=== PATIENT | male | born 1970 | race African-American/Black ===

== ENCOUNTER 2020-08-07 23:53 | Emergency (ER) | payer MEDICAID, SELFPAY ==
[2020-08-08 00:03] VITALS: PULSE 74; RESP 16; TEMP 36.1; O2SAT 98; BMI 20.1
--- NOTE | 2020-08-08 00:05 | ED.LOWEXIN ---
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 apparently fell earlier today complaining of pain in the stump able to wear the prosthesis and ambulatory without significant distress no other injuries patient is homeless asking for the food on arrival Related Data Allergies Allergy/AdvReac Type Severity Reaction Status Date / Time No Known Allergies Allergy Unverified 06/07/20 15:14 [No Known Allergies*] Review of Systems Review of Systems: Yes all other systems are reviewed and are negative [facility] Social History Social History Advance Directives: No Advance Directives Information Provided: No Physical Exam Vital Signs: Vital Signs: Last Vital Signs Temp 97 F 08/08/20 00:03 Pulse 74 08/08/20 00:03 Resp 16 08/08/20 00:03 Pulse Ox 98 08/08/20 00:03 Body Mass Index 20.1 Const: General: cooperative, healthy appearing, comfortable and no acute distress Orientation/consciousness: oriented to person and oriented to place Resp: Effort & Inspection: normal respiratory effort Auscultation: clear to auscultation bilaterally Cardio: Rate: regular rate Rhythm: regular rhythm Heart sounds: S1 normal heart sound present and S2 normal heart sound present GI: Inspection: Yes normal to inspection Palpation (GI): Soft to palpation and nontender Neuro: General: oriented to person and oriented to place Extrem: General: Yes normal to inspection Upper/lower leg/hip images: 1. Mild muscular tenderness no swelling no bony tenderness patient able to move his stump normally Course Course Course Narrative: Patient clinically does not seems to have any significant injury patient asking for food on arrival examination revealed slight muscular tenderness in the right stump patient ambulate in the ER with prosthesis will discharge him Discharge Plan Discharge Clinical Impression: Strain of flexor muscle of right hip Qualifiers: Encounter type: initial encounter Qualified Code(s): S76.011A - Strain of muscle, fascia and tendon of right hip, initial encounter Patient Disposition: Home, Self-Care Instructions: Musculoskeletal Pain (ED) Additional Instructions: Care as advised take Tylenol for pain if needed
--- NOTE | 2020-08-08 00:07 | PC.NURSE ---
MD AT BEDSIDE. PT GIVEN SANDWICH AND DRINK. PT UP AND AMBULATES W/O DIFFICULTY,
== END 2020-08-08 00:29 | disposition home or self-care (01) ==
PROVIDERS: Emergency Provider Internal Medicine
DX: S76.011A Strain of muscle, fascia and tendon of right hip, initial encounter (principal); M25.551 Pain in right hip; X58.XXXA Exposure to other specified factors, initial encounter; Y93.9 Activity, unspecified; Y92.9 Unspecified place or not applicable; Y99.9 Unspecified external cause status
CPT/HCPCS: 99283

== ENCOUNTER 2020-11-19 03:45 | Emergency (ER) | payer MEDICAID, SELFPAY ==
[2020-11-19 03:50] VITALS: BP 132/84; PULSE 83; RESP 16; TEMP 36.8; O2SAT 95; BMI 18.2
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
[2020-11-19] MEDS: Acetaminophen 325 MG TABLET 975 MG PO (05:39)
[2020-11-19] MEDS: Ibuprofen 400 MG TABLET PO (05:40)
[2020-11-19 06:00] VITALS: RESP 16
== END 2020-11-19 07:13 | disposition home or self-care (01) ==
PROVIDERS: Emergency Provider Student in an Organized Health Care Education/Training Program
DX: M79.605 Pain in left leg (principal); M79.604 Pain in right leg; B35.1 Tinea unguium; Z89.511 Acquired absence of right leg below knee
CPT/HCPCS: 99283; 99284

== ENCOUNTER 2020-11-26 00:11 | Emergency (ER) | payer MEDICAID, SELFPAY ==
[2020-11-26 00:16] VITALS: BP 146/72; BP 164/98; PULSE 80; PULSE 89; RESP 16; TEMP 36.6; O2SAT 98; BMI 18.2
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
--- NOTE | 2020-11-26 00:29 | PC.NURSE ---
at bedside for primary eval. Pt extremely unkempt, smelling foul, agreeable to a shower, provided with clean clothes. Pt requesting food/drink, provided with a sandwich/gingerale upon return from shower. Pt to pod in wheelchair to shower.
[2020-11-26] MEDS: Acetaminophen 325 MG TABLET 650 MG PO (00:49)
--- NOTE | 2020-11-26 00:53 | PC.NURSE ---
Pt returns from the shower, medicated per MAR, provided with food/drink. Call alvarez within reach, continue to monitor.
--- NOTE | 2020-11-26 01:00 | PC.NURSE ---
This pct showered pt in the pod , pts clothes are being washed. pt got new clothes and is eating and resting comfortable in room 11. rn aware
[2020-11-26 02:39] VITALS: RESP 16
[2020-11-26 05:03] VITALS: RESP 16
--- NOTE | 2020-11-26 06:01 | PC.NURSE ---
Plan to DC home via hospital van @ 0700.
[2020-11-26 06:02] VITALS: BP 134/72; PULSE 86; RESP 16
--- NOTE | 2020-11-26 06:23 | PC.NURSE ---
This RN calling [facility]. Per Stacie, no independent driver available until 0800. Breakfast ordered for pt, pt aware of plan for discharge @ 0800. Pt resting in bed in NAD at this time.
== END 2020-11-26 07:52 | disposition home or self-care (01) ==
PROVIDERS: Emergency Provider Emergency Medicine
DX: B35.1 Tinea unguium (principal); M79.604 Pain in right leg; Z59.0 Homelessness; F19.10 Other psychoactive substance abuse, uncomplicated; Z89.611 Acquired absence of right leg above knee; F17.200 Nicotine dependence, unspecified, uncomplicated
CPT/HCPCS: 99283; 99284

== ENCOUNTER 2020-12-02 22:38 | Emergency (ER) | payer MEDICAID, SELFPAY ==
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
[2020-12-02 23:21] VITALS: BP 126/72; PULSE 84; RESP 16; TEMP 36.5; O2SAT 97; BMI 22.8
== END 2020-12-03 01:30 | disposition home or self-care (01) ==
PROVIDERS: Emergency Provider Internal Medicine
DX: L84 Corns and callosities (principal); M79.672 Pain in left foot; F14.90 Cocaine use, unspecified, uncomplicated; F17.200 Nicotine dependence, unspecified, uncomplicated; Z71.6 Tobacco abuse counseling
CPT/HCPCS: 99283

== ENCOUNTER 2020-12-03 04:47 | Emergency (ER) | payer MEDICAID, SELFPAY ==
[2020-12-03] VITALS (8 sets, daily range): BP systolic 113–126; BP diastolic 60–72; PULSE 65–91; RESP 16–18; TEMP 36.3–37.1; O2SAT 96–99; BMI 21.2
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
[2020-12-03 05:45] LABS: Basophils Percent Auto 0.4 % (0-2); Eosinophils Percent Auto 0.6 % (0-4); Hematocrit 41.7 % (42-52); Hemoglobin 13.5 g/dl (14.0-18.0); Imm Gran Abs Auto 0.01 X10*3/uL (0.00-0.03); Imm Gran Pct Auto 0.2 % (0.0-0.4); Lymphocytes Absolute Auto 1.6 X10*3/uL (1.2-4.9); Lymphocytes Percent Auto 33.8 % (20-40); Mean Corpuscular HGB Conc 32.4 g/dl (31.0-36.0); Mean Corpuscular Hemoglobin 28.7 pg (27.0-33.0); Mean Corpuscular Volume 88.5 fL (80-98); Mean Platelet Volume 9.9 fL (9.4-12.4); Monocytes Absolute Auto 0.7 X10*3/uL (0.1-1.2); Monocytes Percent Auto 13.4 % (2-11); Neutrophils Absolute Auto 2.5 X10*3/uL (2.0-8.3); Neutrophils Percent Auto 51.6 % (45-73); Platelet Count 217 X10*3/uL (160-400); Red Blood Count 4.71 X10*6/uL (4.60-5.80); Red Cell Distribution Width 14.6 % (11.0-16.0); White Blood Count 4.9 X10*3/uL (4.8-10.8)
[2020-12-03 05:46] LABS: MANUAL DIFF FLAG NO
[2020-12-03 06:23] LABS: Ethanol < 10 mg/dL
[2020-12-03 06:29] LABS: Alanine Aminotransferase 31 U/L (0-40); Albumin Level 3.5 g/dL (3.5-5.0); Alkaline Phosphatase 78 U/L (39-117); Anion Gap 11 (12-20); Aspartate Amino Transferase 32 U/L (5-37); Bilirubin Total 0.6 mg/dL (0.0-1.0); Blood Urea Nitrogen 15 mg/dL (9-16); Calcium 7.9 mg/dL (8.4-10.2); Carbon Dioxide 27 mmol/L (22-29); Chloride 104 mmol/L (96-108); Creatinine Clr Calc Pharmacy 101.4; Estimated Glomerular Filt Rate > 60; Glucose Random 99 mg/dL (60-115); Potassium 3.5 mmol/L (3.3-5.1); Sodium 138 mmol/L (135-145); Total Protein 6.2 g/dL (6.5-8.0)
[2020-12-03 07:34] LABS: Appearance Urine CLEAR; Color Urine YELLOW; Glucose Urine UA NEG (NEG); Leukocyte Esterase Urine NEG (NEG); Nitrite Urine NEG (NEG); Specific Gravity - Urine 1.015 (1.005-1.025); Urine Blood NEG (NEG); Urine Ketones NEG (NEG); Urine Protein NEG (NEG-TRACE)
[2020-12-03 08:01] LABS: Amphetamine Screen Urine Not Detected (Not Detect); Barbiturates, Urine Not Detected (Not Detect); Benzodiazepines Screen Urine Not Detected (Not Detect); Cannabinoid Screen Urine POSITIVE (Not Detect); Cocaine Screen Urine POSITIVE (Not Detect); Opiate Screen Urine Not Detected (Not Detect); Phencyclidine Screen Urine Not Detected (Not Detect)
--- NOTE | 2020-12-03 10:15 | PC.NURSE ---
pt a/o x 3 no sob/lara noted skin pink warm dry speaks in full sentences. protsthetic leg above r knee. denies any pain/disc. pt requested/given saltines and oj earlier. pt ate 100% for breakfast.
[2020-12-03 10:20] LABS: COVID-19 Test Positive (Negative); IDNOW Serial# 9DD0AD1C
--- NOTE | 2020-12-03 10:48 | PC.NURSE ---
pt moved into room 3 d/t positive covid swab
--- NOTE | 2020-12-03 16:19 | PC.NURSE ---
call placed to care team to see if they can see pt. will contact us back.
--- NOTE | 2020-12-03 18:31 | PC.NURSE ---
[facility] here to evandre pt
[2020-12-03] MEDS: Albuterol Sulfate 90 MCG 8 GM INHALER 2 PUFF INHALE (19:50)
--- NOTE | 2020-12-03 19:52 | PC.NURSE ---
PT ATE FULL DINNER, AWAKE AND ALERT. PT IN NO DISTRESS. PLAN IS TO SEND PATIENT BACK TO CARE HOME LOCATED AT [facility] BY CHAIR VAN. PT IS COVID POSITIVE AND CAN'T GO BY CAB. PT HAS RIGHT AKA.
== END 2020-12-03 20:50 | disposition home or self-care (01) ==
PROVIDERS: Physician Assistant; Emergency Provider Student in an Organized Health Care Education/Training Program
DX: F32.9 Major depressive disorder, single episode, unspecified (principal); U07.1 COVID-19; R45.851 Suicidal ideations; F14.20 Cocaine dependence, uncomplicated; Z89.611 Acquired absence of right leg above knee; F17.200 Nicotine dependence, unspecified, uncomplicated
CPT/HCPCS: 36415; 80053; 80307; 80320; 81003; 85025; 87635; 99285

== ENCOUNTER 2020-12-17 04:34 | Emergency (ER) | payer MEDICAID, SELFPAY ==
[2020-12-17 04:42] VITALS: BP 137/80; BP 138/80; PULSE 70; PULSE 72; RESP 16; TEMP 36.8; O2SAT 96; O2SAT 98; BMI 18.2
--- NOTE | 2020-12-17 04:56 | PC.NURSE ---
PT REPORTS THAT HE LIVES AT THE [facility] IN [place]. PT IMMEDIATELY ASKED FOR SOMETHING TO EAT AND DRINK. PT REMOVED PROSTHETIC LEG, STUMP LOOKS WET. PT'S LEFT FOOT WET WITH FLAKING SKIN WHEN WET SOCK REMOVED. PT GIVEN CLEANSING WIPES TO CLEAN HIMSELF UP. PT ALSO GIVEN CLEAN SOCKS, UNDERWEAR AND SWEATPANTS.
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
[2020-12-17 06:12] LABS: Basophils Percent Auto 0.4 % (0-2); Eosinophils Absolute Auto 0.1 X10*3/uL (0.0-0.4); Eosinophils Percent Auto 1.1 % (0-4); Hematocrit 46.4 % (42-52); Hemoglobin 14.6 g/dl (14.0-18.0); Imm Gran Abs Auto 0.02 X10*3/uL (0.00-0.03); Imm Gran Pct Auto 0.3 % (0.0-0.4); Lymphocytes Absolute Auto 1.6 X10*3/uL (1.2-4.9); Lymphocytes Percent Auto 21.1 % (20-40); MANUAL DIFF FLAG NO; Mean Corpuscular HGB Conc 31.5 g/dl (31.0-36.0); Mean Corpuscular Hemoglobin 27.9 pg (27.0-33.0); Mean Corpuscular Volume 88.5 fL (80-98); Mean Platelet Volume 10.2 fL (9.4-12.4); Monocytes Absolute Auto 0.6 X10*3/uL (0.1-1.2); Monocytes Percent Auto 8.3 % (2-11); Neutrophils Absolute Auto 5.1 X10*3/uL (2.0-8.3); Neutrophils Percent Auto 68.8 % (45-73); Platelet Count 300 X10*3/uL (160-400); Red Blood Count 5.24 X10*6/uL (4.60-5.80); Red Cell Distribution Width 14.4 % (11.0-16.0); White Blood Count 7.4 X10*3/uL (4.8-10.8)
[2020-12-17 06:34] LABS: Alanine Aminotransferase 34 U/L (0-40); Albumin Level 3.9 g/dL (3.5-5.0); Alkaline Phosphatase 86 U/L (39-117); Anion Gap 13 (12-20); Aspartate Amino Transferase 32 U/L (5-37); Bilirubin Total 0.3 mg/dL (0.0-1.0); Blood Urea Nitrogen 16 mg/dL (9-16); Calcium 8.8 mg/dL (8.4-10.2); Carbon Dioxide 29 mmol/L (22-29); Chloride 107 mmol/L (96-108); Creatinine Clr Calc Pharmacy 91.5; Estimated Glomerular Filt Rate > 60; Glucose Random 100 mg/dL (60-115); Potassium 3.4 mmol/L (3.3-5.1); Sodium 146 mmol/L (135-145)
--- NOTE | 2020-12-17 06:51 | PC.NURSE ---
PT GIVEN SANDWICHES AND A FEW SODA'S.
[2020-12-17 07:32] VITALS: BP 114/67; PULSE 97; RESP 16; O2SAT 99
== END 2020-12-17 08:04 | disposition home or self-care (01) ==
PROVIDERS: Emergency Provider Student in an Organized Health Care Education/Training Program
DX: T84.84XA Pain due to internal orthopedic prosthetic devices, implants and grafts, initial encounter (principal); L89.899 Pressure ulcer of other site, unspecified stage; Z89.611 Acquired absence of right leg above knee; B35.1 Tinea unguium; F14.90 Cocaine use, unspecified, uncomplicated
CPT/HCPCS: 36415; 80053; 85025; 99284

== ENCOUNTER 2021-12-20 17:44 | Emergency (ER) | payer MEDICAID, SELFPAY ==
[2021-12-20 18:47] VITALS: BP 143/92; PULSE 81; RESP 18; TEMP 36.6; O2SAT 143; BMI 22.5
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
== END 2021-12-20 19:32 | disposition home or self-care (01) ==
PROVIDERS: Emergency Provider Emergency Medicine Emergency Medical Services
DX: H10.9 Unspecified conjunctivitis (principal); H02.843 Edema of right eye, unspecified eyelid
CPT/HCPCS: 99283

== ENCOUNTER 2023-05-07 10:56 | Outpatient (REF) | payer MEDICAID, SELFPAY ==
[2023-05-07 15:02] LABS: Alanine Aminotransferase 130 U/L (0-40); Albumin Level 3.6 g/dL (3.5-5.0); Alkaline Phosphatase 75 U/L (39-117); Aspartate Amino Transferase 89 U/L (5-37); Bilirubin Direct 0.5 mg/dL (0.0-0.5); Bilirubin Total 0.8 mg/dL (0.0-1.0); Total Protein 7.9 g/dL (6.5-8.0)
[2023-05-08 04:38] LABS: HBS Num1 > 1000.00 mIU/mL (0-7.99); HBc Num1 0.14 S/CO (0.00-0.79); HBsAGNum1 0.41 S/CO (0.00-0.99); Hepatitis A Antibody IgM 0.18 Index (0-0.79); Hepatitis B Core Antibody Nonreactive (Nonreactive); Hepatitis B Surface Antigen Negative (Negative); ~HepC Num1 15.08 S/CO (0.00-0.79); ~Hepatitis A Antibody IgM Nonreactive (Nonreactive); ~Hepatitis B Surface Antibody REACTIVE (Nonreactive); ~Hepatitis C Antibody Reactive (Nonreactive)
[2023-05-13 16:48] LABS: HIV RNA PCR Qn Copies Not Detected Copies/mL; HIV RNA PCR Qn Log Copies Not Detected Log cps/mL
== END 2023-05-07 10:57 | disposition home or self-care (01) ==
LOC: HO.CHCLDS 10:56
PROVIDERS: Visit Provider Internal Medicine
DX: Z11.4 Encounter for screening for human immunodeficiency virus [HIV] (principal); R79.89 Other specified abnormal findings of blood chemistry
CPT/HCPCS: 36415; 80076; 86704; 86706; 86709; 86803; 87340; 87536; 87900

== ENCOUNTER 2023-06-23 22:27 | Emergency (ER) | payer MEDICAID, SELFPAY ==
[2023-06-23 22:45] VITALS: BP 141/72; PULSE 90; RESP 20; TEMP 36.1; O2SAT 100; BMI 25.8
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
[2023-06-24 01:50] VITALS: BP 159/87; PULSE 100; RESP 16; O2SAT 94
== END 2023-06-24 02:22 | disposition home or self-care (01) ==
PROVIDERS: Emergency Provider Emergency Medicine
DX: F11.10 Opioid abuse, uncomplicated (principal); Z59.00 Homelessness unspecified; Z71.51 Drug abuse counseling and surveillance of drug abuser
CPT/HCPCS: 99282; 99284

== ENCOUNTER 2023-06-27 10:10 | Inpatient (IN) | payer MEDICAID, SELFPAY ==
[2023-06-27 10:25] VITALS: BP 110/78; BP 138/78; PULSE 102; PULSE 98; RESP 18; TEMP 36.8; O2SAT 96; O2SAT 99; BMI 18.1
[2023-06-27 10:57] VITALS: PULSE 98
--- NOTE | 2023-06-27 10:59 | PC.NURSE ---
Addendum entered by Justina Duran RN 06/27/23 11:12: Security changed over patient and brought belongings to [facility] Original Note: Pt is A/Ox4, reporting a fall this morning, abrasion noted on nasal bridge bleeding controlled. Pt has a BKA on the right side. Right elbow noted to be swollen, red, warm to touch. Pt desires detox from Crack/ Reporting he is a daily crack cocaine uses pt reporting he used heroin last night at 3am. Denies ETOH use since using crack. He is currently homeless/ couch surfing.
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
[2023-06-27 15:28] VITALS: BP 126/81; PULSE 97; RESP 15; TEMP 38.2; O2SAT 100
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
--- NOTE | 2023-06-27 17:22 | PHA.MEDREC ---
Addendum entered by David Tan 06/28/23 09:19: Called again today in regards to [facility] ([phone]), however the medication team for [facility] and [facility] program are not in the office during the weekend. Will have to follow up on Thursday if patient is still here. Original Note: Pharmacy Consult ? Medication Reconciliation Pharmacy has completed the medication reconciliation. Patient mentioned that he takes 3 psych medications and gets them filled at [facility] in [facility] in [place]. However, the patient does not know what exactly they take and only remembers that they take Abilify (unknown dose). I called them and left a message, but they are not in the office for the rest of day. Will follow up tomorrow AM.
[2023-06-27 18:44] VITALS: TEMP 37.4
--- NOTE | 2023-06-27 18:46 | PC.NURSE ---
Attempted to give nursing report to admitting floor, was told night nurse was not currently on the floor to take report, and to call back in 10 minutes
[2023-06-27 19:40] VITALS: BMI 18.0
[2023-06-27 19:47] VITALS: BP 121/62; PULSE 89; RESP 18; TEMP 37.4; O2SAT 98
[2023-06-28 04:00] VITALS: BP 116/57; PULSE 102; RESP 20; TEMP 36.8; O2SAT 95
--- NOTE | 2023-06-28 05:19 | PC.NURSE ---
Pt admitted to the tele unit at the start of the shift. C/o 6/10 right elbow pain. given PRN oxycodone with moderate effect. pt has scored 0-1 in CIWA. slept most of the night. bed alarm activated for safety.
[2023-06-28 07:22] LABS: Hematocrit 39.3 % (42.0-52.0); Mean Corpuscular HGB Conc 33.1 g/dl (31.0-36.0); Mean Corpuscular Hemoglobin 28.8 pg (27.0-33.0); Mean Corpuscular Volume 86.9 fL (80.0-98.0); PLT CLUMP 1; Red Blood Count 4.52 X10*6/uL (4.60-5.80); Red Cell Distribution Width 15.5 % (11.0-16.0)
[2023-06-28 07:23] LABS: White Blood Count 8.7 X10*3/uL (4.8-10.8)
[2023-06-28 07:49] VITALS: BP 131/76; PULSE 109; RESP 20; TEMP 37; O2SAT 92
[2023-06-28 08:00] VITALS: PULSE 92
[2023-06-28 08:07] LABS: Mean Platelet Volume 12.3 fL (9.4-12.4); Platelet Count 160 X10*3/uL (160-400)
--- NOTE | 2023-06-28 10:58 | MHC.CM.PN ---
Interview conducted w/Pt at bedside. Pt lives in [facility]: [address] in [place], located on [address] This arrangement is a weekly payment conducted by [facility] through [facility] per Pt. He has his primary care needs met through [facility], but does not remember the name of the physician. Transportation needs are met through [facility] via [facility]. Pt's only previously owned equipment is a lower extremity prosthesis (prosthesis is here at [facility] [place] him[place] Pt will require transport to be set up for him by [facility] at time of D/C. Pt states he absolutely must be present at [place] [employer] no later than 07/02/23 to register in person, as required by him every 30 days, so as to avoid returning to assisted. Pt indicates hospitalization is not considered a viable reason not to appear (when CM inquired RE this discussion/topic). CM report to MD. WILL to follow.
--- NOTE | 2023-06-28 11:35 | HO.PM.IMPN ---
Subjective Subjective Date of Service: 06/28/23 Interval History: seen and examined this morning had episode of vomiting this morning denies abdominal pain no fever or chills still with painful right elbow Review of Systems Review of Systems: Yes all other systems are reviewed and are negative Constitutional Constitutional: Denies chills and Denies fever(s) Cardiovascular Cardiovascular: Denies chest pain, Denies palpitations and Denies dyspnea Respiratory Respiratory: Denies cough and Denies dyspnea Gastrointestinal Gastrointestinal: Denies abdominal pain, Denies diarrhea, Denies nausea and Reports vomiting Endocrine Endocrine: Denies palpitations Physical Exam Vital Signs: Vital Signs: Last Vital Signs Temp 98.6 F 06/28/23 07:49 Pulse 109 H 06/28/23 07:49 Resp 20 06/28/23 07:49 BP 131/76 06/28/23 07:49 Pulse Ox 92 06/28/23 07:49 O2 Del Method Room Air 06/28/23 07:49 BMI result Body Mass Index 18.0 Const: General: cooperative, comfortable, alert and awake Nutritional Appearance: thin Orientation/consciousness: patient oriented x3 HEENT: Other: abrasion forehead and bridge of nose Resp: Effort & Inspection: normal respiratory effort, able to speak in complete sentences, no respiratory distress and no use of accessory muscles Cardio: Rate: regular rate GI: Inspection: No distended Palpation (GI): Soft to palpation and nontender Skin: Other: right elbow slight decrease is swelling, still with limited ROM at elbow joint. no open wounds or drainage Neuro: General: patient oriented x3 and CN's II-XI intact bilaterally Extrem: Other: s/p R AKA Objective Data Active Medications Docusate Sodium (Docusate Sodium 100 Mg Capsule) 100 mg PO DAILY PRN PRN Reason: Constipation Enoxaparin Sodium (Enoxaparin Sodium 40 Mg/0.4 Ml Syringe) 40 mg SUBCUT Q24H [facility] Last Admin: 06/27/23 19:13 Dose: Not Given Documented By: JULIO C Non-Admin Reason: Patient Refused Piperacillin Sod/Tazobactam (Sod 3.375 gm/ Sodium Chloride) 50 mls @ 100 mls/hr IV Q6H [facility] Last Infusion: 06/28/23 10:30 Dose: Infused Documented By: JUNIOR Vancomycin HCl 750 mg/ Sodium (Chloride) 265 mls @ 265 mls/hr IV Q12H [facility] Last Infusion: 06/28/23 06:49 Dose: Infused Documented By: NIK Ondansetron HCl (Ondansetron Hcl 4 Mg/2 Ml Vial) 4 mg IVPUSH Q8H PRN PRN Reason: Nausea and Vomiting Last Admin: 06/28/23 06:49 Dose: 4 mg Documented By: NIK Oxycodone HCl (Oxycodone Hcl Immed Release 5 Mg Tablet) 5 mg PO Q6H PRN PRN Reason: Pain, Moderate(Pain Scale 4-6) Last Admin: 06/28/23 10:00 Dose: 5 mg Documented By: JUNIOR Pharmacy Consult (Consult Rx Vancomycin Dosing) 1 each MISCELLANE DAILY PRN PRN Reason: Consult order Sodium Chloride (0.9 % Sodium Chloride Flush 3 Ml Syringe) 3 ml IVFLUSH QSHIFT [facility] Last Admin: 06/28/23 10:01 Dose: 3 ml Documented By: JUNIOR Labs 06/28/23 06:06 06/28/23 06:06 Labs: Laboratory Results - last 24 hr 06/27/23 06/27/23 06/28/23 13:30 16:05 06:06 MCV 85.9 86.9 MCH 29.1 28.8 MCHC 33.9 33.1 RDW 15.7 15.5 Plt Count 224 160 D MPV 10.1 12.3 Immature Gran % (Auto) 0.1 Neut % (Auto) 71.4 Lymph % (Auto) 17.6 L [place] % (Auto) 10.8 Eos % (Auto) 0.0 Baso % (Auto) 0.1 Lymph # (Auto) 1.8 [place] # (Auto) 1.1 Eos # (Auto) 0.0 Baso # (Auto) 0.0 Abs Immat Gran (auto) 0.01 Absolute Neuts (auto) 7.4 Absolute Nucleated RBC 0.000 0.000 Nucleated RBC % (auto) 0.0 0.0 ESR 13 Estim Creat Clear Calc 92.3 Estimated GFR > 60 C-Reactive Protein 8.23 H Hold Green Top See Note Assessment and Plan (1) Cellulitis: Status: Acute Plan this is a 53 year old male with history of polysubstance use who was sent to the ED from the [facility] for evaluation of facial laceration after sustaining injury in accidental drug overdose found to have right elbow swelling/joint effusion Right elbow pain/joint effusion possibly due to trauma given possible avulsion fracure/triceps tendon tear on xray vs infectious process vs gout CT with no fracture or bony lesion, bursal prominence suggesting bursitis no white count, low grade fever, does not meet criteria for sepsis ortho consult pending will cover with broad spectrum abx for now given low grade fever, h/o drug use sling for comfort pain control follow blood culture results polysubstance use reports use of crack, heroin/fentanyl, marijuana; denies IV drug use addiction medicine consult pending bipolar disorder says he takes meds but med rec pending at this time - pharmacy has been unable to obtain list thus far, pt unsure medication names h/o HCV outpatient follow up dvt ppx - lovenox code status - full code attending - dr. santana Requires ongoing inpatient stay for management of right elbow joint effusion Time Spent With Patient Time: Total time managing care of this patient today ____ minutes. Quality Stroke Does the patient have a stroke diagnosis?: No VTE Prior VTE?: No VTE Risk Level:: Medical - moderate - high VTE Device Contraindication: N/A - Device Ordered VTE Drug Contraindication: N/A - Med Ordered
--- NOTE | 2023-06-28 14:42 | PM.PNORT ---
Subjective Subjective Date of Service: 06/28/23 Principal diagnosis: Right elbow cellulitis Physical Exam Vital Signs: Vital Signs: Last Vital Signs Temp 98.6 F 06/28/23 07:49 Pulse 109 H 06/28/23 07:49 Resp 20 06/28/23 07:49 BP 131/76 06/28/23 07:49 Pulse Ox 92 06/28/23 07:49 O2 Del Method Room Air 06/28/23 07:49 BMI result Body Mass Index 18.0 Extrem: Other: RIght elbow cellulitis wihtout abcess. No pain with passive motion elbow joint Procedures Date of Service Date of Service: 06/28/23 Progress Note: A&P Assessment and plan (1) Cellulitis: Status: Acute Assessment and Plan: No evidence of septic arthritis Cont abx and will continue to follow No surgical intervention warranted at this time Time Spent With Patient Time: Total time managing care of this patient today ____ minutes. Quality Stroke Does the patient have a stroke diagnosis?: No VTE Prior VTE?: No VTE Risk Level:: Medical - moderate - high VTE Device Contraindication: N/A - Device Ordered VTE Drug Contraindication: N/A - Med Ordered
[2023-06-28 15:38] VITALS: BP 113/61; PULSE 94; RESP 12; TEMP 37.8; O2SAT 95
[2023-06-28 16:00] VITALS: PULSE 80
[2023-06-28 16:06] LABS: Vancomycin Random 6.5 mcg/mL (15-20)
--- NOTE | 2023-06-28 17:34 | MHC.RECOVRN ---
This credit underwriter met with patient, patient admitted for septic joint. Pt reports no questions/concerns at this time related to Addiction/Recovery supports. Pt denies withdrawal. Pt reports substance of choice is crack, plans at d/c to follow up with recovery meetings. Pt states found NA meetings helpful in the past. Pt encouraged to call Addiction/Recovery team for questions/concerns. Pt encouraged to walk in to [facility] [address] Thursday-Thursday 8:30-4pm if interested in MAT. Pt verbalized understanding.
[2023-06-28 19:37] VITALS: BP 132/79; PULSE 79; RESP 16; TEMP 36.8; O2SAT 96
[2023-06-29] VITALS: PULSE 79
[2023-06-29 04:00] VITALS: BP 142/81; PULSE 86; RESP 18; TEMP 37.1; O2SAT 96
[2023-06-29 07:59] VITALS: BP 131/79; PULSE 83; RESP 20; TEMP 36.7; O2SAT 94
[2023-06-29 08:00] VITALS: PULSE 83
--- NOTE | 2023-06-29 09:21 | PM.PNORT ---
Subjective Subjective Date of Service: 06/29/23 Principal diagnosis: Right elbow cellulitis Interval history: Feels improved from prior Physical Exam Vital Signs: Vital Signs: Last Vital Signs Temp 98.1 F 06/29/23 07:59 Pulse 83 06/29/23 07:59 Resp 20 06/29/23 07:59 BP 131/79 06/29/23 07:59 Pulse Ox 94 06/29/23 07:59 O2 Del Method Room Air 06/29/23 07:59 BMI result Body Mass Index 18.0 Extrem: Other: 5-95 deg motion No pain with pro/sub mild ttp over lateral epicondyl/olecranon bursa no appreciable fluid/abcess improved from yesterday (less tender) Procedures Date of Service Date of Service: 06/29/23 Progress Note: A&P Assessment and plan (1) Cellulitis: Status: Acute Assessment and Plan: No orthopasedic intervention warranted Cont medical management Time Spent With Patient Time: Total time managing care of this patient today ____ minutes. Quality Stroke Does the patient have a stroke diagnosis?: No VTE Prior VTE?: No VTE Risk Level:: Medical - moderate - high VTE Device Contraindication: N/A - Device Ordered VTE Drug Contraindication: N/A - Med Ordered
--- NOTE | 2023-06-29 11:29 | HO.PM.IMPN ---
Subjective Subjective Date of Service: 06/29/23 Interval History: seen and examined this morning denies abdominal pain no fever or chills still with painful right elbow but better Review of Systems Review of Systems: Yes all other systems are reviewed and are negative Constitutional Constitutional: Denies chills and Denies fever(s) Cardiovascular Cardiovascular: Denies chest pain, Denies palpitations and Denies dyspnea Respiratory Respiratory: Denies cough and Denies dyspnea Gastrointestinal Gastrointestinal: Denies abdominal pain, Denies diarrhea, Denies nausea and Reports vomiting Endocrine Endocrine: Denies palpitations Physical Exam Vital Signs: Vital Signs: Last Vital Signs Temp 98.1 F 06/29/23 07:59 Pulse 83 06/29/23 07:59 Resp 20 06/29/23 07:59 BP 131/79 06/29/23 07:59 Pulse Ox 94 06/29/23 07:59 O2 Del Method Room Air 06/29/23 07:59 BMI result Body Mass Index 18.0 Appearing in no acute distress lung sounds are clear to auscultation heart regular rate rhythm, clear S1, S2 positive bowel sounds, abdomen is soft, nontender neuro patient is alert x3, no focal deficits erythema to right elbow Objective Data Active Medications Acetaminophen (Acetaminophen 325 Mg Tablet) 650 mg PO Q6H PRN PRN Reason: fever, mild pain Last Admin: 06/28/23 15:52 Dose: 650 mg Documented By: JUNIOR Docusate Sodium (Docusate Sodium 100 Mg Capsule) 100 mg PO DAILY PRN PRN Reason: Constipation Enoxaparin Sodium (Enoxaparin Sodium 40 Mg/0.4 Ml Syringe) 40 mg SUBCUT Q24H [facility] Last Admin: 06/28/23 17:32 Dose: 40 mg Documented By: JUNIOR Piperacillin Sod/Tazobactam (Sod 3.375 gm/ Sodium Chloride) 50 mls @ 100 mls/hr IV Q6H [facility] Last Infusion: 06/29/23 10:01 Dose: Infused Documented By: MARY Vancomycin HCl 1,250 mg/ (Sodium Chloride) 250 mls @ 166.667 mls/hr IV Q12H [facility] Last Infusion: 06/29/23 07:54 Dose: Infused Documented By: MARY Ondansetron HCl (Ondansetron Hcl 4 Mg/2 Ml Vial) 4 mg IVPUSH Q8H PRN PRN Reason: Nausea and Vomiting Last Admin: 06/28/23 06:49 Dose: 4 mg Documented By: NIK Oxycodone HCl (Oxycodone Hcl Immed Release 5 Mg Tablet) 5 mg PO Q6H PRN PRN Reason: Pain, Moderate(Pain Scale 4-6) Last Admin: 06/29/23 09:11 Dose: 5 mg Documented By: MARY Pharmacy Consult (Consult Rx Vancomycin Dosing) 1 each MISCELLANE DAILY PRN PRN Reason: Consult order Sodium Chloride (0.9 % Sodium Chloride Flush 3 Ml Syringe) 3 ml IVFLUSH QSHIFT [facility] Last Admin: 06/29/23 09:03 Dose: 3 ml Documented By: MARY Labs 06/28/23 06:06 06/29/23 07:53 Labs: Laboratory Results - last 24 hr 06/28/23 06/29/23 15:39 07:53 Hold Purple Top SEE NOTE Estim Creat Clear Calc 100.5 Estimated GFR > 60 Random Vancomycin 6.5 L Microbiology Microbiology Results: Microbiology 06/27/23 17:35 Blood Culture - Preliminary Blood - Venous No growth after 24 hours. 06/27/23 16:05 Blood Culture - Preliminary Blood - Venous No growth after 24 hours. Assessment and Plan (1) Cellulitis: Status: Acute Plan this is a 53 year old male with history of polysubstance use who was sent to the ED from the [facility] for evaluation of facial laceration after sustaining injury in accidental drug overdose found to have right elbow swelling/joint effusion Right elbow pain/joint effusion possibly due to trauma given possible avulsion fracture/triceps tendon tear on xray vs infectious process vs gout CT with no fracture or bony lesion, bursal prominence suggesting bursitis no white count, low grade fever, does not meet criteria for sepsis ortho consult>no evidence of septic arthritis, continue abx, no surgical intervention at this time continue abx sling for comfort pain control blood cx neg polysubstance use reports use of crack, heroin/fentanyl, marijuana; denies IV drug use addiction medicine consult pending bipolar disorder says he takes meds but med rec pending at this time - pharmacy has been unable to obtain list thus far, pt unsure medication names h/o HCV outpatient follow up dvt ppx - lovenox code status - full code attending - dr. Davies Requires ongoing inpatient stay for management of right elbow joint effusion Time Spent With Patient Time: Total time managing care of this patient today ____ minutes. Quality Stroke Does the patient have a stroke diagnosis?: No VTE Prior VTE?: No VTE Risk Level:: Medical - moderate - high VTE Device Contraindication: N/A - Device Ordered VTE Drug Contraindication: N/A - Med Ordered
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
--- NOTE | 2023-06-29 12:45 | MHC.CM.PN ---
Patient has been medically cleared for dc to home today, self care.
== END 2023-06-29 12:46 | disposition home or self-care (01) | DRG 383 ==
LOC: HO.ED 15:37 → HO.EDOVER 16:49 → HO.IMC 18:16
PROVIDERS: Admitting Provider Physician Assistant Medical; Emergency Provider Emergency Medicine Emergency Medical Services; Visit Provider Nurse Practitioner Acute Care
DX: L03.113 Cellulitis of right upper limb (principal); Z89.611 Acquired absence of right leg above knee; F17.210 Nicotine dependence, cigarettes, uncomplicated; M70.31 Other bursitis of elbow, right elbow; F19.90 Other psychoactive substance use, unspecified, uncomplicated; Z71.6 Tobacco abuse counseling; F31.9 Bipolar disorder, unspecified; Z86.19 Personal history of other infectious and parasitic diseases
CPT/HCPCS: 36415; 70450; 70486; 72125; 73080; 73200; 80048; 80202; 80307; 82565; 85025; 85027; 85652; 86140; 87040; 93005; 99222; 99285; J1650; J2405; J2543; J3370; J3371

== ENCOUNTER → 2023-06-27 16:31 | Outpatient (BNV) | payer MEDICAID, SELFPAY | PROVIDERS: Admitting Provider Physician Assistant Medical; Emergency Provider Emergency Medicine Emergency Medical Services; Visit Provider Physician Assistant Medical | DX: L03.113 Cellulitis of right upper limb (principal) | CPT/HCPCS: 99223; 99232; 99239 ==

== ENCOUNTER → 2023-06-27 16:31 | Outpatient (BNV) | payer MEDICAID, SELFPAY | PROVIDERS: Admitting Provider Physician Assistant Medical; Emergency Provider Emergency Medicine Emergency Medical Services; Visit Provider Orthopaedic Surgery | DX: L03.90 Cellulitis, unspecified (principal) | CPT/HCPCS: 99232 ==

== ENCOUNTER 2023-12-21 11:02 | Outpatient (REF) | payer MEDICAID, SELFPAY ==
[2023-12-21 14:58] LABS: Alanine Aminotransferase 124 U/L (0-40); Albumin Level 3.6 g/dL (3.5-5.0); Alkaline Phosphatase 88 U/L (39-117); Anion Gap 10 (12-20); Aspartate Amino Transferase 134 U/L (5-37); Bilirubin Total 0.8 mg/dL (0.0-1.0); Blood Urea Nitrogen 11 mg/dL (9-16); Calcium 8.8 mg/dL (8.4-10.2); Carbon Dioxide 25 mmol/L (22-29); Chloride 109 mmol/L (96-108); Estimated Glomerular Filt Rate > 60; Glucose Random 142 mg/dL (60-115); Potassium 3.9 mmol/L (3.3-5.1); Sodium 140 mmol/L (135-145); Total Protein 8.1 g/dL (6.5-8.0)
[2023-12-22 08:30] LABS: ~Hepatitis C Antibody Reactive (Nonreactive)
[2023-12-24 16:32] LABS: HCV Log PCR 6.58 Log IU/mL (NOT DETECTED)
== END 2023-12-21 11:03 | disposition home or self-care (01) ==
LOC: HO.CHCLDS 11:02
PROVIDERS: Visit Provider Internal Medicine
DX: R79.89 Other specified abnormal findings of blood chemistry (principal)
CPT/HCPCS: 36415; 80053; 86803; 87522

== ENCOUNTER 2024-01-15 03:29 | Emergency (ER) | payer MEDICAID, SELFPAY ==
[2024-01-15 04:11] VITALS: BP 146/79; PULSE 92; RESP 17; TEMP 36.7; O2SAT 97; BMI 19.8
[2024-01-15 06:19] VITALS: BP 138/67; PULSE 88; RESP 16; TEMP 36.9; O2SAT 96
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
[2024-01-15 07:36] VITALS: BP 138/67; PULSE 88; RESP 16; TEMP 36.9; O2SAT 96
== END 2024-01-15 07:10 | disposition home or self-care (01) ==
PROVIDERS: Emergency Provider Student in an Organized Health Care Education/Training Program
DX: S46.812A Strain of other muscles, fascia and tendons at shoulder and upper arm level, left arm, initial encounter (principal); S46.811A Strain of other muscles, fascia and tendons at shoulder and upper arm level, right arm, initial encounter; X50.1XXA Overexertion from prolonged static or awkward postures, initial encounter; Y93.89 Activity, other specified; Y92.9 Unspecified place or not applicable; Y99.9 Unspecified external cause status
CPT/HCPCS: 99282; 99284

== ENCOUNTER 2024-01-16 06:07 | Emergency (ER) | payer OTHER, SELFPAY ==
[2024-01-16 06:19] VITALS: BP 133/79; PULSE 73; RESP 16; TEMP 36.9; O2SAT 99; BMI 18.2
[2024-01-16 06:52] LABS: Appearance Urine Clear; Color Urine Yellow; Glucose Urine UA Negative (Negative); Leukocyte Esterase Urine Negative (Negative); Nitrite Urine Negative (Negative); PH 7.5 (5.0-9.0); Specific Gravity - Urine 1.015 (1.005-1.025); Urine Blood Negative (Negative); Urine Ketones Negative (Negative); Urine Protein Negative (Neg-Trace)
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
[2024-01-16 07:01] LABS: Amphetamine Screen Urine Not Detected (Not Detect); Barbiturates, Urine Not Detected (Not Detect); Benzodiazepines Screen Urine Not Detected (Not Detect); Buprenorphine Scr Not Detected (Not Detect); Cannabinoid Screen Urine POSITIVE (Not Detect); Cocaine Screen Urine POSITIVE (Not Detect); Fentanyl, urine Not Detected (Not Detect); Methadone Screen, Urine Not Detected (Not Detect); Opiate Screen Urine Not Detected (Not Detect); Oxycodone Screen Urine Not Detected (Not Detect); Phencyclidine Screen Urine Not Detected (Not Detect)
[2024-01-16 08:02] LABS: MANUAL DIFF FLAG NO
[2024-01-16 08:03] LABS: Basophils Percent Auto 0.4 % (0-2); Eosinophils Percent Auto 0.6 % (0-4); Hematocrit 45.4 % (42.0-52.0); Hemoglobin 15.5 g/dl (14.0-18.0); Imm Gran Abs Auto 0.01 X10*3/uL (0.00-0.03); Imm Gran Pct Auto 0.2 % (0.0-0.4); Lymphocytes Absolute Auto 1.6 X10*3/uL (1.2-4.9); Lymphocytes Percent Auto 32.9 % (20-40); Mean Corpuscular HGB Conc 34.1 g/dl (31.0-36.0); Mean Corpuscular Hemoglobin 30.3 pg (27.0-33.0); Mean Corpuscular Volume 88.7 fL (80.0-98.0); Mean Platelet Volume 11.1 fL (9.4-12.4); Monocytes Absolute Auto 0.7 X10*3/uL (0.1-1.2); Monocytes Percent Auto 13.5 % (2-11); Neutrophils Absolute Auto 2.6 x10*3/uL (2.0-8.3); Neutrophils Percent Auto 52.4 % (45-73); Platelet Count 213 X10*3/uL (160-400); Red Blood Count 5.12 X10*6/uL (4.60-5.80); Red Cell Distribution Width 14.5 % (11.0-16.0)
[2024-01-16 08:10] VITALS: BP 149/90; PULSE 86; RESP 16; TEMP 37.2; O2SAT 99
[2024-01-16 08:16] LABS: Ethanol < 10 mg/dL
[2024-01-16 08:18] LABS: Alanine Aminotransferase 156 U/L (0-40); Albumin Level 3.8 g/dL (3.5-5.0); Alkaline Phosphatase 87 U/L (39-117); Anion Gap 12 (12-20); Aspartate Amino Transferase 145 U/L (5-37); Bilirubin Total 0.8 mg/dL (0.0-1.0); Blood Urea Nitrogen 16 mg/dL (9-16); Calcium 8.8 mg/dL (8.4-10.2); Carbon Dioxide 30 mmol/L (22-29); Chloride 104 mmol/L (96-108); Creatinine Clr Calc Pharmacy 78.2; Estimated Glomerular Filt Rate > 60; Glucose Random 75 mg/dL (60-115); Potassium 4.1 mmol/L (3.3-5.1); Sodium 142 mmol/L (135-145); Total Protein 8.1 g/dL (6.5-8.0)
--- NOTE | 2024-01-16 11:29 | MHC.CARE ---
RAD Team conducted [place] bed search. [facility] accepted and offered a bed for Thursday01/18/24
[2024-01-16 15:36] VITALS: BP 133/91; PULSE 94; RESP 18; TEMP 37.1; O2SAT 100
--- NOTE | 2024-01-16 18:03 | PC.NURSE ---
ASSUMED CARE OF PT AT 1500H, PT HAS BEEN IN NAD, CONVERSATIONAL, MAKING GOOD EYE CONTACT. AMBULATING WITH WALKER WITH NO ISSUE. DENIES SI, NO THOUGHTS OF SELF HARM. HE IS AWARE THAT HE IS HERE ON A VOLUNTARY DUAL DX BED SEARCH & MAY BE RE EVALUATED BY CARE TEAM IN THE AM SHOULD THERE BE NO ACCEPTING FACILITY TODAY.
[2024-01-17 04:00] VITALS: BP 138/82; PULSE 76; RESP 16; TEMP 37.1; O2SAT 100
--- NOTE | 2024-01-17 06:16 | PC.NURSE ---
Patient slept intermittently, no distress observed/reported, VSS, med rec completed/currently not on any home medication, disposition per care team is voluntary dual diagnosis bed search, patient is accepted to [facility] on Thursday01/18/24, patient DION ambulates with walker, no behavior issues, behavior non concerning, expresses needs well, will continue to monitor.
--- NOTE | 2024-01-17 07:00 | PC.NURSE ---
Assumed care of patient at 0645. Patient is observed resting quietly in there room. Not in distress at this time. No behavioral issues to report at this time. Will continue plan of care.
[2024-01-17 12:27] VITALS: BP 138/82; PULSE 76; RESP 16; TEMP 37.1; O2SAT 100
== END 2024-01-17 12:39 | disposition home or self-care (01) ==
PROVIDERS: Emergency Medicine; Emergency Provider Student in an Organized Health Care Education/Training Program
DX: F31.9 Bipolar disorder, unspecified (principal); R45.851 Suicidal ideations; F19.10 Other psychoactive substance abuse, uncomplicated; Z79.899 Other long term (current) drug therapy; Z59.02 Unsheltered homelessness; Z89.611 Acquired absence of right leg above knee
CPT/HCPCS: 36415; 80053; 80307; 81003; 85025; 99285; S9485

== ENCOUNTER 2024-01-19 01:50 | Emergency (ER) | payer MEDICAID, SELFPAY ==
[2024-01-19 02:07] VITALS: BP 129/80; BP 142/88; PULSE 89; PULSE 96; RESP 16; TEMP 36.8; O2SAT 95; O2SAT 96; BMI 18.2
--- OUTSIDE RECORDS SUMMARY | 2024-01-19 02:27 | XMS_ITS | Continuity of Care Document ---
Author Organization [facility] ter Address [address] [place] [address]- Care Team Providers Care Tray Line Worker Name Role Phone Not on Staff, PCP Primary Care Physician Unavail able [place] [facility] [place] 07/26/23 - 07/26/[address] [address]- Encounter Diagnosis Elbow pain, right(Final) - 07/26/23 Discharge Disposition: A-D/C Home Attending Physician: Oscar Farris MD Admitting Physician: Oscar Farris MD Referring Physician: Not on Staff, Referring MD Allergies, Adverse Reactions, Alerts No Known Allergies Immunizations Given and Recorded Vaccine Date Status Refusal Reason tetanus/diphtheria/pertussis, acel(Tdap) 03/29/10 Given tetanus/diphtheria/pertussis, acel(Tdap) 01/19/08 Given Medications acetaminophen 325 mg oral capsule 2 capsule = 650 mg, By Mouth, Every 4 hours, PRN as needed for pain, # 90 capsule, 4 Refills, Maintenance, 07/04/22 17:16:00 EDT, Capsule, [id number], Partial fill upon patient request if theprescription is for a schedule II opioid drug., 173... Start Date: 07/04/22 Status: Ordered ARIPiprazole 10 mg oral tablet 10 mg, 1, tablet, By Mouth, Daily, # 90 tablet, Refills 0, Tot. Refills 0, Maintenance, 04/22/19 11:40:03 EDT, Print Requisition Start Date: 04/22/19 Status: Ordered FLUoxetine 10 mg oral capsule 10 mg, 1, capsule, By Mouth, Daily, # 60 capsule, Refills 0, Tot. Refills 0, Maintenance, 04/22/19 11:40:12 EDT, Print Requisition Start Date: 04/22/19 Status: Ordered ibuprofen 400 mg oral tablet 400 mg, 1, tablet, By Mouth, Every 4 hours, PRN, # 60 tablet, Refills 4, Tot. Refills 4, Maintenance, for pain, 07/04/22 17:16:00 EDT, Route to Pharmacy Electronically, [facility] #[id number], Partial fill upon patient request if the prescription is for a... Start Date: 07/04/22 Status: Ordered ibuprofen 600 mg oral tablet 600 mg, 1, tablet, By Mouth, Every 6 to 8 hours, with food or milk, # 24 tablet, Refills 0, Tot. Refills 0, Maintenance, 08/22/18 8:43:18 EST, Print Requisition Start Date: 08/22/18 Status: Ordered Orthotics See Instructions, # 1 kit, Maintenance, gel locking liner, 10/09/20 12:31:00 EST, Supply Start Date: 10/09/20 Status: Ordered traZODone 150 mg oral tablet 1 tablet = 150 mg, By Mouth, Daily at bedtime, # 60 tablet, 0 Refills, Maintenance, 04/22/19 11:40:26 EDT, Tablet Start Date: 04/22/19 Status: Ordered Problem List Condition Confirmation Course Effective Dates Status Health St atus Informant Mental status alteration Confirmed Active Results Radiology Reports * Exam Date Time Procedure Performing Provider Status 07/26/23 1:55 AM Elbow Min 3 Views Right Nancy Og ; Dev (Verified) Notes: (Elbow Min 3 Views Right) Reason For Exam: Trauma RESULT: Elbow Min 3 Views Right Elbow Min 3 Views Right, 3 views Hx of Present Illness: left elbow swelling pain; Reason: Trauma; Clinical Question(s): Fracture COMPARISON: None. FINDINGS: No definite fracture or dislocation. Obliquity mildly limits assessment, however there is no definite joint effusion. Diffuse soft tissue swelling posterior to the proximal ulna with dystrophic calcifications in the swollen soft tissues and enthesopathic changes at the triceps insertion. IMPRESSION: Soft tissue swelling and dystrophic calcification at the posterior elbow, with differential including gout, acute on chronic soft tissue contusion, or less likely a small avulsion type fracture at the triceps insertion. Correlation with symptoms and physical examination is recommended. WSN: [id number] Ordering Physician: Cam Reagan Dictated By: Lakhwinder Gallo MD Dictated Date/Time: 07/26/23 7:06 am Reviewed By: Lakhwinder Gallo MD Signed By: Lakhwinder Gallo MD Signed Date/Time: 07/26/23 7:06 am Transcribed By: CSSilvia Transcribed Date/Time: 07/26/23 7:02 am Vital Signs Most recent to oldest [Reference Range]: 1 2 3 Oxygen Saturation [94-100 %] 97 % (07/26/23 2:08 PM) 98 % (07/26/23 7:49 AM) 95 % (07/26/23 6:33 AM) Pulse Rate [55-90 bpm] 99 bpm *H* (07/26/23 2:08 PM) 94 bpm *H* (07/26/23 7:49 AM) 111 bpm *H* (07/26/23 6:33 AM) Blood Pressure [90-138/55-84 mm Hg] 125/71mm Hg (07/26/23 2:08 PM) 138/76mm Hg (07/26/23 7:49 AM) 137/65mm Hg (07/26/23 6:33 AM) Respiratory Rate [16-30 br/min] 18 br/min (07/26/23 2:08 PM) 16 br/min (07/26/23 7:49 AM) 18 br/min (07/26/23 6:33 AM) Temperature [96.8-100.4 DegF] 99.7 DegF (07/26/23 2:08 PM) 98.4 DegF (07/26/23 7:49 AM) 98.4 DegF (07/26/23 6:33 AM) Mode of Delivery (Oxygen) Room air (07/26/23 2:08 PM) Room air (07/26/23 7:49 AM) Room air (07/26/23 6:33 AM) Blood pressure sites Arm, left (07/26/23 2:08 PM) Arm, left (07/26/23 7:49 AM) Arm, left (07/26/23 6:33 AM) Temperature Route Oral (07/26/23 2:08 PM) Oral (07/26/23 7:49 AM) Oral (07/26/23 6:33 AM) Social History Social History Type Response Smoking Status 10 or more cigarette s (1/2 pack or more)/day in last 30 days entered on: 08/22/18 Sex Note * Oscar Farris MD: PERFORM Event Display: Patient Education Leaflets Authored Date: [id number] Depression ?? [id number] Depression Depression is a very common mental health problem. It's not just a state of being unhappy or sad. It's a true disease. The cause seems to be linked to a change in chemicals that send signals in the brain. These things increase a person???s risk of depression: ??? A family history of depression, alcoholism, or suicide ??? Chronic illness ??? Chronic pain ???Migraine headaches ??? High emotional stress Depression may be easier to see in others. You may have a hard time seeing it in yourself. It can show in many physical and emotional ways. These include: ??? Loss of appetite ??? Overeating ??? Not being able to sleep ??? Sleeping too much ??? A lot of tiredness not linked to physical activity ??? Restlessness or irritability ??? Slowness of movement or speech ??? Feeling sad or withdrawn ??? Loss of interest in things you once enjoyed ??? Trouble??concentrating, remembering,??or making decisions ??? Thoughts of harming or killing yourself, or thoughts that life is not worth living ??? Low self-esteem The treatment for depression may include both medicine and psychotherapy. Antidepressants can ease symptoms. They can also make it easier for you to do daily tasks. Therapy can offer emotional support. It can also help you understand things that may be causing the depression. Home care ??? Ongoing care and support help people manage this disease. Find a healthcare provider and therapist who meet your needs. Get help when you feel like you may be getting ill. ??? Be kind to yourself. Make it a point to do things that you enjoy. This may be gardening, walking in nature, or going to a movie. Reward yourself for small successes. ??? Take care of your body. Eat a balanced diet. Eat foods low in saturated fat. Eat a lot of fruits and vegetables. Exercise at least 3 times a week for 30 minutes. Even mild to moderate exercise like brisk walking can make you feel better. ??? Take medicine as prescribed. Don't stop your medicine or change the dose unless you talk with your healthcare provider. ??? Once you start medicine, expect your symptoms to get better slowly. Depression will lift over time. It doesn't get better right away. Ask your healthcare provider how long it will take for a medicine to start working. ??? Don't share your medicine. Don???t use someone else's medicine. ??? Tell your healthcare providers all the medicines you take. This includes prescription and dktk-jtl-vdltavy medicines. It includes vitamins and herbal supplements. Some supplements caninteract with medicines. They can cause dangerous side effects. Ask your pharmacist about medicine interactions when you have questions. ??? Don't make major decisions until you feel better. This incl udes things such as a job change, a divorce, or a marriage. ??? Don't drink alcohol. It can make depression worse. ??? Talk with your family and??trusted friends??about your feelings and thoughts.??Ask them to help you notice behavior changes early. You can then get help and, if needed, your medicine can be changed. ??? Talk with your healthcare provider if you are not getting better. They may change your medicine or have you try another treatment. ?? Follow-up care Follow up with your healthcare provider as advised. ?? Crisis care Call 988 if you have thoughts of harming yourself or others. When you call or text [phone], you will beconnected to trained crisis counselors. An online chat option is also available. [email or web address] is free and available 13/04. 988 counselors will work with 91 to help you get the care you need. Call 911 if you: ??? Have trouble breathing ??? Are??very confused ??? Feel very drowsy or have??trouble awakening ??? Faint ??? Have new chest pain that becomes more severe, lasts longer, or spreadsinto your shoulder, arm, neck, jaw, or back ?? When to get medical care Call your healthcare provider right away if any of these happen: ??? Your symptoms get worse ??? You have extreme depression, fear, anxiety, or anger toward yourself or others ??? You feel out of control ??? You feel that you may try to harm yourself or another ??? You hear voices other people don't hear ??? You see things other people don't see ??? You don't sleep or eat for 3 days in a row ??? Friends or family express concern over your behavior and ask you to get help ?? Last Reviewed Date: 2021 ?? [id number] [employer]. All rights reserved. This information is not intended as a substitute for professional medical care. Always follow your healthcare professional's instructions. ?? Patient Care team information Care Team Personnel Name: Not on Staff, PCP Position: [facility] Physician (General Medicine) Member Role: PCP Name: Cam Reeves Position: [facility] Associate Professional Member Role: ED Physician Finished Goods Stock Clerk Address: Address: [address] [place] [address]- Name: Oscar Farris MD Position: [facility] ED Medicine MD Member Role: Admitting Physician Address: Address: [address] [place] [address] Name: Alissa Nix Position: [facility] ED TA [facility] Member Role: Saw Boss Name: Joe Tan RN Position: [facility] ED RN W/OE and Tasks Member Role: Patient Care Provider
--- OUTSIDE RECORDS SUMMARY | 2024-01-19 02:27 | XMS_ITS | Continuity of Care Document ---
Author Organization [facility] ter Address [address] [place] [id number]- Care Team Providers Care Bedspring Assembler Name Role Phone Not on Staff, PCP Primary Care Physician Unavail able [place] [facility] [place] 07/04/22 - 07/04/[address] [address]- Encounter Diagnosis Right above-knee amputee(Final) - 07/04/22 Stump pain(Final) - 07/04/22 Discharge Disposition: A-D/C Home Attending Physician: Angella Yin MD Admitting Physician: Angella Yin MD Referring Physician: Not on Staff, Referring [...] Refills, Maintenance, 07/04/22 17:16:00 EDT, [facility], [id number], Partial fill upon patient request if theprescription is for a schedule II opioid drug., 173... Start Date: 07/04/22 Status: Ordered ARIPiprazole 10 mg oral tablet 10 mg, 1, tablet, By Mouth, Daily, # 90 tablet, Refills 0, Tot. Refills 0, Maintenance, 04/22/19 11:40:03 EDT, Print Requisition Start Date: 04/22/19 Status: Ordered Augmentin 875 mg-125 mg oral tablet 1 tablet, By Mouth, 2 times a day, for 5 days, # 10 tablet, 0 Refills, Acute 07/06/22 8:43:00 EDT, 07/01/22 8:43:00 EDT, Tablet, [facility]/pharmacy #[id number], Partial fill upon patient request if the prescription is for a schedule II opioid drug., 173, cm, 10/22... Start Date: 07/01/22 Stop Date: 07/06/22 Status: Ordered FLUoxetine 10 mg oral capsule [...] 07/04/22 17:16:00 EDT, Route to Pharmacy Electronically, [facility]/pharmacy #[id number], Partial fill upon patient request if the [...] atus Informant Mental status alteration Confirmed Active Vital Signs Most recent to oldest [Reference Range]: 1 2 Oxygen Saturation [94-100 %] 98 % (07/04/22 5:10 PM) 97 % (07/04/22 3:10 PM) Pulse Rate [55-90 bpm] 93 bpm *H* (07/04/22 5:10 PM) 100 bpm *H* (07/04/22 3:10 PM) Blood Pressure [90-138/55-84 mm Hg] 131/ 66mm Hg (07/04/22 5:10 PM) 138/69mm Hg (07/04/22 3:10 PM) Respiratory Rate [16-30 br/min] 18 br/mi n (07/04/22 5:10 PM) 18 br/min (07/04/22 3:10 PM) Temperature [96.8-100.4 DegF] 98.4 DegF (07/04/22 3:10 PM) Mode of Delivery (Oxygen) Room air (07/04/22 5:10 PM) r (07/04/22 3:10 PM) Temperature Route Tympanic (07/04/22 3:10 PM) Social History Social History Type Response Smoking Status 10 or more cigarette s (1/2 pack or more)/day in last 30 days entered on: 08/22/18 Sex Patient Care team information Personnel Name: Not on Staff, PCP
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
--- OUTSIDE RECORDS SUMMARY | 2024-01-19 02:27 | XMS_ITS | Continuity of Care Document ---
Author Organization [facility] ter Address [address] [place] [address]- Care Team Providers Care [place] Attorney Name Role Phone Not on Staff, PCP Primary Care Physician Unavail able Encounter [facility] Date(s): 08/02/23 - 08/02/[address] [address]- Encounter Diagnosis Right elbow pain(Final) - 08/02/23 Discharge Disposition: A-D/C Home Attending Physician: Esau ATKINSON, Agnes Hollingsworth Admitting Physician: Agnes Cifuentes MD Referring Physician: Not on Staff, Referring MD Allergies, Adverse Reactions, Alerts No Known Allergies Immunizations Given and Recorded Vaccine Date Status Refusal Reason influenza virus vaccine, inactivated 07/08/22 Connor rded influenza virus vaccine, inactivated 07/04/21 Connor rded influenza virus vaccine, inactivated 07/19/15 Connor rded SARS-CoV-2 (COVID-19) mRNA-1273 vaccine 07/24/21 R ecorded SARS-CoV-2 (COVID-19) mRNA-1273 vaccine 02/07/21 R ecorded SARS-CoV-2 (COVID-19) mRNA-1273 vaccine 01/10/21 R ecorded tetanus-diphtheria toxoids (Td) 02/12/19 Recorded tetanus-diphtheria toxoids (Td) 01/21/15 Recorded tetanus/diphtheria/pertussis, acel(Tdap) 07/19/15 Recorded tetanus/diphtheria/pertussis, acel(Tdap) 03/29/10 Given tetanus/diphtheria/pertussis, acel(Tdap) 01/19/08 Given Medications Augmentin 875 mg-125 mg oral tablet 1 tablet, By Mouth, Every 12 hours, for 14 days, # 28 tablet, 0 Refills, Acute 08/16/23 5:58:00 EST, 08/02/23 5:58:00 EST, Tablet, [facility] #[id number], Partial fill upon patient request if the prescription is for a schedule II opioid drug., 17... Start Date: 08/02/23 Stop Date: 08/16/23 Status: Ordered Augmentin 875 mg-125 mg oral tablet 1 tablet, By Mouth, Every 12 hours, for 14 days, # 28 tablet, 0 Refills, Acute 08/14/23 14:15:00 EST, 07/31/23 14:15:00 EST, Tablet, [facility], Partial fill upon patient request if theprescription is for a schedule II opioid drug., 173... Start Date: 07/31/23 Stop Date: 08/14/23 Status: Ordered doxycycline hyclate 100 mg oral capsule 1 capsule = 100 mg, By Mouth, Every 12 hours, for 10 days, # 20 capsule, 0 Refills, Acute 08/12/23 5:58:00 EST, 08/02/23 5:58:00 EST, Capsule, [facility] #[id number], Partial fill upon patient request if the prescription is for a schedule II opio... Start Date: 08/02/23 Stop Date: 08/12/23 Status: Ordered doxycycline hyclate 100 mg oral capsule 1 capsule = 100 mg, By Mouth, 2 times a day, for 14 days, # 28 capsule, 0 Refills, Acute 08/14/23 14:15:00 EST, 07/31/23 14:15:00 EST, Capsule, [facility], Partial fill upon patient request if the prescription is for a schedule II opioid... Start Date: 07/31/23 Stop Date: 08/14/23 Status: Ordered ibuprofen 200 mg oral tablet 400 mg, 2, tablet, By Mouth, 4 times a day, PRN, for 7 days, # 28 tablet, Refills 0, Tot. Refills 0, Acute 08/07/23 14:20:00 EST, for pain, 07/31/23 14:20:00 EST, Route to Pharmacy Electronically, [facility], Partial fill upon patient re... Start Date: 07/31/23 Stop Date: 08/07/23 Status: Ordered Problem List Condition Confirmation Course Effective Dates Status Health St atus Informant Mental status alteration Confirmed Active Substance abuse Confirmed Active Underweight Confirmed Active Vital Signs Most recent to oldest [Reference Range]: 1 2 Height 172 cm (08/02/23 2:59 AM) Weight 54.5 kg (08/02/23 2:59 AM) Oxygen Saturation [94-100 %] 100 % (08/02/23 5:33 AM) 100 % (08/02/23 2:59 AM) Pulse Rate [55-90 bpm] 96 bpm *H* (08/02/23 5:33 AM) 85 bpm (08/02/23 2:59 AM) Body Mass Index [18.5-24.99 kg/m2] 18.42 kg/m2 *L* (08/02/23 2:59 AM) Blood Pressure [90-138/55-84 mm Hg] 123/ 80mm Hg (08/02/23 5:33 AM) 132/73mm Hg (08/02/23 2:59 AM) Respiratory Rate [16-30 br/min] 18 br/mi n (08/02/23 5:33 AM) 16 br/min (08/02/23 2:59 AM) Temperature [96.8-100.4 DegF] 97.5 DegF (08/02/23 5:33 AM) 97.8 DegF (08/02/23 2:59 AM) Mode of Delivery (Oxygen) Room air (08/02/23 5:33 AM) Room air (08/02/23 2:59 AM) Blood pressure sites Arm, left (08/02/23 5:33 AM) Arm, left (08/02/23 2:59 AM) Temperature Route Oral (08/02/23 5:33 AM) Oral (08/02/23 2:59 AM) Dry Weight 54.5 kg (08/02/23 2:59 AM) Weight Obtained Via Standing scale (08/02/23 2:59 AM) Dry Weight Obtained Via Standing scale (08/02/23 2:59 AM) Social History Social History Type Response Smoking Status 10 or more cigarette s (1/2 pack or more)/day in last 30 days entered on: 08/22/18 Sex Note * Esau ATKINSON, Agnes Hollingsworth: PERFORM Event Display: Patient Education Leaflets Authored Date: [id number] [facility] - If You Need A Dentist ?? 33 If You Need a Dentist ?? For additional clinics and resources, see:? https://freeclinicdirectory.org ?? Additional information:? [facility]-Dentistry for ALL ?Mon-Fri 9:00-5:00? ext [phone] ? [address] Catrachito Grey, [place]? [address], [place]? [phone] [facility]? [address], [place]? [phone] [facility]? [address] [place]? [phone] [facility]? [address], [place]? [phone] [facility]? [address] [place]? [phone] [facility]? [address], [place]? [phone] [facility]? [address] [facility]? [phone] [facility]? [address], [place]? [phone] [facility]? [address], [place]? [phone] ? [address]? [facility]? [address], [place]?[phone] [facility]? [address] [place], [place]?[phone] ? Patient Care team information Care Team Personnel Name: Not on Staff, PCP Position: [facility] Physician (General Medicine) Member Role: PCP Name: Fish ABREU, Claribel Emanuel Position: [facility] ED RN W/OE and Tasks Member Role: Primary Care Nurse Name: *[facility], ED Attending Position: [facility] ED Attendings Patient Name: Esau ATKINSON, Agnes Hollingsworth Position: [facility] Resident Member Role: Admitting Physician Address: Address: [address] [place] [address]- Name: Talib Hall RN Position: [facility] ED RN W/OE and Tasks Member Role: Patient Care Provider Name: Fabiana Colon Position: [facility] ED TA [facility]
--- OUTSIDE RECORDS SUMMARY | 2024-01-19 02:27 | XMS_ITS | Continuity of Care Document ---
Author Organization [facility] ter Address [address] [place] [address]- Care Team Providers Care Bet Taker Name Role Phone Not on Staff, PCP Primary Care Physician Unavail able Encounter [facility] Date(s): 09/24/20 - 09/24/[address] [address]- Encounter Diagnosis Frostbite of foot(Final) - 09/24/20 Homeless(Final) - 09/24/20 Polysubstance abuse(Final) - 09/24/20 Discharge Disposition: A-D/C Home Attending Physician: Oscar [...] 08/22/18 8:43:18 EST, Print Requisition Start Date: 12/2/18 Status: Ordered Keflex monohydrate 250 mg oral capsule 1 capsule = 250 mg, By Mouth, 4 times a day, # 20 capsule, 0 Refills, Maintenance Start Date: 03/29/10 Stop Date: 04/03/10 Status: Ordered traZODone 150 mg oral tablet 1 tablet = 150 mg, By Mouth, Daily at bedtime, # 60 tablet, 0 Refills, Maintenance, 04/22/19 11:40:26 EDT, Tablet Start Date: 04/22/19 Status: Ordered Problem List Condition Effective Dates Status Health Status Inform ant Mental status alteration(Confirmed) Active Results Radiology Reports * Exam Date Time Procedure Performing Provider Status 09/24/20 9:10 AM Foot Min 3 Views Left Leti Weller; Auth (Verified) Notes: (Foot Min 3 Views Left) Reason For Exam: Pain RESULT: Foot Min 3 Views Left Foot Min 3 Views Left, 3 views Reason: Pain; Clinical Question(s): Fracture COMPARISON: None. FINDINGS: No fractures or suspicious bone lesions. Focal defect in the distal medial aspect of the right proximal phalanx, with well-corticated margins and surrounding sclerosis suggesting chronic sequelae of prior injury or erosion. Mild arthritic changes of the proximal interphalangeal joints. Normal soft tissues. IMPRESSION: No evidence of fracture or dislocation. I have personally reviewed the images and I agree with this report. WSN: [id number] Ordering Physician: Brandi Boone Dictated By: Chandu Camacho DO Dictated Date/Time: 09/24/20 9:29 am Reviewed By: Olivia Willoughby MD Signed By: Olivia Willoughby MD Signed Date/Time: 09/24/20 9:34 am Transcribed By: SLIM Transcribed Date/Time: 09/24/20 9:16 am Vital Signs Most recent to oldest [Reference Range]: 1 2 3 Oxygen Saturation [94-100 %] 100 % (09/24/20 1:17 PM) 100 % (09/24/20 11:29 AM) 97 % (09/24/20 6:40 AM) Pulse Rate [55-90 bpm] 75 bpm (09/24/20 1:17 PM) 80 bpm (09/24/20 11:29 AM) 84 bpm (09/24/20 6:40 AM) Blood Pressure [90-138/55-84 mm Hg] 110/56mm Hg (09/24/20 1:17 PM) 106/54mm Hg (09/24/20 11:29 AM) 96/48mm Hg (09/24/20 6:40 AM) Respiratory Rate [16-30 br/min] 16 br/min (09/24/20 1:17 PM) 20 br/min (09/24/20 11:29 AM) 20 br/min (09/24/20 6:40 AM) Temperature [96.8-100.4 DegF] 98.1 DegF (09/24/20 6:40 AM) 98 DegF (09/24/20 4:48 AM) 98.1 DegF (09/24/20 2:23 AM) Mode of Delivery (Oxygen) Room air (09/24/20 6:40 AM) Room air (09/24/20 4:48 AM) Room air (09/24/20 2:23 AM) Blood pressure sites Arm, right (09/24/20 6:40 AM) Arm, right (09/24/20 4:48 AM) Temperature Route Oral (09/24/20 6:40 AM) Oral (09/24/20 4:48 AM) Oral (09/24/20 2:23 AM) Social History Social History Type Response Smoking Status 10 or more cigarette s (1/2 pack or more)/day in last 30 days entered on: 08/22/18 Sex
--- OUTSIDE RECORDS SUMMARY | 2024-01-19 02:27 | XMS_ITS | Patient Health Record ---
Author Organization [facility] Address [address], [place] [id number] Care Team Providers Care Senior Infrastructure Architect Name Role Phone [facility] Primary Care Provider Un available Maria Luisa Gerber Unavailable [phone] REASON FOR REFERRAL No Information MEDICATIONS Medication SIG (Take, Route, Frequency, Duration) Notes Start Date End Date Status nicotine 2 mg 2 GUM chewed every 2 hours prn craving - fruit flavor for 14 days 09/11/2020 Active Morganza ER 600 mg 1 cap(s) orally 3 ti mes a day for 30 day(s) Active PROzac 20 mg 1 cap(s) orally once a day for 30 day(s) Active Glycerin Suppositories Maximum Strength maximum strength 1 SUPP(s) rectally 1X for 1 dose(s) Active famotidine 20 mg 1 tab(s) orally BID for 30 day(s) 03/21/2009 Active docusate sodium 50 mg 1 cap(s) orally BI D for 30 day(s) 07/25/2008 Active IMMUNIZATIONS Vaccine Route Administration Date Status Comme nts Influenza IM Intramuscular 06/28/2008 Administered Hepatitis A Unknown 09/21/2007 Administered completed s eries Hepatitis B (20 or more) Unknown 09/21/2007 Administered PPD negative Unknown 01/19/2009 Administered Influenza: Declined Unknown 08/29/2009 Administered Tdap IM Intramuscular 08/29/2009 Administered SOCIAL HISTORY Sex Assigned At : Social History Observation Description Sex Assigned At Unknown PROBLEMS Problem Type ICD Code Onset Dates Problem Status W/U Status Risk SNOMED Code Notes Problem Exposure to excessive natural cold, initial encounter (X31.XXXA) Active confirmed Problem Homelessness (Z59.0) Active confirmed Homelessness (56839214) PLAN OF TREATMENT Pending Test Test Name Order Date Hepatitis Panel 04/06/2009 HIV 04/06/2009 Comprehensive Metabolic Panel - [facility] 04/06/2009 CBC with Diff - [facility] 04/06/2009 Insurance Providers Payer Name Payer Address Payer Phone Subscriber Number Group Number Insured Name Patient Relationship to Insured Coverage Start Date Coverage End Date [place] Medicaid Standard [address] [place] [address] [id number] Norman Mohan Self - patient is the insured 0 MEDICAL (GENERAL) HISTORY Medical History History ICD Code Negative for HIV and Hepatitis. Last seymour laurie 2005 New prosthesis while n prison. Tobacco use disorder 305.1 Cocaine abuse, unspecified 305.60 Episodic drinking to excess 305.02 Bipolar disorder NOS 296.7 Surgical History Surgery Date(Month/Year) Amputation R leg age 20 Hospitalization History Reason Date(Month/Year) Amputation R leg age 20 suicidal thoughts 2002
--- OUTSIDE RECORDS SUMMARY | 2024-01-19 02:27 | XMS_ITS | Continuity of Care Document ---
Author Organization [facility] Address [address] [place] [address]- Care Team Providers Care Wet Process Miller Head Assistant Name Role Phone Not on Staff, PCP Primary Care Physician Unavail able Encounter [facility] [place] Date(s): 06/30/22 - 07/01/[address] [address]- Discharge Disposition: A-D/C AMA Attending Physician: Ajay ATKINSON, Lakhwnider Murphy Admitting Physician: Bryant Trimble MD Referring Physician: Not on Staff, Referring [...] 07/06/22 8:43:00 EDT, 07/01/22 8:43:00 EDT, Tablet, [id number], Partial fill upon patient request if the [...] Informant Mental status alteration Confirmed Active Results Orders for Microbiology Reports Name Date Urine Culture (URINE CULTURE) 06/30/22 Blood Culture 06/30/22 Blood Culture #2 06/30/22 Microbiology Reports TEST:Urine Culture STATUS:Auth (Verified) BODY SITE: SOURCE:URINE COLLECTED DATE/TIME:06/30/22 9:55 AM Urine Culture SPECIMEN DESCRIPTION : URINE SPECIAL REQUESTS : NONE CULTURE : NO GROWTH REPORT STATUS : FINAL 07/01/2022 TEST:Blood Culture STATUS:Unauthenticated BODY SITE: SOURCE:Blood COLLECTED DATE/TIME:06/30/22 8:54 AM Blood Culture SPECIMEN DESCRIPTION : BLOOD RARM SPECIAL REQUESTS : NONE CULTURE : NO GROWTH AFTER 24 HOURS REPORT STATUS : PRELIMINARY REPORT TEST:Blood Culture, Second Order STATUS:Unauthenticated BODY SITE: SOURCE:Blood COLLECTED DATE/TIME:06/30/22 8:54 AM Blood Culture, Second Order SPECIMEN DESCRIPTION : BLOOD RARM SPECIAL REQUESTS : NONE CULTURE : NO GROWTH AFTER 24 HOURS REPORT STATUS : PRELIMINARY REPORT Radiology Reports * Exam Date Time Procedure Performing Provider Status 06/30/22 8:17 PM Chest Portable Anna Mccarthy; Aut h (Verified) Notes: (Chest Portable) Reason For Exam: Shortness of Breath RESULT: Chest Portable Chest Portable Reason: Shortness of Breath; Clinical Question(s): CHF COMPARISON: Earlier the same day. FINDINGS: LINES AND TUBES: None. LUNGS AND PLEURA: Hazy opacities in the right midlung zone above the fissure as well in the right lung base. Left lung is grossly clear. No pleural effusion. HEART, MEDIASTINUM AND CARRIE: Heart is normal in size. Normal mediastinal and hilar contour. BONES AND SOFT TISSUES: No acute abnormality. IMPRESSION: Interval development of hazy opacities in the right mid and lower lung zones which could be relatedto asymmetric edema, aspiration pneumonitis or other airspace disease. A critical result message ([place]) has been communicated via the [employer] system on 06/30/2022 8:36 PM, Message ID [id number]. WSN: [id number] Ordering Physician: Teresa Muñiz Dictated By: Jogre Nuno MD Dictated Date/Time: 06/30/22 8:36 pm Reviewed By: Jorge Nuno MD Signed By: Jorge Nuno MD Signed Date/Time: 06/30/22 8:36 pm Transcribed By: SLIM Transcribed Date/Time: 06/30/22 8:33 pm * Exam Date Time Procedure Performing Provider Status 06/30/22 9:04 AM Chest Portable Miguelina Tirado; Auth (Verified) Notes: (Chest Portable) Reason For Exam: Shortness of Breath RESULT: Chest Portable Chest Portable Reason: Shortness of Breath; Clinical Question(s): CHF COMPARISON: None. FINDINGS: LINES AND TUBES: None. LUNGS AND PLEURA: Clear lungs. Normal pulmonary vascularity. No pleural effusion. No pneumothorax. HEART, MEDIASTINUM AND CARRIE: Heart is normal in size. Normal mediastinal and hilar contour. BONES AND SOFT TISSUES: No acute abnormality. IMPRESSION: No acute abnormality. WSN: [id number] Ordering Physician: Brandi Boone Dictated By: Vicki Heard MD Dictated Date/Time: 06/30/22 9:06 am Reviewed By: Vicki Heard MD Signed By: Vicki Heard MD Signed Date/Time: 06/30/22 9:06 am Transcribed By: SLIM Transcribed Date/Time: 06/30/22 9:05 am Vital Signs Most recent to oldest [Reference Range]: 1 2 3 Oxygen Saturation [94-100 %] 100 % (07/01/22 5:49 AM) 100 % (07/01/22 3:58 AM) 96 % (07/01/22 2:05 AM) Pulse Rate [55-90 bpm] 85 bpm (07/01/22 5:49 AM) 89 bpm (07/01/22 3:58 AM) 84 bpm (07/01/22 2:05 AM) Blood Pressure [90-138/55-84 mm Hg] 100/85mm Hg (07/01/22 5:49 AM) 107/68mm Hg (07/01/22 3:58 AM) 100/68mm Hg (07/01/22 2:05 AM) Respiratory Rate [16-30 br/min] 16 br/min (07/01/22 5:49 AM) 25 br/min (07/01/22 3:58 AM) 17 br/min (07/01/22 2:05 AM) Temperature [96.8-100.4 DegF] 98.2 DegF (06/30/22 6:48 PM) 97.3 DegF (06/30/22 11:06 AM) Liters per Minute 3 L/min (07/01/22 5:49 AM) 3 L/min (07/01/22 3:58 AM) 4 L/min (07/01/22 2:05 AM) Mode of Delivery (Oxygen) Nasal cannula (07/01/22 5:49 AM) Nasal cannula (07/01/22 3:58 AM) Nasal cannula (07/01/22 2:05 AM) Blood pressure sites Arm, left (06/30/22 7:31 PM) Temperature Route Oral (06/30/22 6:48 PM) Axillary (06/30/22 11:06 AM) Social History Social History Type Response Smoking Status 10 or more cigarette s (1/2 pack or more)/day in last 30 days entered on: 08/22/18 Sex Portable XR Chest Views * [facility] , CIS S: TRANSCRIBE Orquidea ATKINSON, Vicki N: VERIFY Event Display: Result: Authored Date: [id number] Chest Portable Reason: Shortness of Breath; Clinical Question(s): CHF COMPARISON: None. FINDINGS: LINES AND TUBES: None. LUNGS AND PLEURA: Clear lungs. Normal pulmonary vascularity. No pleural effusion. No pneumothorax. HEART, MEDIASTINUM AND CARRIE: Heart is normal in size. Normal mediastinal and hilar contour. BONES AND SOFT TISSUES: No acute abnormality. IMPRESSION: No acute abnormality. WSN: [id number] Ordering Physician: Brandi Boone Dictated By: Vicki Heard MD Dictated Date/Time: 06/30/22 9:06 am Reviewed By: Vicki Heard MD Signed By: Vicki Heard MD Signed Date/Time: 06/30/22 9:06 am Transcribed By: SLIM Transcribed Date/Time: 06/30/22 9:05 am * [facility] , CIS S: TRANSCRIBE Jorge Nuno MD: VERIFY Event Display: Result: Authored Date: [id number] Chest Portable Reason: Shortness of Breath; Clinical Question(s): CHF COMPARISON: Earlier the same day. FINDINGS: LINES AND TUBES: None. LUNGS AND PLEURA: Hazy opacities in the right midlung zone above the fissure as well in the right lung base. Left lung is grossly clear. No pleural effusion. HEART, MEDIASTINUM AND CARRIE: Heart is normal in size. Normal mediastinal and hilar contour. BONES AND SOFT TISSUES: No acute abnormality. IMPRESSION: Interval development of hazy opacities in the right mid and lower lung zones which could be relatedto asymmetric edema, aspiration pneumonitis or other airspace disease. A critical result message ([place]) has been communicated via the [employer] system on 06/30/2022 8:36 PM, Message ID [id number]. WSN: [id number] Ordering Physician: Teresa Muñiz Dictated By: Jorge Nuno MD Dictated Date/Time: 06/30/22 8:36 pm Reviewed By: Jorge Nuno MD Signed By: Jorge Nuno MD Signed Date/Time: 06/30/22 8:36 pm Transcribed By: SLIM Transcribed Date/Time: 06/30/22 8:33 pm Patient Care team information Personnel Name: Not on Staff, PCP
--- OUTSIDE RECORDS SUMMARY | 2024-01-19 02:27 | XMS_ITS | Continuity of Care Document ---
Author Organization [facility] ter Address [address] [place] [address]- Care Team Providers Care Project Coordinator Name Role Phone Not on Staff, PCP Primary Care Physician Unavail able Encounter [facility] Date(s): 07/22/23 - 07/23/[address] [address]- Encounter Diagnosis Contusion of left ear(Final) - 07/23/23 Nausea(Final) - 07/23/23 Discharge Disposition: A-D/C Home Attending Physician: Chet Barber MD Admitting Physician: Chet Barber MD Referring Physician: Not on Staff, Referring [...] Refills, Maintenance, 07/04/22 17:16:00 EDT, Capsule, [id number], [facility] fill upon patient request if theprescription [...] 07/04/22 17:16:00 EDT, Route to Pharmacy Electronically, [id number], Partial fill upon patient request if the [...] Exam Date Time Procedure Performing Provider Status 07/22/23 5:[address] Head/Brain W/O Contrast Khoi Irwin (Verified) Notes: (CT Head/Brain W/O Contrast) Reason For Exam: NV s/p head bleed;Trauma RESULT: CT Head/Brain W/O Contrast CT Head/Brain W/O Contrast Hx of Present Illness: multiple complaints; Reason: Trauma;. Prior examination 7 hours previously same day at raised the possibility of a small intraparenchymal hemorrhage. . TECHNIQUE: Noncontrast head CT using axial technique and reconstructed in axial and coronal planes.Weight-based protocol using automatic tube modulation was used to optimize exposure parameters. CTDIvol Head: 45.90 mGy, DLP Head: 772 mGy*cm. COMPARISON: 07/21/2023, 06/30/2022. FINDINGS: BRAIN and EXTRA-AXIAL SPACES: Previously identified hyperdense focus in the left basal ganglia is no longer identifiable. There is no new focus of intraparenchymal blood. There is no mass. Small old lacunar infarcts noted with no acute infarct. Ventricles, sulci and basilar cisterns are normal. Mild low-density white matter changes. No subarachnoid hemorrhage, subdural or epidural collections. CALVARIUM, SKULL BASE AND SOFT TISSUES: No fractures or suspicious bony lesions. The paranasal sinuses and mastoid air cells are clear. Visualized orbits and globes are intact. The extracranial soft tissues are unremarkable. IMPRESSION: 1. The small high density focus on the prior examination concerning for intraparenchymal blood is no longer present. 2. There is no acute intraparenchymal abnormality seen. 3. No skull fracture. Results were relayed by Not iT by Dr. Bear to Brandie Kauffman DO on 07/22/2023 5:49 AM. I have personally reviewed the images and I agree with this report. WSN: [id number] Ordering Physician: Brandie Kauffman Dictated By: Miguel Bear MD Dictated Date/Time: 07/22/23 7:19 am Reviewed By: Oliver Trent MD Signed By: Oliver Trent MD Signed Date/Time: 07/22/23 7:24 am Transcribed By: SLIM Transcribed Date/Time: 07/22/23 5:49 am Vital Signs Most recent to oldest [Reference Range]: 1 2 3 Oxygen Saturation [94-100 %] 100 % (07/23/23 5:41 AM) 95 % (07/22/23 2:59 PM) 100 % (07/22/23 11:07 AM) Pulse Rate [55-90 bpm] 91 bpm *H* (07/23/23 5:41 AM) 109 bpm *H* (07/22/23 2:59 PM) 96 bpm *H* (07/22/23 11:07 AM) Blood Pressure [90-138/55-84 mm Hg] 138/80mm Hg (07/23/23 5:41 AM) 111/69mm Hg (07/22/23 2:59 PM) 139/80mm Hg *H* (07/22/23 11:07 AM) Respiratory Rate [16-30 br/min] 18 br/min (07/23/23 5:41 AM) 18 br/min (07/22/23 2:59 PM) 16 br/min (07/22/23 8:00 AM) Temperature [96.8-100.4 DegF] 98.1 DegF (07/23/23 5:41 AM) 99.3 DegF (07/22/23 2:59 PM) 99.0 DegF (07/22/23 11:07 AM) Mode of Delivery (Oxygen) Room air (07/23/23 5:41 AM) Room air (07/22/23 2:59 PM) Room air (07/22/23 11:07 AM) Blood pressure sites Arm, left (07/23/23 5:41 AM) Arm, left (07/22/23 2:59 PM) Arm, left (07/22/23 11:07 AM) Temperature Route Oral (07/23/23 5:41 AM) Oral (07/22/23 2:59 PM) Oral (07/22/23 11:07 AM) Social History Social History Type Response Smoking Status 10 or more cigarette s (1/2 pack or more)/day in last 30 days entered on: 08/22/18 Sex Note * Chet Barber MD: PERFORM Event Display: Patient Education Leaflets Authored Date: [id number] Soft Tissue Bruise (Contusion) ?? [id number] Soft Tissue Bruise (Contusion) You have a bruise (contusion). There is swelling and some bleeding under the skin. This injury??generally??takes a few days to a few weeks to heal. During that time, the bruise will typically change in color from??reddish, to purplish- blue, to greenish-yellow, then to yellowish-brown. Home care ??? Elevate the injured area to reduce pain and swelling.??As much as possible, sit or lie down with the injured area raised about the level of your heart.??This is especially important during the first 48 hours. ??? Ice the injured area to help reduce pain and swelling.??Wrap an ice packin a thin towel. Apply to the bruised area for 20 minutes every 1 to 2 hours the first day. Continue this 3 to 4 times a day until the pain and swelling goes away. You can make an ice pack by placingice cubes in a plastic bag, or by using a frozen bag of vegetables. ??? Unless another medicine wasprescribed, you can take acetaminophen, ibuprofen, or naproxen??to control pain. Talk with your [facility] provider before using these medicines if you have chronic liver or kidney disease or ever had a stomach ulcer or digestive bleeding. ?? Follow-up care Follow up with your healthcare provider, or as advised. Call if you are not better in 1 to 2 weeks. ?? When to seek medical advice?? Call your healthcare provider right away if any of the following occur: ??? Increased pain or swelling ??? Bruise is on an arm or leg, and arm or leg becomes cold, blue, numb, or tingly ??? Signs of infection:??Warmth, drainage, or increased redness or pain around the contusion ??? Inability to move the injured area or body part? Bruise is near your eye, and you have problems with your eyesight or eye? Frequent bruising for unknown reasons ?? Last Reviewed Date: 2022 ?? 4530-5443 [employer]. All rights reserved. This information is not intended as a substitute for professional medical care. Always follow your healthcare professional's instructions. ?? Patient Care team information Care Team Personnel Name: Not on Staff, PCP Position: [facility] Physician (General Medicine) Member Role: PCP Name: *[facility], ED Attending Position: [facility] ED Attendings Patient Name: Shaye Chung RN Position: [facility] ED RN W/OE and Tasks Member Role: Patient Care Provider Name: Chet Barber MD Position: [facility] ED Medicine MD Member Role: Admitting Physician Address: Address: [address] [place] [address] Department of Emergency Medicine [place], [place] [address] Name: Olivia Saucedo Position: [facility] ED TA [facility]
--- OUTSIDE RECORDS SUMMARY | 2024-01-19 02:27 | XMS_ITS | Continuity of Care Document ---
Author Organization [facility] ter Address [address] [place] [address]- Care Team Providers Care Precision Thread Grinder Operator Name Role Phone Not on Staff, PCP Primary Care Physician Unavail able Encounter [facility] Date(s): 12/29/23 - 12/29/[address] [address]- Encounter Diagnosis Chest pain(Final) - 12/29/23 Discharge Disposition: A-D/C AMA Attending Physician: Alo Alcaraz MD Admitting Physician: Alo Alcaraz MD Referring Physician: Not on Staff, Referring [...] acel(Tdap) 03/29/10 Given tetanus/diphtheria/pertussis, acel(Tdap) 01/19/08 Given Problem List Condition Confirmation Course Effective Dates Status Health St atus Informant Mental status alteration Confirmed Active Substance abuse Confirmed Active Underweight Confirmed Active Vital Signs Most recent to oldest [Reference Range]: 1 Oxygen Saturation [94-100 %] 98 % (4/9/24 12:45 AM) Pulse Rate [55-90 bpm] 109 bpm *H* (12/29/23 12:45 AM) Blood Pressure [90-138/55-84 mm Hg] 157/ 100mm Hg *H* (12/29/23 12:45 AM) Respiratory Rate [16-30 br/min] 20 br/mi n (12/29/23 12:45 AM) Temperature [96.8-100.4 DegF] 97.9 DegF (12/29/23 12:45 AM) Mode of Delivery (Oxygen) Room air (12/29/23 12:45 AM) Blood pressure sites Arm, right (12/29/23 12:45 AM) Temperature Route Oral (12/29/23 12:45 AM) Social History Social History Type Response Smoking Status 10 or more cigarette s (1/2 pack or more)/day in last 30 days entered on: 08/22/18 Sex Patient Care team information Care Team Personnel Name: Not on Staff, PCP Position: [facility] Physician (General Medicine) Member Role: PCP Name: Rosio Whitten RN, Claribel Emanuel Position: [facility] ED RN W/OE and Tasks Member Role: Primary Care Nurse
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
--- OUTSIDE RECORDS SUMMARY | 2024-01-19 02:27 | XMS_ITS | Continuity of Care Document ---
Author Organization [facility] ter Address [address] [place] [address]- Care Team Providers Care Behavioral Health Tech Name Role Phone Not on Staff, PCP Primary Care Physician Unavail able [place] [facility] [place] 07/18/22 - 07/18/[address] [address]- Encounter Diagnosis Heat rash(Final) - 07/18/22 Discharge Disposition: A-D/C Home Attending Physician: Lois Parikh DO Admitting Physician: Lois Parikh DO Referring Physician: Not on Staff, Referring MD Allergies, Adverse Reactions, Alerts No Known Allergies Immunizations Given and Recorded Vaccine Date Status Refusal Reason tetanus/diphtheria/pertussis, acel(Tdap) 03/29/10 Given tetanus/diphtheria/pertussis, acel(Tdap) 01/19/08 Given Medications acetaminophen 325 mg oral capsule 2 capsule = 650 mg, By Mouth, Every 4 hours, PRN as needed for pain, # 90 capsule, 4 Refills, Maintenance, 07/04/22 17:16:00 EDT, [facility], [id number], Partial fill upon patient request if theprescription is for a schedule II opioid drug., 173... Start Date: 07/04/22 Status: Ordered ARIPiprazole 10 mg oral tablet 10 mg, 1, tablet, By Mouth, Daily, # 90 tablet, Refills 0, Tot. Refills 0, Maintenance, 04/22/19 11:40:03 EDT, Print Requisition Start Date: 04/22/19 Status: Ordered Bactrim DS 800 mg-160 mg oral tablet 1 tablet, By Mouth, 2 times a day, for 7 days, # 14 tablet, 0 Refills, Acute 07/25/22 13:25:00 EDT,07/18/22 13:25:00 EDT, Tablet, [id number], Partial fill upon patient request if the prescription is for a schedule II opioid drug., 1 tablet By... Start Date: 07/18/22 Stop Date: 07/25/22 Status: Ordered cephalexin monohydrate 500 mg oral tablet 1 tablet = 500 mg, By Mouth, 4 times a day, for 7 days, # 28 tablet, 0 Refills, Acute 07/25/22 13:25:00 EDT, 07/18/22 13:25:00 EDT, Tablet, [facility]/pharmacy #[id number], Partial fill upon patient request if the prescription is for a schedule II opioid drug., 17... Start Date: 07/18/22 Stop Date: 07/25/22 Status: Ordered FLUoxetine 10 mg oral capsule [...] 07/04/22 17:16:00 EDT, Route to Pharmacy Electronically, [facility]/pharmacy #[id number], Partial fill upon patient request [...] to oldest [Reference Range]: 1 2 3 Height 173 cm (07/18/22 5:51 AM) Weight 63.5 kg (07/18/22 5:51 AM) 63.5 kg (07/18/22:22 AM) Oxygen Saturation [94-100 %] 100 % (07/18/22 12:04 PM) 100 % (07/18/22 9:05 AM) 100 % (07/18/22 6:07 AM) Pulse Rate [55-90 bpm] 86 bpm (07/18/22 12:04 PM) 72 bpm (07/18/22 9:05 AM) 76 bpm (07/18/22 6:07 AM) Blood Pressure [90-138/55-84 mm Hg] 129/76mm Hg (07/18/22 12:04 PM) 115/70mm Hg (07/18/22 9:05 AM) 118/72mm Hg (07/18/22 6:07 AM) Respiratory Rate [16-30 br/min] 16 br/min (07/18/22:22 AM) Temperature [96.8-100.4 DegF] 98.0 DegF (07/18/22 12:04 PM) 97.5 DegF (07/18/22 9:05 AM) 98 DegF (07/18/22 6:07 AM) Mode of Delivery (Oxygen) Room air (07/18/22 12:04 PM) Room air (07/18/22 9:05 AM) Room air (07/18/22 6:07 AM) Blood pressure sites Arm, left (07/18/22 12:04 PM) Arm, left (07/18/22 9:05 AM) Arm, left (07/18/22 6:07 AM) Temperature Route Oral (07/18/22 12:04 PM) Oral (07/18/22 9:05 AM) Oral (07/18/22 6:07 AM) Dry Weight 63.5 kg (07/18/22 5:51 AM) Weight Obtained Via Patient/family state d (07/18/22 2:22 AM) Social History Social History Type Response Smoking Status 10 or more cigarette s (1/2 pack or more)/day in last 30 days entered on: 08/22/18 Sex Patient Care team information Personnel Name: Not on Staff, PCP
--- OUTSIDE RECORDS SUMMARY | 2024-01-19 02:27 | XMS_ITS | Continuity of Care Document ---
Author Organization [facility] ter Address [address] [place] [address]- Care Team Providers Care Irrigator Overhead Name Role Phone Not on Staff, PCP Primary Care Physician Unavail able Encounter [facility] Date(s): 01/12/24 - 01/12/[address] [address]- Discharge Disposition: A-D/C Home Attending Physician: Alo Alcaraz MD Admitting Physician: [...] to oldest [Reference Range]: 1 2 Height 173 cm (01/12/24 1:57 AM) 173 cm (01/12/24 12:55 AM) Weight 54.5 kg (01/12/24 1:57 AM) 54.5 kg (01/12/24 12:55 AM) Oxygen Saturation [94-100 %] 98 % (01/12/24 6:00 AM) 100 % (01/12/24 12:55 AM) Pulse Rate [55-90 bpm] 82 bpm (01/12/24 6:00 AM) 81 bpm (01/12/24 12:55 AM) Body Mass Index [18.5-24.99 kg/m2] 18.21 kg/m2 *L* (01/12/24 12:55 AM) Blood Pressure [90-138/55-84 mm Hg] 111/ 71mm Hg (01/12/24 6:00 AM) 119/60mm Hg (01/12/24 12:55 AM) Respiratory Rate [16-30 br/min] 18 br/mi n (01/12/24 6:00 AM) 18 br/min (01/12/24 12:55 AM) Temperature [96.8-100.4 DegF] 97.8 DegF (01/12/24 12:55 AM) Mode of Delivery (Oxygen) Room air (01/12/24 6:00 AM) Room air (01/12/24 12:55 AM) Blood pressure sites Arm, left (01/12/24 6:00 AM) Arm, left (01/12/24 12:55 AM) Temperature Route Oral (01/12/24 12:55 AM) Dry Weight 54.5 kg (01/12/24 1:57 AM) 54.5 kg (01/12/24 12:55 AM) Weight Obtained Via Standing scale (01/12/24 12:55 AM) Dry Weight Obtained Via Standing scale (01/12/24 12:55 AM) Social History Social History Type Response Smoking Status 10 or more cigarette s (1/2 pack or more)/day in last 30 days entered on: 08/22/18 Sex Note * Justina Bermeo DO: PERFORM, SIGN, VERIFY Event Display: Patient Education Handout Authored Date: [id number] Patient Care team information Care Team Personnel Name: Not on Staff, PCP Position: S Physician (General Medicine) Member Role: PCP Name: Rosio Whitten RN, Claribel Emanuel Position: S ED RN W/OE and Tasks Member Role: Primary Care Nurse
--- OUTSIDE RECORDS SUMMARY | 2024-01-19 02:27 | XMS_ITS | Continuity of Care Document ---
Author Organization [facility] ter Address [address] [place] [address]- Care Team Providers Care Canning Machine Operator Name Role Phone Not on Staff, PCP Primary Care Physician Unavail able Encounter [facility] [place] Date(s): 08/13/22 - 08/13/[address] [address]- Encounter Diagnosis Recreational drug use(Final) - 08/13/22 Heroin use(Final) - 08/13/22 Crack cocaine use(Final) - 08/13/22 Discharge Disposition: A-D/C Home Attending Physician: Lois [...] 4 Refills, Maintenance, 07/04/22 17:16:00 EDT, Capsule, [facility]/pharmacy #[id number], Partial fill upon patient request if theprescription [...] 07/04/22 17:16:00 EDT, Route to Pharmacy Electronically, [facility]/pharmacy #[id number], Partial fill upon patient request if the [...] to oldest [Reference Range]: 1 2 3 4 Oxygen Saturation [94-100 %] 98 % (08/13/22 8:04 PM) 99 % (08/13/22 6:53 PM) 99 % (08/13/22 3:11 PM) 97 % (08/13/22 3:11 PM) Pulse Rate [55-90 bpm] 100 bpm *H* (08/13/22 8:04 PM) 92 bpm *H* (08/13/22 6:53 PM) 95 bpm *H* (08/13/22 3:11 PM) Blood Pressure [90-138/55-84 mm Hg] 138/75mm Hg (08/13/22 8:04 PM) 140/90mm Hg *H* (08/13/22 6:53 PM) 134/90mm Hg (08/13/22 3:11 PM) Respiratory Rate [16-30 br/min] 16 br/min (08/13/22 8:04 PM) 18 br/min (08/13/22 6:53 PM) 14 br/min *L* (08/13/22 3:11 PM) 15 br/min *L* (08/13/22 3:11 PM) Temperature [96.8-100.4 DegF] 98.1 DegF (08/13/22 3:11 PM) Mode of Delivery (Oxygen) Room air (08/13/22 8:04 PM) Room air (08/13/22 6:53 PM) Room air (08/13/22 3:11 PM) Room air (08/13/22 3:11 PM) Blood pressure sites Arm, left (08/13/22 8:04 PM) Arm, left (08/13/22 6:53 PM) Arm, left (08/13/22 3:11 PM) Temperature Route Oral (08/13/22 3:11 PM) Social History Social History Type Response Smoking Status 10 or more cigarette s (1/2 pack or more)/day in last 30 days entered on: 08/22/18 Sex Patient Care team information Care Team Personnel Name: Not on Staff, PCP Position: [facility] Physician (General Medicine) Member Role: PCP Name: Melany Skelton RN Position: [facility] ED RN W/OE and Tasks Member Role: Patient Care Provider Name: Vishnu Droman Position: [facility] ED TA [facility] Name: Maura Foley MD Position: [facility] Resident Member Role: ED Resident Address: Address: [address] [place] [address] Emergency Medicine [address] Name: Lois Parikh DO Position: [facility] ED Medicine MD Member Role: Admitting Physician Address: Address: [address] [place] [address]
--- OUTSIDE RECORDS SUMMARY | 2024-01-19 02:27 | XMS_ITS | Continuity of Care Document ---
Author Organization [facility] Address [address] [place] [address]- Care Team Providers Care Downstairs Maid Name Role Phone Not on Staff, PCP Primary Care Physician Unavail able [place] [facility] [place] 11/23/20 - 11/23/[address] [address]- Encounter Diagnosis Opiate dependence, continuous(Final) - 11/23/20 Lower extremity pain, right(Final) - 11/23/20 Discharge Disposition: A-D/C Home Attending Physician: Alo [...] Status Inform ant Mental status alteration(Confirmed) Active Vital Signs Most recent to oldest [Reference Range]: 1 2 Oxygen Saturation [94-100 %] 97 % (11/23/20 6:07 AM) 97 % (11/23/20 3:38 AM) Pulse Rate [55-90 bpm] 97 bpm *H* (11/23/20 6:07 AM) 92 bpm *H* (11/23/20 3:38 AM) Blood Pressure [90-138/55-84 mm Hg] 134/ 67mm Hg (11/23/20 6:07 AM) 125/74mm Hg (11/23/20 3:38 AM) Respiratory Rate [16-30 br/min] 18 br/mi n (11/23/20 6:07 AM) 16 br/min (11/23/20 3:38 AM) Temperature [96.8-100.4 DegF] 98.7 DegF (11/23/20 3:38 AM) Mode of Delivery (Oxygen) Room air (11/23/20 6:07 AM) Room air (11/23/20 3:38 AM) Temperature Route Oral (11/23/20 3:38 AM) Social History Social History Type Response Smoking Status 10 or more cigarette s (1/2 pack or more)/day in last 30 days entered on: 08/22/18 Sex
--- OUTSIDE RECORDS SUMMARY | 2024-01-19 02:27 | XMS_ITS | Continuity of Care Document ---
Author Organization [facility] Address [address] [place] [address]- Care Team Providers Care Bar Staff Name Role Phone Not on Staff, PCP Primary Care Physician Unavail able [place] [facility] [place] - 11/05/[address] [address]- Encounter Diagnosis Ankle sprain(Final) - 11/05/20 Discharge Disposition: A-D/C Home Attending Physician: Prince Gold DO Admitting Physician: Prince Gold DO Referring Physician: Not on Staff, Referring [...] Exam Date Time Procedure Performing Provider Status 11/05/20 11:16 AM Ankle Min 3 Views Left Lou Ba; Auth (Verified) Notes: (Ankle Min 3 Views Left) Reason For Exam: with Pain;Trauma RESULT: Ankle Min 3 Views Left Ankle Min 3 Views Left Hx of Present Illness: Rolling injury yesterday with current pain. COMPARISON: Left foot radiograph 09/24/2020. FINDINGS: No fracture or bone lesion. Intact ankle mortise and talar dome. No arthritic changes. Normal soft tissues. IMPRESSION: No bone or joint abnormality. I have personally reviewed the images and I agree with this report. WSN: [id number] Ordering Physician: Gary Akbar Dictated By: Heraclio Billings MD Dictated Date/Time: 11/05/20 11:26 a Reviewed By: Oliver Trent MD Signed By: Oliver Trent MD Signed Date/Time: 11/05/20 11:31 am Transcribed By: SLIM Transcribed Date/Time: 11/05/20 11:18 am Vital Signs Most recent to oldest [Reference Range]: 1 2 Height 173 cm (11/05/20 10:44 AM) 173 cm (11/05/20 10:00 AM) Weight 55 kg (11/05/20 10:44 AM) 55 kg (11/05/20 10:00 AM) Oxygen Saturation [94-100 %] 97 % (11/05/20 10:00 AM) Pulse Rate [55-90 bpm] 88 bpm (11/05/20 10:00 AM) Body Mass Index [18.5-24.99] 18.38 *L* (11/05/20 10:00 AM) Blood Pressure [90-138/55-84 mm Hg] 139/ 72mm Hg *H* (11/05/20 10:00 AM) Respiratory Rate [16-30 br/min] 16 br/mi n (11/05/20 10:00 AM) Temperature [96.8-100.4 DegF] 98.8 DegF (11/05/20 10:00 AM) Mode of Delivery (Oxygen) Room air (11/05/20 10:00 AM) Blood pressure sites Arm, right (11/05/20 10:00 AM) Temperature Route Oral (11/05/20 10:00 AM) Dry Weight 55 kg (11/05/20 10:44 AM) 55 kg (11/05/20 10:00 AM) Weight Obtained Via Patient/family state d (11/05/20 10:00 AM) Dry Weight Obtained Via Patient/family s tated (11/05/20 10:00 AM) Social History Social History Type Response Smoking Status 10 or more cigarette s (1/2 pack or more)/day in last 30 days entered on: 08/22/18 Sex
--- OUTSIDE RECORDS SUMMARY | 2024-01-19 02:27 | XMS_ITS | Continuity of Care Document ---
Author Organization [facility] ter Address [address] [place] [address]- Care Team Providers Care Enrober Name Role Phone Not on Staff, PCP Primary Care Physician Unavail able Encounter [facility] Date(s): 03/15/20 - 03/16/[address] [address]- [facility] Encounter Diagnosis Opiate overdose(Final) - 03/15/20 Discharge Disposition: A-D/C Home Attending Physician: Rick Juarez MD Admitting Physician: Rick Juarez MD Referring Physician: Not on Staff, Referring [...] 1 2 3 Oxygen Saturation [94-100 %] 99 % (03/16/20 11:09 AM) 97 % (03/16/20 5:08 AM) 95 % (03/16/20: AM) Pulse Rate [55-90 bpm] 78 bpm (03/16/20 11:09 AM) 66 bpm (03/16/20 5:08 AM) 84 bpm (03/16/20: AM) Blood Pressure [90-138/55-84 mm Hg] 117/44mm Hg (03/16/20 11:09 AM) 106/61mm Hg (03/16/20 5:08 AM) 107/63mm Hg (03/16/20:26 AM) Respiratory Rate [16-30 br/min] 16 br/min (03/16/20 11:09 AM) 18 br/min (03/16/20 5:08 AM) 16 br/min (03/16/20:26 AM) Temperature [96.8-100.4 DegF] 98.1 DegF (03/16/20 11:09 AM) 98.1 DegF (03/16/20 5:08 AM) 97.5 DegF (03/16/20: AM) Mode of Delivery (Oxygen) Room air (03/16/20 11:09 AM) Room air (03/16/20 5:08 AM) Room air (03/16/20:26 AM) Blood pressure sites Arm, left (03/16/20 5:08 AM) Arm, left (03/16/20 1:26 AM) Arm, right (03/15/20 10:04 PM) Temperature Route Oral (03/16/20 11:09 AM) Oral (03/16/20 5:08 AM) Oral (03/16/20 1:26 AM) Social History Social History Type Response Smoking Status 10 or more cigarette s (1/2 pack or more)/day in last 30 days entered on: 08/22/18 Sex
--- OUTSIDE RECORDS SUMMARY | 2024-01-19 02:27 | XMS_ITS | Continuity of Care Document ---
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 Start Date: 07/31/23 Stop Date: 08/14/23 Status: Ordered doxycycline hyclate 100 mg oral capsule 1 capsule = 100 mg, By Mouth, 2 times a day, for 14 days, # 28 capsule, 0 Refills, Acute 08/14/23 14:15:00 EST, 07/31/23 14:15:00 EST, Capsule, [facility], Partial fill upon patient [...] 07/31/23 14:20:00 EST, Route to Pharmacy Electronically, [facility], Partial fill upon patient re... Start Date: 07/31/23 Stop Date: 08/07/23 Status: Ordered Problem List Condition Confirmation Course Effective Dates Status Health [facility] Informant Mental status alteration Confirmed Active Substance abuse Confirmed Active Underweight Confirmed Active Results Radiology Reports * Exam Date Time Procedure Performing Provider Status 07/29/23 12:[address] Ext Upper W/ Contrast Right Shahida Burk; Auth (Verified) Notes: (CT Ext Upper W/ Contrast Right) Reason For Exam: Right elbow swelling;Infection RESULT: CT Ext Upper W/ Contrast Right CT Ext Upper W/ Contrast Right Hx of Present Illness: R elbow swelling x 2 wks; Reason: Infection; Right elbow swelling; Clinical Question(s): Elbow; Order Comment: TECHNIQUE: Helical CT of the right elbow with contrast formatted in 3 planes. 100 cc of Omnipaque 300 was administered intravenously. Weight-based protocol using automatic tube modulation was used tooptimize exposure parameters. CTDIvol Body: 26.20 mGy, DLP Body: 651 mGy*cm. COMPARISONS: Right elbow radiographs dated 07/29/2023 and 07/26/2023. FINDINGS: Bones and joints: No fracture or dislocation is present. Mild enthesopathy at the triceps attachment with no evidence of focal cortical destruction or periosteal reaction. Soft Tissues: There is an irregularly shaped region of hypodensity posterior to the olecranon and deep to several areas of mineralization, which approaches the inferior aspect of the olecranon. Additionally, there is a well-defined area of fluid density in the subcutaneous tissues posterior to the olecranon which measures 2.3 x 2.5 x 0.8 cm. There is been removal of enhancement surrounding this region. Confluent subcutaneous edema seen posteriorly in the elbow. No subcutaneous gas. Included musculature appears unremarkable for the CT technique. A bilobed hypodense cystic structure is seen in the subcapsular region of the liver measuring up to1.3 cm. There is also a 1.4 cm cystic structure centrally in the liver. A 0.5 cm hypodense lesion is also seen in the dome of the liver, which is too small to characterize though also likely reflectsa cyst. IMPRESSION: 1. No acute fracture or CT evidence of osteomyelitis. 2. Well-defined area of fluid density with thin peripheral enhancement in the soft tissues superficial to the olecranon, suggestive of olecranon bursitis. Additional calcifications posterior to the olecranon with an irregularly-shaped hypodensity adjacent to this region, which may reflect fluid deep to or within the triceps tendon. The sterility of the fluid cannot be determined by imaging. WSN: [id number] Ordering Physician: Lesley Gonzalez Dictated By: Monica Guthrie MD Dictated Date/Time: 07/29/23 1:19 pm Reviewed By: Monica Guthrie MD Signed By: Monica Guthrie MD Signed Date/Time: 07/29/23 1:19 pm Transcribed By: SLIM Transcribed Date/Time: 07/29/23 12:56 pm * Exam Date Time Procedure Performing Provider Status 07/29/23 3:55 AM Elbow Min 3 Views Right Steven Tony or; Auth (Verified) Notes: (Elbow Min 3 Views Right) Reason For Exam: with Pain;Trauma RESULT: Elbow Min 3 Views Right Elbow Min 3 Views Right, 4 views Hx of Present Illness: R elbow swelling x 2 wks; Reason: Trauma; with Pain; Clinical Question(s): Fracture; Special Instructions: This is a protocol film and radiologist should call any findings to the Charge Nurse COMPARISON: None. FINDINGS: No fracture or dislocation. There is soft tissue swelling over the olecranon process. No arthritic changes. There is calcification along the triceps tendon. No joint effusion. IMPRESSION: No fracture. Olecranon bursitis which may be due to trauma, inflammation, or infection. Likely calcific tendinitis of the triceps tendon. WSN: [id number] Ordering Physician: Liliana Araujo Dictated By: Sheree Early MD Dictated Date/Time: 07/29/23 7:57 am Reviewed By: Sheree Early MD Signed By: Sheree Early MD Signed Date/Time: 07/29/23 7:57 am Transcribed By: SLIM Transcribed Date/Time: 07/29/23 7:55 am Vital Signs Most recent to oldest [Reference Range]: 1 2 3 Height 173 cm (07/31/23 7:32 AM) 173 cm (07/30/23:35 PM) 173 cm (07/30/23: PM) Weight 53.6 kg (07/29/23: PM) 53.6 kg (07/29/23: PM) Oxygen Saturation [94-100 %] 98 % (07/31/23:32 AM) 97 % (07/30/23: PM) 100 % (07/30/23: PM) Pulse Rate [55-90 bpm] 89 bpm (07/31/23:32 AM) 85 bpm (07/30/23: PM) 94 bpm *H* (07/30/23 PM) Body Mass Index [18.5-24.99 kg/m2] 17.91 kg/m2 *L* (07/29/23 11:03 PM) 17.91 kg/m2 *L* (07/29/23: PM) Blood Pressure [90-138/55-84 mm Hg] 132/65mm Hg (07/31/23 7:32 AM) 109/62mm Hg (07/30/23 11:35 PM) 131/72mm Hg (07/30/23:20 PM) Respiratory Rate [16-30 br/min] 18 br/min (11/10/23 7:32 AM) 16 br/min (07/30/23 11:35 PM) 18 br/min (07/30/23 7:20 PM) Temperature [96.8-100.4 DegF] 98.0 DegF (07/31/23 7:32 AM) 98.1 DegF (07/30/23 11:35 PM) 98.7 DegF (07/30/23 7:20 PM) Mode of Delivery (Oxygen) Room air (07/31/23 7:32 AM) Room air (07/30/23 11:35 PM) Room air (07/30/23 7:20 PM) Blood pressure sites Arm, left (07/31/23 7:32 AM) Arm, left (07/30/23 11:35 PM) Arm, left (07/30/23 7:20 PM) Temperature Route Oral (07/31/23 7:32 AM) Oral (07/30/23 11:35 PM) Oral (07/30/23 7:20 PM) Dry Weight 53.6 kg (07/29/23 11:01 PM) 54.5 kg (07/29/23 3:03 AM) 54.5 kg (07/28/23 7:03 PM) Weight Obtained Via Bed scale (07/29/23 11:03 PM) Dry Weight Obtained Via Patient/family s tated (07/28/23 7:03 PM) Social History Social History Type Response Smoking Status 10 or more cigarette s (1/2 pack or more)/day in last 30 days entered on: 08/22/18 Sex Admission evaluation note * Mikel ATKINSON, Yassine: PERFORM Event Display: Admission Note Authored Date: [id number] Patient: ??ANIBAL MOHAN ? Age:??53 Years?Sex:??Male?:??1970?? Chief Complaint/Reason for Consultation Right elbow pain History of Present Illness The patient is a 53 years old male with past medical history of polysubstance abuse??presented to ER with a chief complaint of right elbow pain. ?? The patient reported that he was admitted at [facility] for right elbow infection about 1 month ago??but left AMA. ??Patient came to??[facility] ER??about 1 week ago with right elbow pain.?? Orthopedics attempted arthrocentesis but no fluid was drained and patient was discharged home. ??Patientwith that since he went home, he had been having worsening right elbow pain that he described as sudden onset, continuous, waxing and waning, 9 out of 10, sharp,??aggravated by movement, alleviated by staying still,??not associate with fever, chills, nausea, vomiting. ?? The patient reports that he smokes cocaine but denies any IV drug use. Review of Systems All pertinent negative and positives are noted in HPI. ??All other systems were reviewed and are negative Objective Measurements?? Height: 173 cm (07/29/23) Dry Weight: 54.5 kg (07/29/23) ? Vital Signs?? Temperature: 99.1 DegF (07/29/23 08:19:00) Temperature Route: Oral (07/29/23 08:19:00) Pulse Rate:??97 bpm??High (07/29/23 17:44:00) Respiratory Rate: 18 br/min (07/29/23 17:44:00) Systolic Blood Pressure: 132 mm Hg (07/29/23 17:44:00) Diastolic Blood Pressure: 78 mm Hg (07/29/23 17:44:00) Blood pressure sites: Arm, left (07/29/23 17:44:00) Mean Arterial Pressure: 87 mm Hg (07/29/23 08:19:00) Pulse Pressure: 54 mm Hg (07/29/23 17:44:00) Oxygen Saturation: 98 % (07/29/23 17:44:00) Mode of Delivery (Oxygen): Room air (07/29/23 17:44:00) Early Warning Score: 0 (07/29/23 17:45:10) ? Physical Exam Constitutional: Alert, in no acute distress. Head: Normocephalic. ?? Eyes: Pupils are equal, round and reactive to light. Extraocular muscles intact. No pallor or scleral icterus ?? Ear, Nose and Throat: mucous membranes moist. Ears and nose - no obvious deformities. Trachea midline. ?? Neck: Supple, Full range of motion.No JVD or bruits. Respiratory:??Clear to auscultation. No wheezing or rhonchi.??No use of accessory muscles. No tactile fremitus.?? Cardiovascular:??PMI not visible. S1 S2 regular. No murmurs, rubs or gallops. Gastrointestinal:??Abdomen soft, non-tender, non-distended. Normal bowel sounds. No pulsatile mass.No hepatosplenomegaly. Genitourinary:??No costovertebral angle tenderness. Extremities: No lower extremity pitting edema. No cyanosis or clubbing. Neurologic:??AAOx3, Cranial nerves II-XII grossly intact. Speech normal, no facial droop. No focal neurological deficits. Moves all extremities spontaneously. Sensation intact bilaterally.??Flexor plantar response Skin:??No rash.?? Musculoskeletal:??Right AKA Right elbow:??Mildly erythematous, tender and swollen Heme/Lymphatics:??Palpation of neck reveals no swelling or tenderness of neck nodes.?? Psychiatric: Normal mood and affect. Assessment/Plan Diagnoses 1. ??Sepsis ??(A41.9) 2. ??Cellulitis of right elbow ??(L03.113) 3. ??Olecranon bursitis, right elbow ??(M70.21) 4. ??Substance abuse ??(F19.10) ?? Assessment:??The patient is a 53 years old male who is admitted with sepsis due to right elbow cellulitis and??bursitis ?? Sepsis (A41.9):??Etiology: Likely right elbow cellulitis and bursitis Febrile, tachycardia upon admission Patient presented with right elbow pain In ER, patient was given IV vancomycin and Zosyn CT scan was done that showed??findings consistent with right olecranon bursitis Blood cultures pending Started patient IV vancomycin, IV cefepime, IV fluids Will monitor hemodynamic status ?? Cellulitis of right elbow (L03.113):??Patient presented with right elbow pain with??swelling On physical exam, right elbow swollen, erythematous, tender Started patient IV antibiotics We will monitor ?? Olecranon bursitis, right elbow (M70.21):??Patient presented with recurrent right elbow pain, patient was at [facility] last week, orthopedic attending bedside arthrocentesis but no fluid was drained and he was discharged home Labs: ESR 46, CRP 5.4 CT scan of the right upper extremity was done that showed findings consistent olecranon bursitis, also showed a fluid collection??within the triceps tendon Patient already started on IV vancomyci??IV cefepimen, Orthopedic surgery consulted,??no acute intervention but??possible plan for washout in the morning ? Substance abuse (F19.10):??Patient admits to smoking cocaine, last use was last night Order urine drug screen Will monitor for signs of withdrawal ?? VTE Prophylaxis:??Lovenox ?VTE Prophylaxis Assessment:??VTE Prophylaxis Ordered ?? Code Status:??Full code ?Order Code Status:??Code Status Ordered ?? Ongoing Medical Necessity:??Sepsis, right elbow cellulitis ?? Discharge Planning:??Pending clinical course ? Date of service: July 29, 2023 Histories Allergies Allergies ?(Active and Proposed Allergies Only) NKA? (Severity: Unknown severity, Onset: Unknown) No Known Medication Allergies? (Severity: Unknown severity, Onset: Unknown) ? Past Medical History/Problem List Active Problems??(2) Mental status alteration Substance abuse ? Past Surgical History Right AKA ? Social History Tobacco Details:??Use: 10 or more cigarettes (1/2 pack or more)/day in last 30 days. Does not drink alcohol, admits to using cocaine ?? Family History No family history??of premature CAD ? Medications Home Medications No medications documented.? Results Recent Labs BLOOD COUNT & DIFF WBC 5.2 k/mm3 ()?? 07/29/2023 04:14 RBC 4.30 m/mm3 (Low)?? 07/29/2023 04:14 Hgb 12.3 Gm/dL (Low)?? 07/29/2023 04:14 Hct 37.7 % (Low)?? 07/29/2023 04:14 MCV 87.7 femtoliters ()?? 07/29/2023 04:14 MCH 28.6 pg ()?? 07/29/2023 04:14 MCHC 32.6 g/dL (Low)?? 07/29/2023 04:14 Platelet Count 252 k/mm3 ()?? 07/29/2023 04:14 RDW-SD 46.5 femtoliters ()?? 07/29/2023 04:14 MPV 10.8 femtoliters ()?? 07/29/2023 04:14 Nucleated RBC (Automated) 0.0 #/100 WBC'S ()?? 07/29/2023 04:14 Abs. NRBC 0.0 k/mm3 ()?? 07/29/2023 04:14 Abs. Neut 2.8 k/mm3 ()?? 07/29/2023 04:14 Abs. Lymph 1.5 k/mm3 ()?? 07/29/2023 04:14 Abs. Willacy 0.8 k/mm3 ()?? 07/29/2023 04:14 Abs. Eo 0.1 k/mm3 ()?? 07/29/2023 04:14 Abs. Baso 0.0 k/mm3 ()?? 07/29/2023 04:14 Neut % 53.8 % ()?? 07/29/2023 04:14 Lymph % 28.0 % ()?? 07/29/2023 04:14 Willacy % 15.9 % (High)?? 07/29/2023 04:14 Eos % 1.5 % ()?? 07/29/2023 04:14 Baso % 0.6 % ()?? 07/29/2023 04:14 Imm Gran 0.2 % ()?? 07/29/2023 04:14 Abs. Imm Gran 0.0 k/mm3 ()?? 07/29/2023 04:14 ?? CHEM GENERAL Sodium 137 mmol/L ()?? 07/29/2023 04:14 Potassium 3.8 mmol/L ()?? 07/29/2023 04:14 Chloride 102 mmol/L ()?? 07/29/2023 04:14 Bicarbonate Level 27 mmol/L ()?? 07/29/2023 04:14 Anion Gap 8 ()?? 07/29/2023 04:14 Glucose Level 109 mg/dL (High)?? 07/29/2023 04:14 BUN 9 mg/dL ()?? 07/29/2023 04:14 Creatinine-Blood 0.8 mg/dL ()?? 07/29/2023 04:14 Estimated GFR Creatinine 109 ML/MIN/1.73 M2 ()?? 07/29/2023 04:14 Calcium 8.3 mg/dL (Low)?? 07/29/2023 04:14 C-Reactive Protein 5.4 mg/dL (High)?? 07/29/2023 04:14 ?? HEME OTHER Sed Rate 46 mm/hr (High)?? 07/29/2023 04:14 ?? URINE OTHER Est Creatinine Clearance 84.21 mL/min ()?? 07/29/2023 05:14 ? Coagulation Profile?? No qualifying data available. ?? Hospital Progress note * Sonia Tejada RN: PERFORM, SIGN, VERIFY Event Display: Progress Note Hospital Authored Date: Patient: ANIBAL MOHAN Age: 53 years Sex: Male : 1970 Associated Diagnoses: None Author: Sonia Tejada RN Findings Problem Related to Alteration in Musculoskeletal : Alteration in Musculoskeletal Func/new 07/31/2023 14:00 EST Alteration in Musculoskeletal Related to Other: Bursitis Goals & Outcomes, Musculoskeletal Affected extremity will maintain color/motion/sensation, Pt able to perform ADL's to best of ability, Pt will ambulate safely with assistive device, Pt will demonstrate ability to participate in ADL's, Pt will report acceptable level of comfort/pain relief Interventions, Musculoskeletal Obtain assistive devices as needed, Teach & Encourage use of Incentive spirometer, Teach pt/caregiver on use of pain scale, Teach Pt/caregiver complications of immobility, Teach Pt/caregiver techniques to increase mobility BH Goals/Interventions, Musculoskeletal Yes Musculoskeletal, Problem Start 07/30/2023 18:49 Reviewed Plan with, Musculoskeletal Patient Patient Progression, Musculoskeletal Pt progressing according to plan . Nursing Data Vital Signs : VITAL SIGNS SECTION 07/31/2023 7:32 EST Temperature 98.0 DegF Temperature Route Oral Pulse Rate 89 bpm Respiratory Rate 18 br/min Systolic Blood Pressure 132 mm Hg Diastolic Blood Pressure 65 mm Hg Blood pressure sites Arm, left Mean Arterial Pressure 87 mm Hg Pulse Pressure 67 mm Hg Oxygen Saturation 98 % Mode of Delivery (Oxygen) Room air . Narrative/Incidental Patient is alert and orientedx3. Being treated for infected R elbow/bursitis No s/s of respiratory distress, breathing freely on room air. No c/o pain. IV ABX administered as ordered. Able to make need known. Call alvarez within reach at all times. Pt offers no concerns, complaints, or questions at this time. Pt discharged at 1440 to [facility] [facility] [place] . Discharge Information Case Management Discharge Plan : Case Management Discharge Plan Data 07/31/2023 14:49 EST Discharge Level of Care at Discharge Home/Assisted/Foster Care 07/26/2023 15:00 EST Discharge Level of Care at Discharge Home/Assisted/Foster Care * Uriel ATKINSON, Jey: PERFORM Event Display: Progress Note Hospital Authored Date: Patient: ??ANIBAL MOHAN ? Age:??53 Years?Sex:??Male?:??1970?? Subjective patient seen and the bedside patient with right elbow pain , still?? have considerable amount of pain ortho?? signed off recommend conservative management ID consulted Review of Systems A full review of systems was completed and is otherwise negative except as mentioned in history of present illness. Objective Vital Signs?? Temperature: 98 DegF (07/31/23 07:32:00) Temperature Route: Oral (07/31/23 07:32:00) Pulse Rate: 89 bpm (07/31/23 07:32:00) Respiratory Rate: 18 br/min (07/31/23 07:32:00) Systolic Blood Pressure: 132 mm Hg (07/31/23 07:32:00) Diastolic Blood Pressure: 65 mm Hg (07/31/23 07:32:00) Blood pressure sites: Arm, left (07/31/23 07:32:00) Mean Arterial Pressure: 87 mm Hg (07/31/23 07:32:00) Pulse Pressure: 67 mm Hg (07/31/23 07:32:00) Oxygen Saturation: 98 % (07/31/23 07:32:00) Mode of Delivery (Oxygen): Room air (07/31/23 07:32:00) Early Warning Score: 0 (07/31/23 07:33:07) ? Intake/Output? 07/29 15:11 07/31 07:00 07/30 07:00 07/29 07:00 07/28 07:00 ?? 07/31 13:00 07/31 13:00 07/31 06:59 07/30 06:59 07/29 06:59 Intake ? 1040 ?227.5 ?605 ?207.5 ?0 Output ? 3300 ? 1000 ?900 ? 1400 ?0 Net Total ?-2260 ? -772.5 ? -295 ?-1192.5 ?0 ? Physical Exam Constitutional: Alert, in no acute distress. Respiratory:??Clear to auscultation. No wheezing or rhonchi.?? Cardiovascular:??S1 S2 regular. No murmurs, rubs or gallops. Gastrointestinal:??Abdomen soft, non-tender, non-distended. Normal bowel sounds. Genitourinary:??No costovertebral angle tenderness. Extremities: No lower extremity pitting edema. Neurologic:??AAOx3, . No focal neurological deficits. Moves all extremities spontaneously. 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 _ Home Medications No medications documented.? Inpatient Medications Medications (14) Active SCHEDULED: (5) Cefepime 2 Gm Inj (Maxipime Inj) ??2,000 mg, IVPB, Every 12 hours Enoxaparin 40 mg Inj (Enoxaparin Inj) ??40 mg 0.4 mL, Subcutaneous Injection, Daily NaCl 0.9% Flush 3ml (NaCL 0.9% Flush) ??3 mL, IV Push, Every 8 hours Phos-NaK Oral Powder (Potassium/Sodium Phosphates Oral Powder) ??1 pack/packet, By Mouth, 2 times aday Vancomycin 750 mg/D5W 150 mL (Vancomycin IVPB) ??750 mg 150 mL, IVPB, Every 24 hours CONTINUOUS: (0) PRN: (9) Acetaminophen 325 mg Tablet (Acetaminophen Tablet) ??650 mg, By Mouth, Every 4 hours Dextromethorphan-Guaifenesin 20 mg-200 mg/10 mL Liqu UD (Robitussin DM Liquid) ??10 mL, By Mouth, Every 4 hours Docusate Sodium 100 mg Capsule (Docusate Sodium Capsule) ??100 mg 1 capsule, By Mouth, 2 times a day Ketorolac 30 mg/mL Inj (Toradol Inj) ??15 mg 0.5 mL, IV Push Slowly, Every 6 hours Melatonin 3 mg Tablet (Melatonin Tablet) ??3 mg, By Mouth, Daily at bedtime NaCl 0.9% Flush 3ml (NaCL 0.9% Flush) ??3 mL, IV Push, Every 8 hours Polyethylene Glycol 17 Gm Powder (MiraLax Powder) ??17 Gm 1 pack/packet, By Mouth, Daily Senna Tablet ??8.6 mg 1 tablet, By Mouth, 2 times a day Simethicone 80 mg Chewable Tablet (Simethicone Tablet) ??80 mg, Chew, 3 times a day ? 72 Hour Antibiotic History Active Antibiotics Calendar Day Last Administered First Administered Cefepime??2,000 mg, 33.33 mL/hr, IVPB, Every 12 hours ?2 07/31/2023 10:07 07/30/2023 10:36 Vancomycin??750 mg, 150 mL, 150 mL/hr, IVPB, Every 24 hours ?2 07/31/2023 06:43 07/30/2023 06:57 ? Stopped Antibiotics Stop Date/Time Last Administered First Administered Vancomycin??1 Gm, 200 mL, 200 mL/hr, IVPB, Once 07/29/2023 18:15 07/29/2023 18:14 07/29/2023 18:14 Piperacillin-Tazobactam??3.375 Gm, 25 mL/hr, IVPB, Once 07/29/2023 17:44 07/29/2023 17:44 07/29/2023 17:44 ? Results Recent Labs BLOOD COUNT & DIFF WBC 5.1 k/mm3 ()?? 07/31/2023 04:33 RBC 4.51 m/mm3 (Low)?? 07/31/2023 04:33 Hgb 12.8 Gm/dL (Low)?? 07/31/2023 04:33 Hct 39.5 % (Low)?? 07/31/2023 04:33 MCV 87.6 femtoliters ()?? 07/31/2023 04:33 MCH 28.4 pg ()?? 07/31/2023 04:33 MCHC 32.4 g/dL (Low)?? 07/31/2023 04:33 Platelet Count 297 k/mm3 ()?? 07/31/2023 04:33 RDW-SD 47.8 femtoliters (High)?? 07/31/2023 04:33 MPV 10.3 femtoliters ()?? 07/31/2023 04:33 Nucleated RBC (Automated) 0.0 #/100 WBC'S ()?? 07/31/2023 04:33 Abs. NRBC 0.0 k/mm3 ()?? 07/31/2023 04:33 ?? CHEM GENERAL Sodium 137 mmol/L ()?? 07/31/2023 04:33 Potassium 4.2 mmol/L ()?? 07/31/2023 04:33 Chloride 105 mmol/L ()?? 07/31/2023 04:33 Bicarbonate Level 23 mmol/L ()?? 07/31/2023 04:33 Anion Gap 9 ()?? 07/31/2023 04:33 Glucose Level 113 mg/dL (High)?? 07/31/2023 04:33 BUN 11 mg/dL ()?? 07/31/2023 04:33 Creatinine-Blood 0.6 mg/dL (Low)?? 07/31/2023 04:33 Estimated GFR Creatinine 117 ML/MIN/1.73 M2 ()?? 07/31/2023 04:33 Calcium 8.0 mg/dL (Low)?? 07/31/2023 04:33 Phosphorus 1.9 mg/dL (Low)?? 07/30/2023 00:16 Magnesium 1.9 mg/dL ()?? 07/30/2023 00:16 Protein, Total 6.4 Gm/dL ()?? 07/30/2023 00:16 Albumin 2.9 Gm/dL (Low)?? 07/30/2023 00:16 AG Ratio 0.8 ()?? 07/30/2023 00:16 Alkaline Phosphatase 67 units/L ()?? 07/30/2023 00:16 AST (SGOT) 86 units/L (High)?? 07/30/2023 00:16 ALT (SGPT) 96 units/L (High)?? 07/30/2023 00:16 Bilirubin, Total 0.4 mg/dL ()?? 07/30/2023 00:16 ?? COAG INR 1.0 ()?? 07/30/2023 00:15 Protime (PT) 10.4 seconds ()?? 07/30/2023 00:15 ?? URINE OTHER Est Creatinine Clearance 110.43 mL/min ()?? 07/31/2023 06:03 ? Assessment/Plan Diagnoses Cocaine use disorder ??(F14.10)) ??Cellulitis of right elbow ??(L03.113) ??Olecranon bursitis, right elbow ??(M70.21) ?Substance abuse ??(F19.10) ?? 53 years old male who is admitted with sepsis due to right elbow cellulitis and??bursitis to rule??out septic arthritis ?? Olecranon bursitis, right elbow (M70.21): Cellulitis of right elbow (L03.113): {improving } Patient presented with right elbow pain Started on IV vancomycin and Zosyn CT scan was done that showed??findings consistent with right olecranon bursitis Continue ??IV vancomycin, IV cefepime ORTHO?? consulted recs as follows 07/26/2023 presentation with right shoulder with extension to elbow pain after fall from standing, examination findings septic bursitis versus bursitis, dry tap of olecranon bursa ??CT RUE with contrast 06/28/2023 shows fluid density with peripheral enhancement superficial to olecarnon, calcifications in the area, and a hypodensity that may reflect fluid deep to or within thetriceps tendon ortho?? signed off no acute intervention recommended iv antibiotics , id CONSULTED blood CULTURES not sent on admission , so?? ordered today?? given h/o?? drug use but less likely kaykay positive no clinical signs??and also received antibiotics? Patient presented with recurrent right elbow pain, patient was at [facility] last week, orthopedic attending bedside arthrocentesis but no fluid was drained and he was discharged home Labs: ESR 46, CRP 5.4 ?Substance abuse (F19.10):??Patient admits to smoking cocaine, addiction consulted , appreciate recs ? VTE Prophylaxis:??Lovenox ?VTE Prophylaxis Assessment:??VTE Prophylaxis Ordered ?? Code Status:??Full code ?Order Code Status:??Code Status Ordered ? omn :?? await final ID recs * Sonia Tejada RN: PERFORM, SIGN, VERIFY Event Display: Progress Note Hospital Authored Date: Patient: ANIBAL MOHAN Age: 53 years Sex: Male : 1970 Associated Diagnoses: None Author: Sonia Tejada RN Findings Problem Related to Alteration in Comfort : Alteration in Comfort/new 07/30/2023 18:49 EST Alteration in Comfort Related to Disease process, Other: right elbow pain Goals & Outcomes: Comfort Pt will report acceptable level of comfort & pain control, Pt will state importance of adhering to pain strategy regime, Pt will demonstrate necessary skills to manage pain, Non-verbal indicators will indicate comfort/pain control Interventions Implemented: Comfort Assess pain using appropriate pain scale/tools, Assess aggravating factors & prevent them accordingly, Assess alleviating factors & promote them accordingly Goals/Interventions, Comfort Yes Comfort, Problem Start 07/29/2023 23:00 Reviewed plan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 Discharge Disposition: Home: No Services Discharge Diagnosis ?? Cellulitis of right elbow (L03.113) Olecranon bursitis, right elbow (M70.21) Substance abuse (F19.10) Cocaine use disorder (F14.10) ?? _ Discharge Medications Amoxicillin-Clavulanate (Augmentin 875 mg-125 mg oral tablet)?1?tab(s)?By Mouth?Every 12 hours?for 14?Days Doxycycline (doxycycline hyclate 100 mg oral capsule)?1?capsule?100?Milligram?By Mouth?2 times a day?for 14?Days ? Medications Started as above Medications Discontinued none Doses Changed none Hospital Course /Plan Patient is a 53-year-old male with a history of polysubstance use who presents to the emergency room with right elbow pain. He originally presented with his symptoms at [facility] about a month ago??and was dischargedwith antibiotics that he did not slat pickler to take.?? He represented to the emergency room about a week ago and??orthopedics attempted to tap on the right??elbow??that was unsuccessful.?? He returns again this week with worsening pain??and there was concern for??a septic bursitis.?? He has been afebrile, no leukocytosis, no other signs of infection other than??elevated ESR and CRP Blood cultures from 06/30 and 07/18 with no growth to date. He has been evaluated orthopedic surgery who declined??further??arthrocentesis and washout and recommend IV antibiotics Objective ?Olecranon bursitis, right elbow (M70.21): Cellulitis of right elbow (L03.113): {improving } Patient presented with right elbow pain Started on IV vancomycin and Zosyn CT scan was done that showed??findings consistent with right olecranon bursitis Continue ??IV vancomycin, IV cefepime ORTHO?? consulted recs as follows 07/26/2023 presentation with right shoulder with extension to elbow pain after fall from standing, examination findings septic bursitis versus bursitis, dry tap of olecranon bursa ??CT RUE with contrast 06/28/2023 shows fluid density with peripheral enhancement superficial to olecarnon, calcifications in the area, and a hypodensity that may reflect fluid deep to or within thetriceps tendon ortho?? signed off no acute intervention recommended iv antibiotics , id CONSULTED recommended oral?? antibiotics ?? Patient presented with recurrent right elbow pain, patient was at [facility] last week, orthopedic attending bedside arthrocentesis but no fluid was drained and he was discharged home Labs: ESR 46, CRP 5.4 ?Substance abuse (F19.10):??Patient admits to smoking cocaine, addiction consulted , appreciate recs ?patient stable for discharge Vital Signs?? Temperature: 98 DegF (07/31/23 07:32:00) Temperature Route: Oral (07/31/23 07:32:00) Pulse Rate: 89 bpm (07/31/23 07:32:00) Respiratory Rate: 18 br/min (07/31/23 07:32:00) Systolic Blood Pressure: 132 mm Hg (07/31/23 07:32:00) Diastolic Blood Pressure: 65 mm Hg (07/31/23 07:32:00) Blood pressure sites: Arm, left (07/31/23 07:32:00) Mean Arterial Pressure: 87 mm Hg (07/31/23 07:32:00) Pulse Pressure: 67 mm Hg (07/31/23 07:32:00) Oxygen Saturation: 98 % (07/31/23 07:32:00) Mode of Delivery (Oxygen): Room air (07/31/23 07:32:00) Early Warning Score: 0 (07/31/23 07:33:07) ? . Physical Exam Constitutional: Alert, in no acute distress. Respiratory:??Clear to auscultation. No wheezing or rhonchi.?? Cardiovascular:??S1 S2 regular. No murmurs, rubs or gallops. Gastrointestinal:??Abdomen soft, non-tender, non-distended. Normal bowel sounds. Genitourinary:??No costovertebral angle tenderness. Extremities: No lower extremity pitting edema. Neurologic:??AAOx3, . No focal neurological deficits. Moves all extremities spontaneously. 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 Consultants ortho?? ID Patient Instructions PLEASE take antibiotics as prescribed please refrain from the use of substances Post Discharge Care Discharge ?Today, 07/31/23 14:08:00 EST Home Health Face to Face ^HomeHealthFTF Results Discharge Labs BLOOD COUNT & DIFF WBC 5.1 k/mm3 ()?? 07/31/2023 04:33 RBC 4.51 m/mm3 (Low)?? 07/31/2023 04:33 Hgb 12.8 Gm/dL (Low)?? 07/31/2023 04:33 Hct 39.5 % (Low)?? 07/31/2023 04:33 MCV 87.6 femtoliters ()?? 07/31/2023 04:33 MCH 28.4 pg ()?? 07/31/2023 04:33 MCHC 32.4 g/dL (Low)?? 07/31/2023 04:33 Platelet Count 297 k/mm3 ()?? 07/31/2023 04:33 RDW-SD 47.8 femtoliters (High)?? 07/31/2023 04:33 MPV 10.3 femtoliters ()?? 07/31/2023 04:33 Nucleated RBC (Automated) 0.0 #/100 WBC'S ()?? 07/31/2023 04:33 Abs. NRBC 0.0 k/mm3 ()?? 07/31/2023 04:33 Abs. Neut 2.8 k/mm3 ()?? 07/29/2023 04:14 Abs. Lymph 1.5 k/mm3 ()?? 07/29/2023 04:14 Abs. Willacy 0.8 k/mm3 ()?? 07/29/2023 04:14 Abs. Eo 0.1 k/mm3 ()?? 07/29/2023 04:14 Abs. Baso 0.0 k/mm3 ()?? 07/29/2023 04:14 Neut % 53.8 % ()?? 07/29/2023 04:14 Lymph % 28.0 % ()?? 07/29/2023 04:14 Willacy % 15.9 % (High)?? 07/29/2023 04:14 Eos % 1.5 % ()?? 07/29/2023 04:14 Baso % 0.6 % ()?? 07/29/2023 04:14 Imm Gran 0.2 % ()?? 07/29/2023 04:14 Abs. Imm Gran 0.0 k/mm3 ()?? 07/29/2023 04:14 ?? CHEM GENERAL Sodium 137 mmol/L ()?? 07/31/2023 04:33 Potassium 4.2 mmol/L ()?? 07/31/2023 04:33 Chloride 105 mmol/L ()?? 07/31/2023 04:33 Bicarbonate Level 23 mmol/L ()?? 07/31/2023 04:33 Anion Gap 9 ()?? 07/31/2023 04:33 Glucose Level 113 mg/dL (High)?? 07/31/2023 04:33 BUN 11 mg/dL ()?? 07/31/2023 04:33 Creatinine-Blood 0.6 mg/dL (Low)?? 07/31/2023 04:33 Estimated GFR Creatinine 117 ML/MIN/1.73 M2 ()?? 07/31/2023 04:33 Calcium 8.0 mg/dL (Low)?? 07/31/2023 04:33 Phosphorus 1.9 mg/dL (Low)?? 07/30/2023 00:16 Magnesium 1.9 mg/dL ()?? 07/30/2023 00:16 Protein, Total 6.4 Gm/dL ()?? 07/30/2023 00:16 Albumin 2.9 Gm/dL (Low)?? 07/30/2023 00:16 AG Ratio 0.8 ()?? 07/30/2023 00:16 Alkaline Phosphatase 67 units/L ()?? 07/30/2023 00:16 AST (SGOT) 86 units/L (High)?? 07/30/2023 00:16 ALT (SGPT) 96 units/L (High)?? 07/30/2023 00:16 Bilirubin, Total 0.4 mg/dL ()?? 07/30/2023 00:16 C-Reactive Protein 5.4 mg/dL (High)?? 07/29/2023 04:14 ?? COAG INR 1.0 ()?? 07/30/2023 00:15 Protime (PT) 10.4 seconds ()?? 07/30/2023 00:15 ?? HEME OTHER Sed Rate 46 mm/hr (High)?? 07/29/2023 04:14 ? TOXICOLOGY/TDM Cannabinoid Screen, Urine POSITIVE (Abnormal)?? 07/29/2023 23:00 Cocaine Metabolite Screen, Urine POSITIVE (Abnormal)?? 07/29/2023 23:00 Opiate Screen, Urine NONE DETECTED ()?? 07/29/2023 23:00 ? URINE OTHER Est Creatinine Clearance 110.43 mL/min ()?? 07/31/2023 06:03 ? 35_ minutes spent on discharge * Sonia Tejada RN: PERFORM Event Display: Patient Education/Instruction Authored Date: [id number] Inpatient Adult Discharge Instructions [address] [address] Name: ANIBAL MOHAN : 1970 Visit: 07/29/2023 15:11:00 Current Date: 07/31/2023 14:23 Account: [id number] Inpatient Adult Discharge Instructions We would like to thank you for allowing us to assist you with your healthcare needs. The following includes patient education materials and information regarding your injury/illness. Our entire staffstrives to provide an excellent experience for our patients and their families. PLEASE ENSURE YOU FOLLOW-UP PER THE INSTRUCTIONS BELOW! ?? YOUR OPINION IS IMPORTANT TO US! Please complete the survey you may receive by mail or email. Your feedback will be used to make improvements to the healthcare experiences of our patients and their families. Surveys are administered by [employer] ?? If further treatment with your primary care physician or another doctor is recommended, it is important for you to keep the appointment. Call your primary care physician or return to the Emergency Department immediately if your condition worsens, fails to improve, or new symptoms develop. If you need to find a doctor, you can call [facility] for a referral at [phone] or toll free at [phone] or log in to [email or web address].. ?? [facility], in keeping with [facility] guidance, no longer requires face masks for staff, patientsor visitors in most situations. Similiar to time spent indoors at other locations, there is the chance that you were exposed to repiratory viruses during your time with us (such as flu or COVID-19). If you develop symptoms concerning for a viral respiratory infection, please seek testing (and treatment if indicated) from your medical provider or home test kit. ?? You can view and manage your care through the patient portal or by using a health care rajesh of your choosing. [facility] is a website that allows you to securely view your medical information including your hospital discharge summary, office visit summaries, medications and follow-up visits. You can also request appointments, renew medications, and request access to your medical information using a health care rajesh of your choosing, or just ask a question. You can enroll at [email or web address] or register during your next office visit. You have been discharged from [facility], Patient Care Unit: W3. If you have any questions regarding these instructions after you leave, please call us and we will be happy to assist you. [facility] Your Care Team Attending Physician Uriel ATKINSON, Jey Consulting Providers Chinmay ATKINSON, Flaco Conn MD, Sruthi Hope Discharging Providers Uriel ATKINSON, Jey Reason for Admission Right elbow pain. Had fluid drained last Thursday but still having pain. Your Diagnosis Sepsis Cellulitis of right elbow Olecranon bursitis, right elbow Substance abuse Cocaine use disorder Tests Performed Below is a partial list of the tests performed during your hospitalization. You may have had other tests and procedures not included in this list. Please discuss all test results with your provider. Basic Metabolic Panel C-REACTIVE PROTEIN Cannabinoid Urine Screen CBC Cocaine Urine Screen Comprehensive Metabolic Panel INR Magnesium Level Opiate Screen Urine Phosphorus Level SEDIMENTATION RATE,AUTOMATED CT Ext Upper W/ IV Contrast Right XR Elbow Min 3 Views Right Primary Care Provider Not on Staff, PCP Advance Directive Health Care Proxy on File No Patient refuses to discuss Discharge Vitals Temperature: 98 DegF Height: 173 cm Pulse Rate: 89 bpm Weight: 53.6 kg Respiratory Rate: 18 br/min Body Mass Index:??17.91 kg/m2??Low Systolic Blood Pressure: 132 mm Hg Body surface area: 1.6 Diastolic Blood Pressure: 65 mm Hg ?? Oxygen Saturation: 98 % ?? Studies Pending All tests and labs ordered during this hospital stay have been completed unless listed below. Please discuss all pending results with your provider listed above in these instructions. ?? Add On Lab Order BUN Blood Culture Blood Culture #2 CBC w/ Differential Calcium Level Creatinine Electrolytes Glucose Level What to do next Instructions From Your Doctor Discharge Orders Discharge Medications ANIBAL MOHAN :1970 Visit Date:07/29/2023 Medications: Please continue your medications until treatment is completed or stopped by your provider. Medications not listed below should be discontinued. Discuss any questions related to medications with your provider. What How Much When Instructions Next Dose New Amoxicillin-Clavulanate (Augmentin 875 mg-125 mg oraltablet) 1 tab(s) Oral Every 12 hours Duration: 14 Days Pickup at [place] [address] 07/31 9 PM New Doxycycline (doxycycline hyclate 100 mg oral capsule) 1 capsule Oral Twice a day Duration: 14 Days Pickup at [place] [address] 07/31 9PM Changed Ibuprofen (ibuprofen 200 mg oral tablet) 2 tab(s) Oral 4 times a day as needed for for pain Duration: 7 Days Pickup at [place] [address] Anytime Pharmacy Information [facility]: [address] [place] [place], [place] [id number] [phone] ?? What How Much When Comments Stop Taking Acetaminophen (acetaminophen 325 mg oral capsule) 2 capsule Oral Every 4 hours as needed for as needed for pain Stop Taking Aripiprazole (ARIPiprazole 10 mg oral tablet) 1 tab(s) Oral Daily Stop Taking Durable Medical Equipment (Orthotics) See instructions gel locking liner ?? Stop Taking Fluoxetine (FLUoxetine 10 mg oral capsule) 1 capsule Oral Daily Stop Taking Trazodone (traZODone 150 mg oral tablet) 1 tab(s) Oral Daily at Bedtime Test Results Below is a partial list of the most recent Laboratory test results done prior to this discharge. You may have had other tests and procedures not included in this list. Please discuss all test resultswith your provider. Est Creatinine Clearance - 110.43 mL/min (07/31/2023) Basic Metabolic Panel (07/31/2023) ???Sodium - 137 mmol/L???Potassium - 4.2 mmol/L???Chloride - 105 mmol/L???Bicarbonate Level - 23 mmol/L???Anion Gap - 9???Glucose Level - 113 mg/dL???BUN - 11 mg/dL???Creatinine-Blood - 0.6 mg/dL???Estimated GFR Creatinine - 117 ML/MIN/1.73 M2???Calcium - 8.0 mg/dL C-REACTIVE PROTEIN (07/29/2023) ???C-Reactive Protein - 5.4 mg/dL Cannabinoid Urine Screen (07/29/2023) ???Cannabinoid Screen, Urine - POSITIVE CBC (07/31/2023) ???WBC - 5.1 k/mm3???RBC - 4.51 m/mm3???Hgb - 12.8 Gm/dL???Hct - 39.5 %???MCV - 87.6 femtoliters???MCH - 28.4 pg???MCHC - 32.4 g/dL???Platelet Count - 297 k/mm3???RDW-SD - 47.8 femtoliters???MPV - 10.3 femtoliters???Nucleated RBC (Automated) - 0.0 #/100 WBC'S???Abs. NRBC - 0.0 k/mm3 Cocaine Urine Screen (07/29/2023) ???Cocaine Metabolite Screen, Urine - POSITIVE Comprehensive Metabolic Panel (07/30/2023) ???Sodium - 138 mmol/L???Potassium - 4.4 mmol/L???Chloride - 106 mmol/L???Bicarbonate Level - 24 mmol/L???Anion Gap - 8???Glucose Level - 109 mg/dL???BUN - 8 mg/dL???Creatinine-Blood - 0.9 mg/dL???Estimated GFR Creatinine - 105 ML/MIN/1.73 M2???Calcium - 8.0 mg/dL???Protein, Total - 6.4 Gm/dL???Albu min - 2.9 Gm/dL???AG Ratio - 0.8???Alkaline Phosphatase - 67 units/L???AST (SGOT) - 86 units/L???ALT (SGPT) - 96 units/L???Bilirubin, Total - 0.4 mg/dL INR (07/30/2023) ???INR - 1.0???Protime (PT) - 10.4 seconds Magnesium Level (07/30/2023) ???Magnesium - 1.9 mg/dL Opiate Screen Urine (07/29/2023) ???Opiate Screen, Urine - NONE DETECTED Phosphorus Level (07/30/2023) ???Phosphorus - 1.9 mg/dL SEDIMENTATION RATE,AUTOMATED (07/29/2023) ???Sed Rate - 46 mm/hr Allergies (NKA means No Known Allergies) NKA No Known Medication Allergies Problems Active Problems??(3) Mental status alteration?? Substance abuse?? Underweight?? Education Materials Below is the list of Educational Leaflet Providered with your Discharge Instructions. Valuables and Belongings I fully understand and agree that [facility] accepts no responsibility for all my personal property including clothing, toilet articles, radios, jewelry, dentures, hearing aids, rings, money, or any other property that is in my possession or is brought to me after admission. I understand certain valuables may be placed in a hospital safe for a short period of time. I understand that the hospital is not liable for loss or damage due to accident, fire, or other natural occurrence while said property is in the safe. I accept full responsibility for any personal property that I keep with me, and will not hold the hospital responsible in case of loss or disappearance. I acknowledge that i have been encouraged to send valuables and belongings home. ?? Review of Valuable and Belonging List: With patient Date for Pt to Sign Valuables/Belongings: 07/29/23 23:04:00 ?? Other Discharge Information ? Pulmonary Rehab Status?? Pulmonary Rehab Discharge Status?? Respiratory Rate: 18 br/min ? Common Emergency Awareness Tips IS IT A STROKE? Act FAST and Check for these signs: FACE Does the face look uneven? ARM Does one arm drift down? SPEECH Does their speech sound strange? TIME Call at any sign of stroke ?? Heart Attack Signs Chest discomfort: Most heart attacks involve discomfort in the center of the chest and lasts more than a few minutes, or goes away and comes back. It can feel like uncomfortable pressure, squeezing, fullness or pain. Discomfort in upper body: Symptoms can include pain or discomfort in one or both arms, back, neck, jaw or stomach. Shortness of breath: With or without discomfort. Other signs: Breaking out in a cold sweat, nausea, or lightheaded. Remember, MINUTES DO MATTER. If you experience any of these heart attack warning signs, call to get immediate medical attention! ?? Smoking can increase your chances of developing chronic health problems and can cause harmful effects to other family members in your house. If you smoke, you are strongly encouraged to quit. Please call [facility] at [phone] or [phone] or log in to [email or web address] for referrals to smoking cessation programs. ?? 333 Suicide & Crisis Lifeline is available 13/04 if you or someone you know needs to find a reason to keep living. By calling 428 you'll be connected to a skilled, trained counselor at a crisis center in your area. INPATIENT DISCHARGE INSTRUCTIONS SIGNATURE PAGE ANIBAL MOHAN Location:[facility] Registration Date and Time:07/29/2023 15:11 EST Primary Care Physician: Not on Staff, PCP Attending Physician: Uriel ATKINSON, [facility], I FÁTIMA ANIBAL, have received the above patient education materials/instructions and have verbalized understanding. If ambulance or transport services are being used I further acknowledge being given a choice of service. ?? If you need to contact me, please call me at this number: . Patient/Black Puller Name: Patient/Black Puller Signature: Relationship to Patient: Witness Name/Signature: Date: Patient Care team information Care Team Personnel Name: Not on Staff, PCP Position: [facility] Physician (General Medicine) Member Role: PCP Name: Claribel Whitten RN Position: [facility] RN Member Role: Primary Care Nurse Name: Sid MELENDEZ Attending Position: [facility] ED Medicine Name: Omar De Dios RN Position: [facility] ED RN W/OE and Tasks Member Role: Patient Care Provider Name: Jessica Lauren Position: [facility] ED TA [facility] Member Role: Patient Care Provider Name: Liliana Mittal LPN Position: [facility] ED RN W/OE and Tasks Member Role: Patient Care Provider
--- OUTSIDE RECORDS SUMMARY | 2024-01-19 02:28 | XMS_ITS | Continuity of Care Document ---
Author Organization [facility] ter Address [address] [place] [address]- Care Team Providers Care Paint Spray Tender Name Role Phone Not on Staff, PCP Primary Care Physician Unavail able [facility] Date(s): 08/04/23 - 08/04/[address] [address]- Encounter Diagnosis Homeless(Final) - 08/04/23 Discharge Disposition: A-D/C Home Attending Physician: Celia Canales MD Admitting Physician: Celia Canales MD Referring Physician: Not on Staff, Referring [...] tablet, By Mouth, Every 12 hours, for 7 days, # 14 tablet, 0 Refills, Acute 08/11/23 3:00:00 EST,08/04/23 3:00:00 EST, Tablet, Partial fill upon patient request if the prescription is for a schedule II opioid drug. Start Date: 08/04/23 Stop Date: 08/11/23 Status: Ordered Augmentin 875 mg-125 mg oral tablet 1 tablet, By Mouth, Every 12 hours, for 7 days, # 14 tablet, 0 Refills, Acute 08/11/23 3:01:00 EST,08/04/23 3:01:00 EST, Tablet, Partial fill upon patient request if the prescription is for a schedule II opioid drug. Start Date: 08/04/23 Stop Date: 08/11/23 Status: Ordered Augmentin 875 mg-125 mg oral tablet 1 tablet, By Mouth, Every 12 hours, for 7 days, # 14 tablet, 0 Refills, Acute 08/11/23 3:04:00 EST,08/04/23 3:04:00 EST, Tablet, Partial fill upon patient request if the prescription is for a schedule II opioid drug. Start Date: 08/04/23 Stop Date: 08/11/23 Status: Ordered Augmentin 875 mg-125 mg oral tablet 1 tablet, By Mouth, Every 12 hours, for 14 days, # 28 tablet, 0 Refills, Acute 08/16/23 5:58:00 EST, 08/02/23 5:58:00 EST, Tablet, [id number], Partial fill upon patient request if the prescription is for a schedule II opioid drug., 17... Start Date: 08/02/23 Stop Date: 08/16/23 Status: Ordered Augmentin 875 mg-125 mg oral tablet 1 tablet, By Mouth, Every 12 hours, for 14 days, # 28 tablet, 0 Refills, Acute 08/14/23 14:15:00 EST, 07/31/23 14:15:00 EST, Tablet, [facility] 3, Partial fill upon patient request if theprescription is for a schedule II opioid drug., 173... Start Date: 07/31/23 Stop Date: 08/14/23 Status: Ordered doxycycline hyclate 100 mg oral capsule 1 capsule = 100 mg, By Mouth, Every 12 hours, for 10 days, # 20 capsule, 0 Refills, Acute 08/12/23 5:58:00 EST, 08/02/23 5:58:00 EST, Capsule, Partial fill upon patient request if the prescription isfor a schedule II opioid drug., 172, cm, 08/02/23 2... Start Date: 08/02/23 Stop Date: 08/12/23 Status: Ordered doxycycline hyclate 100 mg oral capsule 1 capsule = 100 mg, By Mouth, 2 times a day, for 14 days, # 28 capsule, 0 Refills, Acute 08/14/23 14:15:00 EST, 07/31/23 14:15:00 EST, Capsule, [facility] 3, Partial fill upon patient request if the prescription is for a schedule II opioid... Start Date: 07/31/23 Stop Date: 08/14/23 Status: Ordered doxycycline hyclate 100 mg oral tablet 1 tablet = 100 mg, By Mouth, 2 times a day, for 10 days, # 20 tablet, 0 Refills, Acute 08/14/23 3:00:00 EST, 08/04/23 3:00:00 EST, Tablet, Partial fill upon patient request if the prescription is fora schedule II opioid drug. Start Date: 08/04/23 Stop Date: 08/14/23 Status: Ordered doxycycline hyclate 100 mg oral tablet 1 tablet = 100 mg, By Mouth, 2 times a day, for 10 days, # 20 tablet, 0 Refills, Acute 08/14/23 3:01:00 EST, 08/04/23 3:01:00 EST, Tablet, Partial fill upon patient request if the prescription is fora schedule II opioid drug. Start Date: 08/04/23 Stop Date: 08/14/23 Status: Ordered doxycycline hyclate 100 mg oral tablet 1 tablet = 100 mg, By Mouth, 2 times a day, for 10 days, # 20 tablet, 0 Refills, Acute 08/14/23 3:04:00 EST, 08/04/23 3:04:00 EST, Tablet, Partial fill upon patient request if the prescription is fora schedule II opioid drug. Start Date: 08/04/23 Stop Date: 08/14/23 Status: Ordered ibuprofen 200 mg oral tablet 400 mg, 2, tablet, By Mouth, 4 times a day, PRN, for 7 days, # 28 tablet, Refills 0, Tot. Refills 0, Acute 08/07/23 14:20:00 EST, for pain, 07/31/23 14:20:00 EST, Route to Pharmacy Electronically, [facility], Partial fill upon patient re... Start Date: 07/31/23 Stop Date: 08/07/23 Status: Ordered Problem List Condition Confirmation Course Effective Dates Status Health St atus Informant Mental status alteration Confirmed Active Substance abuse Confirmed Active Underweight Confirmed Active Vital Signs Most recent to oldest [Reference Range]: 1 2 Height 173 cm (08/04/23 3:11 AM) 173 cm (08/04/23 12:59 AM) Weight 54.5 kg (08/04/23 3:11 AM) 54.5 kg (08/04/23 12:59 AM) Oxygen Saturation [94-100 %] 94 % (08/04/23 12:59 AM) Pulse Rate [55-90 bpm] 84 bpm (08/04/23 12:59 AM) Body Mass Index [18.5-24.99 kg/m2] 18.21 kg/m2 *L* (08/04/23 12:59 AM) Blood Pressure [90-138/55-84 mm Hg] 141/ 85mm Hg *H* (08/04/23 12:59 AM) Respiratory Rate [16-30 br/min] 18 br/mi n (08/04/23 12:59 AM) Temperature [96.8-100.4 DegF] 98.2 DegF (08/04/23 12:59 AM) Mode of Delivery (Oxygen) Room air (08/04/23 12:59 AM) Blood pressure sites Arm, left (08/04/23 12:59 AM) Temperature Route Oral (08/04/23 12:59 AM) Dry Weight 54.5 kg (08/04/23 3:11 AM) 54.5 kg (08/04/23 12:59 AM) Weight Obtained Via Standing scale (08/04/23 12:59 AM) Dry Weight Obtained Via Standing scale (08/04/23 12:59 AM) Social History Social History Type Response Smoking Status 10 or more cigarette s (1/2 pack or more)/day in last 30 days entered on: 08/22/18 Sex Note * Mira Purcell: PERFORM Event Display: Patient Education Leaflets Authored Date: [id number] [facility] [place] Substance Abuse Resources ?? 151 If you need Substance Abuse Resources: ?? Raffaele Leroy Todd [phone] ?? [facility] [phone] ?? [facility] [phone] ?? [facility] [phone] ?? [facility] [place] [phone] ?? [facility] DETOX [place] [phone] ?? [facility] [place] [phone] ?? [facility] [phone] ?? [facility] [place] [phone] ?? [facility] [phone] ?? [facility] [phone] ?? [facility] [phone] ?? [facility] [phone] ?? [facility] [phone] ?? [facility] [phone] ?? [facility] (13-17 yo) [place] [phone] ?? [facility] (Adolescent) [place] [phone] ? Partial Hospitalization ??? Outpatient therapy for adults and families with substance abuse problems [address] [place] [address] ? Support Services ? [facility] Outreach - Outpatient therapy /support for recovery / transitional housing & shelters? 239 [facility] [phone] ? [facility] Action - women's AA group/street outreach program/health access assistance? [address] [place] [address] ? Alcoholic Anonymous - AA program to maintain sobriety/ Alanon-support for families of alcoholics/Alateen-support for children of same [phone] ? The Recovery Project - recovery support services/sober social Opportunities [address] [place] [address] ? * Mira Purcell: PERFORM Event Display: Patient Education Leaflets Authored Date: [id number] [facility] - Shelters ?? 35 [facility] Emergency Department Community Intermediate Directory ?? EMERGENCY Shelters Important: Alcohol and drugs are absolutely forbidden in all shelters. ?? [facility] Intermediate ([facility]) [address] [place] [address] Adult men and women only- no children 3 meals day served-health care and dental clinic Referral: Walk-ins are accepted/ phone calls are preferred ?? [facility] Emergency Intermediate [address] [place], [place] [phone] Men only- [facility] based emergency longterm- reopening 11/2012 Referrals: Must line up by 3pm. manager applied for intake. ?? [facility] [address] [place] [address] Adult men and women 2 meals per day/health care nurse Referral: Must contact intake by phone before coming ?? [facility] Intermediate [address] [place] [address] Adult men and women open Jul 22-January 19 3 meals day-must leave longterm by 7am Referral: First come, first serve line up begins at 5:30pm ?? [facility] Emergency Intermediate [address] [place], [place] [phone] Adult men and women (one room for families with children) Referral: First come, first serve lineup begins at 3:30pm ?? [facility] [address] [place], [place]?? [address] Men only Referral:?? $300.00/month fee (1st??month katie period available) ?? [facility] [address] [place], [place]?? [address] Men only ?? Bhavani [place], [place] 120 [facility] ?? [place] [address] Women and children ?? DOMESTIC VIOLENCE SHELTERS Women???s Intermediate Companeras [address] [place] [address]?? Women and children ?? PSYCHIATRIC (relocation and support) [place], [place] (Hotline) Emergency Abuse and Rape crises support, longterm ?? [facility] Rape/Domestic Violence Hotline Intermediate referral ? FOOD PANTRY Loaves and Fishes (Love [facility]) [address] [place], [place]?? [address] Lunch and Dinner provided (Mon ???Sat: Noon and 5pm; Sun: 1 and 5pm) ?? Additional Intermediate Options ?? [facility] Emergency Intermediate 15 [facility] [phone] Male + [place] [address] ? [facility] [address] [phone] Male + Female Beds [facility] [address] [address] [phone] ?? [facility] [address] ? [facility] Intermediate 60 [facility] [phone] ?? [facility] [address] ?[place] [facility] Intermediate 17 [facility] [phone] ?? [facility] [address] ? [facility] 305 [facility] [phone] By Application Only/Must Call Fadi DUFF [address] ? [facility] 143?? [facility] [phone] ? [facility] [address] [address] Inn 91 [facility] [phone] ?? [facility] [address] ? [facility] 43 [facility] [phone] ?? [facility] [address] ?[facility] ?? [phone] ?Portal to [place]? [place], [place]?? [phone]? Emergency short stay, women, men, families ? [place], [place]?? [phone] Families, adults, men, LGBTQ ? [facility] Emergency Intermediate?[place]?[phone]?[facility] Intermediate ??[place] [address]?[phone]?[facility] [place], [place] [phone] ?[facility] [place] ??[phone] ? [address] Intermediate [place] [phone] ? [facility] [place] [phone] ? [address] Intermediate [place] [phone] ? Family Place Intermediate [place] [phone] ?[place] [facility] ??[place] ??[phone] ? * Mira Purcell: PERFORM Event Display: Patient Education Leaflets Authored Date: [id number] [facility] - If you need a Doctor or Clinic ?? 34 If You Need a Doctor or Clinic ?? Call [facility] PCP Assignment Line to help you find a doctor:?? [phone] ?? Clinics in [place], [place] For a full list of clinics:? [email or web address] ?? [facility]? [address] [phone] [facility]?[address]?[phone] [facility]?[address][phone] [facility]?[address][phone] [facility]?[address] [phone] [facility]?[address][phone] [facility]?[address][phone] [facility]?[address] [phone] [facility]? [address][phone] Open Door medical social worker?[address][phone] [facility]?[address][phone] [facility]?[address][phone] [facility]?[address][phone] [facility]? [address][phone] [facility]?[address][phone] ? Patient Care team information Care Team Personnel Name: Not on Staff, PCP Position: [facility] Physician (General Medicine) Member Role: PCP Name: Claribel Whitten RN Position: [facility] ED RN W/OE and Tasks Member Role: Primary Care Nurse Name: Celia Canales MD Position: [facility] ED Medicine MD Member Role: Admitting Physician Address: Address: [address] [place] [address] Emergency Medicine [place], [place] [address] Name: Carol Chatterjee RN Position: [facility] ED RN W/OE and Tasks Member Role: Patient Care Provider Name: Carlos Enrique Reed Position: [facility] ED TA [facility] Name: Mira Purcell Position: [facility] Associate Professional Member Role: ED Physician Freight Brakeman Address: Address: [address] [place] [address]
--- OUTSIDE RECORDS SUMMARY | 2024-01-19 02:28 | XMS_ITS | Continuity of Care Document ---
Author Organization [facility] ter Address [address] [place] [address]- Care Team Providers Care Research Instrumentation Technician Name Role Phone Not on Staff, PCP Primary Care Physician Unavail able [facility]counter [facility] Date(s): 07/14/23 - 07/14/[address] [address]- Discharge Disposition: A-D/C Walkout Attending Physician: Not on Staff, Attending MD Admitting Physician: Not on Staff, Admitting MD Referring Physician: Not on Staff, Referring [...] Refills, Maintenance, 07/04/22 17:16:00 EDT, Capsule, [id number], Partial fill upon patient request if theprescription [...] 07/04/22 17:16:00 EDT, Route to Pharmacy Electronically, [facility][id number], Partial fill upon patient request if the [...] oldest [Reference Range]: 1 2 3 Height 174 cm (07/14/23 9:09 AM) 174 cm (07/14/23 9:03 AM) Weight 64 kg (07/14/23 9:09 AM) 64 kg (07/14/23 9:03 AM) Oxygen Saturation [94-100 %] 100 % (07/14/23 5:37 PM) 100 % (07/14/23 3:08 PM) 100 % (07/14/23 1:13 PM) Pulse Rate [55-90 bpm] 90 bpm (07/14/23 5:37 PM) 94 bpm *H* (07/14/23 3:08 PM) 87 bpm (07/14/23 1:13 PM) Body Mass Index [18.5-24.99 kg/m2] 21.14 kg/m2 (07/14/23 9:03 AM) Blood Pressure [90-138/55-84 mm Hg] 122/86mm Hg (07/14/23 5:37 PM) 134/83mm Hg (07/14/23 3:08 PM) 126/83mm Hg (07/14/23 1:13 PM) Respiratory Rate [16-30 br/min] 18 br/min (07/14/23 5:37 PM) 18 br/min (07/14/23 3:08 PM) 18 br/min (07/14/23 1:13 PM) Temperature [96.8-100.4 DegF] 98.7 DegF (07/14/23 5:37 PM) 98.9 DegF (07/14/23 3:08 PM) 98.8 DegF (07/14/23 1:13 PM) Mode of Delivery (Oxygen) Room air (07/14/23 5:37 PM) Room air (07/14/23 3:08 PM) Room air (07/14/23 1:13 PM) Blood pressure sites Arm, right (07/14/23 5:37 PM) Arm, right (07/14/23 3:08 PM) Arm, right (07/14/23 1:13 PM) Temperature Route Oral (07/14/23 5:37 PM) Oral (07/14/23 3:08 PM) Oral (07/14/23 1:13 PM) Dry Weight 64 kg (07/14/23 9:09 AM) 64 kg (07/14/23 9:03 AM) Weight Obtained Via Patient/family state d (07/14/23 9:03 AM) Dry Weight Obtained Via Patient/family s tated (07/14/23 9:03 AM) Social History Social History Type Response Smoking Status 10 or more cigarette s (1/2 pack or more)/day in last 30 days entered on: 08/22/18 Sex Patient Care team information Care Team Personnel Name: Not on Staff, PCP Position: S Physician (General Medicine) Member Role: PCP
--- OUTSIDE RECORDS SUMMARY | 2024-01-19 02:28 | XMS_ITS | Continuity of Care Document ---
Author Organization [facility] ter Address [address] [place] [address]- Care Team Providers Care Still Operator Helper Name Role Phone Not on Staff, PCP Primary Care Physician Unavail able [facility]counter [facility] Date(s): 08/11/22 - 08/11/[address] [address]- Discharge Disposition: A-D/C Home Attending Physician: Cindy Dudley DO Admitting Physician: Cindy Dudlye DO Referring Physician: Not on Staff, Referring [...] 17:16:00 EDT, Route to Pharmacy Electronically, [id number], Partial fill upon patient request if the [...] 2 Oxygen Saturation [94-100 %] 98 % (08/11/22 7:12 AM) 98 % (08/11/22 2:00 AM) Blood Pressure [90-138/55-84 mm Hg] 125/ 76mm Hg (08/11/22 7:12 AM) 131/81mm Hg (08/11/22 2:00 AM) Respiratory Rate [16-30 br/min] 18 br/mi n (08/11/22 7:12 AM) 18 br/min (08/11/22 2:00 AM) Temperature [96.8-100.4 DegF] 97.6 DegF (08/11/22 2:00 AM) Mode of Delivery (Oxygen) Room air (08/11/22 7:12 AM) Room air (08/11/22 2:00 AM) Temperature Route Oral (08/11/22 2:00 AM) Social History Social History Type Response Smoking Status 10 or more cigarette s (1/2 pack or more)/day in last 30 days entered on: 08/22/18 Sex Note * Leslie Cuba: PERFORM, SIGN, VERIFY Event Display: Patient Education Handout Authored Date: * Leslie Cuba: PERFORM Event Display: Patient Education Leaflets Authored Date: [facility] - Shelters ?? 35 [facility] Emergency Department Community Fpc Directory ?? EMERGENCY Shelters Important: Alcohol and drugs are absolutely forbidden in all shelters. ?? [facility] Fpc ([facility]) [address] [place] [address] Adult men and women only- no children 3 meals day served-health care and dental clinic Referral: Walk-ins are accepted/ phone calls are preferred ?? [facility] Emergency Fpc [address] [place], [place] [phone] Men only- [facility] based emergency custodial- reopening 11/2012 Referrals: Must line up by 3pm. analytical manager for intake. ?? [facility] [address] [place] [address] Adult men and women 2 meals per day/health care nurse Referral: Must contact intake by phone before coming ?? [facility] [address] [place] [address] Adult men and women open Jul 22-January 19 3 meals day-must leave custodial by 7am Referral: First come, first serve line up begins at 5:30pm ?? [facility] Emergency Fpc [address] [place] [address] Adult men and women (one room for families with children) Referral: First come, first serve lineup begins at 3:30pm ?? [facility] [address] [place]?? [address] Men only Referral:?? $300.00/month fee (1st??month katie period available) ?? [facility] [address] [place], [place]?? [address] Men only ?? Bhavani [place], [place] 120 [facility] ?? [place] [address] Women and children ?? DOMESTIC VIOLENCE SHELTERS Women???s Fpc Companeras [address] [place] [address]?? Women and children ?? [facility] (relocation and support) [place], [place] (Hotline) Emergency Abuse and Rape crises support, custodial ?? [facility] Rape/Domestic Violence Hotline Fpc referral ? FOOD PANTRY Loaves and Fishes ([facility]) [address] [place], [place]?? [address] Lunch and Dinner provided (Mon ???Sat: Noon and 5pm; Sun: 1 and 5pm) ?? Additional Fpc Options ?? [facility] Emergency Fpc 15 [facility] [phone] Male [place] [address] ? [facility] [address] [facility] [address] [phone] Male + Female Beds [facility] [address] [address] [facility] 219 [facility] [phone] ?? [facility] [address] ? [facility]pc 60 [facility] [phone] ?? [facility] [address] ?[place] [facility] 17 [facility] [phone] ?? [facility] [address] ? [facility] 305 [facility] [phone] By Application Only/Must Call [facility] [address] ? [facility] 143?? [facility] [phone] ? [facility] [address] [address] Inn 91 [facility] [phone] ?? [facility] [address] ? [facility] Fpc [address] [facility] [phone] ?? [place] [facility] [address] ?[facility] ?? [phone] ?[facility]? [place], [place]?? [phone]? Emergency short stay, women, men, families ? [place], [place]?? [phone] Families, adults, men, LGBTQ ? [facility] Emergency Fpc?[place]?[phone]?[facility] ??[place] [address]?[phone]?[facility] [place], [place] [phone] ?[place], [place] ??[phone] [address] Fpc [place] [phone] ? [facility] [place], [place] [phone] [address] Fpc [place] [phone] ? Family Place Fpc [place] [phone] ?[facility] [place] ??[place], [place] ??[phone] ? * Mateo YOO, Leslie: PERFORM Event Display: Patient Education Leaflets Authored Date: [facility] - Substance Abuse Resources ?? 151 If you need Substance Abuse Resources: ?? [facility] [phone] ?? [facility] [phone] ?? [facility] [phone] ?? [facility] [phone] ?? [facility] [facility] [phone] ?? [facility] DETOX [employer] [phone] ?? [facility] [place] [phone] ?? [facility] [phone] ?? [facility] [place] [phone] ?? [facility] [phone] ?? [facility] [phone] ?? [facility] [phone] ?? [facility] [phone] ?? [facility] [phone] ?? [place] [phone] ?? [facility] (13-17 yo) [place] [phone] ?? [place] [facility] (Adolescent) [employer] [phone] ? Partial Hospitalization ??? Outpatient therapy for adults and families with substance abuse problems [address] [place] [address] ? Support Services ? [facility] Outreach - Outpatient therapy /support for recovery / transitional housing &&shelters? 239 [facility] [phone] ? [facility] Action - women's AA group/street outreach program/health access assistance? 393 [facility] [phone] ? Alcoholic Anonymous - AA program to maintain sobriety/ Alanon-support for families of alcoholics/Alateen-support for children of same [phone] ? The Recovery Project - recovery support services/sober social Opportunities [address] [place] [address] ? Patient Care team information Care Team Personnel Name: Not on Staff, PCP Position: [facility] Physician (General Medicine) Member Role: PCP Name: Scot Rosenberg Position: [facility] ED TA [facility] Member Role: Personnel Records Clerk Name: Janneth White RN Position: [facility] ED RN W/OE and Tasks Member Role: Patient Care Provider Name: Leslie Cuba Position: [facility] Associate Professional Member Role: ED Physician Photographic Processor Address: Address: [address] [place] [address] Name: Cindy Dudley DO Position: [facility] ED Medicine MD Member Role: Admitting Physician Address: Address: [address] [place] [address]
--- OUTSIDE RECORDS SUMMARY | 2024-01-19 02:28 | XMS_ITS | Continuity of Care Document ---
Author Organization [facility] ter Address [address] [place] [address]- Care Team Providers Care Museum Exhibit Designer Name Role Phone Not on Staff, PCP Primary Care Physician Unavail able Encounter [facility] Date(s): 01/11/24 - 01/11/[address] [address]- Discharge Disposition: A-D/C Home Attending Physician: Claribel Buchanan MD Admitting Physician: Claribel Buchanan MD Referring Physician: Not on Staff, Referring [...] Most recent to oldest [Reference Range]: 1 Height 173 cm (01/11/24 4:53 AM) Weight 54.5 kg (01/11/24 4:53 AM) Oxygen Saturation [94-100 %] 98 % (01/11/24 4:53 AM) Pulse Rate [55-90 bpm] 87 bpm (01/11/24 4:53 AM) Body Mass Index [18.5-24.99 kg/m2] 18.21 kg/m2 *L* (01/11/24 4:53 AM) Blood Pressure [90-138/55-84 mm Hg] 134/ 68mm Hg (01/11/24 4:53 AM) Temperature [96.8-100.4 DegF] 97.7 DegF (01/11/24 4:53 AM) Mode of Delivery (Oxygen) Room air (01/11/24 4:53 AM) Blood pressure sites Arm, left (01/11/24 4:53 AM) Temperature Route Oral (01/11/24 4:53 AM) Dry Weight 54.5 kg (01/11/24 4:53 AM) Weight Obtained Via Standing scale (01/11/24 4:53 AM) Dry Weight Obtained Via Standing scale (01/11/24 4:53 AM) Social History Social History Type Response Smoking Status 10 or more cigarette s (1/2 pack or more)/day in last 30 days entered on: 08/22/18 Sex Note * Jessica Stapleton: PERFORM, SIGN, VERIFY Event Display: Patient Education Handout Authored Date: [id number] Patient Care team information Care Team Personnel Name: Not on Staff, PCP Position: [facility] Physician (General Medicine) Member Role: PCP Name: Rosio Whitten RN, Claribel Emanuel Position: [facility] ED RN W/OE and Tasks Member Role: Primary Care Nurse
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
[2024-01-19 03:52] VITALS: BP 120/62; PULSE 100; RESP 16; TEMP 36.3; O2SAT 100
== END 2024-01-19 03:53 | disposition home or self-care (01) ==
PROVIDERS: Emergency Provider Emergency Medicine
DX: M79.622 Pain in left upper arm (principal); M79.621 Pain in right upper arm; Z89.611 Acquired absence of right leg above knee
CPT/HCPCS: 99282; 99284

== ENCOUNTER 2024-01-20 05:20 | Emergency (ER) | payer MEDICAID, SELFPAY ==
--- NOTE | 2024-01-20 | ECG_ITS ---
Test Reason : CHEST PAIN Blood Pressure : / mmHG Vent. Rate : 077 BPM Atrial Rate : 077 BPM P-R Int : 168 ms QRS Dur : 070 ms QT Int : 396 ms P-R-T Axes : 071 039 064 degrees QTc Int : 448 ms Normal sinus rhythm Nonspecific ST and T wave abnormality Abnormal ECG When compared with ECG of 27-JUN-2023 10:26, Nonspecific T wave abnormality now evident in Lateral leads Referred By: Generic ED Physician Electronically Signed By:LINNEA PERALTA
[2024-01-20 05:42] VITALS: BP 124/70; BP 135/81; PULSE 78; PULSE 90; RESP 13; TEMP 36.6; O2SAT 97; O2SAT 99; BMI 22.3
[2024-01-20 05:47] LABS: Basophils Percent Auto 0.4 % (0-2); Eosinophils Absolute Auto 0.1 X10*3/uL (0.0-0.4); Hematocrit 39.7 % (42.0-52.0); Hemoglobin 13.6 g/dl (14.0-18.0); Imm Gran Abs Auto 0.01 X10*3/uL (0.00-0.03); Imm Gran Pct Auto 0.2 % (0.0-0.4); Lymphocytes Absolute Auto 2.3 X10*3/uL (1.2-4.9); Lymphocytes Percent Auto 44.2 % (20-40); MANUAL DIFF FLAG NO; Mean Corpuscular HGB Conc 34.3 g/dl (31.0-36.0); Mean Corpuscular Volume 90.4 fL (80.0-98.0); Mean Platelet Volume 11.4 fL (9.4-12.4); Monocytes Absolute Auto 0.6 X10*3/uL (0.1-1.2); Monocytes Percent Auto 11.6 % (2-11); Neutrophils Absolute Auto 2.2 x10*3/uL (2.0-8.3); Neutrophils Percent Auto 42.6 % (45-73); Platelet Count 188 X10*3/uL (160-400); Red Blood Count 4.39 X10*6/uL (4.60-5.80); Red Cell Distribution Width 14.5 % (11.0-16.0); White Blood Count 5.2 X10*3/uL (4.8-10.8)
--- NOTE | 2024-01-20 05:49 | PC.NURSE ---
Pt aox4 resting at the bedside. No apparent distress noted. VSS. Right leg amputee. Reports abd and chest pain, 04/30, that began around 12am after pt smoked crack/cocaine. Pt reports chest pain has now resolved. Pt changed over and belongings placed with security. Pt kept cell phone at the bedside. 20G V line placed on the L AC. Labs drawn and sent. Pt tolerated well. Pending physician eval. Monitoring is ongoing.
[2024-01-20 06:07] LABS: Troponin-I High Sensitivity 3.7 ng/L (<3.5-35.0)
[2024-01-20 06:29] LABS: Anion Gap 14 (12-20)
[2024-01-20 06:37] LABS: Alanine Aminotransferase 147 U/L (0-40); Albumin Level 3.2 g/dL (3.5-5.0); Alkaline Phosphatase 75 U/L (39-117); Aspartate Amino Transferase 145 U/L (5-37); Bilirubin Total 0.7 mg/dL (0.0-1.0); Blood Urea Nitrogen 14 mg/dL (9-16); Calcium 8.2 mg/dL (8.4-10.2); Carbon Dioxide 22 mmol/L (22-29); Chloride 109 mmol/L (96-108); Creatinine Clr Calc Pharmacy 99.8; Estimated Glomerular Filt Rate > 60; Glucose Fasting 91 mg/dL (60-99); Potassium 4.5 mmol/L (3.3-5.1); Sodium 140 mmol/L (135-145)
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
[2024-01-20 07:51] VITALS: BP 135/81; PULSE 78; RESP 13; TEMP 36.6; O2SAT 97
== END 2024-01-20 07:51 | disposition home or self-care (01) ==
PROVIDERS: Emergency Provider Emergency Medicine
DX: R07.9 Chest pain, unspecified (principal); F19.10 Other psychoactive substance abuse, uncomplicated; F17.210 Nicotine dependence, cigarettes, uncomplicated
CPT/HCPCS: 36415; 80053; 84484; 85025; 93005; 99283; 99285

== ENCOUNTER → 2024-01-20 05:25 | Outpatient (BNV) | payer MEDICAID, SELFPAY | PROVIDERS: Emergency Provider Emergency Medicine; Visit Provider Internal Medicine | DX: R94.31 Abnormal electrocardiogram [ECG] [EKG] (principal) | CPT/HCPCS: 93010 ==

== ENCOUNTER 2024-01-23 06:26 | Emergency (ER) | payer MEDICAID, SELFPAY ==
--- NOTE | ~2024-01-23 | XR_ITS ---
EXAMINATION: XR RIBS, RIGHT CLINICAL INFORMATION: Pain. Question injury. COMPARISON: Chest CT November 10, 2018 TECHNIQUE: 3 views of the right ribs were obtained. FINDINGS: Lungs are clear. No consolidation, pneumothorax, or pleural effusion. The cardiomediastinal silhouette and pulmonary vasculature are normal. Osseous structures are unremarkable. Ribs are intact. No fractures are identified. XR/XR ribs RT min 3V w CXR1V IMPRESSION: No right-sided rib fracture identified.
[2024-01-23 06:41] VITALS: BP 125/82; PULSE 78; RESP 16; TEMP 36.4; O2SAT 97; BMI 52.1
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
[2024-01-23] MEDS: Ibuprofen 600 MG TABLET PO (07:02)
[2024-01-23 07:24] VITALS: BP 114/71; PULSE 83; RESP 18; TEMP 36.7; O2SAT 97
[2024-01-23 08:59] VITALS: BP 130/75; PULSE 98; RESP 18; TEMP 36.7; O2SAT 96
[2024-01-23 09:01] VITALS: BP 130/75; PULSE 98; RESP 18; TEMP 36.6; O2SAT 96
== END 2024-01-23 09:12 | disposition home or self-care (01) ==
PROVIDERS: Emergency Provider Emergency Medicine
DX: S40.021A Contusion of right upper arm, initial encounter (principal); X58.XXXA Exposure to other specified factors, initial encounter; Z89.611 Acquired absence of right leg above knee; F17.210 Nicotine dependence, cigarettes, uncomplicated; Y93.89 Activity, other specified; Y92.9 Unspecified place or not applicable; Y99.9 Unspecified external cause status
CPT/HCPCS: 71101; 99283; 99284

== ENCOUNTER 2024-01-29 04:39 | Emergency (ER) | payer MEDICAID, SELFPAY ==
[2024-01-29 04:46] VITALS: BP 130/84; PULSE 84; O2SAT 97
[2024-01-29 04:53] VITALS: BP 133/86; PULSE 83; RESP 16; TEMP 36.6; O2SAT 98; BMI 18.2
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
[2024-01-29 07:58] VITALS: BP 125/77; PULSE 74; RESP 16; TEMP 36.8; O2SAT 96
== END 2024-01-29 08:08 | disposition home or self-care (01) ==
PROVIDERS: Emergency Provider Student in an Organized Health Care Education/Training Program
DX: M79.601 Pain in right arm (principal); M79.602 Pain in left arm; F17.210 Nicotine dependence, cigarettes, uncomplicated
CPT/HCPCS: 99282; 99284

== ENCOUNTER 2024-02-02 03:27 | Emergency (ER) | payer MEDICAID, SELFPAY ==
[2024-02-02 03:44] VITALS: BP 136/80; PULSE 94; RESP 18; TEMP 36.6; O2SAT 97; BMI 18.2
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
[2024-02-02 06:18] VITALS: BP 136/80; PULSE 94; RESP 18; TEMP 36.6; O2SAT 97
== END 2024-02-02 08:52 | disposition home or self-care (01) ==
PROVIDERS: Emergency Provider Emergency Medicine
DX: R52 Pain, unspecified (principal); Z89.511 Acquired absence of right leg below knee; Z59.10 Inadequate housing, unspecified; Z59.6 Low income
CPT/HCPCS: 99283; 99284

== ENCOUNTER 2024-02-10 03:30 | Emergency (ER) | payer MEDICAID, SELFPAY ==
[2024-02-10 03:33] VITALS: BP 132/79; PULSE 100; RESP 18; TEMP 36.1; O2SAT 97; BMI 21.3
== END 2024-02-10 08:39 | disposition left against medical advice (07) ==
PROVIDERS: Emergency Provider Emergency Medicine
DX: M79.603 Pain in arm, unspecified (principal); Z53.21 Procedure and treatment not carried out due to patient leaving prior to being seen by health care provider
CPT/HCPCS: 99281

== ENCOUNTER 2024-02-12 20:25 | Emergency (ER) | payer MEDICAID, SELFPAY ==
[2024-02-12 20:33] VITALS: BP 142/84; PULSE 114; O2SAT 96; BMI 18.2
--- NOTE | 2024-02-12 20:52 | MHC.EDTECH ---
belongings in Pod laundry closet.
[2024-02-12 21:06] VITALS: BP 145/81; PULSE 101; RESP 18; TEMP 36.7; O2SAT 94
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
[2024-02-12 22:05] VITALS: BP 145/81; PULSE 101; RESP 18; TEMP 36.7; O2SAT 94
== END 2024-02-12 22:05 | disposition home or self-care (01) ==
PROVIDERS: Emergency Provider Internal Medicine
DX: F14.10 Cocaine abuse, uncomplicated (principal)
CPT/HCPCS: 99282; 99283

== ENCOUNTER 2024-02-19 05:32 | Emergency (ER) | payer MEDICAID, SELFPAY ==
[2024-02-19 05:35] VITALS: BP 142/80; PULSE 78; O2SAT 98
[2024-02-19 05:40] VITALS: BP 140/87; PULSE 71; RESP 16; TEMP 36.9; O2SAT 100; BMI 18.2
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
[2024-02-19 09:25] VITALS: BP 118/71; PULSE 88; RESP 16; TEMP 36.6; O2SAT 96
--- NOTE | 2024-02-19 09:26 | PC.NURSE ---
Seen by provider, crutches provided and snack given. Pt to be discharged
== END 2024-02-19 09:34 | disposition home or self-care (01) ==
PROVIDERS: Emergency Provider Emergency Medicine
DX: M79.672 Pain in left foot (principal); Z89.611 Acquired absence of right leg above knee
CPT/HCPCS: 99282

== ENCOUNTER 2024-02-24 23:17 | Emergency (ER) | payer MEDICAID, SELFPAY ==
--- NOTE | 2024-02-24 | ECG_ITS ---
Test Reason : chest pain Blood Pressure : / mmHG Vent. Rate : 086 BPM Atrial Rate : 086 BPM P-R Int : 166 ms QRS Dur : 072 ms QT Int : 364 ms P-R-T Axes : 075 -04 069 degrees QTc Int : 435 ms Normal sinus rhythm Nonspecific T wave abnormality Abnormal ECG When compared with ECG of 20-JAN-2024 05:25, No significant change was found Referred By: Generic ED Physician Electronically Signed By:SANDRA HAINES MD
--- NOTE | ~2024-02-24 | XR_ITS ---
EXAMINATION: XR CHEST CLINICAL INFORMATION: Chest pain COMPARISON: Chest radiograph 01/23/2024 TECHNIQUE: Frontal view of the chest was obtained. FINDINGS: The heart and pulmonary vessels appear normal. There may be some subtle patchy density seen in the left mid lung as well as the right mid lung. No gross consolidations. No evidence of CHF or pleural effusions. No pneumothoraces. XR/XR chest 1V IMPRESSION: Question of subtle patchy densities in the mid lungs.
[2024-02-24 23:51] VITALS: BP 139/76; PULSE 95; RESP 18; TEMP 36.6; O2SAT 95; BMI 18.2
[2024-02-25 00:07] LABS: MANUAL DIFF FLAG NO
[2024-02-25 00:13] LABS: Basophils Percent Auto 0.3 % (0-2); Eosinophils Percent Auto 0.3 % (0-4); Hematocrit 41.2 % (42.0-52.0); Hemoglobin 14.3 g/dl (14.0-18.0); Imm Gran Abs Auto 0.01 X10*3/uL (0.00-0.03); Imm Gran Pct Auto 0.1 % (0.0-0.4); Lymphocytes Percent Auto 26.6 % (20-40); Mean Corpuscular HGB Conc 34.7 g/dl (31.0-36.0); Mean Corpuscular Hemoglobin 30.4 pg (27.0-33.0); Mean Corpuscular Volume 87.7 fL (80.0-98.0); Mean Platelet Volume 11.1 fL (9.4-12.4); Monocytes Absolute Auto 0.5 X10*3/uL (0.1-1.2); Monocytes Percent Auto 6.1 % (2-11); Neutrophils Absolute Auto 4.9 x10*3/uL (2.0-8.3); Neutrophils Percent Auto 66.6 % (45-73); Platelet Count 187 X10*3/uL (160-400); Red Cell Distribution Width 13.9 % (11.0-16.0); White Blood Count 7.3 X10*3/uL (4.8-10.8)
[2024-02-25 00:24] LABS: Alanine Aminotransferase 124 U/L (0-40); Albumin Level 3.6 g/dL (3.5-5.0); Alkaline Phosphatase 90 U/L (39-117); Anion Gap 14 (12-20); Aspartate Amino Transferase 113 U/L (5-37); Bilirubin Total 0.7 mg/dL (0.0-1.0); Blood Urea Nitrogen 12 mg/dL (9-16); Calcium 8.8 mg/dL (8.4-10.2); Carbon Dioxide 24 mmol/L (22-29); Chloride 108 mmol/L (96-108); Creatinine Clr Calc Pharmacy 85.1; Estimated Glomerular Filt Rate > 60; Glucose Random 135 mg/dL (60-115); Potassium 3.3 mmol/L (3.3-5.1); Sodium 143 mmol/L (135-145); Total Protein 7.5 g/dL (6.5-8.0)
[2024-02-25 00:30] LABS: Troponin-I High Sensitivity 3.7 ng/L (<3.5-35.0)
[2024-02-25 02:05] VITALS: RESP 16
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
[2024-02-25 06:06] VITALS: BP 122/83; PULSE 82; RESP 16; TEMP 36.7; O2SAT 97
[2024-02-25] MEDS: iohexoL 350 MG/ML 100 ML INFUS..BTL 85 ML IV (06:12)
[2024-02-25 06:41] LABS: Amphetamine Screen Urine Not Detected (Not Detect); Barbiturates, Urine Not Detected (Not Detect); Benzodiazepines Screen Urine Not Detected (Not Detect); Buprenorphine Scr Not Detected (Not Detect); Cannabinoid Screen Urine POSITIVE (Not Detect); Cocaine Screen Urine POSITIVE (Not Detect); Fentanyl, urine POSITIVE (Not Detect); Methadone Screen, Urine Not Detected (Not Detect); Opiate Screen Urine Not Detected (Not Detect); Oxycodone Screen Urine Not Detected (Not Detect); Phencyclidine Screen Urine Not Detected (Not Detect)
--- NOTE | 2024-02-25 08:16 | PC.NURSE ---
patient a&ox3, pt demanding and wanting food, pt up for discharge, security called, vss, will continue to monitor.
[2024-02-25 08:18] VITALS: BP 128/80; PULSE 88; RESP 16; TEMP 36.6; O2SAT 98
== END 2024-02-25 08:19 | disposition home or self-care (01) ==
PROVIDERS: Emergency Provider Emergency Medicine Emergency Medical Services
DX: R07.89 Other chest pain (principal); F14.10 Cocaine abuse, uncomplicated; Z79.899 Other long term (current) drug therapy; Z59.00 Homelessness unspecified
CPT/HCPCS: 36415; 71045; 80053; 80307; 84484; 85025; 93005; 99284; Q9967

== ENCOUNTER → 2024-02-24 | Outpatient (BNV) | payer MEDICAID, SELFPAY | PROVIDERS: Emergency Provider Emergency Medicine Emergency Medical Services; Visit Provider Internal Medicine Cardiovascular Disease | DX: R94.31 Abnormal electrocardiogram [ECG] [EKG] (principal) | CPT/HCPCS: 93010 ==

== ENCOUNTER 2024-02-26 23:11 | Emergency (ER) | payer MEDICAID, SELFPAY ==
[2024-02-26 23:19] VITALS: BP 145/95; BP 152/96; PULSE 77; PULSE 81; RESP 17; TEMP 36.7; O2SAT 97; BMI 18.2
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
[2024-02-27 00:01] VITALS: BP 167/98; PULSE 69; RESP 18; TEMP 36.8; O2SAT 97
== END 2024-02-27 00:07 | disposition home or self-care (01) ==
PROVIDERS: Emergency Provider Internal Medicine
DX: R11.2 Nausea with vomiting, unspecified (principal); F14.10 Cocaine abuse, uncomplicated; F17.210 Nicotine dependence, cigarettes, uncomplicated
CPT/HCPCS: 99282; 99284

== ENCOUNTER 2024-03-04 23:15 | Emergency (ER) | payer OTHER, SELFPAY ==
[2024-03-04 23:18] VITALS: BMI 18.3
[2024-03-04 23:23] VITALS: BP 156/78; PULSE 84; RESP 18; TEMP 36.7; O2SAT 99
[2024-03-04 23:24] VITALS: BP 156/97; PULSE 87; RESP 18; TEMP 36.7; O2SAT 98
--- NOTE | 2024-03-04 23:25 | MHC.EDTECH ---
Patient arrived via ambulance,changed into hospital attire, vitals taken,call alvarez in reach
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
[2024-03-05 00:20] LABS: MANUAL DIFF FLAG NO
[2024-03-05 00:24] LABS: Basophils Percent Auto 0.4 % (0-2); Eosinophils Percent Auto 0.6 % (0-4); Hemoglobin 13.6 g/dl (14.0-18.0); Imm Gran Abs Auto 0.01 X10*3/uL (0.00-0.03); Imm Gran Pct Auto 0.2 % (0.0-0.4); Lymphocytes Absolute Auto 1.5 X10*3/uL (1.2-4.9); Lymphocytes Percent Auto 30.8 % (20-40); Mean Corpuscular Hemoglobin 29.7 pg (27.0-33.0); Mean Corpuscular Volume 87.3 fL (80.0-98.0); Mean Platelet Volume 11.1 fL (9.4-12.4); Monocytes Absolute Auto 0.6 X10*3/uL (0.1-1.2); Monocytes Percent Auto 11.7 % (2-11); Neutrophils Absolute Auto 2.8 x10*3/uL (2.0-8.3); Neutrophils Percent Auto 56.3 % (45-73); Platelet Count 180 X10*3/uL (160-400); Red Blood Count 4.58 X10*6/uL (4.60-5.80); Red Cell Distribution Width 13.8 % (11.0-16.0)
[2024-03-05 00:35] LABS: Alanine Aminotransferase 157 U/L (0-40); Albumin Level 3.4 g/dL (3.5-5.0); Alkaline Phosphatase 94 U/L (39-117); Anion Gap 10 (12-20); Aspartate Amino Transferase 140 U/L (5-37); Bilirubin Direct 0.4 mg/dL (0.0-0.5); Bilirubin Total 0.8 mg/dL (0.0-1.0); Blood Urea Nitrogen 11 mg/dL (9-16); Calcium 8.9 mg/dL (8.4-10.2); Carbon Dioxide 28 mmol/L (22-29); Chloride 105 mmol/L (96-108); Creatinine Clr Calc Pharmacy 92.5; Estimated Glomerular Filt Rate > 60; Glucose Random 95 mg/dL (60-115); Potassium 3.2 mmol/L (3.3-5.1); Sodium 140 mmol/L (135-145); Total Protein 7.7 g/dL (6.5-8.0)
[2024-03-05] MEDS: Potassium Chloride Packet 20 MEQ PACKET 40 MEQ PO (01:27)
[2024-03-05 01:30] VITALS: BP 156/97; PULSE 87; RESP 18; TEMP 36.6; O2SAT 98
--- NOTE | 2024-03-05 02:13 | PC.NURSE ---
pt was being discharged and then started to throw food and become verbally aggressive. Security at bedside. Pt reporting new found SI , charge nurse aware and security to take belongings to POD, Pt changed over aplaced in amaya and sitter at bedside
--- NOTE | 2024-03-05 02:19 | MHC.EDTECH ---
Patient was changed into crisis attire,security called to assist all belongings locked in locker 11 in the POD,patient has a wheelchair,security placed under the MOB stairs.
[2024-03-05 02:34] LABS: Appearance Urine Cloudy; Color Urine Yellow; Glucose Urine UA Negative (Negative); Leukocyte Esterase Urine Negative (Negative); Nitrite Urine Negative (Negative); Urine Blood Negative (Negative); Urine Ketones Negative (Negative); Urine Protein Negative (Neg-Trace)
[2024-03-05 02:39] VITALS: BP 138/79; PULSE 76; RESP 16; TEMP 36.6; O2SAT 97
[2024-03-05 02:40] LABS: Ethanol < 10 mg/dL
[2024-03-05 02:40] LABS: Amphetamine Screen Urine Not Detected (Not Detect); Barbiturates, Urine Not Detected (Not Detect); Benzodiazepines Screen Urine Not Detected (Not Detect); Buprenorphine Scr Not Detected (Not Detect); Cannabinoid Screen Urine POSITIVE (Not Detect); Cocaine Screen Urine POSITIVE (Not Detect); Fentanyl, urine POSITIVE (Not Detect); Methadone Screen, Urine Not Detected (Not Detect); Opiate Screen Urine Not Detected (Not Detect); Oxycodone Screen Urine Not Detected (Not Detect); Phencyclidine Screen Urine Not Detected (Not Detect)
[2024-03-05 04:58] VITALS: BP 138/79; PULSE 76; RESP 16; TEMP 36.6; O2SAT 97
== END 2024-03-05 04:59 | disposition home or self-care (01) ==
PROVIDERS: Emergency Provider Emergency Medicine
DX: E87.6 Hypokalemia (principal); R11.2 Nausea with vomiting, unspecified; Z79.899 Other long term (current) drug therapy
CPT/HCPCS: 36415; 80048; 80076; 80307; 81003; 85025; 99284; 99285; S9485

== ENCOUNTER 2024-04-03 00:56 | Emergency (ER) | payer MEDICAID, SELFPAY ==
[2024-04-03 01:08] VITALS: BP 114/70; BP 119/52; PULSE 82; PULSE 83; RESP 18; TEMP 36.8; O2SAT 100; O2SAT 97; BMI 17.2
[2024-04-03 02:00] VITALS: BP 107/60; PULSE 75; RESP 16; TEMP 36.4; O2SAT 97
--- NOTE | 2024-04-03 02:15 | PC.NURSE ---
pt easily aroused, A&OX4, resp with ease, pt knows where he is and what happened, pt states, I OD
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
--- NOTE | 2024-04-03 03:09 | PC.NURSE ---
pt easily awaken, asked pt if he was ready to go home, pt states, he was hungry and requested OJ and Ice Cream. Pt was given the OJ and Ice Cream. Requested that pt, keep the pulse ox on his finger, and pt agreed
[2024-04-03 04:00] VITALS: BP 113/68; PULSE 79; RESP 14; TEMP 36.6; O2SAT 97
--- NOTE | 2024-04-03 06:01 | PC.NURSE ---
pt awake and alert, ready to go home, pt states, he needs some pants and a shirt. both given to pt. 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 Explained to pt, he didn't have any clothes on, when he arrived. So he did not have a clamp forklift operator
--- NOTE | 2024-04-03 06:10 | PC.NURSE ---
pt ready to leave, in his wc, and ready to go, did not want to wait for D/C instruction, informed Dr Smith. that pt was leaving. Pt left out the door, with his w/c
[2024-04-03 06:15] VITALS: BP 104/73; PULSE 78; RESP 16; TEMP 36.8; O2SAT 98
[2024-04-03 06:36] VITALS: BP 104/73; PULSE 78; RESP 16; TEMP 36.8; O2SAT 96
== END 2024-04-03 06:01 | disposition home or self-care (01) ==
PROVIDERS: Emergency Provider Emergency Medicine
DX: T50.901A Poisoning by unspecified drugs, medicaments and biological substances, accidental (unintentional), initial encounter (principal); F10.10 Alcohol abuse, uncomplicated; Y90.9 Presence of alcohol in blood, level not specified; F14.10 Cocaine abuse, uncomplicated; F12.10 Cannabis abuse, uncomplicated; F17.210 Nicotine dependence, cigarettes, uncomplicated
CPT/HCPCS: 99284

== ENCOUNTER 2024-04-13 01:35 | Emergency (ER) | payer MEDICAID, SELFPAY ==
[2024-04-13 01:41] VITALS: BP 132/90; PULSE 88; O2SAT 95
[2024-04-13 01:44] VITALS: BP 126/84; PULSE 81; RESP 16; TEMP 36.6; O2SAT 98; BMI 16.6
[2024-04-13 02:31] LABS: MANUAL DIFF FLAG NO
[2024-04-13 02:34] LABS: Basophils Percent Auto 0.4 % (0-2); Eosinophils Absolute Auto 0.1 X10*3/uL (0.0-0.4); Eosinophils Percent Auto 1.2 % (0-4); Hematocrit 42.3 % (42.0-52.0); Hemoglobin 14.1 g/dl (14.0-18.0); Imm Gran Abs Auto 0.01 X10*3/uL (0.00-0.03); Imm Gran Pct Auto 0.2 % (0.0-0.4); Lymphocytes Percent Auto 37.9 % (20-40); Mean Corpuscular HGB Conc 33.3 g/dl (31.0-36.0); Mean Corpuscular Hemoglobin 29.7 pg (27.0-33.0); Mean Corpuscular Volume 89.1 fL (80.0-98.0); Mean Platelet Volume 10.5 fL (9.4-12.4); Monocytes Absolute Auto 0.5 X10*3/uL (0.1-1.2); Monocytes Percent Auto 9.9 % (2-11); Neutrophils Absolute Auto 2.6 x10*3/uL (2.0-8.3); Neutrophils Percent Auto 50.4 % (45-73); Platelet Count 198 X10*3/uL (160-400); Red Blood Count 4.75 X10*6/uL (4.60-5.80); Red Cell Distribution Width 14.4 % (11.0-16.0); White Blood Count 5.1 X10*3/uL (4.8-10.8)
[2024-04-13 02:56] LABS: Alanine Aminotransferase 131 U/L (0-40); Albumin Level 3.5 g/dL (3.5-5.0); Alkaline Phosphatase 94 U/L (39-117); Anion Gap 14 (12-20); Aspartate Amino Transferase 120 U/L (5-37); Bilirubin Total 0.6 mg/dL (0.0-1.0); Blood Urea Nitrogen 13 mg/dL (9-16); Carbon Dioxide 25 mmol/L (22-29); Chloride 109 mmol/L (96-108); Creatinine Clr Calc Pharmacy 70.2; Estimated Glomerular Filt Rate > 60; Ethanol < 10 mg/dL; Glucose Random 77 mg/dL (60-115); Potassium 3.7 mmol/L (3.3-5.1); Sodium 144 mmol/L (135-145); Total Protein 7.9 g/dL (6.5-8.0)
[2024-04-13 04:05] VITALS: BP 122/76; PULSE 77; RESP 16; TEMP 36.6; O2SAT 99
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
[2024-04-13 06:26] VITALS: BP 134/79; PULSE 74; RESP 16; TEMP 36.7; O2SAT 99
[2024-04-13 08:04] LABS: Amphetamine Screen Urine Not Detected (Not Detect); Barbiturates, Urine Not Detected (Not Detect); Benzodiazepines Screen Urine Not Detected (Not Detect); Buprenorphine Scr Not Detected (Not Detect); Cannabinoid Screen Urine POSITIVE (Not Detect); Cocaine Screen Urine POSITIVE (Not Detect); Fentanyl, urine POSITIVE (Not Detect); Methadone Screen, Urine Not Detected (Not Detect); Opiate Screen Urine Not Detected (Not Detect); Oxycodone Screen Urine Not Detected (Not Detect); Phencyclidine Screen Urine Not Detected (Not Detect)
--- NOTE | 2024-04-13 09:46 | MHC.RECOVRN ---
Pts referral sent to [facility].
--- NOTE | 2024-04-13 11:42 | MHC.RECOVRN ---
Pt accepted to [facility] pending phone screen. Admission time will be 8PM. RN aware.
--- NOTE | 2024-04-13 11:48 | PC.NURSE ---
patient doing detox intake phone call
[2024-04-13 14:16] VITALS: BP 146/79; PULSE 76; RESP 16; TEMP 36.8; O2SAT 96
--- NOTE | 2024-04-13 15:45 | MHC.EDTECH ---
nurse and tech found belongings documented in the pod log to be in locker 12 in the pod.
[2024-04-13 17:02] VITALS: BP 110/65; PULSE 79; RESP 16; TEMP 36.4; O2SAT 100
--- NOTE | 2024-04-13 19:19 | MHC.RECOVSUP ---
Patient On his was to [facility] via [facility].
== END 2024-04-14 07:02 ==
PROVIDERS: Internal Medicine; Emergency Provider Emergency Medicine Emergency Medical Services
DX: F32.A Depression, unspecified (principal); R45.851 Suicidal ideations; F19.10 Other psychoactive substance abuse, uncomplicated; F14.10 Cocaine abuse, uncomplicated; F17.210 Nicotine dependence, cigarettes, uncomplicated; Z89.611 Acquired absence of right leg above knee
CPT/HCPCS: 36415; 80053; 80307; 85025; 99284; 99285; S9485

== ENCOUNTER 2024-05-01 00:35 | Emergency (ER) | payer MEDICAID, SELFPAY ==
[2024-05-01 00:37] VITALS: BP 147/83; PULSE 96; RESP 18; TEMP 36.8; O2SAT 100; BMI 15.9
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
[2024-05-01] MEDS: Ibuprofen 400 MG TABLET PO (01:40)
[2024-05-01] MEDS: Amoxicillin 500 MG CAPSULE PO (01:40)
--- NOTE | 2024-05-01 02:08 | PC.NURSE ---
Discharge instructions reviewed with pt. Pt declines to have vitals taken at time of discharge.
[2024-05-01 02:09] VITALS: BP 00/00; PULSE 0; RESP 0; TEMP -17.7; TEMP 0
== END 2024-05-01 02:10 | disposition home or self-care (01) ==
PROVIDERS: Emergency Provider Emergency Medicine Emergency Medical Services
DX: K04.7 Periapical abscess without sinus (principal); K05.10 Chronic gingivitis, plaque induced; F17.210 Nicotine dependence, cigarettes, uncomplicated; Z59.00 Homelessness unspecified
CPT/HCPCS: 99283; 99284

== ENCOUNTER 2024-05-08 18:21 | Emergency (ER) | payer MEDICAID, SELFPAY ==
[2024-05-08 18:36] VITALS: BP 140/78; PULSE 94; O2SAT 97
[2024-05-08 18:43] VITALS: BP 141/84; PULSE 87; RESP 12; TEMP 36.4; O2SAT 99; BMI 16.4
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
[2024-05-08 20:26] VITALS: BP 134/72; PULSE 82; RESP 17; TEMP 36.4; O2SAT 98
[2024-05-08 22:19] VITALS: BP 134/72; PULSE 82; RESP 17; TEMP 36.4; O2SAT 98
== END 2024-05-08 22:22 | disposition home or self-care (01) ==
PROVIDERS: Emergency Provider Emergency Medicine
DX: S39.92XA Unspecified injury of lower back, initial encounter (principal); W05.0XXA Fall from non-moving wheelchair, initial encounter; Y93.89 Activity, other specified; Y92.098 Other place in other non-institutional residence as the place of occurrence of the external cause; Y99.8 Other external cause status; Z99.3 Dependence on wheelchair; F17.210 Nicotine dependence, cigarettes, uncomplicated
CPT/HCPCS: 99284

== ENCOUNTER 2024-05-09 12:02 | Emergency (ER) | payer MEDICAID, SELFPAY ==
[2024-05-09 12:16] VITALS: BP 138/97; BP 152/92; PULSE 100; PULSE 110; RESP 16; TEMP 36.4; O2SAT 97; O2SAT 99; BMI 16.4
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
[2024-05-09 13:11] VITALS: BP 138/97; PULSE 100; RESP 16; TEMP 36.4; O2SAT 97
== END 2024-05-09 13:11 | disposition home or self-care (01) ==
PROVIDERS: Emergency Provider Emergency Medicine
DX: T40.1X1A Poisoning by heroin, accidental (unintentional), initial encounter (principal); R40.4 Transient alteration of awareness; Y92.9 Unspecified place or not applicable; F19.10 Other psychoactive substance abuse, uncomplicated; F17.210 Nicotine dependence, cigarettes, uncomplicated
CPT/HCPCS: 99282

== ENCOUNTER 2024-09-06 12:32 | Outpatient (REF) | payer MEDICAID, SELFPAY ==
[2024-09-06 12:48] LABS: MANUAL DIFF FLAG NO
[2024-09-06 13:45] LABS: Basophils Percent Auto 0.2 % (0-2); Eosinophils Percent Auto 0.5 % (0-4); Hematocrit 42.8 % (42.0-52.0); Hemoglobin 14.2 g/dl (14.0-18.0); Imm Gran Abs Auto 0.01 X10*3/uL (0.00-0.03); Imm Gran Pct Auto 0.2 % (0.0-0.4); Lymphocytes Percent Auto 24.1 % (20-40); Mean Corpuscular HGB Conc 33.2 g/dl (31.0-36.0); Mean Corpuscular Hemoglobin 29.2 pg (27.0-33.0); Mean Corpuscular Volume 88.1 fL (80.0-98.0); Mean Platelet Volume 11.4 fL (9.4-12.4); Monocytes Absolute Auto 0.7 X10*3/uL (0.1-1.2); Monocytes Percent Auto 15.7 % (2-11); Neutrophils Absolute Auto 2.6 x10*3/uL (2.0-8.3); Neutrophils Percent Auto 59.3 % (45-73); Platelet Count 177 X10*3/uL (160-400); Red Blood Count 4.86 X10*6/uL (4.60-5.80); Red Cell Distribution Width 14.2 % (11.0-16.0); White Blood Count 4.3 X10*3/uL (4.8-10.8)
[2024-09-06 13:51] LABS: Prothrombin Time 11.3 SEC (10.9-12.4)
[2024-09-06 14:17] LABS: Alanine Aminotransferase 86 U/L (0-40); Albumin Level 3.9 g/dL (3.5-5.0); Alkaline Phosphatase 85 U/L (39-117); Anion Gap 8 (12-20); Aspartate Amino Transferase 80 U/L (5-37); Bilirubin Total 0.3 mg/dL (0.0-1.0); Blood Urea Nitrogen 8 mg/dL (9-16); Calcium 8.8 mg/dL (8.4-10.2); Carbon Dioxide 26 mmol/L (22-29); Chloride 105 mmol/L (96-108); Estimated Glomerular Filt Rate > 60; Glucose Random 171 mg/dL (60-115); Potassium 4.4 mmol/L (3.3-5.1); Sodium 135 mmol/L (135-145); Total Protein 8.4 g/dL (6.5-8.0)
[2024-09-07 08:23] LABS: Hepatitis A Antibody IgG REACTIVE (Nonreactive); ~Hepatitis A Antibody IgG 9.84 S/CO (0.00-0.99)
[2024-09-07 08:29] LABS: HBS Num1 > 1000.00 mIU/mL (0-7.99); HBc Num1 0.13 S/CO (0.00-0.79); HIV AB/AG Nonreactive (Nonreactive); HIV Num 1 0.07 S/CO (0.00-0.99); Hepatitis B Core Antibody Nonreactive (Nonreactive); Hepatitis B Surface Antigen Negative (Negative); ~Hepatitis B Surface Antibody REACTIVE (Nonreactive)
[2024-09-08 18:59] LABS: HCV RNA PCR Qn 1780000 IU/mL (NOT DETECTED); HCV RNA PCR Qn 6.25 Log IU/mL (NOT DETECTED)
[2024-09-15 08:13] LABS: HCV Genotype LiPA 1a
[2024-09-15 17:33] LABS: FIB-ALT 63 U/L (9-46); FIB-Alpha-2-Macroglobulin 330 mg/dL (106-279); FIB-Apolipoprotein A1 139 mg/dL (94-176); FIB-GGT 90 U/L (3-95); FIB-Haptoglobin 28 mg/dL (43-212); FIB-Total Bilirubin 0.4 mg/dL (0.2-1.2); Liver Fibrosis Score 0.75; Liver Fibrosis Stage F4; Nec Inflam Act Grade A2; Nec Inflam Act Score 0.54; Reference ID 5264408
== END 2024-09-06 12:33 | disposition home or self-care (01) ==
LOC: HO.LAB 12:32
PROVIDERS: PCP Internal Medicine; Visit Provider Internal Medicine
DX: B18.2 Chronic viral hepatitis C (principal)
CPT/HCPCS: 36415; 80053; 81596; 85025; 85610; 86704; 86706; 86708; 87340; 87389; 87522; 87902

== ENCOUNTER 2024-09-10 02:41 | Emergency (ER) | payer MEDICAID, SELFPAY ==
[2024-09-10 02:45] VITALS: BP 124/76; PULSE 85; O2SAT 98
[2024-09-10 02:50] VITALS: BP 134/88; PULSE 95; RESP 16; TEMP 36.3; O2SAT 98; BMI 18.2
--- NOTE | 2024-09-10 05:00 | PC.NURSE ---
pt resting comfortably in bed with eyes closed, breathing even and unlabored. no apparent distress noted at this time, call alvarez w/in reach. no episodes of vomiting in ED
[2024-09-10 05:59] LABS: Basophils Percent Auto 0.2 % (0-2); Eosinophils Absolute Auto 0.1 X10*3/uL (0.0-0.4); Hematocrit 40.5 % (42.0-52.0); Hemoglobin 13.6 g/dl (14.0-18.0); Imm Gran Abs Auto 0.01 X10*3/uL (0.00-0.03); Imm Gran Pct Auto 0.2 % (0.0-0.4); Lymphocytes Absolute Auto 1.9 X10*3/uL (1.2-4.9); MANUAL DIFF FLAG NO; Mean Corpuscular HGB Conc 33.6 g/dl (31.0-36.0); Mean Corpuscular Hemoglobin 29.4 pg (27.0-33.0); Mean Corpuscular Volume 87.5 fL (80.0-98.0); Mean Platelet Volume 9.9 fL (9.4-12.4); Monocytes Absolute Auto 0.7 X10*3/uL (0.1-1.2); Monocytes Percent Auto 12.6 % (2-11); Neutrophils Absolute Auto 2.6 x10*3/uL (2.0-8.3); Platelet Count 164 X10*3/uL (160-400); Red Blood Count 4.63 X10*6/uL (4.60-5.80); Red Cell Distribution Width 14.3 % (11.0-16.0); White Blood Count 5.2 X10*3/uL (4.8-10.8)
[2024-09-10 06:00] LABS: Appearance Urine Cloudy; Color Urine Dark Yellow; Glucose Urine UA Negative (Negative); Leukocyte Esterase Urine Negative (Negative); Nitrite Urine Negative (Negative); PH 5.5 (5.0-9.0); Specific Gravity - Urine >= 1.030 (1.005-1.025); Urine Blood Negative (Negative); Urine Ketones Trace mg/dL (Negative); Urine Protein Negative (Neg-Trace)
[2024-09-10 06:08] LABS: Bacteria Urine None Seen (None Seen); Hyaline Casts Urine 0-2 /LPF (0-2); RBC Urine 0-2 /HPF (0-2); WBC Urine 0-5 /HPF (0-5)
[2024-09-10 06:12] LABS: Amphetamine Screen Urine Not Detected (Not Detect); Barbiturates, Urine Not Detected (Not Detect); Benzodiazepines Screen Urine Not Detected (Not Detect); Buprenorphine Scr Not Detected (Not Detect); Cannabinoid Screen Urine POSITIVE (Not Detect); Cocaine Screen Urine POSITIVE (Not Detect); Fentanyl, urine Not Detected (Not Detect); Methadone Screen, Urine Not Detected (Not Detect); Opiate Screen Urine Not Detected (Not Detect); Oxycodone Screen Urine Not Detected (Not Detect); Phencyclidine Screen Urine Not Detected (Not Detect)
[2024-09-10 06:14] LABS: Alanine Aminotransferase 88 U/L (0-40); Albumin Level 3.6 g/dL (3.5-5.0); Alkaline Phosphatase 82 U/L (39-117); Anion Gap 13 (12-20); Aspartate Amino Transferase 109 U/L (5-37); Bilirubin Total 0.5 mg/dL (0.0-1.0); Blood Urea Nitrogen 15 mg/dL (9-16); Calcium 8.2 mg/dL (8.4-10.2); Carbon Dioxide 23 mmol/L (22-29); Chloride 110 mmol/L (96-108); Creatinine Clr Calc Pharmacy 86.3; Estimated Glomerular Filt Rate > 60; Glucose Random 73 mg/dL (60-115); Lipase 47 U/L (8-78); Potassium 3.5 mmol/L (3.3-5.1); Sodium 142 mmol/L (135-145); Total Protein 7.7 g/dL (6.5-8.0)
[2024-09-10 06:22] VITALS: BP 117/67; PULSE 93; RESP 14; TEMP 36.8; O2SAT 97
--- NOTE | 2024-09-10 06:40 | PC.NURSE ---
pt provided with crackers and snacks per request. pt tolerated food well. denies pain or nausea at this time
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
[2024-09-10 10:28] VITALS: BP 117/67; PULSE 93; RESP 14; TEMP 36.8; O2SAT 97
== END 2024-09-10 10:30 | disposition home or self-care (01) ==
PROVIDERS: Emergency Provider Emergency Medicine Emergency Medical Services
DX: R10.9 Unspecified abdominal pain (principal); F11.90 Opioid use, unspecified, uncomplicated; F12.90 Cannabis use, unspecified, uncomplicated; F19.10 Other psychoactive substance abuse, uncomplicated; F17.210 Nicotine dependence, cigarettes, uncomplicated; Z59.01 Sheltered homelessness; Z89.511 Acquired absence of right leg below knee
CPT/HCPCS: 36415; 80053; 80307; 81001; 83690; 85025; 99283; 99284

== ENCOUNTER 2024-09-25 07:19 | Emergency (ER) | payer MEDICAID, SELFPAY ==
--- NOTE | ~2024-09-25 | XR_ITS ---
CLINICAL HISTORY: fall, elbow pain 3 view right elbow Comparison: 06/27/2023 12:55 PM EDT: CRSR: XR ELBOW RT MIN 3V (11:55 AM CDT) Findings: Bones intact. No dislocations. No significant arthritic change or erosions. No joint effusion. There is triceps ossification possibly from previous trauma. No radiopaque foreign body. IMPRESSION: 1. No acute findings This document has been electronically signed by: Earle Knight MD on 09/25/2024 11:26:55
[2024-09-25 07:26] VITALS: PULSE 80; O2SAT 95
[2024-09-25 07:33] VITALS: BP 118/66; PULSE 101; RESP 16; TEMP 36.7; O2SAT 98; BMI 18.2
--- NOTE | 2024-09-25 07:57 | PC.NURSE ---
upon arrival, patient requesting food and drink. states he is homeless and has not eaten in days. wheelchair bound d/t right leg above knee amputation
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
[2024-09-25 11:28] VITALS: BP 122/71; PULSE 75; RESP 16; TEMP 36.6; O2SAT 95
[2024-09-25 11:58] VITALS: BP 122/71; PULSE 75; RESP 16; TEMP 36.6; O2SAT 95
== END 2024-09-25 11:59 | disposition home or self-care (01) ==
PROVIDERS: Emergency Provider Emergency Medicine
DX: S50.01XA Contusion of right elbow, initial encounter (principal); M79.601 Pain in right arm; F17.210 Nicotine dependence, cigarettes, uncomplicated; W01.0XXA Fall on same level from slipping, tripping and stumbling without subsequent striking against object, initial encounter; Y93.89 Activity, other specified; Y92.89 Other specified places as the place of occurrence of the external cause; Y99.8 Other external cause status
CPT/HCPCS: 73080; 99284

== ENCOUNTER → 2024-09-25 07:55 | Outpatient (BNV) | payer MEDICAID, SELFPAY | PROVIDERS: Emergency Provider Emergency Medicine; Visit Provider Specialist | DX: M25.521 Pain in right elbow (principal) | CPT/HCPCS: 73080 ==

== ENCOUNTER 2024-09-26 04:52 | Emergency (ER) | payer MEDICAID, SELFPAY ==
[2024-09-26 05:00] VITALS: BP 166/110; PULSE 80; O2SAT 99
[2024-09-26 05:03] VITALS: BP 155/83; PULSE 84; RESP 18; TEMP 36.4; O2SAT 95; BMI 21.0
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
[2024-09-26] MEDS: Acetaminophen 325 MG TABLET 650 MG PO (06:29)
[2024-09-26] MEDS: Bacitracin Oint 0.9 GM PACKET 1 APPL TOPICAL (06:29)
[2024-09-26 06:37] VITALS: BP 147/71; PULSE 79; RESP 19; TEMP 36.8; O2SAT 95
[2024-09-26 06:38] VITALS: BP 147/71; PULSE 79; RESP 19; TEMP 36.8; O2SAT 95
== END 2024-09-26 06:38 | disposition home or self-care (01) ==
PROVIDERS: Emergency Provider Internal Medicine
DX: F19.10 Other psychoactive substance abuse, uncomplicated (principal); T23.012A Burn of unspecified degree of left thumb (nail), initial encounter; T23.011A Burn of unspecified degree of right thumb (nail), initial encounter; T31.0 Burns involving less than 10% of body surface; X19.XXXA Contact with other heat and hot substances, initial encounter; Y93.89 Activity, other specified; Y92.9 Unspecified place or not applicable; Y99.8 Other external cause status; F17.210 Nicotine dependence, cigarettes, uncomplicated
CPT/HCPCS: 99283; 99284

== ENCOUNTER 2024-10-14 01:14 | Emergency (ER) | payer MEDICAID, SELFPAY ==
[2024-10-14] VITALS (11 sets, daily range): BP systolic 108–155; BP diastolic 64–103; PULSE 78–99; RESP 16–18; TEMP 36.7–36.8; O2SAT 95–100; BMI 18.4
--- NOTE | 2024-10-14 | ECG_ITS ---
Test Reason : CHEST PAIN Blood Pressure : */* mmHG Vent. Rate : 88 BPM Atrial Rate : 88 BPM P-R Int : 172 ms QRS Dur : 80 ms QT Int : 348 ms P-R-T Axes : 76 44 83 degrees QTcB Int : 421 ms Normal sinus rhythm Minimal voltage criteria for LVH, may be normal variant ( Sokolow-Loomis ) Nonspecific T wave abnormality Abnormal ECG When compared with ECG of 25-Feb-2024 00:54, No significant change was found Referred By: Generic ED Physician Electronically Signed By: SANDRA HAINES MD
--- NOTE | ~2024-10-14 | XR_ITS ---
CLINICAL HISTORY: cp 1 view chest x-ray Comparison: Chest x-ray from 02/25/2024 Findings: Pulmonary opacities are nonspecific with a right basilar predominance. Differential considerations include pneumonitis and atelectasis. No pneumothorax or pleural effusion. Imaged mediastinum appears unchanged. Degenerative changes include the imaged shoulders. IMPRESSION: Pulmonary opacities including right lung base as can be seen with atelectasis and/or pneumonitis. This document has been electronically signed by: Manuel Monsalve MD on 10/14/2024 02:12:55
--- NOTE | 2024-10-14 01:31 | ECG_ITS ---
Test Reason : CHEST PAIN Blood Pressure : */* mmHG Vent. Rate : 72 BPM Atrial Rate : 72 BPM P-R Int : 172 ms QRS Dur : 74 ms QT Int : 368 ms P-R-T Axes : 74 60 91 degrees QTcB Int : 402 ms Normal sinus rhythm Minimal voltage criteria for LVH, may be normal variant ( Sokolow-Loomis ) T wave abnormality, consider anterolateral ischemia Abnormal ECG When compared with ECG of 14-Oct-2024 01:27, No significant change was found Referred By: Denise Orlando Electronically Signed By: SANDRA HIANES MD
--- NOTE | 2024-10-14 01:31 | ECG_ITS ---
Test Reason : CHEST PAIN Blood Pressure : */* mmHG Vent. Rate : 74 BPM Atrial Rate : 74 BPM P-R Int : 172 ms QRS Dur : 72 ms QT Int : 376 ms P-R-T Axes : 81 57 86 degrees QTcB Int : 417 ms Normal sinus rhythm with sinus arrhythmia Minimal voltage criteria for LVH, may be normal variant ( Sokolow-Loomis ) T wave abnormality, consider anterior ischemia Abnormal ECG When compared with ECG of 14-Oct-2024 01:40, No significant change was found Referred By: Denise Orlando Electronically Signed By: SANDRA HAINES MD
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
[2024-10-14 01:56] LABS: Basophils Percent Auto 0.4 % (0-2); Eosinophils Percent Auto 0.6 % (0-4); Hemoglobin 14.4 g/dl (14.0-18.0); Imm Gran Abs Auto 0.01 X10*3/uL (0.00-0.03); Imm Gran Pct Auto 0.2 % (0.0-0.4); Lymphocytes Absolute Auto 1.4 X10*3/uL (1.2-4.9); Lymphocytes Percent Auto 26.1 % (20-40); MANUAL DIFF FLAG NO; Mean Corpuscular HGB Conc 34.3 g/dl (31.0-36.0); Mean Corpuscular Hemoglobin 29.9 pg (27.0-33.0); Mean Corpuscular Volume 87.1 fL (80.0-98.0); Mean Platelet Volume 10.8 fL (9.4-12.4); Monocytes Absolute Auto 0.6 X10*3/uL (0.1-1.2); Monocytes Percent Auto 11.6 % (2-11); Neutrophils Absolute Auto 3.3 x10*3/uL (2.0-8.3); Neutrophils Percent Auto 61.1 % (45-73); Platelet Count 207 X10*3/uL (160-400); Red Blood Count 4.82 X10*6/uL (4.60-5.80); Red Cell Distribution Width 13.8 % (11.0-16.0); White Blood Count 5.5 X10*3/uL (4.8-10.8)
[2024-10-14] MEDS: Aspirin 81 MG TAB.CHEW 324 MG PO (02:04)
[2024-10-14] MEDS: Nitroglycerin 2 % Oint 1 GM Packet 0.5 INCH TRANSDERMA (02:04)
[2024-10-14] MEDS: LORazepam 2 MG/ML VIAL 1 MG IVPUSH (02:10)
--- OUTSIDE RECORDS SUMMARY | 2024-10-14 02:11 | XMS_ITS | Clinical Summary ---
Author Organization [employer] Address [address] [place] [address] [address] [place] [address] Care Team Providers Care Cook Helper Preserves Name Role Phone Curry Richard MD Primary Care Provider [phone] Allergies Active Allergy Reactions Criticality Noted Date Comments [place] 05/11/2012 Medications ARIPiprazole (Abilify) 5 MG tablet Take 1 tablet by mouth in the morning. Active naloxone (Narcan) 4 mg/0.1 mL nasal spray spray 0.1 milliliter by intranasal route in 1 nostril may repeat dose every 2-3 minutes as needed alternating nostrils with each dose Active hydrOXYzine HCl (Atarax) 25 MG tablet 2 tabs (50 mg) once daily prn anxiety and 1 tab (25 mg) at bedtime for sleep Active Banophen 50 MG capsule TAKE 2 CAPSULES BY MOUTH EVERY NIGHT 4 Active divalproex (Depakote) 250 MG EC tablet TAKE 3 TABLETS BY MOUTH AT BEDTIME 4 Active ibuprofen 600 MG tablet Take 1 tablet by mouth every 6 (six) hours if needed. 4 Active nicotine (Nicoderm, Step 1) 21 MG/24HR patch APPLY 1 PATCH TOPICALLY TO THE SKIN DAILY. DO NOT SMOKE WHILE USING PATCH 4 Active QUEtiapine (SEROquel) 50 MG tablet Take 50 mg by mouth at bedtime. 4 Active Active Problems Problem Noted Date Diagnosed Date Continuous chronic alcoholism 03/22/2012 Encounters Date Type Department Care Team Description 09/16/2024 Telephone [facility] [address] [place] [address] Avi Pace, BRADY Hepatitis C 09/06/2024 Orders Only [facility] [address] [place] [address] Curry Richard MD 08/10/2024 Patient Outreach [facility] [address] [place] [address] Curry Richard MD Pre-visit Planning ([facility] completed on 01/29/2024) 07/28/2024 Telephone [facility] [address] [place] [address] Avi Pace RN 07/20/2024 Orders Only [facility] [address] [place] [address] Avi Pace RN Chronic hepatitis C without hepatic coma (CMS/HCC) from Last 3 Months Immunizations Name Administration Dates Next Due Influenza injectable quadriv alent IIV4 with preservative 07/19/2015 Influenza injectable quadrivalent preservative f ree 07/08/2022 Moderna Covid-19 Vaccine 12+ 02/07/2021,01/11/20 21 Td (adult), 5 Lf tetanus tox oid, preservative free, adsorbed 01/21/2015 Tdap 07/19/2015 Social History Tobacco Use Types Packs/Day Years Used Date Smoking Tobacco: Every Day Cigarettes Smokeless Tobacco: Never Tobacco Cessation:Ready to Q uit: Not Asked; Counseling Given: Not Answered Alcohol Use Standard Drinks/Week Comments Never 0 (1 standard drink = 0.6 oz pur e alcohol) Housing Stability Answer Date Recorded What is your housing situation today? I have naomie alvarado 01/20/[address] you li ve. Do you have problems with any of the following? None of the above 01/20/2024 Food Insecurity Answer Date Recorded Within the past 12 months, y ou worried that your food would run out before you got money to buy more: Never True 01/20/2024 Within the past 12 months,th e food you bought just didn't last and you didn't have enough money to get more: Never True 09/2023 Transportation Answer Date Recorded In the past 12 months, has l ack of transportation kept you from medical appts, meetings, work or from getting things needed for daily living? No 01/20/2024 Utilities Answer Date Recorded In the past 12 months, has t he electric, gas, oil or water company threatened to shut off services in your home? No 01/20/2024 Sex and Gender Information Value Date Recorded Sex Assigned at Male 07/21/2022 10:21 AM EDT Legal Sex Male 10:21 AM EDT Gender Identity Male 07/21/2022 10:21 AM EDT Sexual Orientation Straight 07/21/2022 10 :21 AM EDT Last Filed Vital Signs Vital Sign Reading Time Taken Comments Blood Pressure 128/83 12/21/2023 10:11 AM EDT Pulse 107 12/21/2023 10:11 AM EDT Temperature 36.4 ??C (97.5 ??F) 12/21/2023 10:11 AM E DT Respiratory Rate 18 12/21/2023 10:11 AM EDT Oxygen Saturation 97% 12/21/2023 10:11 AM EDT Inhaled Oxygen Concentration - - Weight 62.6 kg (138 lb) 12/21/2023 10:11 AM EDT Height 174 cm (5' 8.5 ) 12/21/2023 10:11 AM EDT Body Mass Index 20.68 12/21/2023 10:11 AM EDT Plan of Treatment Health Maintenance Due Date Last Done Comments CT Colonography 1972 Colonoscopy 1972 Colorectal Cancer Screening 1972 Depression Screening 1972 FIT DNA/Cologuard 1972 FIT 1972 FOBT 1972 Lipid Panel 1972 Sigmoidoscopy 1972 Pneumococcal Vaccine: Pediatrics (0 to 5 Years) and At-Risk Patients (6 to 64 Years) (1 of 2 - PCV) 1978 Alcohol/Substance Use Screening 1984 Family Planning (PISQ) 1987 Hepatitis A Vaccines (1 of 2 - Risk 2-dose series) 1991 Hepatitis B Vaccines (1 of 3 - 19+ 3-dose series) 1991 Zoster Vaccines (1 of 2) 2022 COVID-19 Vaccine (2023-2 5 season) 2024 02/07/2021, 01/10/2021 Influenza Vaccine (#1) 2024 2, 07/19/2015 Tobacco Screening 12/20/2024 12/21/2023 SDOH Screening 01/19/2025 01/20/2024 DTaP/Tdap/Td Vaccines (2 - T d or Tdap) 07/19/2025 07/19/2015, 01/21/2015 RSV Patients and Patients Aged 60 years or older (1 - 1-dose 75+ series) 2047 HIV Screening Completed 09/06/2024 HIB Vaccines Aged Out No longer eligi ble based on patient's age to complete this topic HPV Vaccines Aged Out No longer eligi ble based on patient's age to complete this topic IPV Vaccines Aged Out No longer eligi ble based on patient's age to complete this topic Meningococcal Vaccine Aged Out No sabrina alycia eligible based on patient's age to complete this topic RSV under 20 months Aged Out No longe r eligible based on patient's age to complete this topic Rotavirus Vaccines Aged Out No longer eligible based on patient's age to complete this topic Procedures Procedure Name Priority Date/Time Associated Diagnosis Comments LIVER FIBROSIS, FIBROTEST ACTITEST PANEL Routine 09/06/2024 12:46 PM EST HCV RNA BY PCR, QN RFX MARIUSZ Routine 09/06/2024 12:46 PM EST HEPATITIS B SURFACE ANTIGEN, EIA Routine 09/06/2024 12:46 PM EST HIV 1/2 ANTIGEN/ANTIBODY, FOURTH GENERATION W/RFL Routine 09/06/2024 12:46 PM EST HEPATITIS B CORE AB TOTAL Routine 09/06/2024 12:46 PM EST HEPATITIS B SURFACE ANTIBODY, QUALITATIVE Routine 09/06/2024 12:46 PM EST HEPATITIS A ANTIBODY, TOTAL Routine 09/06/2024 12:46 PM EST PROTHROMBIN TIME-INR Routine 09/06/2024 12:46 PM EST CBC WITH AUTO DIFFERENTIAL Routine 09/06/2024 12:46 PM EST COMPREHENSIVE METABOLIC PANEL Routine 09/06/2024 12:46 PM EST Chronic hepatitis C without hepatic coma (CMS/HCC) from Last 3 Months Results * (ABNORMAL) HCV RNA BY PCR, QN RFX MARIUSZ (09/06/2024 12:46 PM EST) HCV RNA PCR QN [id number]( A) NOT DETECTED IU/mL [facility] HCV RNA PCR QN 6.25(A) NOT DETECTED Log IU/mL [facility] HCV RNA COMMENT SEE NOTE [facility] Comment:For additional infor mation, please refer tohttp://education.[employer]/faq/AXH15t3(This link is being provided for informational/Educational purposes only.)THIS TEST WAS PERFORMED AT:[employer] [place] [id number] GAMA MD HCV RNA GENOTYPE,LIPA 1a [facility] Comment:The method used in t his test is RT-PCR and reversehybridization (Line Probe) of the 5' UTR and coreregion of the HCV genome.The analytical performance characteristics of thisassay have been determined by [facility], [place], [place]. The modificationshave not been cleared or approved by the FDA. Thisassay has been validated pursuant to the CLIAregulations and is used for clinical purposes.For additional information, please refer tohttp://education.[employer]/faq/HCVGenotyping(This link is being provided for informational/educational purposes only.)THIS TEST WAS PERFORMED AT:[employer]/[facility] [place] [address]NLDLIENANALI FERNANDES MD,PHD 09/06/2024 12:4 6 PM EST 09/06/2024 12:46 PM EST us Curry Richard MD LAB BLOOD ORDERABLES Final Result [facility] [address] [place] [address] [phone] * (ABNORMAL) Liver Fibrosis (HCV), FibroTest-ActiTest Panel (09/06/2024 12:46 PM EST) Liver Fibrosis Score 0.75 [facility] Liver Fibrosis Stage F4 [facility] Liver Fibrosis Interpretation SEE NOTE [facility] Comment:severe fibrosisFibro Test Score (f) Metavir Score f>=0 and f<=0.21 : F0 (no fibrosis)f>0.21 and f<=0.27 : F0-F1 (no fibrosis)f>0.27 and f<=0.31 : F1 (minimal fibrosis)f>0.31 and f<=0.48 : F1-F2 (minimal fibrosis)f>0.48 and f<=0.58 : F2 (moderate fibrosis)f>0.58 and f<=0.72 : F3 (advanced fibrosis)f>0.72 and f<=0.74 : F3-F4 (advanced fibrosis)f>0.74 and f<=1.00 : F4 (severe fibrosis) Nec Inflam Act Score 0.54 [facility] Nec Inflam Act Grade A2 [facility] Nec Inflam Act Interpretation SEE NOTE [facility] Comment:significant activity ActiTest Score (a) Metavir Score a>=0 and a<=0.17 : A0 (no activity)a>0.17 and a<=0.29 : A0-A1 (no activity)a>0.29 and a<=0.36 : A1 (minimal activity)a>0.36 and a<=0.52 : A1-A2 (minimal activity)a>0.52 and a<=0.60 : A2 (significant activity)a>0.60 and a<=0.62 : A2-A3 (significant activity)a>0.62 and a<=1.00 : A3 (severe activity) QND-Yiolx-8-Macroglo bulin 330(A) 106 - 279 mg/dL [facility] FIB-Haptoglobin 28(A) 43 - 212 mg/dL [facility] FIB-Apolipoprotein A1 139 94 - 176 mg/dL [facility] FIB-Total Bilirubin 0.4 0.2 - 1.2 mg/dL [facility] FIB-GGT 90 3 - 95 U/L [facility] FIB-ALT 63(A) 9 - 46 U/L [facility] Reference ID [id number] [facility] Footnote SEE NOTE [facility] Comment: The reliability of results is dependent on compliance withthe preanalytical and analytical conditions recommended byBioPredictive. The tests have to be deferred for: acutehemolysis, acute hepatitis, acute inflammation, extrahepatic cholestasis. The advice of a specialist should besought for interpretation in chronic hemolysis and Gilbert'ssyndrome. The test interpretation is not validated in livertransplant patients. Isolated extreme values of one of thecomponents should lead to caution in interpreting theresults. In case of discordance between a biopsy result christian test, it is recommended to seek the advice of aspecialist. The causes of these discordances could be due toa flaw of the test or to a flaw in the biopsy: i.e. a liverbiopsy has a 33% variability rate for one fibrosis stage.FibroTest is interpretable for chronic hepatitis B and C,alcoholic and non alcoholic steatosis. ActiTest isinterpretable for chronic hepatitis B and C.The performance characteristics have been determined by[employer] [facility]. Ithas not been cleared or approved by the U.S. Food and DrugAdministration. Performance characteristics refer to theanalytical performance of the test.[employer], [employer], the associated logo, [employer] and all associated [employer] panda are theregistered trademarks of [employer]. All third partymarks - (R) and (TM) - are the property of their respectiveowners. (C) 1667-2044 [employer]. Allrights reserved.THIS TEST WAS PERFORMED AT:[employer] [id number] [facility] [place] ??[phone] GOODEN MD,PHD,[place] 09/06/2024 12:4 6 PM EST 09/06/2024 12:46 PM EST Curry Richard MD LAB BLOOD ORDERABLES Final Result [facility] [address] [place] [address] [phone] * (ABNORMAL) CBC auto differential (09/06/2024 12:46 PM EST) White Blood Count 4.3(L) 4.8 - 10.8 X10*3/uL [facility] Red Blood Count 4.86 4.60 - 5.80 X10*6/uL [facility] Hemoglobin 14.2 14.0 - 18.0 g/dl [facility] Hematocrit 42.8 42.0 - 52.0 % [facility] Mean Corpuscular Volume 88.1 80.0 - 98.0 fL [facility] Mean Corpuscular Hemoglobin 29.2 27.0 - 33.0 pg [facility] Mean Corpuscular HGB Conc 33.2 31.0 - 36.0 g/dl [facility] Red Cell Distribution Width 14.2 11.0 - 16.0 % [facility] Platelet Count 177 160 - 400 X10*3/uL [facility] Mean Platelet Volume 11.4 9.4 - 12.4 fL [facility] Neutrophils Percent Auto 59.3 45 - 73 % [facility] Imm Gran Pct Auto 0.2 0.0 - 0.4 % [facility] Lymphocytes Percent Auto 24.1 20 - 40 % [facility] Monocytes Percent Auto 15.7(H) 2 - 11 % [facility] Eosinophils Percent Auto 0.5 0 - 4 % [facility] Basophils Percent Auto 0.2 0 - 2 % [facility] NRBC Pct Auto 0.0 0.0 - 0.2 /100WBC [facility] Neutrophils Absolute Auto 2.6 2.0 - 8.3 x10*3/uL [facility] Imm Gran Abs Auto 0.01 0.00 - 0.03 X10*3/uL [facility] Lymphocytes Absolute Auto 1.0(L) 1.2 - 4.9 X10*3/uL [facility] Monocytes Absolute Auto 0.7 0.1 - 1.2 X10*3/uL [facility] Eosinophils Absolute Auto 0.0 0.0 - 0.4 X10*3/uL [facility] Basophils Absolute Auto 0.0 0.0 - 0.2 X10*3/uL [facility] NRBC Abs Auto 0.000 0.0 - 0.012 X10*3/uL [facility] 09/06/2024 12:4 6 PM EST 09/06/2024 12:46 PM EST us Curry Richard MD LAB BLOOD ORDERABLES Final Result Performing Organization Address [facility]/ZIP Co de Phone Number [facility] [address] [place] [phone] * Hepatitis A Antibody, Total (09/06/2024 12:46 PM EST) Hepatitis A Antibody IgG REACTIVE Nonreactive [facility] Comment:The presence of IgG anti-HAV implies past HAV infection(recent or distant) or vaccination against HAV. 09/06/2024 12:4 6 PM EST 09/06/2024 12:46 PM EST us Curry Richard MD LAB BLOOD ORDERABLES Final Result Performing Organization Address [facility] Co de Phone Number [facility] [address] [place] [phone] * Hepatitis B surface antigen, EIA (09/06/2024 12:46 PM EST) Hepatitis B Surface Ag Negative Negative [facility] 09/06/2024 12:4 6 PM EST 09/06/2024 12:46 PM EST us Curry Richard MD LAB BLOOD ORDERABLES Final Result Performing Organization Address City/[facility] Co de Phone Number [facility] [address] [place] [phone] * Hepatitis B Core Antibody, Total (09/06/2024 12:46 PM EST) Hepatitis B Core Antibody Nonreactive Nonreactive [facility] 09/06/2024 12:4 6 PM EST 09/06/2024 12:46 PM EST us Curry Richard MD LAB BLOOD ORDERABLES Final Result Performing Organization Address [facility] Number [facility] [address] [place] [phone] * HIV-1/2 Antigen and Antibodies, Fourth Generation, with Reflexes (09/06/2024 12:46 PM EST) HIV AB/AG Nonreactive Nonreactive [facility] Comment:HIV-1 p24 Ag and/or HIV-1/HIV-2 Ab not detected.A test result that is nonreactive does not exclude thepossibility of exposure to or infection with HIV-1 and/orHIV-2. Nonreactive results in this assay for individualswith prior exposure to HIV-1 and/or HIV-2 may be due toantigen and antibody levels that are below the limit ofdetection of this assay.The [employer] HIV Ag/Ab Combo assay result andsupplemental assay results should be interpreted inconjunction with the patient's clinical presentation,history and other laboratory results. If the results areinconsistent with clinical evidence, additional testing issuggested to confirm the result. 09/06/2024 12:4 6 PM EST 09/06/2024 12:46 PM EST us Curry Richard MD LAB BLOOD ORDERABLES Final Result Performing Organization Address [facility]/State/ZIP Co de Phone Number [facility] [address] [place] [address] [phone] * Hepatitis B Surface Antibody, Qualitative (09/06/2024 12:46 PM EST) ~Hepatitis B Surface Antibody REACTIVE Nonreactive [facility] Comment:REACTIVE: > 11.99 mI U/mL 09/06/2024 12:4 6 PM EST 09/06/2024 12:46 PM EST us Curry Richard MD LAB BLOOD ORDERABLES Final Result Performing Organization Address [facility] Co de Phone Number [facility] [address] [place] [address] [phone] * Prothrombin Time-INR (09/06/2024 12:46 PM EST) Pathologist [facility] Prothrombin Time 11.3 10.9 - 12.4 SEC [facility] INTERNATIONAL NORM RATIO 1.0 0.9 - 1.1 [facility] Comment:INTERNATIONAL NORMAL IZED RATIO (INR) REFERENCE RANGES Reference RangeFor patients not on anticoagulant therapy: 0.9 - 1.1INR ranges for oral anticoagulanttherapy:For prevention and treatment of venous thrombosis and pulmonary embolism: 2.0 - 3.0For acute myocardial infarction with aspirin therapy: 2.0 - 3.0For acute myocardial infarction without aspirin therapy: 3.0 - 4.0For patients with mechanical prosthetic heart valves: 2.5 - 3.5 09/06/2024 12:4 6 PM EST 09/06/2024 12:46 PM EST us Curry Richard MD LAB BLOOD ORDERABLES Final Result Performing Organization Address [facility] Co de Phone Number [facility] [address] [place] [phone] * (ABNORMAL) Comprehensive Metabolic Panel (09/06/2024 12:46 PM EST) Pathologist [facility] Sodium 135 135 - 145 mmol/L [facility] Potassium 4.4 3.3 - 5.1 mmol/L [facility] Chloride 105 96 - 108 mmol/L [facility] Carbon Dioxide 26 22 - 29 mmol/L [facility] Anion Gap 8(L) 12 - 20 [facility] Urea Nitrogen (BUN) 8(L) 9 - 16 mg/dL [facility] Creatinine, Serum 0.81 0.5 - 1.4 mg/dL [facility] Estimated Glomerular Filt Rate >60 [facility] Comment:Chronic Kidney Disea se: Estimated GFR < 60 mL/min/[id number] Kidney Disease: Estimated GFR < 15 mL/min/1.73m2 Glucose 171(H) 60 - 115 mg/dL [facility] Calcium 8.8 8.4 - 10.2 mg/dL [facility] Bilirubin, Total 0.3 0.0 - 1.0 mg/dL [facility] Aspartate Amino Transferase 80(H) 5 - 37 U/L [facility] Alanine Aminotransferase 86(H) 0 - 40 U/L [facility] Total Protein 8.4(H) 6.5 - 8.0 g/dL [facility] Albumin Level 3.9 3.5 - 5.0 g/dL [facility] Alkaline Phosphatase 85 39 - 117 U/L [facility] Blood Venous blood specimen / Unknown 09/06/2024 12:46 PM EST 09/06/2024 12:46 PM EST us Curry Richard MD LAB BLOOD ORDERABLES Final Result [facility] [address] [place], [place] [phone] from Last 3 Months Insurance [employer] C3 Care Teams Cook Helper Preserves Relationship Specialty Start Date End Date Curry Richard MD [address] [place] [phone] PCP - General Internal Medicine 09/21/18
--- OUTSIDE RECORDS SUMMARY | 2024-10-14 02:12 | XMS_ITS | Encounter Summary ---
Author Organization [employer] Address [address] 7 [place] [address] Care Team Providers Care School Nurse Name Role Phone Curry Richard MD Primary Care Provider [phone] Reason for Visit * Reason Onset Date Comments Referral 11/13/2023 Encounter Details Date Type Department Care Team ([facility] st Contact Info) Description 11/13/2023 Telephone [facility] [address] [place] [address] Curry Richard MD [address] [place] [address] Referral Social History Tobacco Use Types Packs/Day Years Used Date Smoking Tobacco: Every Day Cigarettes Smokeless Tobacco: Never Alcohol Use Standard Drinks/Week Comments Never 0 (1 standard drink = 0.6 oz pur e alcohol) Housing Stability Answer Date Recorded What is your housing situation today? I have naomie alvarado 07/15/[address] you li ve. Do you have problems with any of the following? None of the above 07/15/2023 Food Insecurity Answer Date Recorded Within the past 12 months, y ou worried that your food would run out before you got money to buy more: Never True 07/15/2023 Within the past 12 months,th e food you bought just didn't last and you didn't have enough money to get more: Never True Transportation Answer Date Recorded In the past 12 months, has l ack of transportation kept you from medical appts, meetings, work or from getting things needed for daily living? No 07/15/2023 Utilities Answer Date Recorded In the past 12 months, has t he electric, gas, oil or water company threatened to shut off services in your home? No 07/15/2023 Sex and Gender Information Value Date Recorded Sex Assigned at Male 07/21/2022 10:21 AM EDT Legal Sex Male 10:21 AM EDT Gender Identity Male 07/21/2022 10:21 AM EDT Sexual Orientation Straight 07/21/2022 10 :21 AM EDT documented as of this encounter Miscellaneous Notes * Telephone Encounter - Wing Carlton RN - 11/13/2023 11:31 AM EST T/c to pt regarding referral request from [facility]. Rose Mary from [facility] reported that pt was seen in [facility] ER for elbow bursitis and that pt has relocated to [facility]. Pt reported that he has an appointment with a provider pm the and is part of a detox program. Pt to follow up PRN. Pt's new number is [phone] * Telephone Encounter - Michael Pak - 11/13/2023 9:50 AM EST TC from Rose Mary working with [facility] requesting new referral: DATE: 11/16/23 TIME: 12:45 pm Address: [address] [place] [address] Visits: 12 Facility Name: [facility] Type of Specialist: Orthopedic DX: [id number] Provider : N/A Provider NPI : N/A Facility Phone # : [phone] Fax #: [phone] documented in this encounter Plan of Treatment Not on file documented as of this encounter Visit Diagnoses Not on filedocumented in this encounter Care Teams School Nurse Relationship Specialty Start Date End Date Curry Richard MD [address] [place] [phone] PCP - General Internal Medicine 09/21/18 documented as of this encounter
--- OUTSIDE RECORDS SUMMARY | 2024-10-14 02:12 | XMS_ITS | Encounter Summary ---
Author Organization [employer] Address [address] [facility] [address] [place] [address] Care Team Providers Care Manager Business Intelligence Name Role Phone Curry Richard MD Primary Care Provider [phone] Encounter Details Date Type Department Care Team (Late st Contact Info) Description 07/27/2023 Abstract [facility] [address] [place] [address] Curry Richard MD [address] [place] [address] Social History Tobacco Use Types Packs/Day Years [...] AM EDT documented as of this encounter Plan of Treatment Not on file documented as of this encounter Visit Diagnoses Not on filedocumented in this encounter Care Teams Manager Business Intelligence Relationship Specialty Start Date End Date Curry Richard MD [address] [place] [phone] PCP - General Internal Medicine 09/21/18 documented as of this encounter
--- OUTSIDE RECORDS SUMMARY | 2024-10-14 02:12 | XMS_ITS | Encounter Summary ---
Author Organization [employer] Address [address] [place] [address] [address] [place] [address] Care Team Providers Care Track Superintendent Name Role Phone Curry Richard MD Primary Care Provider [phone]- [phone] Reason for Visit * Reason Onset Date Comments Hepatitis C 09/16/2024 Encounter Details Date Type Department Care Team ([facility] st Contact Info) Description 09/16/2024 Telephone [facility] [address] [place] [address] Avi Pace, RN [address] [place] [address] Hepatitis C Social History Tobacco Use Types Packs/Day Years Used Date Smoking Tobacco: Every Day Cigarettes Smokeless Tobacco: Never Alcohol Use Standard Drinks/Week Comments Never 0 (1 standard drink = 0.6 oz pur e alcohol) Housing Stability Answer Date Recorded What is your housing situation today? I have naomieconi alvarado 01/20/[address] you [...] encounter Miscellaneous Notes * Telephone Encounter - Avi Pace RN - 09/16/2024 10:07 AM EST Pt was referred for Hep C treatment but has not been able to complete labs and US needed for treatment. Lost to follow-up after [place] [address] this fall. Moving to inactive list, please task Hep C Rns ifpt comes back into care, thanks documented in this encounter Plan of Treatment Not on file documented as of this encounter Visit Diagnoses Not on filedocumented in this encounter Care Teams Track Superintendent Relationship Specialty Start Date End Date Curry Richard MD [address] [place] [id number] PCP - General Internal Medicine 09/21/18 documented as of this encounter
--- NOTE | 2024-10-14 02:15 | MHC.EDTECH ---
Security present taking care of Pt belongings
[2024-10-14 02:17] LABS: Alanine Aminotransferase 101 U/L (0-40); Albumin Level 3.9 g/dL (3.5-5.0); Anion Gap 13 (12-20); Aspartate Amino Transferase 132 U/L (5-37); Bilirubin Direct 0.5 mg/dL (0.0-0.5); Bilirubin Total 0.9 mg/dL (0.0-1.0); Blood Urea Nitrogen 11 mg/dL (9-16); Calcium 9.1 mg/dL (8.4-10.2); Carbon Dioxide 23 mmol/L (22-29); Chloride 104 mmol/L (96-108); Creatinine Clr Calc Pharmacy 89.6; Estimated Glomerular Filt Rate > 60; Glucose Random 78 mg/dL (60-115); Sodium 137 mmol/L (135-145); Total Protein 8.6 g/dL (6.5-8.0)
[2024-10-14 02:18] LABS: Alkaline Phosphatase 95 U/L (39-117)
--- NOTE | 2024-10-14 02:34 | MHC.EDTECH ---
Security went through Pt belongings and put in Locker 1, and wheelchair is locked in storage. Pt had a backpack, clothin shoe, pants, shirt, hoodie. Pt has a cellphone and cash specialist with him at bedside.
--- NOTE | 2024-10-14 03:37 | PC.NURSE ---
pt is eating snacks at bedside. pt falling alseep while eating pain level reduced and allowed pt to sleep. no ekg chng at this time.
--- NOTE | 2024-10-14 04:49 | MHC.EDTECH ---
This pct assumed care of Patient at 0445 am ,vitals taken ,repeated trop drawn and sent to lab ,Patient awake having snacks ,and watching television ,no apparent distress noted ,Plan of care continue .
[2024-10-14 05:11] LABS: Troponin-I High Sensitivity 3.1 ng/L (<3.5-35.0)
--- NOTE | 2024-10-14 06:41 | PC.NURSE ---
nitro paste removed per order of Dr Rosales. Pt denies pain, resting comfortably, eating a whole bag of snacks asking for chocolate icecream. skin pink warm and dry. hr wnl.
--- NOTE | 2024-10-14 08:39 | PC.NURSE ---
informed pt that chair van will not be available until approx 12:30
== END 2024-10-14 09:33 | disposition home or self-care (01) ==
PROVIDERS: Emergency Medicine Emergency Medical Services; Emergency Provider Emergency Medicine
DX: R07.89 Other chest pain (principal); F14.10 Cocaine abuse, uncomplicated; R06.02 Shortness of breath; F12.90 Cannabis use, unspecified, uncomplicated; F17.210 Nicotine dependence, cigarettes, uncomplicated; Z79.899 Other long term (current) drug therapy
CPT/HCPCS: 36415; 71045; 80048; 80076; 84484; 85025; 93005; 99284; 99285; J2060

== ENCOUNTER → 2024-10-14 01:27 | Outpatient (BNV) | payer MEDICAID, SELFPAY | PROVIDERS: Emergency Provider Emergency Medicine; Visit Provider Internal Medicine Cardiovascular Disease | DX: R94.31 Abnormal electrocardiogram [ECG] [EKG] (principal) | CPT/HCPCS: 93010 ==

== ENCOUNTER → 2024-10-14 01:30 | Outpatient (BNV) | payer MEDICAID, SELFPAY | PROVIDERS: Emergency Provider Emergency Medicine; Visit Provider Radiology Neuroradiology | DX: J98.11 Atelectasis (principal) | CPT/HCPCS: 71045 ==

== ENCOUNTER 2024-10-23 12:44 | Emergency (ER) | payer MEDICAID, SELFPAY ==
--- NOTE | ~2024-10-23 | CT_ITS ---
CLINICAL HISTORY: fall, closed head injury. CT head without contrast Comparison: CT/SR - CT HEAD/BRAIN WO IV CON - 06/27/23 12:50 EDT Findings: No intra-axial mass, midline shift, hydrocephalus, or acute hemorrhage. No significant atrophy-like change or white matter disease. There is no sinus or mastoid fluid. The orbits are within normal limits. No skull fracture. IMPRESSION: 1. No acute intracranial findings. This document has been electronically signed by: Steven Woodward MD on 10/23/2024 14:54:50
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
[2024-10-23 12:59] VITALS: BMI 18.4
[2024-10-23] MEDS: Cholestyramine (With Sugar) 4 GM POWD.PACK PO (14:09)
== END 2024-10-23 14:15 | disposition home or self-care (01) ==
PROVIDERS: Emergency Provider Emergency Medicine
DX: S09.90XA Unspecified injury of head, initial encounter (principal); R51.9 Headache, unspecified; M54.6 Pain in thoracic spine; W00.0XXA Fall on same level due to ice and snow, initial encounter; Y93.9 Activity, unspecified; Y92.9 Unspecified place or not applicable; Y99.8 Other external cause status
CPT/HCPCS: 70450; 99284

== ENCOUNTER → 2024-10-23 12:52 | Outpatient (BNV) | payer MEDICAID, SELFPAY | PROVIDERS: Emergency Provider Emergency Medicine; Visit Provider Nuclear Medicine | DX: S09.90XA Unspecified injury of head, initial encounter (principal) | CPT/HCPCS: 70450 ==

== ENCOUNTER 2024-10-23 20:28 | Emergency (ER) | payer MEDICAID, SELFPAY ==
--- NOTE | 2024-10-23 | ECG_ITS ---
Test Reason : CP Blood Pressure : */* mmHG Vent. Rate : 90 BPM Atrial Rate : 90 BPM P-R Int : 160 ms QRS Dur : 70 ms QT Int : 366 ms P-R-T Axes : 82 50 85 degrees QTcB Int : 447 ms Normal sinus rhythm Possible Left atrial enlargement Nonspecific T wave abnormality Abnormal ECG When compared with ECG of 23-Oct-2024 20:34, No significant change was found Referred By: Shaye Galvan Electronically Signed By: Pramod Matos
--- NOTE | 2024-10-23 | ECG_ITS ---
Test Reason : CP Blood Pressure : */* mmHG Vent. Rate : 76 BPM Atrial Rate : 76 BPM P-R Int : 156 ms QRS Dur : 74 ms QT Int : 366 ms P-R-T Axes : 71 61 73 degrees QTcB Int : 411 ms Normal sinus rhythm Minimal voltage criteria for LVH, may be normal variant ( Sokolow-Loomis ) Nonspecific T wave abnormality Abnormal ECG When compared with ECG of 14-Oct-2024 01:52, No significant change was found Referred By: Generic ED Physician Electronically Signed By: Pramod Matos
[2024-10-23 20:31] VITALS: BP 141/96; BP 179/101; PULSE 89; PULSE 92; RESP 16; O2SAT 98; BMI 18.6
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
--- OUTSIDE RECORDS SUMMARY | 2024-10-23 20:58 | XMS_ITS | Encounter Summary ---
Author Organization [employer] Address [address] [place] [address] [place] [address] Care Team Providers Care Machine Set Up Name Role Phone Curry Richard MD Primary Care Provider +1- [phone] Reason for Visit * Reason Comments Transition Of Care (Tcm) Encounter Details Date Type Department Care Team ([facility] st Contact Info) Description 10/21/2024 Patient Outreach [facility] [address] [place], [place] [phone] Curry Richard MD [address] [place] [address] Transition Of Care (Tcm) Social History Tobacco Use Types Packs/Day Years [...] AM EDT documented as of this encounter Progress Notes * Coco Galvan RN - 10/21/2024 1:41 PM EST 10/21/24 1341 Hospital Discharges [facility] for [facility] Type of Visit Emergency Department Date of Admission/Visit 10/20/24 Date of Discharge 10/20/24 Facility [facility] Diagnosis Left Hand Pain Disposition Left Without Being Seen documented in this encounter Plan of Treatment Not on file documented as of this encounter Visit Diagnoses Not on filedocumented in this encounter Care Teams Machine Set Up Relationship Specialty Start Date End Date Curry Richard MD [address] [place] [id number] PCP - General Internal Medicine 09/21/18 documented as of this encounter
--- OUTSIDE RECORDS SUMMARY | 2024-10-23 20:58 | XMS_ITS | Encounter Summary ---
Author Organization [employer] Address [address] [place] [address] 7 [place] [address] Care Team Providers Care Ophthalmic Nurse Name Role Phone Curry Richard MD Primary Care Provider +- [phone] Reason for Visit * Reason Comments Care Coordination Outreach Encounter Details Date Type Department Care Team (Latest Contact Info) Description 10/17/2024 Patient Outreach [facility] PEDS [address] [place], [place] [phone] Curry Richard MD [address] [place] [address] Care Coordination (Outreach) Social History Tobacco Use Types Packs/Day Years [...] as of this encounter Progress Notes * Beth Quiñones - 10/17/2024 3:23 PM EST CHW Beth Quiñones, placed outbound call to patient to introduce [facility]. Female who answer the phone was [facility] nurse Jenae. She states patient doesn't have a phone #. She will relate the message to perd=son and will call me back. CHW gave direct line to contact CHW. documented in this encounter Plan of Treatment Not on file documented as of this encounter Visit Diagnoses Not on filedocumented in this encounter Care Teams Ophthalmic Nurse Relationship Specialty Start Date End Date Curry Richard MD [address] [place] [id number] PCP - General Internal Medicine 09/21/18 documented as of this encounter
--- OUTSIDE RECORDS SUMMARY | 2024-10-23 20:58 | XMS_ITS | Encounter Summary ---
Author Organization [employer] Address [address] [facility] 7 h Floor [address] Care Team Providers Care Masking Machine Operator Name Role Phone Curry Richard MD Primary Care Provider +1- [phone] Reason for Visit * Reason Onset Date Comments Referral 11/13/2023 Encounter Details Date Type Department Care Team ([facility] st Contact Info) Description 11/13/2023 Telephone [facility] [address] [place] [address] Curry Richard MD [address] [place] [address] Referral Social History Tobacco Use Types Packs/Day [...] T/c to pt regarding referral request from [facility]. Rose Mary from [facility] reported that pt was seen in [facility] ER for elbow bursitis and that pt has relocated to [facility]. Pt reported that he has an appointment with a provider pm the and is part of a detox program. Pt to follow up PRN. Pt's new number is [phone] * Telephone Encounter - Michael Pak - 11/13/2023 9:50 AM EST TC from Rose Mary working with [facility] requesting new referral: DATE: 11/16/23 TIME: 12:45 pm Address: [address] [place] [address] Visits: 12 Facility Name: [facility] Type of Specialist: Orthopedic DX: [id number] Provider : N/A Provider NPI : N/A Facility Phone # : [phone] Fax #: [phone] documented in this encounter Plan of Treatment Not on file documented as of this encounter Visit Diagnoses Not on filedocumented in this encounter Care Teams Masking Machine Operator Relationship Specialty Start Date End Date Curry Richard MD [address] [place] [id number] PCP - General Internal Medicine 09/21/18 documented as of this encounter
--- OUTSIDE RECORDS SUMMARY | 2024-10-23 20:58 | XMS_ITS | Encounter Summary ---
Author Organization [employer] Address [address] [place] [address] 7 [place] [address] Care Team Providers Care Leadership Program Internship Name Role Phone Curry Richard MD Primary Care Provider +1- [phone] Reason for Visit * Reason Comments Care Coordination Outreach Encounter Details Date Type Department Care Team (Latest Contact Info) Description 10/21/2024 Patient Outreach [facility] [address] [place], [place] [phone] Curry Richard MD [address] [place] [address] Care Coordination (Outreach) Social History Tobacco Use [...] encounter Progress Notes * Beth Quiñones - 10/21/2024 10:30 AM EST CHW Beth Quiñones, placed outbound call to patient in regards to offer services. CHW introducing herself from [facility] CM Department with CHW's name, department and direct contact number requesting call back. Will re-attempt to contact within 5 days. and address not confirmed. documented in this encounter Plan of Treatment Not on file documented as of this encounter Visit Diagnoses Not on filedocumented in this encounter Care Teams Leadership Program Internship Relationship Specialty Start Date End Date Curry Richard MD [address] [place] [id number] PCP - General Internal Medicine 09/21/18 documented as of this encounter
--- OUTSIDE RECORDS SUMMARY | 2024-10-23 20:58 | XMS_ITS | Encounter Summary ---
Author Organization [employer] Address [address] [facility] 7 [place] [address] Care Team Providers Care Gauge And Instrument Inspector Name Role Phone Curry Richard MD Primary Care Provider +1- [phone] Encounter Details Date Type Department Care Team (Late st Contact Info) Description 07/27/2023 Abstract [facility] [address] [place] [address] Curry Richard MD [address] [place] [address] Social History Tobacco Use Types Packs/Day Years [...] on filedocumented in this encounter Care Teams Gauge And Instrument Inspector Relationship Specialty Start Date End Date Curry Richard MD [address] [place] [id number] PCP - General Internal Medicine 09/21/18 documented as of this encounter
[2024-10-23 21:17] LABS: MANUAL DIFF FLAG NO
[2024-10-23 21:19] LABS: Basophils Percent Auto 0.4 % (0-2); Eosinophils Percent Auto 0.4 % (0-4); Hematocrit 37.6 % (42.0-52.0); Hemoglobin 12.7 g/dl (14.0-18.0); Imm Gran Abs Auto 0.01 X10*3/uL (0.00-0.03); Imm Gran Pct Auto 0.2 % (0.0-0.4); Lymphocytes Absolute Auto 1.3 X10*3/uL (1.2-4.9); Lymphocytes Percent Auto 25.2 % (20-40); Mean Corpuscular HGB Conc 33.8 g/dl (31.0-36.0); Mean Corpuscular Hemoglobin 29.4 pg (27.0-33.0); Mean Platelet Volume 10.1 fL (9.4-12.4); Monocytes Absolute Auto 0.6 X10*3/uL (0.1-1.2); Monocytes Percent Auto 12.3 % (2-11); Neutrophils Absolute Auto 3.1 x10*3/uL (2.0-8.3); Neutrophils Percent Auto 61.5 % (45-73); Platelet Count 223 X10*3/uL (160-400); Red Blood Count 4.32 X10*6/uL (4.60-5.80); Red Cell Distribution Width 13.8 % (11.0-16.0)
--- NOTE | 2024-10-23 21:20 | MHC.EDTECH ---
Patient BIBA,changed into hospital attire,vitals taken,pt placed on the cardiac/vascular sonographer,EKG taken per order and signed by provider,repeat EKG taken per provider's request,labs and sars/flu/rsv obtained and sent to lab,patient stated he had to go move his bowels,pt ambulated to the bathroom with his crutches,T/W went to go check on pt, pt was sitting on the floor smoking crack, security called to assist, apparently pt had pipe hiding in hat, all belongings locked in the tiffany port shelf # 1, RN and provider aware
[2024-10-23 21:31] LABS: Prothrombin Time 11.9 SEC (10.9-12.4)
--- NOTE | 2024-10-23 21:35 | PC.NURSE ---
pt refusing imaging states he wants to leave. Manolo HOT PLATE PRESS OPERATOR aware. pt will be leaving AMA. understands risks of leaving.
[2024-10-23 21:36] LABS: Alanine Aminotransferase 66 U/L (0-40); Albumin Level 3.6 g/dL (3.5-5.0); Alkaline Phosphatase 81 U/L (39-117); Anion Gap 13 (12-20); Aspartate Amino Transferase 86 U/L (5-37); Bilirubin Total 0.6 mg/dL (0.0-1.0); Blood Urea Nitrogen 16 mg/dL (9-16); Calcium 8.8 mg/dL (8.4-10.2); Carbon Dioxide 26 mmol/L (22-29); Chloride 108 mmol/L (96-108); Creatinine Clr Calc Pharmacy 91.8; Estimated Glomerular Filt Rate > 60; Ethanol < 10 mg/dL; Glucose Random 74 mg/dL (60-115); Lipase 68 U/L (8-78); Magnesium 2.3 mg/dL (1.6-2.6); Potassium 3.6 mmol/L (3.3-5.1); Sodium 143 mmol/L (135-145)
[2024-10-23 21:39] LABS: B Type Natriuretic Peptide < 10 pg/mL (<100)
[2024-10-23 21:40] VITALS: BP 134/75; PULSE 85; RESP 16; TEMP 36.6; O2SAT 97
[2024-10-23 21:43] LABS: Troponin-I High Sensitivity 3.6 ng/L (<3.5-35.0)
[2024-10-23 21:45] VITALS: BP 134/75; PULSE 85; RESP 16; TEMP 36.6; O2SAT 97
[2024-10-23 21:56] LABS: Influenza A PCR NEGATIVE (Negative); Influenza B PCR NEGATIVE (Negative); Resp Syncy Virus RNA Qual PCR NEGATIVE (Negative); SARS COV2 PCR INHOUSE NEGATIVE (Negative)
== END 2024-10-23 21:46 | disposition left against medical advice (07) ==
PROVIDERS: Nurse Practitioner Family; Emergency Provider Emergency Medicine
DX: R07.89 Other chest pain (principal); R94.31 Abnormal electrocardiogram [ECG] [EKG]; R06.02 Shortness of breath; F14.90 Cocaine use, unspecified, uncomplicated; F17.210 Nicotine dependence, cigarettes, uncomplicated; Z79.899 Other long term (current) drug therapy; Z03.818 Encounter for observation for suspected exposure to other biological agents ruled out
CPT/HCPCS: 0241U; 80053; 80307; 83690; 83735; 83880; 84484; 85025; 85610; 93005; 99284; 99285

== ENCOUNTER → 2024-10-23 20:34 | Outpatient (BNV) | payer MEDICAID, SELFPAY | PROVIDERS: Emergency Provider Emergency Medicine; Visit Provider Internal Medicine Cardiovascular Disease | DX: R94.31 Abnormal electrocardiogram [ECG] [EKG] (principal); R07.9 Chest pain, unspecified | CPT/HCPCS: 93010 ==

== ENCOUNTER 2024-10-27 14:32 | Emergency (ER) | payer MEDICAID, SELFPAY ==
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
--- OUTSIDE RECORDS SUMMARY | 2024-10-27 15:54 | XMS_ITS | Encounter Summary ---
Author Organization [employer] Address [address] [place] [address] [place] [address] Care Team Providers Care Plasterer Spray Gun Name Role Phone Curry Richard MD Primary Care Provider +1- [phone] Reason for Visit * Reason Comments Transition Of Care (Tcm) Encounter Details Date Type Department Care Team ([facility] st Contact Info) Description 10/24/2024 Patient Outreach [facility] MED & PEDS [address] [place], [place] [phone] Curry Richard MD [address] [place] [address] Transition Of Care (Tcm) Social History Tobacco [...] Progress Notes * Coco Galvan RN - 10/24/2024 12:26 PM EST 10/24/24 1227 Hospital Discharges and Admission for [facility] Type of Visit Emergency Department Date of Admission/Visit 10/21/24 (8:37pm) Date of Discharge 10/22/24 (6:41am) Facility [facility] Diagnosis Cold, Cocaine use, unspecified, uncomplicated Disposition Discharged Home 10/24/24 1228 Hospital Discharges and Admission for [facility] Date of Admission/Visit 10/22/24 (4:17pm) Date of Discharge 10/23/24 (2:40am) Facility [facility] Diagnosis VOMITING BLOOD, Chest Pain Disposition Discharged Home 10/24/24 1230 Hospital Discharges and Admission for [facility] Date of Admission/Visit 10/23/24 Date of Discharge (N/A) [place] [facility] [place] FALL SLIP ON ICE, chest pain Disposition (N/A) documented in this encounter Plan of Treatment Not on file documented as of this encounter Visit Diagnoses Not on filedocumented in this encounter Care Teams Plasterer Spray Gun Relationship Specialty Start Date End Date Curry Richard MD [address] [place] [address] PCP - General Internal Medicine 09/21/18 documented as of this encounter
--- OUTSIDE RECORDS SUMMARY | 2024-10-27 15:54 | XMS_ITS | Encounter Summary ---
Author Organization [employer] Address [address] [facility] 7 [place] [address] Care Team Providers Care Receiving Associate Name Role Phone Curry Richard MD Primary Care Provider +1- [phone] Reason for Visit * Reason Onset Date Comments Referral 11/13/2023 Encounter Details Date Type Department Care Team ([facility] st Contact Info) Description 11/13/2023 Telephone [facility] [address] [place] [address] Curry Richard MD [address] [place] [address] Referral Social History Tobacco Use Types Packs/Day [...] T/c to pt regarding referral request from [facility]. Rose Mary from [facility] reported that pt was seen in [facility] ER for elbow bursitis and that pt has relocated to [facility]. Pt reported that he has an appointment with a provider pm the and is part of a detox program. Pt to follow up PRN. Pt's new number is [phone] * Telephone Encounter - Michael Pak - 11/13/2023 9:50 AM EST TC from Rose Mary working with [facility] requesting new referral: DATE: 11/16/23 TIME: 12:45 pm Address: [address] [place] [address] Visits: 12 Facility Name: [facility] Type of Specialist: Orthopedic DX: [id number] Provider : N/A Provider NPI : N/A Facility Phone # : [phone] Fax #: [phone] documented in this encounter Plan of Treatment Not on file documented as of this encounter Visit Diagnoses Not on filedocumented in this encounter Care Teams Receiving Associate Relationship Specialty Start Date End Date Curry Richard MD [address] [place] [phone] PCP - General Internal Medicine 09/21/18 documented as of this encounter
--- OUTSIDE RECORDS SUMMARY | 2024-10-27 15:54 | XMS_ITS | Encounter Summary ---
Author Organization [employer] Address [address] [facility] 7 [place] [address] Care Team Providers Care Product Engineer Name Role Phone Curry Richard MD Primary Care Provider +1- [phone] Encounter Details Date Type Department Care Team (Late st Contact Info) Description 07/27/2023 Abstract [facility] [address] [place] [address] Curry Richard MD [address] [place] [address] Social History Tobacco Use Types Packs/Day Years [...] on filedocumented in this encounter Care Teams Product Engineer Relationship Specialty Start Date End Date Curry Richard MD [address] [place] [phone] PCP - General Internal Medicine 09/21/18 documented as of this encounter
--- OUTSIDE RECORDS SUMMARY | 2024-10-27 15:54 | XMS_ITS | Encounter Summary ---
Author Organization [employer] Address [address] [place] [address] [place] [address] Care Team Providers Care Director Presales Name Role Phone Curry Richard MD Primary Care Provider +1- [phone] Reason for Visit * Reason Comments Transition Of Care (Tcm) Encounter Details Date Type Department Care Team ([facility] st Contact Info) Description 10/21/2024 Patient Outreach [facility] MED & PEDS [address] [place], [place] [phone] Curry Richard MD [address] [place] [address] Transition Of Care (Tcm) Social History Tobacco [...] 10/21/24 1341 Hospital Discharges and Admission for [facility] Type of Visit Emergency Department Date of Admission/Visit 10/20/24 Date of Discharge 10/20/24 Facility [facility] Diagnosis Left Hand Pain Disposition Left Without Being Seen documented in this encounter Plan of Treatment Not on file documented as of this encounter Visit Diagnoses Not on filedocumented in this encounter Care Teams Director Presales Relationship Specialty Start Date End Date Curry Richard MD [address] [place] [phone] PCP - General Internal Medicine 09/21/18 documented as of this encounter
--- OUTSIDE RECORDS SUMMARY | 2024-10-27 15:54 | XMS_ITS | Clinical Summary ---
Author Organization [employer] Address [address] [place] [address] 7[address] [place] [address] Care Team Providers Care Community Living Coach Name Role Phone Curry Richard MD Primary Care Provider Allergies Active Allergy Reactions Criticality Noted Date Comments [place] 05/11/2012 Medications ARIPiprazole (Abilify) 5 MG tablet [...] Encounters Date Type Department Care Team Description 10/24/2024 Patient Outreach [facility] [address] [place] [address] Curry Richard MD Transition Of Care (Tcm) 10/21/2024 Patient Outreach [facility] [address] [place] [address] Curry Richard MD Transition Of Care (Tcm) 10/21/2024 Patient Outreach [facility] [address] [place] [address] Curry Richard MD Care Coordination (Outreach) 10/17/2024 Patient Outreach [facility] [address] [place] [address] Curry Richard MD Care Coordination (Outreach) 09/16/2024 Telephone [facility] [address] [place] [phone] Avi Pace, RN Hepatitis C 09/06/2024 Orders Only [facility] [address] [place] [address] Curry Richard MD 08/10/2024 Patient Outreach [facility] [address] [place] [address] Curry Richard MD Pre-visit Planning (SDOH was completed on 01/29/2024) 07/28/2024 Telephone [facility] [address] [place] [phone] Avi Pace, RN from Last 3 Months Immunizations Name Administration [...] FOBT 1972 Lipid Panel 1972 Sigmoidoscopy 1972 Alcohol/Substance Use Screening 1984 Family Planning (PISQ) 1987 Hepatitis A Vaccines (1 of 2 - Risk 2-dose series) 1991 Hepatitis B Vaccines (1 of 3 - 19+ 3-dose series) 1991 Pneumococcal Vaccine: 50+ Years (1 of 2 - PCV) 1991 Zoster Vaccines (1 of 2) 2022 COVID-19 Vaccine (4 - season) 2024 07/24/2021, 02/07/2021, 01/10/2021 Influenza Vaccine (#1) 2024 , 07/08/2022, 07/04/2021, Additional history exists Tobacco Screening 12/20/2024 12/21/2023 SDOH Screening 01/19/2025 01/20/2024 DTaP/Tdap/Td Vaccines (6 - Td or Tdap) 02/12/2029 02/12/2019, 07/19/2015, 01/21/2015, Additional history exists RSV Patients and Patients Aged 60 years [...] 12:46 PM EST) HCV RNA PCR QN [id number]( A) NOT DETECTED IU/mL [facility] HCV RNA PCR QN 6.25(A) NOT DETECTED Log IU/mL [facility] HCV RNA COMMENT SEE NOTE [facility] Comment:For additional infor mation, please refer tohttp://education.CATASYS/faq/LJK21x9(This link is being provided for informational/Educational purposes only.)THIS TEST WAS PERFORMED AT:[employer] [place] [id number] GAMA MD HCV RNA GENOTYPE,LIPA 1a [facility] Comment:The method used in t his test is RT-PCR and reversehybridization (Line Probe) of the 5' UTR and coreregion of the HCV genome.The analytical performance characteristics of thisassay have been determined by [facility], [place], [place]. The modificationshave not been cleared or approved by the FDA. Thisassay has been validated pursuant to the CLIAregulations and is used for clinical purposes.For additional information, please refer tohttp://education.Sharewire.[employer]/faq/HCVGenotyping(This link is being provided for informational/educational purposes only.)THIS TEST WAS PERFORMED AT:[employer] [id number] [place] [id number] FERNANDES MD,PHD 09/06/2024 12:4 6 PM EST 09/06/2024 12:46 PM EST us Curry Richard MD LAB BLOOD ORDERABLES Final Result [facility] [address] [place] [phone] * (ABNORMAL) Liver Fibrosis (HCV), FibroTest-ActiTest Panel (09/06/2024 12:46 PM EST) Liver Fibrosis Score 0.75 [facility] Liver Fibrosis Stage F4 [facility] Liver Fibrosis Interpretation SEE NOTE [facility] Comment:severe fibrosisFibro Test Score (f) Metavir Score f>=0 and f<=0.21 : F0 (no fibrosis)f>0.21 and f<=0.27 : F0-F1 (no fibrosis)f>0.27 and f<=0.31 : F1 (minimal fibrosis)f>0.31 and f<=0.48 : F1-F2 (minimal fibrosis)f>0.48 and f<=0.58 : F2 (moderate fibrosis)f>0.58 and f<=0.72 : F3 (advanced fibrosis)f>0.72 and f<=0.74 : F3-F4 (advanced fibrosis)f>0.74 and f<=1.00 : F4 (severe fibrosis) Nec Inflam Act Score 0.54 [facility] Nec Inflam Act Grade A2 [facility] Nec Inflam Act Interpretation SEE NOTE [facility] Comment:significant activity ActiTest Score (a) Metavir Score a>=0 and a<=0.17 : A0 (no activity)a>0.17 and a<=0.29 : A0-A1 (no activity)a>0.29 and a<=0.36 : A1 (minimal activity)a>0.36 and a<=0.52 : A1-A2 (minimal activity)a>0.52 and a<=0.60 : A2 (significant activity)a>0.60 and a<=0.62 : A2-A3 (significant activity)a>0.62 and a<=1.00 : A3 (severe activity) MHI-Bnxrf-8-Macroglo bulin 330(A) 106 - 279 mg/dL [facility] FIB-Haptoglobin 28(A) 43 - 212 mg/dL [facility] FIB-Apolipoprotein A1 139 94 - 176 mg/dL [facility] FIB-Total Bilirubin 0.4 0.2 - 1.2 mg/dL [facility] FIB-GGT 90 3 - 95 U/L [facility] FIB-ALT 63(A) 9 - 46 U/L [facility] Reference ID [id number] [facility] Footnote SEE NOTE [facility] Comment: The reliability of results [...] and C.The performance characteristics have been determined by[facility]. Ithas not been cleared or approved by the U.S. Food and DrugAdministration. Performance characteristics refer to theanalytical performance of the test.[employer], [employer], the associated logo, Izabel and all associated [employer] panda are theregistered trademarks of [employer]. All third partymarks - (R) and (TM) - are the property of their respectiveowners. (C) 2818-9690 [employer]. Allrights reserved.THIS TEST WAS PERFORMED AT:[employer] [id number] JESE DAVIES ??[id number] GOODEN MD,PHD,[place] 09/06/2024 12:4 6 PM EST 09/06/2024 12:46 PM EST us Curry Richard MD LAB BLOOD ORDERABLES Final Result [facility] [address] [place] [phone] * (ABNORMAL) CBC auto differential (09/06/2024 12:46 PM EST) White Blood Count 4.3(L) 4.8 - 10.8 X10*3/uL [facility] Red Blood Count 4.86 4.60 - 5.80 X10*6/uL [facility] Hemoglobin 14.2 14.0 - 18.0 g/dl [facility] Hematocrit 42.8 42.0 - 52.0 % [facility] Mean Corpuscular Volume 88.1 80.0 - 98.0 fL [facility] Mean Corpuscular Hemoglobin 29.2 27.0 - 33.0 pg [facility] Mean Corpuscular HGB Conc 33.2 31.0 - 36.0 g/dl [facility] Red Cell Distribution Width 14.2 11.0 - 16.0 % [facility] Platelet Count 177 160 - 400 X10*3/uL [facility] Mean Platelet Volume 11.4 9.4 - 12.4 fL [facility] Neutrophils Percent Auto 59.3 45 - 73 % [facility] Imm Gran Pct Auto 0.2 0.0 - 0.4 % [facility] Lymphocytes Percent Auto 24.1 20 - 40 % [facility] Monocytes Percent Auto 15.7(H) 2 - 11 % [facility] Eosinophils Percent Auto 0.5 0 - 4 % [facility] Basophils Percent Auto 0.2 0 - 2 % [facility] NRBC Pct Auto 0.0 0.0 - 0.2 /100WBC [facility] Neutrophils Absolute Auto 2.6 2.0 - 8.3 x10*3/uL [facility] Imm Gran Abs Auto 0.01 0.00 - 0.03 X10*3/uL [facility] Lymphocytes Absolute Auto 1.0(L) 1.2 - 4.9 X10*3/uL [facility] Monocytes Absolute Auto 0.7 0.1 - 1.2 X10*3/uL [facility] Eosinophils Absolute Auto 0.0 0.0 - 0.4 X10*3/uL [facility] Basophils Absolute Auto 0.0 0.0 - 0.2 X10*3/uL [facility] NRBC Abs Auto 0.000 0.0 - 0.012 X10*3/uL [facility] 09/06/2024 12:4 6 PM EST 09/06/2024 12:46 PM EST us Curry Richard MD LAB BLOOD ORDERABLES Final Result [facility] [address] [place] [phone] * Hepatitis A Antibody, Total (09/06/2024 12:46 PM EST) Hepatitis A Antibody IgG REACTIVE Nonreactive [facility] Comment:The presence of IgG anti-HAV implies past HAV infection(recent or distant) or vaccination against HAV. 09/06/2024 12:4 6 PM EST 09/06/2024 12:46 PM EST us Curry Richard MD LAB BLOOD ORDERABLES Final Result Performing Organization Address [facility] Co de Phone Number [facility] [address] [place] [phone] * Hepatitis B surface antigen, EIA (09/06/2024 12:46 PM EST) Hepatitis B Surface Ag Negative Negative [facility] 09/06/2024 12:4 6 PM EST 09/06/2024 12:46 PM EST us Curry Richard MD LAB BLOOD ORDERABLES Final Result Performing Organization Address [facility] Co de Phone Number [facility] [address] [place] [phone] * Hepatitis B Core Antibody, Total (09/06/2024 12:46 PM EST) Hepatitis B Core Antibody Nonreactive Nonreactive [facility] 09/06/2024 12:4 6 PM EST 09/06/2024 12:46 PM EST us Curry Richard MD LAB BLOOD ORDERABLES Final Result Performing Organization Address [facility] Co de Phone Number [facility] [address] [place] [phone] * HIV-1/2 Antigen and Antibodies, Fourth Generation, with Reflexes (09/06/2024 12:46 PM EST) HIV AB/AG Nonreactive Nonreactive [facility] Comment:HIV-1 p24 Ag and/or HIV-1/HIV-2 Ab not detected.A test result that is nonreactive does not exclude thepossibility of exposure to or infection with HIV-1 and/orHIV-2. Nonreactive results in this assay for individualswith prior exposure to HIV-1 and/or HIV-2 may be due toantigen and antibody levels that are below the limit ofdetection of this assay.The [employer] Alinity HIV Ag/Ab Combo assay result andsupplemental assay results should be interpreted inconjunction with the patient's clinical presentation,history and other laboratory results. If the results areinconsistent with clinical evidence, additional testing issuggested to confirm the result. 09/06/2024 12:4 6 PM EST 09/06/2024 12:46 PM EST us Curry Richard MD LAB BLOOD ORDERABLES Final Result Performing Organization Address [facility] Co de Phone Number [facility] [address] [place] [address] [phone] * Hepatitis B Surface Antibody, Qualitative (09/06/2024 12:46 PM EST) ~Hepatitis B Surface Antibody REACTIVE Nonreactive [facility] Comment:REACTIVE: > 11.99 mI U/mL 09/06/2024 12:4 6 PM EST 09/06/2024 12:46 PM EST us Curry Richard MD LAB BLOOD ORDERABLES Final Result Performing Organization Address [facility] Co de Phone Number [facility] [address] [place] [phone] * Prothrombin Time-INR (09/06/2024 12:46 PM EST) Prothrombin Time 11.3 10.9 - 12.4 SEC [facility] INTERNATIONAL NORM RATIO 1.0 0.9 - 1.1 [facility] Comment:INTERNATIONAL NORMAL IZED RATIO (INR) [...] Richard MD LAB BLOOD ORDERABLES Final Result [facility] [address] [place] [phone] * (ABNORMAL) Comprehensive Metabolic Panel (09/06/2024 12:46 PM EST) Sodium 135 135 - 145 mmol/L [facility] Potassium 4.4 3.3 - 5.1 mmol/L [facility] Chloride 105 96 - 108 mmol/L [facility] Carbon Dioxide 26 22 - 29 mmol/L [facility] Anion Gap 8(L) 12 - 20 [facility] Urea Nitrogen (BUN) 8(L) 9 - 16 mg/dL [facility] Creatinine, Serum 0.81 0.5 - 1.4 mg/dL [facility] Estimated Glomerular Filt Rate >60 [facility] Comment:Chronic Kidney Disea se: Estimated GFR < 60 mL/min/1.60g7Nwuhkg Kidney Disease: Estimated GFR < 15 mL/min/1.73m2 Glucose 171(H) 60 - 115 mg/dL [facility] Calcium 8.8 8.4 - 10.2 mg/dL [facility] Bilirubin, Total 0.3 0.0 - 1.0 mg/dL [facility] Aspartate Amino Transferase 80(H) 5 - 37 U/L [facility] Alanine Aminotransferase 86(H) 0 - 40 U/L [facility] Total Protein 8.4(H) 6.5 - 8.0 g/dL [facility] Albumin Level 3.9 3.5 - 5.0 g/dL [facility] Alkaline Phosphatase 85 39 - 117 U/L [facility] Blood Venous blood specimen / Unknown 09/06/2024 12:46 PM EST 09/06/2024 12:46 PM EST Curry Richard MD LAB BLOOD ORDERABLES Final Result [facility] [address] [place] [phone] from Last 3 Months Insurance [employer] Care Teams Community Living Coach Relationship Specialty Start Date End Date Curry Richard MD [address] [place] [phone] PCP - General Internal Medicine 09/21/18
--- OUTSIDE RECORDS SUMMARY | 2024-10-27 15:54 | XMS_ITS | Encounter Summary ---
Author Organization [employer] Address [address] [place] [address] 7 [place] [address] Care Team Providers Care Physician Office Clin Asst Name Role Phone Curry Richard MD Primary Care Provider [phone]- [phone] Reason for Visit * Reason Comments Care Coordination Outreach Encounter Details Date Type Department Care Team (Latest Contact Info) Description 10/21/2024 Patient Outreach [facility] [address] [place], [place] [phone] Curry Richard MD [address] [place] [address] Care Coordination (Outreach) Social History Tobacco Use [...] to offer services. CHW introducing herself from [facility] CM Department with CHW's name, department and direct contact number requesting call back. Will re-attempt to contact within 5 days. and address not confirmed. documented in this encounter Plan of Treatment Not on file documented as of this encounter Visit Diagnoses Not on filedocumented in this encounter Care Teams Physician Office Clin Asst Relationship Specialty Start Date End Date Curry Richard MD [address] [place] [phone] PCP - General Internal Medicine 09/21/18 documented as of this encounter
--- OUTSIDE RECORDS SUMMARY | 2024-10-27 15:54 | XMS_ITS | Encounter Summary ---
Author Organization [employer] Address [address] [place] [address] 7 [place] [address] Care Team Providers Care Pay Clerk Name Role Phone Curry Richard MD Primary Care Provider [phone]- [phone] Reason for Visit * Reason Comments Care Coordination Outreach Encounter Details Date Type Department Care Team (Latest Contact Info) Description 10/17/2024 Patient Outreach [facility] [address] [place], [place] [phone] Curry Richard MD [address] [place] [address] Care Coordination (Outreach) Social History Tobacco Use [...] Program. Female who answer the phone was [facility] nurse Jenae. She states patient doesn't have a phone #. She will relate the message to perd=son and will call me back. CHW gave direct line to contact CHW. documented in this encounter Plan of Treatment Not on file documented as of this encounter Visit Diagnoses Not on filedocumented in this encounter Care Teams Pay Clerk Relationship Specialty Start Date End Date Curry Richard MD [address] [place] [phone] PCP - General Internal Medicine 09/21/18 documented as of this encounter
== END 2024-10-27 15:52 | disposition left against medical advice (07) ==
PROVIDERS: Emergency Provider Emergency Medicine
DX: S69.91XA Unspecified injury of right wrist, hand and finger(s), initial encounter (principal); S69.92XA Unspecified injury of left wrist, hand and finger(s), initial encounter; W00.0XXA Fall on same level due to ice and snow, initial encounter; M79.642 Pain in left hand; M79.641 Pain in right hand; Y93.89 Activity, other specified; Y92.89 Other specified places as the place of occurrence of the external cause; Y99.8 Other external cause status; Z76.5 Malingerer [conscious simulation]
CPT/HCPCS: 99283

== ENCOUNTER 2024-11-01 10:39 | Emergency (ER) | payer MEDICAID, SELFPAY ==
[2024-11-01 11:18] VITALS: BP 143/83; PULSE 110; RESP 18; TEMP 36.4; O2SAT 95; BMI 21.5
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
[2024-11-01] MEDS: Bacitracin Oint 0.9 GM PACKET 1 APPL TOPICAL (11:27)
--- OUTSIDE RECORDS SUMMARY | 2024-11-01 13:13 | XMS_ITS | Encounter Summary ---
Author Organization [employer] Address [address] [place] [address] [address] [place] [address] Care Team Providers Care American History Professor Name Role Phone Curry Richard MD Primary Care Provider [phone] Reason for Visit * Reason Comments Care Coordination Outreach Encounter Details Date Type Department Care Team (Latest Contact Info) Description 10/21/2024 Patient Outreach [facility] [address] [place], [place] [phone] Curry Richard MD [address] [place] [address] Care Coordination (Outreach) Social History Tobacco Use [...] to offer services. CHW introducing herself from [facility] CM Department with CHW's name, department and direct contact number requesting call back. Will re-attempt to contact within 5 days. and address not confirmed. documented in this encounter Plan of Treatment Not on file documented as of this encounter Visit Diagnoses Not on filedocumented in this encounter Care Teams American History Professor Relationship Specialty Start Date End Date Curry Richard MD [address] [place] [phone] PCP - General Internal Medicine 09/21/18 documented as of this encounter
--- OUTSIDE RECORDS SUMMARY | 2024-11-01 13:13 | XMS_ITS | Encounter Summary ---
Author Organization [employer] Address [address] [place] [address] 7 [place] [address] Care Team Providers Care Synthetic Chemist Name Role Phone Curry Richard MD Primary Care Provider +- [phone] Reason for Visit * Reason Comments Care Coordination Outreach Encounter Details Date Type Department Care Team (Latest Contact Info) Description 10/28/2024 Patient Outreach [facility] MED & PEDS [address] [place], [place] [phone] Curry Richard MD [address] [place] [address] Care Coordination (Outreach) Social History Tobacco Use [...] encounter Progress Notes * Beth Quiñones - 10/28/2024 1:31 PM EST CHW Beth Quiñones , placed outbound call to patient in regards to offer services. The number listed on file is Jenae ([facility] nurse), she states patient don't have a phone and he is homeless. CHW introducing herself from [facility] CM Department with CHW's name, department and direct contactnumber [phone] call back. Will re-attempt to contact within 5 days. documented in this encounter Plan of Treatment Not on file documented as of this encounter Visit Diagnoses Not on filedocumented in this encounter Care Teams Synthetic Chemist Relationship Specialty Start Date End Date Curry Richard MD [address] [place] [phone] PCP - General Internal Medicine 09/21/18 documented as of this encounter
--- OUTSIDE RECORDS SUMMARY | 2024-11-01 13:13 | XMS_ITS | Encounter Summary ---
Author Organization [employer] Address [address] [place] [address] 7 [place] [address] Care Team Providers Care Voice Systems Engineer Name Role Phone Curry Richard MD Primary Care Provider +1- [phone] Reason for Visit * Reason Comments Care Coordination Outreach Encounter Details Date Type Department Care Team (Latest Contact Info) Description 10/17/2024 Patient Outreach [facility] MED & PEDS [address] [place], [place] [phone] Curry Richard MD [address] [place] [address] Care Coordination (Outreach) Social History Tobacco Use [...] Program. Female who answer the phone was [facility] nurse Jenae. She states patient doesn't have a phone #. She will relate the message to perd=son and will call me back. CHW gave direct line to contact CHW. documented in this encounter Plan of Treatment Not on file documented as of this encounter Visit Diagnoses Not on filedocumented in this encounter Care Teams Voice Systems Engineer Relationship Specialty Start Date End Date Curry Richard MD [address] [place] [phone] PCP - General Internal Medicine 09/21/18 documented as of this encounter
--- OUTSIDE RECORDS SUMMARY | 2024-11-01 13:13 | XMS_ITS | Encounter Summary ---
Author Organization [employer] Address [address] [facility] 7 [place] [address] Care Team Providers Care Cut Off Saw Operator Name Role Phone Curry Richard MD Primary Care Provider [phone]- [phone] Reason for Visit * Reason Onset Date Comments Referral 11/13/2023 Encounter Details Date Type Department Care Team ([facility] st Contact Info) Description 11/13/2023 Telephone [facility] MED[facility]INE [address] [place] [address] Curry Richard MD [address] [place] [address] Referral Social History Tobacco Use Types Packs/Day [...] T/c to pt regarding referral request from [facility]. Rose Mary from [facility] reported that pt was seen in [facility] Department ER for elbow bursitis and that pt has relocated to [facility]. Pt reported that he has an appointment with a provider pm the and is part of a detox program. Pt to follow up PRN. Pt's new number is [phone] * Telephone Encounter - Michael Pak - 11/13/2023 9:50 AM EST TC from Rose Mary working with [facility] requesting new referral: DATE: 11/16/23 TIME: 12:45 pm Address: [address] [place] [address] Visits: 12 Facility Name: [facility] Type of Specialist: Orthopedic DX: M25.521 Provider : N/A Provider NPI : N/A Facility Phone # : [phone] Fax #: [phone] documented in this encounter Plan of Treatment Not on file documented as of this encounter Visit Diagnoses Not on filedocumented in this encounter Care Teams Cut Off Saw Operator Relationship Specialty Start Date End Date Curry Richard MD [address] [place] [phone] PCP - General Internal Medicine 09/21/18 documented as of this encounter
--- OUTSIDE RECORDS SUMMARY | 2024-11-01 13:13 | XMS_ITS | Encounter Summary ---
Author Organization [employer] Address [address] [place] [address] [place] [address] Care Team Providers Care Mutuel Teller Name Role Phone Curry Richard MD Primary Care Provider [phone]- [phone] Reason for Visit * Reason Comments Transition Of Care (Tcm) Encounter Details Date Type Department Care Team ([facility] st Contact Info) Description 10/28/2024 Patient Outreach [facility] CHC MED & PEDS [address] [place], [place] [phone] Curry Richard MD [address] [place] [address] Transition Of Care (Tcm) Social History Tobacco [...] Progress Notes * Coco Galvan RN - 10/28/2024 8:45 AM EST Transition of Care Note Norman Mohan is going through a recent transition of care. documented in this encounter Plan of Treatment Not on file documented as of this encounter Visit Diagnoses Not on filedocumented in this encounter Care Teams Mutuel Teller Relationship Specialty Start Date End Date Curry Richard MD [address] [place] [address] PCP - General Internal Medicine 09/21/18 documented as of this encounter
--- OUTSIDE RECORDS SUMMARY | 2024-11-01 13:13 | XMS_ITS | Encounter Summary ---
Author Organization [employer] Address [address] [place] [address] 7 [place] [address] Care Team Providers Care Set Off Blocker Name Role Phone Curry Richard MD Primary Care Provider +1- [phone] Reason for Visit * Reason Comments Transition Of Care (Tcm) Encounter Details Date Type Department Care Team ([facility] st Contact Info) Description 10/31/2024 Patient Outreach [facility] CH[facility] MED & PEDS [address] [place], [place] [phone] Curry Richard MD [address] [place] [address] Transition Of Care (Tcm) Social History Tobacco [...] as of this encounter Progress Notes * Kiesha Sullivan RN - 10/31/2024 9:35 AM EST Transition of Care Note Norman Mohan is going through a recent transition of care. * Erin Menendez RN - 10/31/2024 9:35 AM EST Transition of Care Note Norman is going through a recent transition of care. Hospital Discharges and Admission for [facility] Type of Visit: Emergency Department Date of Admission/Visit: 10/30/24 Date of Discharge: 10/30/24 [place] [facility] [place]: Abrasion of Penis, Homelessness Disposition: Discharged Home Patient given resources for harm reduction and shelters in the area. Abrasion was superficial and healing on their own. Care coordination is trying to reach patient to help with services. The full discharge summary is available on [facility]. Recent Visits Date Type Provider Dept 12/21/23 Office Visit Curry Richard MD [facility] Med & Peds Showing recent visits within past 540 days with a meds authorizing provider and meeting all other requirements Future Appointments No visits were found meeting these conditions. Showing future appointments within next 150 days with a meds authorizing provider and meeting all other requirements documented in this encounter Plan of Treatment Not on file documented as of this encounter Visit Diagnoses Not on filedocumented in this encounter Care Teams Set Off Blocker Relationship Specialty Start Date End Date Curry Richard MD [address] [place] [id number] PCP - General Internal Medicine 09/21/18 documented as of this encounter
--- OUTSIDE RECORDS SUMMARY | 2024-11-01 13:13 | XMS_ITS | Encounter Summary ---
Author Organization [employer] Address [address] [place] [address] [place] [address] Care Team Providers Care Asphalt Heater Tender Name Role Phone Curry Richard MD Primary Care Provider [phone]- [phone] Reason for Visit * Reason Comments Transition Of Care (Tcm) Encounter Details Date Type Department Care Team ([facility] st Contact Info) Description 10/21/2024 Patient Outreach [facility] CH[facility] MED & PEDS [address] [place], [place] [phone] Curry Richard MD [address] [place] [address] Transition Of Care (Tcm) Social History Tobacco [...] 10/21/24 1341 Hospital Discharges and Admission for [facility] Type of Visit Emergency Department Date of Admission/Visit 10/20/24 Date of Discharge 10/20/24 Facility [facility] Diagnosis Left Hand Pain Disposition Left Without Being Seen documented in this encounter Plan of Treatment Not on file documented as of this encounter Visit Diagnoses Not on filedocumented in this encounter Care Teams Asphalt Heater Tender Relationship Specialty Start Date End Date Curry Richard MD [address] [place] [phone] PCP - General Internal Medicine 09/21/18 documented as of this encounter
--- OUTSIDE RECORDS SUMMARY | 2024-11-01 13:13 | XMS_ITS | Encounter Summary ---
Author Organization [employer] Address [address] [facility] 7 [place] [address] Care Team Providers Care Assistant Professor Of Biology Name Role Phone Curry Richard MD Primary Care Provider +1- [phone] Encounter Details Date Type Department Care Team (Late st Contact Info) Description 07/27/2023 Abstract [facility] [address] [place] [address] Curry Richard MD [address] [place] [address] Social History Tobacco Use Types Packs/Day Years [...] on filedocumented in this encounter Care Teams Assistant Professor Of Biology Relationship Specialty Start Date End Date Curry Richard MD [address] [place] [phone] PCP - General Internal Medicine 09/21/18 documented as of this encounter
--- OUTSIDE RECORDS SUMMARY | 2024-11-01 13:13 | XMS_ITS | Clinical Summary ---
Author Organization [employer] Address [address] [place] [address] 7t [place] [address] Care Team Providers Care Egg Smeller Name Role Phone Curry Richard MD Primary Care Provider Allergies Active Allergy Reactions Criticality Noted Date Comments Dobbins 05/11/2012 Medications ARIPiprazole (Abilify) 5 MG tablet [...] Encounters Date Type Department Care Team Description 10/31/2024 Patient Outreach [facility] [address] [place] [address] Curry Richard MD Transition Of Care (Tcm) 10/28/2024 Patient Outreach [facility] [address] [place] [address] Curry Richard MD Care Coordination (Outreach) 10/28/2024 Patient Outreach [facility] [address] [place] [address] Curry Richard MD Transition Of Care (Tcm) 10/24/2024 Patient Outreach [facility] [address] [place] [address] Curry Richard MD Transition Of Care (Tcm) 10/21/2024 Patient Outreach [facility] [address] [place] [address] Curry Richard MD Transition Of Care (Tcm) 10/21/2024 Patient Outreach [facility] [address] [place] [address] Curry Richard MD Care Coordination (Outreach) 10/17/2024 Patient Outreach [facility] [address] [place] [address] Curry Richard MD Care Coordination (Outreach) 09/16/2024 Telephone [facility] [address] [place] [address] Avi Pace, BRADY Hepatitis C 09/06/2024 Orders Only [facility] [address] [place] [address] Curry Richard MD 08/10/2024 Patient Outreach [facility] [address] [place] [address] Curry Richard MD Pre-visit Planning ([facility] was completed on 01/29/2024) from Last 3 Months Immunizations Name Administration [...] 07/24/2021, 02/07/2021, 01/10/2021 Influenza Vaccine (#1) 2024 2, 07/08/2022, 07/04/2021, Additional history exists Tobacco Screening [...] 12:46 PM EST) HCV RNA PCR QN [id number]( A) NOT DETECTED IU/mL [facility] HCV RNA PCR QN 6.25(A) NOT DETECTED Log IU/mL [facility] HCV RNA COMMENT SEE NOTE [facility] Comment:For additional infor mation, please refer tohttp://education.WebSideStory/faq/QVW88x2(This link is being provided for informational/Educational purposes only.)THIS TEST WAS PERFORMED AT:[facility] [place] [id number] GAMA MD HCV RNA GENOTYPE,LIPA 1a [facility] Comment:The method used in t his test is RT-PCR and reversehybridization (Line Probe) of the 5' UTR and coreregion of the HCV genome.The analytical performance characteristics of thisassay have been determined by [employer], [place], [place]. The modificationshave not been cleared or approved by the FDA. Thisassay has been validated pursuant to the CLIAregulations and is used for clinical purposes.For additional information, please refer tohttp://education.TV[employer] Entertainment/faq/HCVGenotyping(This link is being provided for informational/educational purposes only.)THIS TEST WAS PERFORMED AT:[id number] [place] [address]QVFOVATANALI FERNANDES MD,PHD 09/06/2024 12:4 6 PM EST 09/06/2024 12:46 PM EST us Curry Richard MD LAB BLOOD ORDERABLES Final Result [facility] [address] [place] [phone] * (ABNORMAL) Liver Fibrosis (HCV), FibroTest-ActiTest Panel (09/06/2024 12:46 PM EST) Liver Fibrosis Score 0.75 [facility] Liver Fibrosis Stage F4 [facility] Liver Fibrosis Interpretation SEE NOTE [facility] Comment:severe fibrosisFibro Test Score (f) Metavir Score f>=0 and f<=0.21 : F0 (no fibrosis)f>0.21 and f<=0.27 : F0-F1 (no fibrosis)f>0.27 and f<=0.31 : F1 (minimal fibrosis)f>0.31 and f<=0.48 : F1-F2 (minimal fibrosis)f>0.48 and f<=0.58 : F2 (moderate fibrosis)f>0.58 and f<=0.72 : F3 (advanced fibrosis)f>0.72 and f<=0.74 : F3-F4 (advanced fibrosis)f>0.74 and f<=1.00 : F4 (severe fibrosis) Nec Inflam Act Score 0.54 [facility] Nec Inflam Act Grade A2 [facility] Nec Inflam Act Interpretation SEE NOTE [facility] Comment:significant activity ActiTest Score (a) Metavir Score a>=0 and a<=0.17 : A0 (no activity)a>0.17 and a<=0.29 : A0-A1 (no activity)a>0.29 and a<=0.36 : A1 (minimal activity)a>0.36 and a<=0.52 : A1-A2 (minimal activity)a>0.52 and a<=0.60 : A2 (significant activity)a>0.60 and a<=0.62 : A2-A3 (significant activity)a>0.62 and a<=1.00 : A3 (severe activity) PHQ-Bjniy-7-Macroglo bulin 330(A) 106 - 279 mg/dL [facility] FIB-Haptoglobin 28(A) 43 - 212 mg/dL [facility] FIB-Apolipoprotein A1 139 94 - 176 mg/dL [facility] FIB-Total Bilirubin 0.4 0.2 - 1.2 mg/dL [facility] FIB-GGT 90 3 - 95 U/L [facility] FIB-ALT 63(A) 9 - 46 U/L [facility] Reference ID [id number] [facility] Footnote SEE NOTE [facility] Comment: The reliability of results [...] and C.The performance characteristics have been determined [facility]. Ithas not been cleared or approved by the U.S. Food and DrugAdministration. Performance characteristics refer to theanalytical performance of the test.weeSPIN, the associated logo, [employer] and all associated [employer] are theregistered trademarks of [employer]. All third partymarks - (R) and (TM) - are the property of their respectiveowners. (C) [id number] [employer]. Allrights reserved.THIS TEST WAS PERFORMED AT:[facility]/[place] [id number] [place], [place] ??[phone] GOODEN MD,PHD,[place] 09/06/2024 12:4 6 PM EST 09/06/2024 12:46 PM EST us Curry Richard MD LAB BLOOD ORDERABLES Final Result [facility] [address] [place] [phone] * (ABNORMAL) CBC auto differential (09/06/2024 12:46 PM EST) White Blood Count 4.3(L) 4.8 - 10.8 X10*3/uL [facility] Red Blood Count 4.86 4.60 - 5.80 X10*6/uL [facility] Hemoglobin 14.2 14.0 - 18.0 g/dl [facility] Hematocrit 42.8 42.0 - 52.0 % [facility] Mean Corpuscular Volume 88.1 80.0 - 98.0 fL [facility] Mean Corpuscular Hemoglobin 29.2 27.0 - 33.0 pg [facility] Mean Corpuscular HGB Conc 33.2 31.0 - 36.0 g/dl [facility] Red Cell Distribution Width 14.2 11.0 - 16.0 % [facility] Platelet Count 177 160 - 400 X10*3/uL [facility] Mean Platelet Volume 11.4 9.4 - 12.4 fL [facility] Neutrophils Percent Auto 59.3 45 - 73 % [facility] Imm Gran Pct Auto 0.2 0.0 - 0.4 % [facility] Lymphocytes Percent Auto 24.1 20 - 40 % [facility] Monocytes Percent Auto 15.7(H) 2 - 11 % [facility] Eosinophils Percent Auto 0.5 0 - 4 % [facility] Basophils Percent Auto 0.2 0 - 2 % [facility] NRBC Pct Auto 0.0 0.0 - 0.2 /100WBC [facility] Neutrophils Absolute Auto 2.6 2.0 - 8.3 x10*3/uL [facility] Imm Gran Abs Auto 0.01 0.00 - 0.03 X10*3/uL [facility] Lymphocytes Absolute Auto 1.0(L) 1.2 - 4.9 X10*3/uL [facility] Monocytes Absolute Auto 0.7 0.1 - 1.2 X10*3/uL [facility] Eosinophils Absolute Auto 0.0 0.0 - 0.4 X10*3/uL [facility] Basophils Absolute Auto 0.0 0.0 - 0.2 X10*3/uL [facility] NRBC Abs Auto 0.000 0.0 - 0.012 X10*3/uL [facility] 09/06/2024 12:4 6 PM EST 09/06/2024 12:46 PM EST us Curry Richard MD LAB BLOOD ORDERABLES Final Result [facility] [address] [place] [phone] * Hepatitis A Antibody, Total (09/06/2024 12:46 PM EST) Hepatitis A Antibody IgG REACTIVE Nonreactive [facility] Comment:The presence of IgG anti-HAV implies past HAV infection(recent or distant) or vaccination against HAV. 09/06/2024 12:4 6 PM EST 09/06/2024 12:46 PM EST us Curry Richard MD LAB BLOOD ORDERABLES Final Result Performing Organization Address [facility] Co de Phone Number [facility] [address] [place] [phone] * Hepatitis B surface antigen, EIA (09/06/2024 12:46 PM EST) Hepatitis B Surface Ag Negative Negative [facility] 09/06/2024 12:4 6 PM EST 09/06/2024 12:46 PM EST us Curry Richard MD LAB BLOOD ORDERABLES Final Result Performing Organization Address [facility] Co de Phone Number [facility] [address] [place] [phone] * Hepatitis B Core Antibody, Total (09/06/2024 12:46 PM EST) Hepatitis B Core Antibody Nonreactive Nonreactive [facility] 09/06/2024 12:4 6 PM EST 09/06/2024 12:46 PM EST Curry Richard MD LAB BLOOD ORDERABLES Final Result Performing Organization Address [facility] Co de Phone Number [facility] [address] [place] [phone] * HIV-1/2 Antigen and Antibodies, Fourth Generation, with Reflexes (09/06/2024 12:46 PM EST) HIV AB/AG Nonreactive Nonreactive [facility] Comment:HIV-1 p24 Ag and/or HIV-1/HIV-2 Ab not detected.A test result that is nonreactive does not exclude thepossibility of exposure to or infection with HIV-1 and/orHIV-2. Nonreactive results in this assay for individualswith prior exposure to HIV-1 and/or HIV-2 may be due toantigen and antibody levels that are below the limit ofdetection of this assay.The [employer] HIV Ag/Ab Combo assay result andsupplemental assay results should be interpreted inconjunction with the patient's clinical presentation,history and other laboratory results. If the results areinconsistent with clinical evidence, additional testing issuggested to confirm the result. 09/06/2024 12:4 6 PM EST 09/06/2024 12:46 PM EST us Curry Richard MD LAB BLOOD ORDERABLES Final Result Performing Organization Address [facility]/ZIP Co de Phone Number [facility] [address] [place] [phone] * Hepatitis B Surface Antibody, Qualitative (09/06/2024 12:46 PM EST) Pathologist [facility] ~Hepatitis B Surface Antibody REACTIVE Nonreactive [facility] Comment:REACTIVE: > 11.99 mI U/mL 09/06/2024 12:4 6 PM EST 09/06/2024 12:46 PM EST Curry Richard MD LAB BLOOD ORDERABLES Final Result Performing Organization Address [facility] Co de Phone Number [facility] [address] [place] [phone] * Prothrombin Time-INR (09/06/2024 12:46 PM EST) [facility] Prothrombin Time 11.3 10.9 - 12.4 SEC [facility] INTERNATIONAL NORM RATIO 1.0 0.9 - 1.1 [facility] Comment:INTERNATIONAL NORMAL IZED RATIO (INR) [...] Richard MD LAB BLOOD ORDERABLES Final Result [facility] [address] [place] [phone] * (ABNORMAL) Comprehensive Metabolic Panel (09/06/2024 12:46 PM EST) Sodium 135 135 - 145 mmol/L [facility] Potassium 4.4 3.3 - 5.1 mmol/L [facility] Chloride 105 96 - 108 mmol/L [facility] Carbon Dioxide 26 22 - 29 mmol/L [facility] Anion Gap 8(L) 12 - 20 [facility] Urea Nitrogen (BUN) 8(L) 9 - 16 mg/dL [facility] Creatinine, Serum 0.81 0.5 - 1.4 mg/dL [facility] Estimated Glomerular Filt Rate >60 [facility] Comment:Chronic Kidney Disea se: Estimated GFR < 60 mL/min/1.11v1Bobkkc Kidney Disease: Estimated GFR < 15 mL/min/1.73m2 Glucose 171(H) 60 - 115 mg/dL [facility] Calcium 8.8 8.4 - 10.2 mg/dL [facility] Bilirubin, Total 0.3 0.0 - 1.0 mg/dL [facility] Aspartate Amino Transferase 80(H) 5 - 37 U/L [facility] Alanine Aminotransferase 86(H) 0 - 40 U/L [facility] Total Protein 8.4(H) 6.5 - 8.0 g/dL [facility] Albumin Level 3.9 3.5 - 5.0 g/dL [facility] Alkaline Phosphatase 85 39 - 117 U/L [facility] Blood Venous blood specimen / Unknown 09/06/2024 12:46 PM EST 09/06/2024 12:46 PM EST us Curry Richard MD LAB BLOOD ORDERABLES Final Result [facility] [address] [place] [phone] [phone] from Last 3 Months Insurance [facility] C3 Care Teams Egg Smeller Relationship Specialty Start Date End Date Curry Richard MD [address] [place] [phone] PCP - General Internal Medicine 09/21/18
--- OUTSIDE RECORDS SUMMARY | 2024-11-01 13:13 | XMS_ITS | Encounter Summary ---
Author Organization [employer] Address [address] [place] [address] [place] [address] Care Team Providers Care Settlement Technician Name Role Phone Curry Richard MD Primary Care Provider [phone]- [phone] Reason for Visit * Reason Comments Transition Of Care (Tcm) Encounter Details Date Type Department Care Team ([facility] st Contact Info) Description 10/24/2024 Patient Outreach [facility] [address] [place], [place] [phone] Curry Richard MD [address] [place] [address] Transition Of Care (Tcm) Social History Tobacco [...] 10/24/24 1227 Hospital Discharges and Admission for [facility] Type of Visit Emergency Department Date of Admission/Visit 10/21/24 (8:37pm) Date of Discharge 10/22/24 (6:41am) Facility [facility] Diagnosis Cold, Cocaine use, unspecified, uncomplicated Disposition Discharged Home 10/24/24 1228 Hospital Discharges and Admission for [facility] Date of Admission/Visit 10/22/24 (4:17pm) Date of Discharge 10/23/24 (2:40am) Facility [facility] Diagnosis VOMITING BLOOD, Chest Pain Disposition Discharged Home 10/24/24 1230 Hospital Discharges and Admission for [facility] Date of Admission/Visit 10/23/24 Date of Discharge (N/A) Facility [facility] Diagnosis FALL SLIP ON ICE, chest pain Disposition (N/A) documented in this encounter Plan of Treatment Not on file documented as of this encounter Visit Diagnoses Not on filedocumented in this encounter Care Teams Settlement Technician Relationship Specialty Start Date End Date Curry Richard MD [address] [place] [phone] PCP - General Internal Medicine 09/21/18 documented as of this encounter
== END 2024-11-01 13:49 | disposition home or self-care (01) ==
PROVIDERS: Emergency Provider Emergency Medicine
DX: S60.413A Abrasion of left middle finger, initial encounter (principal); X58.XXXA Exposure to other specified factors, initial encounter; Y93.9 Activity, unspecified; Y92.9 Unspecified place or not applicable; Y99.8 Other external cause status
CPT/HCPCS: 99281; 99283

== ENCOUNTER 2024-11-01 13:41 | Emergency (ER) | payer MEDICAID, SELFPAY ==
[2024-11-01 14:39] VITALS: BP 141/82; PULSE 108; RESP 18; TEMP 36.3; O2SAT 96
--- OUTSIDE RECORDS SUMMARY | 2024-11-01 17:18 | XMS_ITS | Encounter Summary ---
Author Organization [employer] Address [address] [place] [address] [place] [address] Care Team Providers Care Resistor Tester Name Role Phone Curry Richard MD Primary Care Provider [phone]- [phone] Reason for Visit * Reason Comments Transition Of Care (Tcm) Encounter Details Date Type Department Care Team ([facility] st Contact Info) Description 10/24/2024 Patient Outreach [facility] [address] [place], [place] [phone] Curry Richard MD [address] [place] [address] Transition Of Care (Tcm) Social History Tobacco [...] 10/24/24 1227 Hospital Discharges and Admission for [facility] Type of Visit Emergency Department Date of Admission/Visit 10/21/24 (8:37pm) Date of Discharge 10/22/24 (6:41am) Facility [facility] Diagnosis Cold, Cocaine use, unspecified, uncomplicated Disposition Discharged Home 10/24/24 1228 Hospital Discharges and Admission for [facility] Date of Admission/Visit 10/22/24 (4:17pm) Date of Discharge 10/23/24 (2:40am) Facility [facility] Diagnosis VOMITING BLOOD, Chest Pain Disposition Discharged Home 10/24/24 1230 Hospital Discharges and Admission for [facility] Date of Admission/Visit 10/23/24 Date of Discharge (N/A) Facility [facility] [place] FALL SLIP ON ICE, chest pain Disposition (N/A) documented in this encounter Plan of Treatment Not on file documented as of this encounter Visit Diagnoses Not on filedocumented in this encounter Care Teams Resistor Tester Relationship Specialty Start Date End Date Curry Richard MD [address] [place] [phone] PCP - General Internal Medicine 09/21/18 documented as of this encounter
--- OUTSIDE RECORDS SUMMARY | 2024-11-01 17:18 | XMS_ITS | Encounter Summary ---
Author Organization [employer] Address [address] [facility] 7 [place] [address] Care Team Providers Care Touch Up Carver Name Role Phone Curry Richard MD Primary Care Provider [phone]- [phone] Encounter Details Date Type Department Care Team (Late st Contact Info) Description 07/27/2023 Abstract [facility] [address] [place] [address] Curry Richard MD [address] [place] [address] Social History Tobacco Use Types Packs/Day Years [...] on filedocumented in this encounter Care Teams Touch Up Carver Relationship Specialty Start Date End Date Curry Richard MD [address] [place] [phone] PCP - General Internal Medicine 09/21/18 documented as of this encounter
--- OUTSIDE RECORDS SUMMARY | 2024-11-01 17:18 | XMS_ITS | Encounter Summary ---
Author Organization [employer] Address [address] [place] [address] 7 [place] [address] Care Team Providers Care Corn Detasseler Name Role Phone Curry Richard MD Primary Care Provider [phone]- [phone] Reason for Visit * Reason Comments Transition Of Care (Tcm) Encounter Details Date Type Department Care Team ([facility] st Contact Info) Description 10/31/2024 Patient Outreach [facility] [address] [place], [place] [phone] Curry Richard MD [address] [place] [address] Transition Of Care (Tcm) Social History Tobacco [...] of care. [facility]charg[facility] Type of Visit: Emergency Department Date of Admission/Visit: 10/30/24 Date of Discharge: 10/30/24 [place] [facility] [place]: Abrasion of Penis, Homelessness Disposition: Discharged Home Patient given resources for harm reduction and shelters in the area. Abrasion was superficial and healing on their own. Care coordination is trying to reach patient to help with services. The full discharge summary is available on [facility]. Recent Visits Date Type Provider Dept 12/21/23 Office Visit Curry Richard MD [facility] Showing recent visits within [...] on filedocumented in this encounter Care Teams Corn Detasseler Relationship Specialty Start Date End Date Curry Richard MD [address] [place] [address] [phone] PCP - General Internal Medicine 09/21/18 documented as of this encounter
--- OUTSIDE RECORDS SUMMARY | 2024-11-01 17:18 | XMS_ITS | Encounter Summary ---
Author Organization [employer] Address [address] [place] [address] 7 [place] [address] Care Team Providers Care Senior Property Accountant Name Role Phone Curry Richard MD Primary Care Provider [phone]- [phone] Reason for Visit * Reason Comments Care Coordination Outreach Encounter Details Date Type Department Care Team (Latest Contact Info) Description 10/17/2024 Patient Outreach [facility] [address] [place], [place] [phone] Curry Richard MD [address] [place] [address] Care Coordination (Outreach) Social History Tobacco Use [...] Female who answer the phone was [facility] nurse Jenae. She states patient doesn't have a phone #. She will relate the message to perd=son and will call me back. CHW gave direct line to contact CHW. documented in this encounter Plan of Treatment Not on file documented as of this encounter Visit Diagnoses Not on filedocumented in this encounter Care Teams Senior Property Accountant Relationship Specialty Start Date End Date Curry Richard MD [address] [place] [phone] PCP - General Internal Medicine 09/21/18 documented as of this encounter
--- OUTSIDE RECORDS SUMMARY | 2024-11-01 17:18 | XMS_ITS | Clinical Summary ---
Author Organization [employer] Address [address] [place] [address] 7t [place] [address] Care Team Providers Care Cardiac Rn Name Role Phone uCrry Richard MD Primary Care Provider Allergies Active Allergy Reactions Criticality Noted Date Comments [place] 05/11/2012 Medications ARIPiprazole (Abilify) 5 MG tablet [...] Encounters Date Type Department Care Team Description 11/01/2024 Patient Outreach [facility] [address] [place] [address] Curry Richard MD Transition Of Care (Tcm) 10/31/2024 Patient Outreach [facility] [address] [place] [address] Curry Richard MD Transition Of Care (Tcm) 10/28/2024 Patient Outreach [facility] [address] [place] [address] uCrry Richard MD Care Coordination (Outreach) 10/28/2024 Patient Outreach [facility] [address] [place] [address] Curry Richard MD Transition Of Care (Tcm) 10/24/2024 Patient Outreach [facility] [address] [place] [address] Curry Richard MD Transition Of Care (Tcm) 10/21/2024 Patient Outreach [facility] [address] [place] [address] Curry Richard MD Transition Of Care (Tcm) 10/21/2024 Patient Outreach [facility] [address] [place] [address] Curry Richard MD Care Coordination (Outreach) 10/17/2024 Patient Outreach [facility] [address] [place] [address] Curry Richard MD Care Coordination (Outreach) 09/16/2024 Telephone [facility] [address] [place], [place] [phone] Avi Pace, RN Hepatitis C 09/06/2024 Orders Only [facility] [address] [place] [address] Curry Richard MD 08/10/2024 Patient Outreach [facility] [address] [place] [address] Curry Richard MD Pre-visit Planning ([facility] was completed on 01/29/2024) from Last 3 [...] Vaccines (1 of 2) 2022 COVID-19 Vaccine ( - 2023- season) 2024 07/24/2021, 02/07/2021, 01/10/2021 Influenza Vaccine [...] 12:46 PM EST) HCV RNA PCR QN [id number]( A) NOT DETECTED IU/mL [facility] HCV RNA PCR QN 6.25(A) NOT DETECTED Log IU/mL [facility] HCV RNA COMMENT SEE NOTE [facility] Comment:For additional infor kellee, please refer [email or web address].[employer]/faq/[email or web address](This link is being provided for informational/Educational purposes only.)THIS TEST WAS PERFORMED AT:[employer] [place] [id number] GAMA MD HCV RNA GENOTYPE,LIPA 1a [facility] Comment:The method used in t his test is RT-PCR and reversehybridization (Line Probe) of the 5' UTR and coreregion of the HCV genome.The analytical performance characteristics of thisassay have been determined [place] The modificationshave not been cleared or approved by the FDA. Thisassay has been validated pursuant to the CLIAregulations and is used for clinical purposes.For additional information, please refer [email or web address]/HCVGenotyping(This link is being provided for informational/educational purposes only.)THIS TEST WAS PERFORMED AT:[employer]/[facility] [place] [address]VOSACZFANALI FERNANDES MD,PHD 09/06/2024 12:4 6 PM EST 09/06/2024 12:46 PM EST us Curry Richard MD LAB BLOOD ORDERABLES Final Result [facility] [address] [place] [phone] * (ABNORMAL) Liver Fibrosis (HCV), FibroTest-ActiTest Panel (09/06/2024 12:46 PM EST) Liver Fibrosis Score 0.75 [facility] Liver Fibrosis Stage F4 [facility] Liver Fibrosis Interpretation SEE NOTE [facility] Comment:severe fibrosisFibro Test Score (f) Metavir Score f>=0 and f<=0.21 : F0 (no fibrosis)f>0.21 and f<=0.27 : F0-F1 (no fibrosis)f>0.27 and f<=0.31 : F1 (minimal fibrosis)f>0.31 and f<=0.48 : F1-F2 (minimal fibrosis)f>0.48 and f<=0.58 : F2 (moderate fibrosis)f>0.58 and f<=0.72 : F3 (advanced fibrosis)f>0.72 and f<=0.74 : F3-F4 (advanced fibrosis)f>0.74 and f<=1.00 : F4 (severe fibrosis) Nec Inflam Act Score 0.54 [facility] Nec Inflam Act Grade A2 [facility] Nec Inflam Act Interpretation SEE NOTE [facility] Comment:significant activity ActiTest Score (a) Metavir Score a>=0 and a<=0.17 : A0 (no activity)a>0.17 and a<=0.29 : A0-A1 (no activity)a>0.29 and a<=0.36 : A1 (minimal activity)a>0.36 and a<=0.52 : A1-A2 (minimal activity)a>0.52 and a<=0.60 : A2 (significant activity)a>0.60 and a<=0.62 : A2-A3 (significant activity)a>0.62 and a<=1.00 : A3 (severe activity) ZCW-[id number]-0-Macroglo bulin 330(A) 106 - 279 mg/dL [facility] FIB-Haptoglobin 28(A) 43 - 212 mg/dL [facility] FIB-Apolipoprotein A1 139 94 - 176 mg/dL [facility] FIB-Total Bilirubin 0.4 0.2 - 1.2 mg/dL [facility] FIB-GGT 90 3 - 95 U/L [facility] FIB-ALT 63(A) 9 - 46 U/L [facility] Reference ID [id number] [facility] Footnote SEE NOTE [facility] Comment: The reliability of results is [...] and C.The performance characteristics have been determined byAPSX [facility]. Ithas not been cleared or approved by the U.S. Food and DrugAdministration. Performance characteristics refer to theanalytical performance of the test.[employer], [employer], the associated logo, [employer] and all associated [employer] panda are theregistered trademarks of [employer]. All third partymarks - (R) and (TM) - are the property of their respectiveowners. (C) [id number] [employer]. Allrights reserved.THIS TEST WAS PERFORMED AT:[employer]Pal/[employer] [facility] [facility] [id number] [place] [place] ??[phone] GOODEN MD,PHD,[place] 09/06/2024 12:4 6 PM EST 09/06/2024 12:46 PM EST us Curry Richard MD LAB BLOOD ORDERABLES Final Result [facility] [address] [place] [phone] * (ABNORMAL) CBC auto differential (09/06/2024 12:46 PM EST) White Blood Count 4.3(L) 4.8 - 10.8 X10*3/uL [facility] Red Blood Count 4.86 4.60 - 5.80 X10*6/uL [facility] Hemoglobin 14.2 14.0 - 18.0 g/dl [facility] Hematocrit 42.8 42.0 - 52.0 % [facility] Mean Corpuscular Volume 88.1 80.0 - 98.0 fL [facility] Mean Corpuscular Hemoglobin 29.2 27.0 - 33.0 pg [facility] Mean Corpuscular HGB Conc 33.2 31.0 - 36.0 g/dl [facility] Red Cell Distribution Width 14.2 11.0 - 16.0 % [facility] Platelet Count 177 160 - 400 X10*3/uL [facility] Mean Platelet Volume 11.4 9.4 - 12.4 fL [facility] Neutrophils Percent Auto 59.3 45 - 73 % [facility] Imm Gran Pct Auto 0.2 0.0 - 0.4 % [facility] Lymphocytes Percent Auto 24.1 20 - 40 % [facility] Monocytes Percent Auto 15.7(H) 2 - 11 % [facility] Eosinophils Percent Auto 0.5 0 - 4 % [facility] Basophils Percent Auto 0.2 0 - 2 % [facility] NRBC Pct Auto 0.0 0.0 - 0.2 /100WBC [facility] Neutrophils Absolute Auto 2.6 2.0 - 8.3 x10*3/uL [facility] Imm Gran Abs Auto 0.01 0.00 - 0.03 X10*3/uL [facility] Lymphocytes Absolute Auto 1.0(L) 1.2 - 4.9 X10*3/uL [facility] Monocytes Absolute Auto 0.7 0.1 - 1.2 X10*3/uL [facility] Eosinophils Absolute Auto 0.0 0.0 - 0.4 X10*3/uL [facility] Basophils Absolute Auto 0.0 0.0 - 0.2 X10*3/uL [facility] NRBC Abs Auto 0.000 0.0 - 0.012 X10*3/uL [facility] 09/06/2024 12:4 6 PM EST 09/06/2024 12:46 PM EST us Curry Richard MD LAB BLOOD ORDERABLES Final Result Performing Organization Address [facility] Co de Phone Number [facility] [address] [place] [phone] * Hepatitis A Antibody, Total (09/06/2024 12:46 PM EST) Hepatitis A Antibody IgG REACTIVE Nonreactive [facility] Comment:The presence of IgG anti-HAV implies past HAV infection(recent or distant) or vaccination against HAV. 09/06/2024 12:4 6 PM EST 09/06/2024 12:46 PM EST us Curry Richard MD LAB BLOOD ORDERABLES Final Result Performing Organization Address [facility] n[facility] Phone Number [facility] [address] [place] [phone] * Hepatitis B surface antigen, EIA (09/06/2024 12:46 PM EST) Hepatitis B Surface Ag Negative Negative [facility] 09/06/2024 12:4 6 PM EST 09/06/2024 12:46 PM EST us Curry Richard MD LAB BLOOD ORDERABLES Final Result Performing Organization Address [facility] Co de Phone Number [facility] [address] [place] [phone] * Hepatitis B Core Antibody, Total (09/06/2024 12:46 PM EST) Hepatitis B Core Antibody Nonreactive Nonreactive [facility] 09/06/2024 12:4 6 PM EST 09/06/2024 12:46 PM EST us Curry Richard MD LAB BLOOD ORDERABLES Final Result Performing Organization Address City/[facility] Co de Phone Number [facility] [address] [place] [phone] [phone] * HIV-1/2 Antigen and Antibodies, Fourth Generation, with Reflexes (09/06/2024 12:46 PM EST) [facility] HIV AB/AG Nonreactive Nonreactive [facility] Comment:HIV-1 p24 Ag and/or HIV-1/HIV-2 Ab not detected.A test result that is nonreactive does not exclude thepossibility of exposure to or infection with HIV-1 and/orHIV-2. Nonreactive results in this assay for individualswith prior exposure to HIV-1 and/or HIV-2 may be due toantigen and antibody levels that are below the limit ofdetection of this assay.The [employer] HIV Ag/Ab Combo assay result andsupplemental assay results should be interpreted inconjunction with the patient's clinical presentation,history and other laboratory results. If the results areinconsistent with clinical evidence, additional testing issuggested to confirm the result. 09/06/2024 12:4 6 PM EST 09/06/2024 12:46 PM EST us Curry Richard MD LAB BLOOD ORDERABLES Final Result [facility] [address] [place] [phone] * Hepatitis B Surface Antibody, Qualitative (09/06/2024 12:46 PM EST) [facility] ~Hepatitis B Surface Antibody REACTIVE Nonreactive [facility] Comment:REACTIVE: > 11.99 mI U/mL 09/06/2024 12:4 6 PM EST 09/06/2024 12:46 PM EST Curry Richard MD LAB BLOOD ORDERABLES Final Result Performing Organization Address City/[facility]/ZIP Co de Phone Number [facility] [address] [place] [address] [phone] * Prothrombin Time-INR (09/06/2024 12:46 PM EST) Prothrombin Time 11.3 10.9 - 12.4 SEC [facility] INTERNATIONAL NORM RATIO 1.0 0.9 - 1.1 [facility] Comment:INTERNATIONAL NORMAL IZED RATIO (INR) REFERENCE [...] BLOOD ORDERABLES Final Result Performing Organization Address City/State/[facility] Co de Phone Number [facility] [address] [place] [phone] * (ABNORMAL) Comprehensive Metabolic Panel (09/06/2024 12:46 PM EST) Sodium 135 135 - 145 mmol/L [facility] Potassium 4.4 3.3 - 5.1 mmol/L [facility] Chloride 105 96 - 108 mmol/L [facility] Carbon Dioxide 26 22 - 29 mmol/L [facility] Anion Gap 8(L) 12 - 20 [facility] Urea Nitrogen (BUN) 8(L) 9 - 16 mg/dL [facility] Creatinine, Serum 0.81 0.5 - 1.4 mg/dL [facility] Estimated Glomerular Filt Rate >60 [facility] Comment:Chronic Kidney Disea se: Estimated GFR < 60 mL/min/1.11p6Xelolx Kidney Disease: Estimated GFR < 15 mL/min/1.73m2 Glucose 171(H) 60 - 115 mg/dL [facility] Calcium 8.8 8.4 - 10.2 mg/dL [facility] Bilirubin, Total 0.3 0.0 - 1.0 mg/dL [facility] Aspartate Amino Transferase 80(H) 5 - 37 U/L [facility] Alanine Aminotransferase 86(H) 0 - 40 U/L [facility] Total Protein 8.4(H) 6.5 - 8.0 g/dL [facility] Albumin Level 3.9 3.5 - 5.0 g/dL [facility] Alkaline Phosphatase 85 39 - 117 U/L [facility] Blood Venous blood specimen / Unknown 09/06/2024 12:46 PM EST 09/06/2024 12:46 PM EST us Curry Richard MD LAB BLOOD ORDERABLES Final Result [facility] [address] [place] [phone] from Last 3 Months Insurance [email or web address] C[employer] Care Teams Cardiac Rn Relationship Specialty Start Date End Date Curry Richard MD [address] [place] [phone] PCP - General Internal Medicine 09/21/18
--- OUTSIDE RECORDS SUMMARY | 2024-11-01 17:18 | XMS_ITS | Encounter Summary ---
Author Organization [employer] Address [address] [place] [address] 7 [place] [address] Care Team Providers Care Rfid Technician Name Role Phone Curry Richard MD Primary Care Provider [phone]- [phone] Reason for Visit * Reason Comments Care Coordination Outreach Encounter Details Date Type Department Care Team (Latest Contact Info) Description 10/28/2024 Patient Outreach [facility] MED & PEDS [address] [place], [place] [phone] Curry Richard MD [address] [place] [address] Care Coordination (Outreach) Social History Tobacco Use [...] The number listed on file is Jenae ([facility] nurse), she states patient don't have a phone and he is homeless. CHW introducing herself from [facility] CM Department with CHW's name, department and direct contactnumber [phone] call back. Will re-attempt to contact within 5 days. documented in this encounter Plan of Treatment Not on file documented as of this encounter Visit Diagnoses Not on filedocumented in this encounter Care Teams Rfid Technician Relationship Specialty Start Date End Date Curry Richard MD [address] [place] [phone] PCP - General Internal Medicine 09/21/18 documented as of this encounter
--- OUTSIDE RECORDS SUMMARY | 2024-11-01 17:18 | XMS_ITS | Encounter Summary ---
Author Organization [employer] Address [address] [facility] 7 [place] [address] Care Team Providers Care Water Treatment Plant Engineer Name Role Phone Curry Richard MD Primary Care Provider [phone]- [phone] Reason for Visit * Reason Onset Date Comments Referral 11/13/2023 Encounter Details Date Type Department Care Team ([facility] st Contact Info) Description 11/13/2023 Telephone [facility] MED[facility]INE [address] [place] [address] Curry Richard MD [address] [place] [address] Referral Social History Tobacco Use Types Packs/Day [...] T/c to pt regarding referral request from [facility]. Rose Mary from [facility] reported that pt was seen in [facility] ER for elbow bursitis and that pt has relocated to [facility]. Pt reported that he has an appointment with a provider pm the and is part of a detox program. Pt to follow up PRN. Pt's new number is [phone] * Telephone Encounter - Michael Pak - 11/13/2023 9:50 AM EST TC from Rose Mary working with [facility] requesting new referral: DATE: 11/16/23 TIME: 12:45 pm Address: [address] [place] [address] Visits: 12 Facility Name: [facility] Type of Specialist: Orthopedic DX: M25.521 Provider : N/A Provider NPI : N/A Facility Phone # : [phone] Fax #: [phone] documented in this encounter Plan of Treatment Not on file documented as of this encounter Visit Diagnoses Not on filedocumented in this encounter Care Teams Water Treatment Plant Engineer Relationship Specialty Start Date End Date Curry Richard MD [address] [place] [phone] PCP - General Internal Medicine 09/21/18 documented as of this encounter
--- OUTSIDE RECORDS SUMMARY | 2024-11-01 17:18 | XMS_ITS | Encounter Summary ---
Author Organization [employer] Address [address] [place] [address] [place] [address] Care Team Providers Care Hl7 Developer Name Role Phone Curry Richard MD Primary Care Provider [phone]- [phone] Reason for Visit * Reason Comments Transition Of Care (Tcm) Encounter Details Date Type Department Care Team ([facility] st Contact Info) Description 10/21/2024 Patient Outreach [facility] MED & PEDS [address] [place], [place] [phone] Curry Richard MD [address] [place] [address] Transition Of Care (Tcm) Social History Tobacco [...] 10/21/24 1341 Hospital Discharges and Admission for [facility] Type of Visit Emergency Department Date of Admission/Visit 10/20/24 Date of Discharge 10/20/24 Facility [facility] Diagnosis Left Hand Pain Disposition Left Without Being Seen documented in this encounter Plan of Treatment Not on file documented as of this encounter Visit Diagnoses Not on filedocumented in this encounter Care Teams Hl7 Developer Relationship Specialty Start Date End Date Curry Richard MD [address] [place] [phone] PCP - General Internal Medicine 09/21/18 documented as of this encounter
--- OUTSIDE RECORDS SUMMARY | 2024-11-01 17:18 | XMS_ITS | Encounter Summary ---
Author Organization [employer] Address [address] [place] [address] [place] [address] Care Team Providers Care Waste Disposal Plant Operator Name Role Phone Curry Richard MD Primary Care Provider [phone]- [phone] Reason for Visit * Reason Comments Transition Of Care (Tcm) Encounter Details Date Type Department Care Team ([facility] st Contact Info) Description 11/01/2024 Patient Outreach [facility] CHC MED & PEDS [address] [place], [place] [phone] Curry Richard MD [address] [place] [address] Transition Of Care (Tcm) Social History Tobacco [...] Progress Notes * Kiesha Sullivan RN - 11/01/2024 3:17 PM EST Transition of Care Note Norman Mohan is going through a recent transition of care. * Vicki Cummings RN - 11/01/2024 3:17 PM EST Images from the original note were not included. Hospital Discharges and Admission for [facility] Type of Visit: Emergency Department Date of Admission/Visit: 10/31/24 Date of Discharge: 10/30/24 Facility: [facility] Diagnosis: Sores Disposition: Left Without Being Seen Follow-Up Actions Follow-Up Needed: None/self-monitoring Initial Contact Date: 10/31/24 Patient Contacted: Jenae Castle from [facility] contacted as pt is currently homeless Patient Status: Unchanged The full discharge summary is Is available under encounters/interface Review Flowsheet [facility] Transition of Care Documentation Type of Visit Date of Admission/Visit Date of Discharge Facility Diagnosis Disposition 05/01/2023 12:01 PM Hospital Admission - 04/30/2023 [facility] PAC Program Discharge Pending ( Section 35) Discharged Home 08/03/2023 8:58 AM Hospital Admission 07/29/2023 07/31/2023 [facility] Cellulitis Discharged Home 08/10/2023 2:34 PM Hospital Admission 07/29/2023 07/31/2023 [facility] cellulitis Discharged Home 10/21/2024 1:41 PM Emergency Department 10/20/2024 10/20/2024 [facility] Left Hand Pain Left Without Being Seen 10/24/2024 12:27 PM Emergency Department 10/21/2024 8:37pm 10/22/2024 6:41am [facility] Cold, Cocaine use, unspecified, uncomplicated Discharged Home 10/24/2024 12:28 PM - 10/22/2024 4:17pm 10/23/2024 2:40am [facility] VOMITING BLOOD, Chest Pain Discharged Home 10/24/2024 12:30 PM - 10/23/2024 -- N/A [facility] FALL SLIP ON ICE, chest pain -- N/A 10/28/2024 8:45 AM Emergency Department 10/27/2024 12:02am 10/27/2024 8:27am [facility] Pain in unspecified shoulder (M25.519) Discharged Home 10/28/2024 8:46 AM - 10/27/2024 2:15pm 10/27/2024 Left without being seen- no time recorded [facility] SLIP AND FALL,BILAT HAND PAIN,-HS,-LOC,-COLLAR Left Without Being Seen 10/31/2024 9:36 AM Emergency Department 10/30/2024 10/30/2024 [facility] Abrasion of Penis, Homelessness Discharged Home 11/01/2024 3:17 PM Emergency Department 10/31/2024 - [facility] Sores Left Without Being Seen Recent Visits Date Type Provider Dept 12/21/23 Office Visit Curry Richard MD [facility] Med & Peds Showing recent visits within past 365 days with a meds authorizing provider and meeting all other requirements Future Appointments No visits were found meeting these conditions. Showing future appointments within next 150 days with a meds authorizing provider and meeting all other requirements Patient was not educated on hours of operation. documented in this encounter Plan of Treatment Not on file documented as of this encounter Visit Diagnoses Not on filedocumented in this encounter Care Teams Waste Disposal Plant Operator Relationship Specialty Start Date End Date Curry Richard MD [address] [place] [address] PCP - General Internal Medicine 09/21/18 documented as of this encounter
--- OUTSIDE RECORDS SUMMARY | 2024-11-01 17:18 | XMS_ITS | Encounter Summary ---
Author Organization [employer] Address [address] [place] [address] [place] [address] Care Team Providers Care Network Design Architect Name Role Phone Curry Richard MD Primary Care Provider +1- [phone] Reason for Visit * Reason Comments Transition Of Care (Tcm) Encounter Details Date Type Department Care Team ([facility] st Contact Info) Description 10/28/2024 Patient Outreach [facility] CHC MED & PEDS [address] [place], [place] [phone] Curry Richard MD [address] [place] [address] Transition Of Care (Tcm) Social History Tobacco [...] on filedocumented in this encounter Care Teams Network Design Architect Relationship Specialty Start Date End Date Curry Richard MD [address] [place] [phone] PCP - General Internal Medicine 09/21/18 documented as of this encounter
--- OUTSIDE RECORDS SUMMARY | 2024-11-01 17:18 | XMS_ITS | Encounter Summary ---
Author Organization [employer] Address [address] [place] [address] [address] [place] [address] Care Team Providers Care Hand Booked Folder And Stitcher Name Role Phone Curry Richard MD Primary Care Provider [phone] Reason for Visit * Reason Comments Care Coordination Outreach Encounter Details Date Type Department Care Team (Latest Contact Info) Description 10/21/2024 Patient Outreach [facility] [address] [place], [place] [id number] Curry Richard MD [address] [place] [address] Care Coordination (Outreach) Social History Tobacco Use [...] to offer services. CHW introducing herself from [facility] CM Department with CHW's name, department and direct contact number requesting call back. Will re-attempt to contact within 5 days. and address not confirmed. documented in this encounter Plan of Treatment Not on file documented as of this encounter Visit Diagnoses Not on filedocumented in this encounter Care Teams Hand Booked Folder And Stitcher Relationship Specialty Start Date End Date Curry Richard MD [address] [place] [id number] PCP - General Internal Medicine 09/21/18 documented as of this encounter
== END 2024-11-01 17:39 | disposition left against medical advice (07) ==
PROVIDERS: Emergency Provider Emergency Medicine
DX: R19.7 Diarrhea, unspecified (principal)
CPT/HCPCS: 99281

== ENCOUNTER 2024-11-01 18:47 | Emergency (ER) | payer MEDICAID, SELFPAY ==
[2024-11-01 18:54] VITALS: BP 198/110; PULSE 94; O2SAT 97
[2024-11-01 19:47] VITALS: BP 148/84; PULSE 93; RESP 17; TEMP 37; O2SAT 98; BMI 20.2
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
== END 2024-11-01 22:47 | disposition left against medical advice (07) ==
LOC: HO.ED 22:46
PROVIDERS: Emergency Provider Emergency Medicine
DX: S59.901A Unspecified injury of right elbow, initial encounter (principal); M79.601 Pain in right arm; W19.XXXA Unspecified fall, initial encounter; Y93.9 Activity, unspecified; Y92.9 Unspecified place or not applicable; Y99.8 Other external cause status; F17.210 Nicotine dependence, cigarettes, uncomplicated
CPT/HCPCS: 99281; 99283

== ENCOUNTER 2024-11-02 01:47 | Emergency (ER) | payer MEDICAID, SELFPAY ==
--- NOTE | ~2024-11-02 | CT_ITS ---
EXAMINATION: CT HEAD WITHOUT CONTRAST CLINICAL INFORMATION: Fall, head strike COMPARISON: Comparison: CT brain 10/23/2024 TECHNIQUE: Contiguous axial imaging was performed from the skull base to vertex without intravenous administration of contrast. This CT examination was performed using dose optimization techniques as appropriate, variously including the following: *Automated exposure control *Adjustment of mA and/or kV according to patient size (this includes techniques or standardized protocols for targeted exams where dose is matched to indication/reason for exam; i.e. extremities or head) *Use of iterative reconstruction technique DLP: 1327 FINDINGS: There is no acute intra-axial, extra-axial bleed, masses or midline shift. There is no acute infarction evolution. There is no edema bone windows reveal no calvarial abnormality. There is no scalp soft tissue abnormality. Bilateral paranasal sinuses and mastoid air cells are well-aerated. CT/CT head/brain wo IV con IMPRESSION: No acute intracranial process seen Electronically signed by: Venkat Sandoval MD 11/02/2024 10:07 AM [facility]
--- NOTE | ~2024-11-02 | XR_ITS ---
EXAMINATION: XR ELBOW 3 VIEWS RIGHT HISTORY: fall, pain COMPARISON: Comparison is made with the prior examination dated 09/25/2024. FINDINGS: Three views of the right elbow are submitted. Osseous mineralization is normal. There is no fracture or dislocation. The joint spaces are preserved. Again seen is calcification of the triceps tendon. There is no joint effusion. XR/XR elbow RT min 3V IMPRESSION: No evidence of fracture of the right elbow. Electronically signed by: Rustam Che MD 11/02/2024 09:34 AM [facility]
--- NOTE | ~2024-11-02 | CT_ITS ---
EXAMINATION: CT CERVICAL SPINE WITHOUT CONTRAST CLINICAL INFORMATION: Fall, head strike. COMPARISON: CT CT cervical spine 06/27/2023 TECHNIQUE: 3 mm thin axial and reformatted 2 minute thin sagittal and coronal images of cervical spine were obtained without contrast. This CT examination was performed using dose optimization techniques as appropriate, variously including the following: *Automated exposure control *Adjustment of mA and/or kV according to patient size (this includes techniques or standardized protocols for targeted exams where dose is matched to indication/reason for exam; i.e. extremities or head) *Use of iterative reconstruction technique DLP: 1327 mGy/cm FINDINGS: There is mild straightening of cervical lordosis. The vertebral heights and alignment is normal. There is mild loss of C4-5, C5-6 and C6-7 disc levels with moderate ventral and mild posterior spondylosis. There is mild rotatory subluxation C1-C2 disc level. There is no lytic or sclerotic process seen. The paravertebral soft tissues are normal. The lung apices are clear. CT/CT cervical spine wo IV con IMPRESSION: Mild rotary subluxation C1-C2 disc level. No acute fracture or dislocation seen. Fleischner guidelines were followed. Electronically signed by: Venkat Sandoval MD 11/02/2024 10:13 AM [facility]
[2024-11-02 02:00] VITALS: BP 136/79; PULSE 97; RESP 17; TEMP 37; O2SAT 98; BMI 18.2
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
--- NOTE | 2024-11-02 09:05 | PC.NURSE ---
pt changed over into hospital gown by the RN/tech and security, belongings concerned d/t pt smoking crack in the bathroom [of the ED] last night. pt agreeable w electronic data interchange specialist - phone left at bedside w pt. GRACEN case working visiting pt.
--- OUTSIDE RECORDS SUMMARY | 2024-11-02 09:35 | XMS_ITS | Clinical Summary ---
Author Organization [employer] Address [address] [place] [address] 7t [place] [address] Care Team Providers Care Resume Specialist Name Role Phone Curry Richard MD Primary Care Provider [phone] Allergies Active Allergy Reactions Criticality Noted Date Comments [place] 05/11/2012 Medications ARIPiprazole (Abilify) 5 MG tablet [...] Department Care Team Description 11/01/2024 Patient Outreach [facility] [address] [place] [address] Curry Richard MD Transition Of Care (Tcm) 10/31/2024 Patient Outreach [facility] [address] [place] [address] Curry Richard MD Transition Of Care (Tcm) 10/28/2024 Patient Outreach [facility] [address] [place] [address] Curry Richard MD Care Coordination (Outreach) 10/28/2024 Patient Outreach [facility] [address] [place] [address] Curry Richard MD Transition Of Care (Tcm) 10/24/2024 Patient Outreach [facility] [address] [place] [address] Curry Richard MD Transition Of Care (Tcm) 10/21/2024 Patient Outreach [facility] [address] [place] [address] Curry Richard MD Transition Of Care (Tcm) 10/21/2024 Patient Outreach [facility] [address] [place] [address] Curry Richard MD Care Coordination (Outreach) 10/17/2024 Patient Outreach [facility] [address] [place] [address] Curry Richard MD Care Coordination (Outreach) 09/16/2024 Telephone [facility] [address] [place], [place] [phone] Avi Pace, RN Hepatitis C 09/06/2024 Orders Only [facility] [address] [place] [address] Curry Richard MD 08/10/2024 Patient Outreach [facility] [address] [place] [address] Curry Richard MD Pre-visit Planning (NMOH was completed on 01/29/2024) from Last 3 [...] 12:46 PM EST) HCV RNA PCR QN [id number]( A) NOT DETECTED IU/mL [facility] HCV RNA PCR QN 6.25(A) NOT DETECTED Log IU/mL [facility] HCV RNA COMMENT SEE NOTE [facility] Comment:For additional infor kellee, please refer tohttp://education.ShinyByte/faq/NDD59r2(This link is being provided for informational/Educational purposes only.)THIS TEST WAS PERFORMED AT:[employer] [place] [phone] GAMA MD HCV RNA GENOTYPE,LIPA 1a [facility] Comment:The method used in t his test is RT-PCR and reversehybridization (Line Probe) of the 5' UTR and coreregion of the HCV genome.The analytical performance characteristics of thisassay have been determined by [place]. The modificationshave not been cleared or approved by the FDA. Thisassay has been validated pursuant to the CLIAregulations and is used for clinical purposes.For additional information, please refer tohttp://[employer]/faq/HCVGenotyping(This link is being provided for informational/educational purposes only.)THIS TEST WAS PERFORMED AT:[id number] [place] [phone] FERNANDES MD,PHD 09/06/2024 12:4 6 PM EST 09/06/2024 12:46 PM EST us Curry Richard MD LAB BLOOD ORDERABLES Final Result [facility] [address] [place] [phone] * (ABNORMAL) Liver Fibrosis (HCV), FibroTest-ActiTest Panel (09/06/2024 12:46 PM EST) Liver Fibrosis Score 0.75 [facility] Liver Fibrosis Stage F4 [facility] Liver Fibrosis Interpretation SEE NOTE [facility] Comment:severe fibrosisFibro Test Score (f) Metavir Score f>=0 and f<=0.21 : F0 (no fibrosis)f>0.21 and f<=0.27 : F0-F1 (no fibrosis)f>0.27 and f<=0.31 : F1 (minimal fibrosis)f>0.31 and f<=0.48 : F1-F2 (minimal fibrosis)f>0.48 and f<=0.58 : F2 (moderate fibrosis)f>0.58 and f<=0.72 : F3 (advanced fibrosis)f>0.72 and f<=0.74 : F3-F4 (advanced fibrosis)f>0.74 and f<=1.00 : F4 (severe fibrosis) Nec Inflam Act Score 0.54 [facility] Nec Inflam Act Grade A2 [facility] Nec Inflam Act Interpretation SEE NOTE [facility] Comment:significant activity ActiTest Score (a) Metavir Score a>=0 and a<=0.17 : A0 (no activity)a>0.17 and a<=0.29 : A0-A1 (no activity)a>0.29 and a<=0.36 : A1 (minimal activity)a>0.36 and a<=0.52 : A1-A2 (minimal activity)a>0.52 and a<=0.60 : A2 (significant activity)a>0.60 and a<=0.62 : A2-A3 (significant activity)a>0.62 and a<=1.00 : A3 (severe activity) XBS-Bswcp-1-Macroglo bulin 330(A) 106 - 279 mg/dL [facility] FIB-Haptoglobin 28(A) 43 - 212 mg/dL [facility] FIB-Apolipoprotein A1 139 94 - 176 mg/dL [facility] FIB-Total Bilirubin 0.4 0.2 - 1.2 mg/dL [facility] FIB-GGT 90 3 - 95 U/L [facility] FIB-ALT 63(A) 9 - 46 U/L [facility] Reference ID [id number] [facility] Footnote SEE NOTE [facility] Comment: The reliability of results [...] and C.The performance characteristics have been determined by[facility] [facility]. Ithas not been cleared or approved by the U.S. Food and DrugAdministration. Performance characteristics refer to theanalytical performance of the test.[employer], [employer], the associated logo, [employer] and all associated [employer] panda are theregistered trademarks of [employer]. All third partymarks - (R) and (TM) - are the property of their respectiveowners. (C) [phone] [employer]. Allrights reserved.THIS TEST WAS PERFORMED AT:[employer] [id number] [facility], [place] ??[phone] GOODEN MD,PHD,[place] 09/06/2024 12:4 6 PM EST 09/06/2024 12:46 PM EST us Curry Richard MD LAB BLOOD ORDERABLES Final Result [facility] [address] [place] [phone] * (ABNORMAL) CBC auto differential (09/06/2024 12:46 PM EST) White Blood Count 4.3(L) 4.8 - 10.8 X10*3/uL [facility] Red Blood Count 4.86 4.60 - 5.80 X10*6/uL [facility] Hemoglobin 14.2 14.0 - 18.0 g/dl [facility] Hematocrit 42.8 42.0 - 52.0 % [facility] Mean Corpuscular Volume 88.1 80.0 - 98.0 fL [facility] Mean Corpuscular Hemoglobin 29.2 27.0 - 33.0 pg [facility] Mean Corpuscular HGB Conc 33.2 31.0 - 36.0 g/dl [facility] Red Cell Distribution Width 14.2 11.0 - 16.0 % [facility] Platelet Count 177 160 - 400 X10*3/uL [facility] Mean Platelet Volume 11.4 9.4 - 12.4 fL [facility] Neutrophils Percent Auto 59.3 45 - 73 % [facility] Imm Gran Pct Auto 0.2 0.0 - 0.4 % [facility] Lymphocytes Percent Auto 24.1 20 - 40 % [facility] Monocytes Percent Auto 15.7(H) 2 - 11 % [facility] Eosinophils Percent Auto 0.5 0 - 4 % [facility] Basophils Percent Auto 0.2 0 - 2 % [facility] NRBC Pct Auto 0.0 0.0 - 0.2 /100WBC [facility] Neutrophils Absolute Auto 2.6 2.0 - 8.3 x10*3/uL [facility] Imm Gran Abs Auto 0.01 0.00 - 0.03 X10*3/uL [facility] Lymphocytes Absolute Auto 1.0(L) 1.2 - 4.9 X10*3/uL [facility] Monocytes Absolute Auto 0.7 0.1 - 1.2 X10*3/uL [facility] Eosinophils Absolute Auto 0.0 0.0 - 0.4 X10*3/uL [facility] Basophils Absolute Auto 0.0 0.0 - 0.2 X10*3/uL [facility] NRBC Abs Auto 0.000 0.0 - 0.012 X10*3/uL [facility] 09/06/2024 12:4 6 PM EST 09/06/2024 12:46 PM EST us Curry Richard MD LAB BLOOD ORDERABLES Final Result Performing Organization Address [facility] Co de Phone Number [facility] [address] [place] [phone] * Hepatitis A Antibody, Total (09/06/2024 12:46 PM EST) Hepatitis A Antibody IgG REACTIVE Nonreactive [facility] Comment:The presence of IgG anti-HAV implies past HAV infection(recent or distant) or vaccination against HAV. 09/06/2024 12:4 6 PM EST 09/06/2024 12:46 PM EST us Curry Richard MD LAB BLOOD ORDERABLES Final Result Performing Organization Address [facility] Co in Phone Number [facility] [address] [place] [phone] * Hepatitis B surface antigen, EIA (09/06/2024 12:46 PM EST) Hepatitis B Surface Ag Negative Negative [facility] 09/06/2024 12:4 6 PM EST 09/06/2024 12:46 PM EST us Curry Richard MD LAB BLOOD ORDERABLES Final Result Performing Organization Address [facility] Co de Phone Number [facility] [address] [place] [phone] * Hepatitis B Core Antibody, Total (09/06/2024 12:46 PM EST) Hepatitis B Core Antibody Nonreactive Nonreactive [facility] 09/06/2024 12:4 6 PM EST 09/06/2024 12:46 PM EST us Curry Richard MD LAB BLOOD ORDERABLES Final Result Performing Organization Address City/[facility] Co de Phone Number [facility] [address] [place] [phone] * HIV-1/2 Antigen and Antibodies, Fourth Generation, with Reflexes (09/06/2024 12:46 PM EST) [facility] HIV AB/AG Nonreactive Nonreactive [facility] Comment:HIV-1 p24 Ag and/or HIV-1/HIV-2 Ab not detected.A test result that is nonreactive does not exclude thepossibility of exposure to or infection with HIV-1 and/orHIV-2. Nonreactive results in this assay for individualswith prior exposure to HIV-1 and/or HIV-2 may be due toantigen and antibody levels that are below the limit ofdetection of this assay.The [employer] HIV Ag/Ab Combo assay result andsupplemental assay results should be interpreted inconjunction with the patient's clinical presentation,history and other laboratory results. If the results areinconsistent with clinical evidence, additional testing issuggested to confirm the result. 09/06/2024 12:4 6 PM EST 09/06/2024 12:46 PM EST us Curry Richard MD LAB BLOOD ORDERABLES Final Result [facility] [address] [place] [phone] * Hepatitis B Surface Antibody, Qualitative (09/06/2024 12:46 PM EST) [facility] ~Hepatitis B Surface Antibody REACTIVE Nonreactive [facility] Comment:REACTIVE: > 11.99 mI U/mL 09/06/2024 12:4 6 PM EST 09/06/2024 12:46 PM EST Curry Richard MD LAB BLOOD ORDERABLES Final Result Performing Organization Address City/[facility]/ZIP Co de Phone Number [facility] [address] [place] [phone] * Prothrombin Time-INR (09/06/2024 12:46 PM EST) Prothrombin Time 11.3 10.9 - 12.4 SEC [facility] INTERNATIONAL NORM RATIO 1.0 0.9 - 1.1 [facility] Comment:INTERNATIONAL NORMAL IZED RATIO (INR) [...] BLOOD ORDERABLES Final Result Performing Organization Address City/State/[facility] Co de Phone Number [facility] [address] [place] [phone] * (ABNORMAL) Comprehensive Metabolic Panel (09/06/2024 12:46 PM EST) Sodium 135 135 - 145 mmol/L [facility] Potassium 4.4 3.3 - 5.1 mmol/L [facility] Chloride 105 96 - 108 mmol/L [facility] Carbon Dioxide 26 22 - 29 mmol/L [facility] Anion Gap 8(L) 12 - 20 [facility] Urea Nitrogen (BUN) 8(L) 9 - 16 mg/dL [facility] Creatinine, Serum 0.81 0.5 - 1.4 mg/dL [facility] Estimated Glomerular Filt Rate >60 [facility] Comment:Chronic Kidney Disea se: Estimated GFR < 60 mL/min/1.83h0Fizkwc Kidney Disease: Estimated GFR < 15 mL/min/1.73m2 Glucose 171(H) 60 - 115 mg/dL [facility] Calcium 8.8 8.4 - 10.2 mg/dL [facility] Bilirubin, Total 0.3 0.0 - 1.0 mg/dL [facility] Aspartate Amino Transferase 80(H) 5 - 37 U/L [facility] Alanine Aminotransferase 86(H) 0 - 40 U/L [facility] Total Protein 8.4(H) 6.5 - 8.0 g/dL [facility] Albumin Level 3.9 3.5 - 5.0 g/dL [facility] Alkaline Phosphatase 85 39 - 117 U/L [facility] Blood Venous blood specimen / Unknown 09/06/2024 12:46 PM EST 09/06/2024 12:46 PM EST us Curry Richard MD LAB BLOOD ORDERABLES Final Result [facility] [address] [place] [phone] [phone] from Last 3 Months Insurance [employer] Care Teams Resume Specialist Relationship Specialty Start Date End Date Curry Richard MD [address] [place] [phone] PCP - General Internal Medicine 09/21/18
--- OUTSIDE RECORDS SUMMARY | 2024-11-02 09:35 | XMS_ITS | Encounter Summary ---
Author Organization [employer] Address [address] [place] [address] [place] [address] Care Team Providers Care Mat Linker Name Role Phone Curry Richard MD Primary Care Provider [phone]- [phone] Reason for Visit * Reason Comments Transition Of Care (Tcm) Encounter Details Date Type Department Care Team ([facility] st Contact Info) Description 10/21/[address] [facility] PEDS [address] [place], [place] [phone] Curry Richard MD [address] [place] [address] Transition Of Care (Tcm) Social History Tobacco [...] 10/21/24 1341 Hospital Discharges and Admission for [facility] Type of Visit Emergency Department Date of Admission/Visit 10/20/24 Date of Discharge 10/20/24 Facility [facility] Diagnosis Left Hand Pain Disposition Left Without Being Seen documented in this encounter Plan of Treatment Not on file documented as of this encounter Visit Diagnoses Not on filedocumented in this encounter Care Teams Mat Linker Relationship Specialty Start Date End Date Curry Richard MD [address] [place] [address] PCP - General Internal Medicine 09/21/18 documented as of this encounter
--- OUTSIDE RECORDS SUMMARY | 2024-11-02 09:36 | XMS_ITS | Encounter Summary ---
Author Organization [employer] Address [address] [place] [address] 7 [place] [address] Care Team Providers Care Formstone Fitter Name Role Phone Curry Richard MD Primary Care Provider [phone]- [phone] Reason for Visit * Reason Comments Transition Of Care (Tcm) Encounter Details Date Type Department Care Team ([facility] st Contact Info) Description 10/31/2024 Patient Outreach [facility] MED & PEDS [address] [place], [place] [phone] Curry Richard MD [address] [place] [address] Transition Of Care (Tcm) Social History Tobacco [...] of care. Hospital Discharges and Admission for [facility] Type of Visit: Emergency Department Date of Admission/Visit: 10/30/24 Date of Discharge: 10/30/24 Facility[facility] Diagnosis: Abrasion of Penis, Homelessness Disposition: Discharged Home Patient given resources for harm reduction and shelters in the area. Abrasion was superficial and healing on their own. Care coordination is trying to reach patient to help with services. The full discharge summary is available on [facility]. Recent Visits Date Type Provider Dept 12/21/23 Office Visit Curry Richard MD [facility] Showing recent visits within [...] on filedocumented in this encounter Care Teams Formstone Fitter Relationship Specialty Start Date End Date Curry Richard MD [address] [place] [address] [phone] PCP - General Internal Medicine 09/21/18 documented as of this encounter
--- OUTSIDE RECORDS SUMMARY | 2024-11-02 09:36 | XMS_ITS | Encounter Summary ---
Author Organization [employer] Address [address] [facility] 7 [place] [address] Care Team Providers Care County Ordinary Name Role Phone Curry Richard MD Primary Care Provider +1- [phone] Encounter Details Date Type Department Care Team (Late st Contact Info) Description 07/27/2023 Abstract [facility] [address] [place] [address] Curry Richard MD [address] [place] [address] Social History Tobacco Use Types Packs/Day Years [...] on filedocumented in this encounter Care Teams County Ordinary Relationship Specialty Start Date End Date Curry Richard MD [address] [place] [phone] PCP - General Internal Medicine 09/21/18 documented as of this encounter
--- OUTSIDE RECORDS SUMMARY | 2024-11-02 09:36 | XMS_ITS | Encounter Summary ---
Author Organization [employer] Address [address] [facility] 7 [place] [address] Care Team Providers Care Loadmaster Name Role Phone Curry Richard MD Primary Care Provider +1- [phone] Reason for Visit * Reason Onset Date Comments Referral 11/13/2023 Encounter Details Date Type Department Care Team ([facility] st Contact Info) Description 11/13/2023 Telephone [facility] MEDICINE [address] [place] [address] Curry Richard MD [address] [place] [address] Referral Social History Tobacco Use Types Packs/Day [...] T/c to pt regarding referral request from [facility]. Rose Mary from [facility] reported that pt was seen in [facility] ER for elbow bursitis and that pt has relocated to [facility]. Pt reported that he has an appointment with a provider pm the and is part of a detox program. Pt to follow up PRN. Pt's new number is [phone] * Telephone Encounter - Michael Pak - 11/13/2023 9:50 AM EST TC from Rose Mary working with [facility] requesting new referral: DATE: 11/16/23 TIME: 12:45 pm Address: [address] [place] [address] Visits: 12 Facility Name: [facility] Type of Specialist: Orthopedic DX: [id number] Provider : N/A Provider NPI : N/A Facility Phone # : [phone] Fax #: [phone] documented in this encounter Plan of Treatment Not on file documented as of this encounter Visit Diagnoses Not on filedocumented in this encounter Care Teams Loadmaster Relationship Specialty Start Date End Date Curry Richard MD [address] [place] [phone] PCP - General Internal Medicine 09/21/18 documented as of this encounter
--- OUTSIDE RECORDS SUMMARY | 2024-11-02 09:36 | XMS_ITS | Encounter Summary ---
Author Organization [employer] Address [address] [place] [address] 7 [place] [address] Care Team Providers Care Centrifugal Screen Tender Name Role Phone Curry Richard MD Primary Care Provider +1- [phone] Reason for Visit * Reason Comments Care Coordination Outreach Encounter Details Date Type Department Care Team (Latest Contact Info) Description 10/21/2024 Patient Outreach [facility] MED & PEDS [address] [place], [place] [phone] Curry Richard MD [address] [place] [address] Care Coordination (Outreach) Social History Tobacco Use [...] to offer services. CHW introducing herself from [facility] CM Department with CHW's name, department and direct contact number requesting call back. Will re-attempt to contact within 5 days. and address not confirmed. documented in this encounter Plan of Treatment Not on file documented as of this encounter Visit Diagnoses Not on filedocumented in this encounter Care Teams Centrifugal Screen Tender Relationship Specialty Start Date End Date Curry Richard MD [address] [place] [phone] PCP - General Internal Medicine 09/21/18 documented as of this encounter
--- OUTSIDE RECORDS SUMMARY | 2024-11-02 09:36 | XMS_ITS | Encounter Summary ---
Author Organization [employer] Address [address] [place] [address] 7 [place] [address] Care Team Providers Care Turner Splitter Machine Operator Name Role Phone Curry Richard MD Primary Care Provider +- [phone] Reason for Visit * Reason Comments Care Coordination Outreach Encounter Details Date Type Department Care Team (Latest Contact Info) Description 10/28/2024 Patient Outreach [facility] MED & PEDS [address] [place], [place] [phone] Curry Richard MD [address] [place] [address] Care Coordination (Outreach) Social History Tobacco Use [...] number listed on file is Jenae ([facility] nurse), she states patient don't have a phone and he is homeless. CHW introducing herself from [facility] CM Department with CHW's name, department and direct contactnumber [phone] call back. Will re-attempt to contact within 5 days. documented in this encounter Plan of Treatment Not on file documented as of this encounter Visit Diagnoses Not on filedocumented in this encounter Care Teams Turner Splitter Machine Operator Relationship Specialty Start Date End Date Curry Richard MD [address] [place] [phone] PCP - General Internal Medicine 09/21/18 documented as of this encounter
--- OUTSIDE RECORDS SUMMARY | 2024-11-02 09:36 | XMS_ITS | Encounter Summary ---
Author Organization [employer] Address [address] [place] [address] [place] [address] Care Team Providers Care Steel Die Press Set Up Operator Name Role Phone Curry Richard MD Primary Care Provider [phone]- [phone] Reason for Visit * Reason Comments Transition Of Care (Tcm) Encounter Details Date Type Department Care Team ([facility] st Contact Info) Description 10/28/2024 Patient Outreach [facility] CHC MED & PEDS [address] [place], [place] [phone] Curry Richard MD [address] [place] [address] Transition Of Care (Tcm) Social History Tobacco [...] on filedocumented in this encounter Care Teams Steel Die Press Set Up Operator Relationship Specialty Start Date End Date Curry Richard MD [address] [place] [place] [phone] PCP - General Internal Medicine 09/21/18 documented as of this encounter
--- OUTSIDE RECORDS SUMMARY | 2024-11-02 09:36 | XMS_ITS | Encounter Summary ---
Author Organization [employer] Address [address] [place] [address] 7 [place] [address] Care Team Providers Care Email Producer Name Role Phone Curry Richard MD Primary Care Provider [phone] Reason for Visit * Reason Comments Transition Of Care (Tcm) Encounter Details Date Type Department Care Team ([facility] st Contact Info) Description 11/01/2024 Patient Outreach [facility] MED & PEDS [address] [place], [place] [phone] Curry Richard MD 505 [place] [address] Transition Of Care (Tcm) Social History Tobacco [...] not included. Hospital Discharges and Admission for [facility] Type of Visit: Emergency Department Date of Admission/Visit: 10/31/24 Date of Discharge: 10/30/24 Facility: [facility] Diagnosis: Sores Disposition: Left Without Being Seen Follow-Up Actions Follow-Up Needed: None/self-monitoring Initial Contact Date: 10/31/24 Patient Contacted: Jenae Castle from [facility] contacted as pt is currently homeless Patient Status: Unchanged The full discharge summary is Is available under encounters/interface Review Flowsheet [facility] Transition of Care Documentation Type of Visit Date of Admission/Visit Date of Discharge Facility Diagnosis Disposition 05/01/2023 12:01 PM Hospital Admission - 04/30/2023 [facility] Program Discharge Pending ( Section 35) Discharged Home 08/03/2023 8:58 AM Hospital Admission 07/29/2023 07/31/2023 [facility] Cellulitis Discharged Home 08/10/2023 2:34 PM Hospital Admission 07/29/2023 07/31/2023 cellulitis Discharged Home 10/21/2024 1:41 PM Emergency [...] Dept 12/21/23 Office Visit Curry Richard MD [facility] Med & Peds Showing recent visits within [...] on filedocumented in this encounter Care Teams Email Producer Relationship Specialty Start Date End Date Curry Richard MD [address] [place] [address] PCP - General Internal Medicine 09/21/18 documented as of this encounter
--- OUTSIDE RECORDS SUMMARY | 2024-11-02 09:36 | XMS_ITS | Encounter Summary ---
Author Organization [employer] Address [address] [place] [address] [place] [address] Care Team Providers Care Vp Ad Sales West Name Role Phone Curry Richard MD Primary Care Provider [phone] Reason for Visit * Reason Comments Transition Of Care (Tcm) Encounter Details Date Type Department Care Team ([facility] st Contact Info) Description 10/24/2024 Patient Outreach [facility] MED & PEDS [address] [place], [place] [phone] Curry Richard MD 505 [place] [address] Transition Of Care (Tcm) Social History Tobacco [...] 10/24/24 1227 Hospital Discharges and Admission for [facility] Type of Visit Emergency Department Date of Admission/Visit 10/21/24 (8:37pm) Date of Discharge 10/22/24 (6:41am) Facility [facility] Diagnosis Cold, Cocaine use, unspecified, uncomplicated Disposition Discharged Home 10/24/24 1228 Hospital Discharges and Admission for [facility] Date of Admission/Visit 10/22/24 (4:17pm) Date of Discharge 10/23/24 (2:40am) Facility [facility] Diagnosis VOMITING BLOOD, Chest Pain Disposition Discharged Home 10/24/24 1230 Hospital Discharges and Admission for [facility] Date of Admission/Visit 10/23/24 Date of Discharge (N/A) Facility [facility] Diagnosis FALL SLIP ON ICE, chest pain Disposition (N/A) documented in this encounter Plan of Treatment Not on file documented as of this encounter Visit Diagnoses Not on filedocumented in this encounter Care Teams Vp Ad Sales West Relationship Specialty Start Date End Date Curry Richard MD [address] [place] [address] PCP - General Internal Medicine 09/21/18 documented as of this encounter
--- OUTSIDE RECORDS SUMMARY | 2024-11-02 09:36 | XMS_ITS | Encounter Summary ---
Author Organization [employer] Address [address] [place] [address] 7 [place] [address] Care Team Providers Care Research Support Specialist Name Role Phone Curry Richard MD Primary Care Provider [phone] Reason for Visit * Reason Comments Care Coordination Outreach Encounter Details Date Type Department Care Team (Latest Contact Info) Description 10/17/2024 Patient Outreach [facility] CH[facility] MED & PEDS 505 [place], [place] [phone] Curry Richard MD 505 [place] [address] Care Coordination (Outreach) Social History Tobacco Use [...] Program. Female who answer the phone was [facility] nurse Jenae. She states patient doesn't have a phone #. She will relate the message to perd=son and will call me back. CHW gave direct line to contact CHW. documented in this encounter Plan of Treatment Not on file documented as of this encounter Visit Diagnoses Not on filedocumented in this encounter Care Teams Research Support Specialist Relationship Specialty Start Date End Date Curry Richard MD [address] [place] [address] PCP - General Internal Medicine 09/21/18 documented as of this encounter
== END 2024-11-02 12:04 | disposition home or self-care (01) ==
PROVIDERS: Emergency Provider Emergency Medicine
DX: S50.01XA Contusion of right elbow, initial encounter (principal); S09.90XA Unspecified injury of head, initial encounter; R51.9 Headache, unspecified; M54.2 Cervicalgia; M25.521 Pain in right elbow; W00.0XXA Fall on same level due to ice and snow, initial encounter; Y93.01 Activity, walking, marching and hiking; Y92.480 Sidewalk as the place of occurrence of the external cause; Y99.8 Other external cause status
CPT/HCPCS: 70450; 72125; 73080; 99281; 99284

== ENCOUNTER → 2024-11-02 09:03 | Outpatient (BNV) | payer MEDICAID, SELFPAY | PROVIDERS: Emergency Provider Emergency Medicine; Visit Provider Radiology Diagnostic Radiology | DX: S13.120A Subluxation of C1/C2 cervical vertebrae, initial encounter (principal); S09.90XA Unspecified injury of head, initial encounter; M65.221 Calcific tendinitis, right upper arm | CPT/HCPCS: 70450; 72125; 73080 ==

== ENCOUNTER 2024-11-22 02:46 | Emergency (ER) | payer MEDICAID, SELFPAY ==
--- NOTE | 2024-11-22 | ECG_ITS ---
Test Reason : CP Blood Pressure : */* mmHG Vent. Rate : 75 BPM Atrial Rate : 75 BPM P-R Int : 184 ms QRS Dur : 74 ms QT Int : 384 ms P-R-T Axes : 74 60 69 degrees QTcB Int : 428 ms Normal sinus rhythm Nonspecific ST and T wave abnormality Abnormal ECG When compared with ECG of 23-Oct-2024 20:51, No significant change was found Referred By: Generic ED Physician Electronically Signed By: SANDRA HAINES MD
--- NOTE | ~2024-11-22 | XR_ITS ---
EXAMINATION: XR CHEST CLINICAL INFORMATION: chest pain, cough COMPARISON: October 14, 2024. TECHNIQUE: 2 views of the chest were obtained. FINDINGS: Cardiomediastinal silhouette overlaps the left hemithorax secondary to patient's positioning. Pulmonary reticular pattern with prominence of the interstitial markings in the perihilar region. No gross pleural effusion or pneumothorax. Multilevel thoracic spondylosis. XR/XR chest 2V IMPRESSION: Consider chronic interstitial lung disease with the superimposed mild interstitial lung edema versus pneumonitis. Electronically signed by: Enrrique Laurent MD 11/22/2024 09:05 AM [facility]AL
[2024-11-22 02:54] VITALS: BP 120/83; BP 143/95; PULSE 110; PULSE 70; RESP 20; TEMP 36.4; O2SAT 98; BMI 18.2
--- OUTSIDE RECORDS SUMMARY | 2024-11-22 03:56 | XMS_ITS | Encounter Summary ---
Author Organization [employer] Address [address] [place] [address] 7 [place] [address] Care Team Providers Care Counseling Department Chair Name Role Phone Curry Richard MD Primary Care Provider [phone] Reason for Visit * Reason Comments Transition Of Care (Tcm) Encounter Details Date Type Department Care Team ([facility] st Contact Info) Description 10/28/2024 Patient Outreach [facility] CHC MED & PEDS [address] [place], [place] [phone] Curry Richard MD 505 [place] [address] Transition Of Care (Tcm) Social History Tobacco [...] on filedocumented in this encounter Care Teams Counseling Department Chair Relationship Specialty Start Date End Date Curry Richard MD [address] [place] [address] PCP - General Internal Medicine 09/21/18 documented as of this encounter
--- OUTSIDE RECORDS SUMMARY | 2024-11-22 03:56 | XMS_ITS | Encounter Summary ---
Author Organization [employer] Address [address] [place] [address] 7 [place] [address] Care Team Providers Care Sales Planning Coordinator Name Role Phone Curry Richard MD Primary Care Provider [phone] Reason for Visit * Reason Comments Transition Of Care (Tcm) Encounter Details Date Type Department Care Team ([facility] st Contact Info) Description 11/21/2024 Patient Outreach [facility] CHC MED & PEDS 505 [place], [place] [phone] Curry Richard MD 505 [place] [address] Transition Of Care (Tcm) Social History Tobacco [...] Progress Notes * Kiesha Sullivan RN - 11/21/2024 9:56 AM EST Transition of Care Note Norman Mohan is going through a recent transition of care. documented in this encounter Plan of Treatment Not on file documented as of this encounter Visit Diagnoses Not on filedocumented in this encounter Care Teams Sales Planning Coordinator Relationship Specialty Start Date End Date Curry Richard MD [address] [place] [address] PCP - General Internal Medicine 09/21/18 documented as of this encounter
--- OUTSIDE RECORDS SUMMARY | 2024-11-22 03:56 | XMS_ITS | Encounter Summary ---
Author Organization [employer] Address [address] [place] [address] 7 [place] [address] Care Team Providers Care Conveyor Console Operator Name Role Phone Curry Richard MD Primary Care Provider [phone] Reason for Visit * Reason Comments Transition Of Care (Tcm) Encounter Details Date Type Department Care Team ([facility] st Contact Info) Description 11/01/2024 Patient Outreach [facility] CHC MED & PEDS [address] [place], [place] [phone] Curry Richard MD 505 [place] [address] Transition Of Care (Tcm) Social History Tobacco [...] not included. Hospital Discharges and Admission for [facility] Type of Visit: Emergency Department Date of Admission/Visit: 10/31/24 Date of Discharge: 10/30/24 [place] [facility] [place]: Sores Disposition: Left Without Being Seen Follow-Up Actions Follow-Up Needed: None/self-monitoring Initial Contact Date: 10/31/24 Patient Contacted: Jenae Castle from [facility] contacted as pt is currently homeless Patient Status: Unchanged The full discharge summary is Is available under encounters/interface Review Flowsheet [facility] Transition of Care Documentation Type of Visit Date of Admission/Visit Date of Discharge Facility Diagnosis Disposition 05/01/2023 12:01 PM Hospital Admission - 04/30/2023 [facility] PAC Program Discharge Pending ( Section 35) Discharged Home 08/03/2023 8:58 AM Hospital Admission 07/29/2023 07/31/2023 [facility] Cellulitis Discharged Home 08/10/2023 2:34 PM Hospital Admission 07/29/2023 07/31/2023 [facility] cellulitis Discharged Home 10/21/2024 1:41 PM [...] Dept 12/21/23 Office Visit Curry Richard MD [facility] Med & Peds Showing recent visits [...] on filedocumented in this encounter Care Teams Conveyor Console Operator Relationship Specialty Start Date End Date Curry Richard MD [address] [place] [address] PCP - General Internal Medicine 09/21/18 documented as of this encounter
--- OUTSIDE RECORDS SUMMARY | 2024-11-22 03:56 | XMS_ITS | Encounter Summary ---
Author Organization [employer] Address [address] [place] [address] [place] [address] Care Team Providers Care Network Diagnostic Support Specialist Name Role Phone Curry Richard MD Primary Care Provider [phone] Reason for Visit * Reason Comments Transition Of Care (Tcm) Encounter Details Date Type Department Care Team ([facility] st Contact Info) Description 10/24/2024 Patient Outreach [facility] CHC MED & PEDS [address] [place], [place] [phone] Curry Richard MD 505 [place] [address] Transition Of Care (Tcm) Social History Tobacco [...] Admission/Visit 10/23/24 Date of Discharge (N/A) Facility [facility] [place] FALL SLIP ON ICE, chest pain Disposition (N/A) documented in this encounter Plan of Treatment Not on file documented as of this encounter Visit Diagnoses Not on filedocumented in this encounter Care Teams Network Diagnostic Support Specialist Relationship Specialty Start Date End Date Curry Richard MD [address] [place] [address] PCP - General Internal Medicine 09/21/18 documented as of this encounter
--- OUTSIDE RECORDS SUMMARY | 2024-11-22 03:56 | XMS_ITS | Encounter Summary ---
Author Organization [employer] Address [address] [place] [address] 7 [place] [address] Care Team Providers Care Abrasive Grinder Name Role Phone Curry Richard MD Primary Care Provider [phone] Reason for Visit * Reason Comments Care Coordination Outreach Encounter Details Date Type Department Care Team (Latest Contact Info) Description 11/17/2024 Patient Outreach [facility] CHC MED & PEDS [address] [place], [place] [phone] Curry Richard MD 505 [place] [address] Care Coordination (Outreach) Social History Tobacco Use [...] encounter Progress Notes * Beth Quiñones - 11/17/2024 8:56 AM EST CHW Beth Quiñones, placed outbound call to patient in regards to offer services. CHW introducing herself from [facility] CM Department with CHW's name, department and direct contact number requesting call back. Will re-attempt to contact within 5 days. and address not confirmed. documented in this encounter Plan of Treatment Not on file documented as of this encounter Visit Diagnoses Not on filedocumented in this encounter Care Teams Abrasive Grinder Relationship Specialty Start Date End Date Curry Richard MD [address] [place] [address] PCP - General Internal Medicine 09/21/18 documented as of this encounter
--- OUTSIDE RECORDS SUMMARY | 2024-11-22 03:56 | XMS_ITS | Encounter Summary ---
Author Organization [employer] Address [address] [place] [address] 7 [place] [address] Care Team Providers Care Civil Drafting Technician Name Role Phone Curry Richard MD Primary Care Provider [phone] Reason for Visit * Reason Comments Transition Of Care (Tcm) Encounter Details Date Type Department Care Team ([facility] st Contact Info) Description 10/31/2024 Patient Outreach [facility] CHC MED & PEDS 505 [place], [place] [phone] Curry Richadr MD 505 [place] [address] Transition Of Care (Tcm) Social History Tobacco [...] of care. Hospital Discharges and Admission for [facility] Type of Visit: Emergency Department Date of Admission/Visit: 10/30/24 Date of Discharge: 10/30/24 Facility[place] [facility] Diagnosis: Abrasion of Penis, Homelessness Disposition: Discharged Home Patient given resources for harm reduction and shelters in the area. Abrasion was superficial and healing on their own. Care coordination is trying to reach patient to help with services. The full discharge summary is available on [facility]. Recent Visits Date Type Provider Dept 12/21/23 Office Visit Curyr Richard MD [facility] Med & Peds Showing recent visits within [...] on filedocumented in this encounter Care Teams Civil Drafting Technician Relationship Specialty Start Date End Date Curry Richard MD [address] [place] [phone] PCP - General Internal Medicine 09/21/18 documented as of this encounter
--- OUTSIDE RECORDS SUMMARY | 2024-11-22 03:56 | XMS_ITS | Encounter Summary ---
Author Organization [employer] Address [address] [facility] 7 [place] [address] Care Team Providers Care Insulation Worker Apprentice Name Role Phone Curry Richard MD Primary Care Provider [phone] Reason for Visit * Reason Onset Date Comments Referral 11/13/2023 Encounter Details Date Type Department Care Team ([facility] st Contact Info) Description 11/13/2023 Telephone [facility] [address] [place] [address] Curry Richard MD 505 [place] [address] Referral Social History Tobacco Use Types Packs/Day [...] T/c to pt regarding referral request from [facility]. Rose Mary from [facility] reported that pt was seen in [facility] Department ER for elbow bursitis and that pt has relocated to [facility]. Pt reported that he has an appointment with a provider pm the and is part of a detox program. Pt to follow up PRN. Pt's new number is [phone] * Telephone Encounter - Michael Pak - 11/13/2023 9:50 AM EST TC from Rose Mary working with [facility] requesting new referral: DATE: 11/16/23 TIME: 12:45 pm Address: [address] [place] [address] Visits: 12 Facility Name: [facility] Type of Specialist: Orthopedic DX: [id number] Provider : N/A Provider NPI : N/A Facility Phone # : [phone] Fax #: [phone] documented in this encounter Plan of Treatment Not on file documented as of this encounter Visit Diagnoses Not on filedocumented in this encounter Care Teams Insulation Worker Apprentice Relationship Specialty Start Date End Date Curry Richard MD [address] [place] [address] PCP - General Internal Medicine 09/21/18 documented as of this encounter
--- OUTSIDE RECORDS SUMMARY | 2024-11-22 03:56 | XMS_ITS | Encounter Summary ---
Author Organization [employer] Address [address] [facility] 7 [place] [address] Care Team Providers Care Photolith Operator Name Role Phone Curry Richard MD Primary Care Provider [phone] Encounter Details Date Type Department Care Team (Late st Contact Info) Description 07/27/2023 [facility] [address] [place] [address] Curry Richard MD 505 [place] [address] Social History Tobacco Use Types Packs/Day Years [...] on filedocumented in this encounter Care Teams Photolith Operator Relationship Specialty Start Date End Date Curry Richard MD [address] [place] [address] PCP - General Internal Medicine 09/21/18 documented as of this encounter
--- OUTSIDE RECORDS SUMMARY | 2024-11-22 03:56 | XMS_ITS | Encounter Summary ---
Author Organization [employer] Address [address] [place] [address] 7 [place] [address] Care Team Providers Care Milieu Coordinator Name Role Phone Curry Richard MD Primary Care Provider [phone] Reason for Visit * Reason Comments Transition Of Care (Tcm) Encounter Details Date Type Department Care Team ([facility] st Contact Info) Description 11/14/2024 Patient Outreach [facility] CHC MED & PEDS 505 [place], [place] [phone] Curry Richard MD 505 [place] [address] Transition Of Care (Tcm) Social History Tobacco [...] Progress Notes * Kiesha Sullivan RN - 11/14/2024 10:15 AM EST Transition of Care Note Norman Mohan is going through a recent transition of care. * Mahi Florentino RN - 11/14/2024 10:15 AM EST Images from the original note were not included. Hospital Discharges and Admission for [facility] Type of Visit: Emergency Department Date of Admission/Visit: 11/12/24 Date of Discharge: 11/12/24 Facility: [facility] Diagnosis: Fall, R arm pain Disposition: Left Without Being Seen Follow-Up Actions Follow-Up Needed: None/self-monitoring Follow-Up Outcome: advisorCONNECTt Message Sent Initial Contact Date: 11/14/24 Patient Contacted: Yes Patient Status: Unchanged Review Flowsheet More data may exist [facility] Transition of Care Documentation Type of Visit Date of Admission/Visit Date of Discharge Facility Diagnosis Disposition 05/01/2023 12:01 PM Hospital Admission - 04/30/2023 [facility] PAC Program Discharge Pending ( Section 35) Discharged Home 08/03/2023 8:58 AM Hospital Admission 07/29/2023 07/31/2023 [facility] Cellulitis Discharged Home 08/10/2023 2:34 PM Hospital Admission 07/29/2023 07/31/2023 [facility] cellulitis Discharged Home 10/21/2024 1:41 PM Emergency [...] - [facility] Sores Left Without Being Seen 11/14/2024 10:15 AM Emergency Department 11/12/2024 11/12/2024 [facility] Fall, R arm pain Left Without Being Seen Recent Visits Date Type Provider Dept 12/21/23 Office Visit Curry Richard MD [facility] Med & Peds Showing recent visits within past 365 days with a meds authorizing provider and meeting all other requirements Future Appointments No visits were found meeting these conditions. Showing future appointments within next 150 days with a meds authorizing provider and meeting all other requirements Patient was educated on hours of operation. documented in this encounter Plan of Treatment Not on file documented as of this encounter Visit Diagnoses Not on filedocumented in this encounter Care Teams Milieu Coordinator Relationship Specialty Start Date End Date Curry Richard MD [address] [place] [address] PCP - General Internal Medicine 09/21/18 documented as of this encounter
--- OUTSIDE RECORDS SUMMARY | 2024-11-22 03:56 | XMS_ITS | Clinical Summary ---
Author Organization [employer] Address [address] [place] [address] [address] [place] [address] Care Team Providers Care Telex Operator Name Role Phone Curry Richard MD Primary Care Provider [phone] Allergies Active Allergy Reactions Criticality Noted Date Comments [place] 05/11/2012 Medications * This document contains information received from the source organization and may not represent a complete record from that organization. ARIPiprazole (Abilify) 5 MG tablet Take 1 [...] Diagnosed Date Continuous chronic alcoholism 03/22/2012 Encounters * This document contains information received from the source organization and may not represent a complete record from that organization. Date Type Department Care Team Description 11/21/2024 Patient Outreach [facility] [address] [place] [address] Curry Richard MD Transition Of Care (Tcm) 11/17/2024 Patient Outreach [facility] [address] [place] [address] Curry Richard MD Care Coordination (Outreach) 11/14/2024 Patient Outreach [facility] [address] [place] [address] Curry Richard MD Transition Of Care (Tcm) 11/01/2024 Patient Outreach [facility] [address] [place] [address] Curry Richard MD Transition Of Care (Tcm) 10/31/2024 Patient Outreach [facility] [address] [place] [address] Curry Richard MD Transition Of Care (Tcm) 10/28/2024 Patient Outreach [facility] [address] [place] [address] Curry Richard MD Care Coordination (Outreach) 10/28/2024 Patient Outreach [facility] [address] [place] [address] Curry Richard MD Transition Of Care (Tcm) 10/24/2024 Patient Outreach [facility] [address] [place] [address] Curry Richard MD Transition Of Care (Tcm) 10/21/2024 Patient Outreach [facility] [address] [place] [address] Curry Richard MD Transition Of Care (Tcm) 10/21/2024 Patient Outreach [facility] [address] [place] [address] Curry Richard MD Care Coordination (Outreach) 10/17/2024 Patient Outreach [facility] [address] [place] [address] Curry Richard MD Care Coordination (Outreach) 09/16/2024 Telephone [facility] [address] [place] [address] Avi Pace RN Hepatitis C 09/06/2024 Orders Only [facility] [address] [place] [address] Curry Richard MD from Last 3 Months Immunizations Name Administration [...] 12:46 PM EST) HCV RNA PCR QN [id number]( A) NOT DETECTED IU/mL [facility] HCV RNA PCR QN 6.25(A) NOT DETECTED Log IU/mL [facility] HCV RNA COMMENT SEE NOTE [facility] Comment:For additional infor mation, please refer tohttp://education.BadAbroad/faq/JOY04j1(This link is being provided for informational/Educational purposes only.)THIS TEST WAS PERFORMED AT:[employer] [address] [address]LVKGPSAY GAMA MD HCV RNA GENOTYPE,LIPA 1a [facility] Comment:The method used in t his test is RT-PCR and reversehybridization (Line Probe) of the 5' UTR and coreregion of the HCV genome.The analytical performance characteristics of thisassay have been determined by [employer], [place]. The modificationshave not been cleared or approved by the FDA. Thisassay has been validated pursuant to the CLIAregulations and is used for clinical purposes.For additional information, please refer [email or web address].MetaCure/faq/HCVGenotyping(This link is being provided for informational/educational purposes only.)THIS TEST WAS PERFORMED AT:[employer]/[facility] [place] [address]LVXJHQEANALI FERNANDES MD,PHD 09/06/2024 12:4 6 PM EST 09/06/2024 12:46 PM EST us Curry Richard MD LAB BLOOD ORDERABLES Final Result [facility] [address] [place] [phone] * (ABNORMAL) Liver Fibrosis (HCV), FibroTest-ActiTest Panel (09/06/2024 12:46 PM EST) Liver Fibrosis Score 0.75 [facility] Liver Fibrosis Stage F4 [facility] Liver Fibrosis Interpretation SEE NOTE [facility] Comment:severe fibrosisFibro Test Score (f) Metavir Score f>=0 and f<=0.21 : F0 (no fibrosis)f>0.21 and f<=0.27 : F0-F1 (no fibrosis)f>0.27 and f<=0.31 : F1 (minimal fibrosis)f>0.31 and f<=0.48 : F1-F2 (minimal fibrosis)f>0.48 and f<=0.58 : F2 (moderate fibrosis)f>0.58 and f<=0.72 : F3 (advanced fibrosis)f>0.72 and f<=0.74 : F3-F4 (advanced fibrosis)f>0.74 and f<=1.00 : F4 (severe fibrosis) Nec Inflam Act Score 0.54 [facility] Nec Inflam Act Grade A2 [facility] Nec Inflam Act Interpretation SEE NOTE [facility] Comment:significant activity ActiTest Score (a) Metavir Score a>=0 and a<=0.17 : A0 (no activity)a>0.17 and a<=0.29 : A0-A1 (no activity)a>0.29 and a<=0.36 : A1 (minimal activity)a>0.36 and a<=0.52 : A1-A2 (minimal activity)a>0.52 and a<=0.60 : A2 (significant activity)a>0.60 and a<=0.62 : A2-A3 (significant activity)a>0.62 and a<=1.00 : A3 (severe activity) ETB-Lynvd-2-Macroglo bulin 330(A) 106 - 279 mg/dL [facility] FIB-Haptoglobin 28(A) 43 - 212 mg/dL [facility] FIB-Apolipoprotein A1 139 94 - 176 mg/dL [facility] FIB-Total Bilirubin 0.4 0.2 - 1.2 mg/dL [facility] FIB-GGT 90 3 - 95 U/L [facility] FIB-ALT 63(A) 9 - 46 U/L [facility] Reference ID [id number] [facility] Footnote SEE NOTE [facility] Comment: The reliability of results [...] and C.The performance characteristics have been determined by[facility]. Ithas not been cleared or approved by the U.S. Food and DrugAdministration. Performance characteristics refer to theanalytical performance of the test.Receptor, the associated logo, [employer] and all associated [employer]anda are theregistered trademarks of [employer]. All third partymarks - (R) and (TM) - are the property of their respectiveowners. (C) 0587-6896 [employer]. Allrights reserved.THIS TEST WAS PERFORMED AT:[employer] [id number] [facility], [place] ??[address]PAMIDCHRYSTAL GOODEN MD,PHD,[place] 09/06/2024 12:4 6 PM EST 09/06/2024 12:46 PM EST us Curry Richard MD LAB BLOOD ORDERABLES Final Result [facility] [address] [place] [address] [phone] * (ABNORMAL) CBC auto differential (09/06/2024 12:46 PM EST) White Blood Count 4.3(L) 4.8 - 10.8 X10*3/uL [facility] Red Blood Count 4.86 4.60 - 5.80 X10*6/uL [facility] Hemoglobin 14.2 14.0 - 18.0 g/dl [facility] Hematocrit 42.8 42.0 - 52.0 % [facility] Mean Corpuscular Volume 88.1 80.0 - 98.0 fL [facility] Mean Corpuscular Hemoglobin 29.2 27.0 - 33.0 pg [facility] Mean Corpuscular HGB Conc 33.2 31.0 - 36.0 g/dl [facility] Red Cell Distribution Width 14.2 11.0 - 16.0 % [facility] Platelet Count 177 160 - 400 X10*3/uL [facility] Mean Platelet Volume 11.4 9.4 - 12.4 fL [facility] Neutrophils Percent Auto 59.3 45 - 73 % [facility] Imm Gran Pct Auto 0.2 0.0 - 0.4 % [facility] Lymphocytes Percent Auto 24.1 20 - 40 % [facility] Monocytes Percent Auto 15.7(H) 2 - 11 % [facility] Eosinophils Percent Auto 0.5 0 - 4 % [facility] Basophils Percent Auto 0.2 0 - 2 % [facility] NRBC Pct Auto 0.0 0.0 - 0.2 /100WBC [facility] Neutrophils Absolute Auto 2.6 2.0 - 8.3 x10*3/uL [facility] Imm Gran Abs Auto 0.01 0.00 - 0.03 X10*3/uL [facility] Lymphocytes Absolute Auto 1.0(L) 1.2 - 4.9 X10*3/uL [facility] Monocytes Absolute Auto 0.7 0.1 - 1.2 X10*3/uL [facility] Eosinophils Absolute Auto 0.0 0.0 - 0.4 X10*3/uL [facility] Basophils Absolute Auto 0.0 0.0 - 0.2 X10*3/uL [facility] NRBC Abs Auto 0.000 0.0 - 0.012 X10*3/uL [facility] 09/06/2024 12:4 6 PM EST 09/06/2024 12:46 PM EST us Curry Richard MD LAB BLOOD ORDERABLES Final Result Performing Organization Address [facility]/ZIP Co de Phone Number [facility] [address] [place] [phone] * Hepatitis A Antibody, Total (09/06/2024 12:46 PM EST) Hepatitis A Antibody IgG REACTIVE Nonreactive [facility] Comment:The presence of IgG anti-HAV implies past HAV infection(recent or distant) or vaccination against HAV. 09/06/2024 12:4 6 PM EST 09/06/2024 12:46 PM EST us Curry Richard MD LAB BLOOD ORDERABLES Final Result Performing Organization Address [facility] Co de Phone Number [facility] [address] [place] [phone] * Hepatitis B surface antigen, EIA (09/06/2024 12:46 PM EST) Hepatitis B Surface Ag Negative Negative [facility] 09/06/2024 12:4 6 PM EST 09/06/2024 12:46 PM EST Curry Richard MD LAB BLOOD ORDERABLES Final Result Performing Organization Address [facility] Co de Phone Number [facility] [address] [place] [phone] * Hepatitis B Core Antibody, Total (09/06/2024 12:46 PM EST) Pathologist [facility] Hepatitis B Core Antibody Nonreactive Nonreactive [facility] 09/06/2024 12:4 6 PM EST 09/06/2024 12:46 PM EST us Curry Richard MD LAB BLOOD ORDERABLES Final Result [facility] [address] [place] [phone] * HIV-1/2 Antigen and Antibodies, Fourth Generation, with Reflexes (09/06/2024 12:46 PM EST) [facility] HIV AB/AG Nonreactive Nonreactive [facility] Comment:HIV-1 p24 Ag and/or HIV-1/HIV-2 Ab not detected.A test result that is nonreactive does not exclude thepossibility of exposure to or infection with HIV-1 and/orHIV-2. Nonreactive results in this assay for individualswith prior exposure to HIV-1 and/or HIV-2 may be due toantigen and antibody levels that are below the limit ofdetection of this assay.The [employer] Alinity HIV Ag/Ab Combo assay result andsupplemental assay results should be interpreted inconjunction with the patient's clinical presentation,history and other laboratory results. If the results areinconsistent with clinical evidence, additional testing issuggested to confirm the result. 09/06/2024 12:4 6 PM EST 09/06/2024 12:46 PM EST us Curry Richard MD LAB BLOOD ORDERABLES Final Result [facility] [address] [place] [address] [phone] * Hepatitis B Surface Antibody, Qualitative (09/06/2024 12:46 PM EST) Pathologist [facility] ~Hepatitis B Surface Antibody REACTIVE Nonreactive [facility] Comment:REACTIVE: > 11.99 mI U/mL 09/06/2024 12:4 6 PM EST 09/06/2024 12:46 PM EST Curry Richard MD LAB BLOOD ORDERABLES Final Result Performing Organization Address [facility] de Phone Number [facility] [address] [place] [phone] * Prothrombin Time-INR (09/06/2024 12:46 PM EST) Prothrombin Time 11.3 10.9 - 12.4 SEC [facility] INTERNATIONAL NORM RATIO 1.0 0.9 - 1.1 [facility] Comment:INTERNATIONAL NORMAL IZED RATIO (INR) [...] BLOOD ORDERABLES Final Result Performing Organization Address [facility] de Phone Number [facility] [address] [place] [phone] * (ABNORMAL) Comprehensive Metabolic Panel (09/06/2024 12:46 PM EST) Sodium 135 135 - 145 mmol/L [facility] Potassium 4.4 3.3 - 5.1 mmol/L [facility] Chloride 105 96 - 108 mmol/L [facility] Carbon Dioxide 26 22 - 29 mmol/L [facility] Anion Gap 8(L) 12 - 20 [facility] Urea Nitrogen (BUN) 8(L) 9 - 16 mg/dL [facility] Creatinine, Serum 0.81 0.5 - 1.4 mg/dL [facility] Estimated Glomerular Filt Rate >60 [facility] Comment:Chronic Kidney Disea se: Estimated GFR < 60 mL/min/[id number] Kidney Disease: Estimated GFR < 15 mL/min/1.73m2 Glucose 171(H) 60 - 115 mg/dL [facility] Calcium 8.8 8.4 - 10.2 mg/dL [facility] Bilirubin, Total 0.3 0.0 - 1.0 mg/dL [facility] Aspartate Amino Transferase 80(H) 5 - 37 U/L [facility] Alanine Aminotransferase 86(H) 0 - 40 U/L [facility] Total Protein 8.4(H) 6.5 - 8.0 g/dL [facility] Albumin Level 3.9 3.5 - 5.0 g/dL [facility] Alkaline Phosphatase 85 39 - 117 U/L [facility] Blood Venous blood specimen / Unknown 09/06/2024 12:46 PM EST 09/06/2024 12:46 PM EST us Curry Richard MD LAB BLOOD ORDERABLES Final Result Performing Organization Address City/State/[facility] Co de Phone Number [facility] [address] [place] [address] [phone] from Last 3 Months Insurance [employer] Care Teams Telex Operator Relationship Specialty Start Date End Date Curry Richard MD [address] [place] [phone] PCP - General Internal Medicine 09/21/18
--- OUTSIDE RECORDS SUMMARY | 2024-11-22 03:56 | XMS_ITS | Encounter Summary ---
Author Organization [employer] Address [address] [place] [address] [address] [place] [address] Care Team Providers Care Certified Social Workers In Health Care Name Role Phone Curry Richard MD Primary Care Provider [phone] Reason for Visit * Reason Comments Care Coordination Outreach Encounter Details Date Type Department Care Team (Latest Contact Info) Description 10/28/2024 Patient Outreach [facility] [address] [place], [place] [phone] Curry Richard MD [address] [place] [address] Care Coordination (Outreach) Social History Tobacco Use [...] number listed on file is Jenae ([facility] nurse), she states patient don't have a phone and he is homeless. CHW introducing herself from [facility] CM Department with CHW's name, department and direct contactnumber [phone] call back. Will re-attempt to contact within 5 days. documented in this encounter Plan of Treatment Not on file documented as of this encounter Visit Diagnoses Not on filedocumented in this encounter Care Teams Certified Social Workers In Health Care Relationship Specialty Start Date End Date Curry Richard MD [address] [place] [phone] PCP - General Internal Medicine 09/21/18 documented as of this encounter
[2024-11-22 04:33] LABS: Basophils Percent Auto 0.2 % (0-2); Hematocrit 39.3 % (42.0-52.0); Hemoglobin 13.2 g/dl (14.0-18.0); Imm Gran Abs Auto 0.01 X10*3/uL (0.00-0.03); Imm Gran Pct Auto 0.2 % (0.0-0.4); Lymphocytes Absolute Auto 1.6 X10*3/uL (1.2-4.9); Lymphocytes Percent Auto 38.7 % (20-40); MANUAL DIFF FLAG NO; Mean Corpuscular HGB Conc 33.6 g/dl (31.0-36.0); Mean Corpuscular Volume 86.4 fL (80.0-98.0); Mean Platelet Volume 12.3 fL (9.4-12.4); Monocytes Absolute Auto 0.6 X10*3/uL (0.1-1.2); Monocytes Percent Auto 14.4 % (2-11); Neutrophils Absolute Auto 1.9 x10*3/uL (2.0-8.3); Neutrophils Percent Auto 46.5 % (45-73); Platelet Count 159 X10*3/uL (160-400); Red Blood Count 4.55 X10*6/uL (4.60-5.80); Red Cell Distribution Width 13.9 % (11.0-16.0); White Blood Count 4.2 X10*3/uL (4.8-10.8)
[2024-11-22 04:53] LABS: Troponin-I High Sensitivity 3.8 ng/L (<3.5-35.0)
[2024-11-22 05:21] LABS: Alanine Aminotransferase 93 U/L (0-40); Albumin Level 3.6 g/dL (3.5-5.0); Alkaline Phosphatase 77 U/L (39-117); Anion Gap 14 (12-20); Aspartate Amino Transferase 120 U/L (5-37); Bilirubin Total 0.6 mg/dL (0.0-1.0); Blood Urea Nitrogen 20 mg/dL (9-16); Calcium 8.9 mg/dL (8.4-10.2); Carbon Dioxide 22 mmol/L (22-29); Chloride 109 mmol/L (96-108); Creatinine Clr Calc Pharmacy 74.7; Estimated Glomerular Filt Rate > 60; Glucose Random 53 mg/dL (60-115); Potassium 3.9 mmol/L (3.3-5.1); Sodium 141 mmol/L (135-145)
[2024-11-22 05:29] LABS: Glucose, Whole Blood 119 mg/dL (60-115)
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
[2024-11-22 09:09] LABS: Lipase 84 U/L (8-78)
--- NOTE | 2024-11-22 09:17 | PC.NURSE ---
PT WAS GIVEN ALL HIS BELONGINGS AT TIME OF DISCHARGE, HE HAS HIS AXILLARY CRUTCHES. HE ATE A SIGNIFICANT AMOUNT OF FOOD WHILE HERE. RECOVERY WAS INVOLVED IN HIS CARE AND DISCHARGE
[2024-11-22 09:20] VITALS: BP 120/83; PULSE 110; RESP 20; TEMP 36.4; O2SAT 98
--- NOTE | 2024-11-22 09:25 | MHC.RECOVRN ---
T/W received referral for pt. in ED as he was requesting to speak with us. Pt sitting up on stretcher in amaya a&o. Pt was getting ready to leave and reports that he has contacted his [facility] worker and they are going to assist him with further treatment Declined need for further resources.
[2024-11-22 12:47] LABS: Glucose, Whole Blood 82 mg/dL (60-115)
== END 2024-11-22 09:21 | disposition home or self-care (01) ==
PROVIDERS: Physician Assistant Medical; Emergency Provider Emergency Medicine
DX: F14.188 Cocaine abuse with other cocaine-induced disorder (principal); R07.89 Other chest pain; D64.9 Anemia, unspecified; R00.0 Tachycardia, unspecified; R05.9 Cough, unspecified; F12.90 Cannabis use, unspecified, uncomplicated; F17.210 Nicotine dependence, cigarettes, uncomplicated
CPT/HCPCS: 36415; 71046; 80053; 82947; 83690; 84484; 85025; 93005; 99283; 99284

== ENCOUNTER → 2024-11-22 03:25 | Outpatient (BNV) | payer MEDICAID, SELFPAY | PROVIDERS: Emergency Provider Emergency Medicine; Visit Provider Internal Medicine Cardiovascular Disease | DX: R94.31 Abnormal electrocardiogram [ECG] [EKG] (principal); R07.9 Chest pain, unspecified | CPT/HCPCS: 93010 ==

== ENCOUNTER → 2024-11-22 08:41 | Outpatient (BNV) | payer MEDICAID, SELFPAY | PROVIDERS: Emergency Provider Emergency Medicine; Visit Provider Radiology Diagnostic Radiology | DX: R07.9 Chest pain, unspecified (principal); R05.9 Cough, unspecified | CPT/HCPCS: 71046 ==

== ENCOUNTER 2024-12-09 00:58 | Emergency (ER) | payer MEDICAID, SELFPAY ==
[2024-12-09 01:04] VITALS: BP 147/87; BP 183/97; PULSE 76; PULSE 77; RESP 16; TEMP 36.6; O2SAT 98; O2SAT 99; BMI 19.3
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
[2024-12-09 01:48] LABS: MANUAL DIFF FLAG NO
[2024-12-09 02:11] LABS: Alanine Aminotransferase 100 U/L (0-40); Albumin Level 3.5 g/dL (3.5-5.0); Alkaline Phosphatase 82 U/L (39-117); Anion Gap 10 (12-20); Aspartate Amino Transferase 112 U/L (5-37); Bilirubin Total 0.7 mg/dL (0.0-1.0); Blood Urea Nitrogen 16 mg/dL (9-16); Calcium 8.2 mg/dL (8.4-10.2); Carbon Dioxide 25 mmol/L (22-29); Chloride 110 mmol/L (96-108); Creatinine Clr Calc Pharmacy 87.8; Estimated Glomerular Filt Rate > 60; Ethanol < 10 mg/dL; Glucose Random 120 mg/dL (60-115); Potassium 3.6 mmol/L (3.3-5.1); Sodium 141 mmol/L (135-145); Total Protein 7.8 g/dL (6.5-8.0)
[2024-12-09 02:18] LABS: Appearance Urine Clear; Color Urine Yellow; Glucose Urine UA Negative (Negative); Leukocyte Esterase Urine Negative (Negative); Nitrite Urine Negative (Negative); Specific Gravity - Urine 1.015 (1.005-1.025); Urine Blood Negative (Negative); Urine Ketones Negative (Negative); Urine Protein Negative (Neg-Trace)
[2024-12-09 02:22] LABS: Acetaminophen LAB < 3 mcg/mL (<30); Salicylate < 5.0 mg/dL (15-30)
[2024-12-09 02:23] LABS: Bacteria Urine None Seen (None Seen); Hyaline Casts Urine 0-2 /LPF (0-2); RBC Urine 0-2 /HPF (0-2); Squamous Epithelial Cell Urine 0-2 /HPF (0-2); WBC Urine 0-5 /HPF (0-5)
[2024-12-09 02:25] LABS: Basophils Percent Auto 0.2 % (0-2); Eosinophils Percent Auto 0.5 % (0-4); Hematocrit 35.9 % (42.0-52.0); Hemoglobin 12.3 g/dl (14.0-18.0); Imm Gran Abs Auto 0.01 X10*3/uL (0.00-0.03); Imm Gran Pct Auto 0.2 % (0.0-0.4); Lymphocytes Absolute Auto 1.4 X10*3/uL (1.2-4.9); Lymphocytes Percent Auto 32.8 % (20-40); Mean Corpuscular HGB Conc 34.3 g/dl (31.0-36.0); Mean Corpuscular Volume 84.7 fL (80.0-98.0); Mean Platelet Volume 10.3 fL (9.4-12.4); Monocytes Absolute Auto 0.5 X10*3/uL (0.1-1.2); Monocytes Percent Auto 11.7 % (2-11); Neutrophils Absolute Auto 2.4 x10*3/uL (2.0-8.3); Neutrophils Percent Auto 54.6 % (45-73); Platelet Count 216 X10*3/uL (160-400); Red Blood Count 4.24 X10*6/uL (4.60-5.80); Red Cell Distribution Width 14.2 % (11.0-16.0); White Blood Count 4.4 X10*3/uL (4.8-10.8)
[2024-12-09 02:34] LABS: Amphetamine Screen Urine Not Detected (Not Detect); Barbiturates, Urine Not Detected (Not Detect); Benzodiazepines Screen Urine Not Detected (Not Detect); Buprenorphine Scr Not Detected (Not Detect); Cannabinoid Screen Urine POSITIVE (Not Detect); Cocaine Screen Urine POSITIVE (Not Detect); Fentanyl, urine POSITIVE (Not Detect); Methadone Screen, Urine Not Detected (Not Detect); Opiate Screen Urine Not Detected (Not Detect); Oxycodone Screen Urine Not Detected (Not Detect); Phencyclidine Screen Urine Not Detected (Not Detect)
[2024-12-09 06:12] VITALS: BP 141/79; PULSE 86; RESP 18; TEMP 36.7; O2SAT 99
--- NOTE | 2024-12-09 08:41 | PC.NURSE ---
report received from Patricia. Pt uses crutches.
--- NOTE | 2024-12-09 08:42 | PC.NURSE ---
pt report given to BRADY Whitney in the pod at this time.
--- NOTE | 2024-12-09 09:44 | PC.NURSE ---
late entry: Ambulatory to pod with walker. Calm. COntinues to endorse SI. I'm sick of living on the streets and using . Having food/drink.
--- NOTE | 2024-12-09 11:43 | MHC.CARE ---
Per ED provider Dr. Chowdhury Pt will remain in the ED as IPLOC. Pt will be a DUAL DX bedsearch. Section 12 in chart.
--- NOTE | 2024-12-09 11:56 | PHA.MEDREC ---
Addendum entered by Arlene Orellana RPh 12/09/24 12:41: Reviewed by [facility] Original Note: Pharmacy Consult ? Medication Reconciliation Pharmacy reviewed med rec done by nursing. No Known home Meds confirmed. Spoke with patient and he confirmed he is not taking anything at this time for medications.
--- NOTE | 2024-12-09 12:27 | ECG_ITS ---
Test Reason : check qt Blood Pressure : */* mmHG Vent. Rate : 88 BPM Atrial Rate : 88 BPM P-R Int : 154 ms QRS Dur : 66 ms QT Int : 376 ms P-R-T Axes : 86 57 90 degrees QTcB Int : 454 ms Normal sinus rhythm Possible Left atrial enlargement Nonspecific T wave abnormality Abnormal ECG When compared with ECG of 22-Nov-2024 03:25, No significant change was found Referred By: Bobby Chowdhury Electronically Signed By: Pramod Matos
--- NOTE | 2024-12-09 14:53 | MHC.CARE ---
Pt was accepted to [facility] for today 12/09/24 by Corbin. The accepting provider is Dr. Rangel and the ETA is 6pm. No nurse to nurse is required. [place] [address]. Pod RN and CARE Team were notified.
[2024-12-09 15:57] VITALS: BP 120/65; PULSE 83; RESP 20; TEMP 37.7; O2SAT 97
[2024-12-09 17:12] VITALS: BP 120/65; PULSE 83; RESP 20; TEMP 37.7; O2SAT 97
== END 2024-12-09 17:13 | disposition still patient (30) ==
PROVIDERS: Emergency Medicine; Emergency Provider Emergency Medicine
DX: R45.851 Suicidal ideations (principal); F33.1 Major depressive disorder, recurrent, moderate; R94.31 Abnormal electrocardiogram [ECG] [EKG]; F17.210 Nicotine dependence, cigarettes, uncomplicated; Z59.00 Homelessness unspecified; Z51.81 Encounter for therapeutic drug level monitoring; Z79.899 Other long term (current) drug therapy
CPT/HCPCS: 36415; 80053; 80143; 80179; 80307; 81001; 85025; 93005; 99285; S9485

== ENCOUNTER → 2024-12-09 12:27 | Outpatient (BNV) | payer MEDICAID, SELFPAY | PROVIDERS: Emergency Provider Emergency Medicine; Visit Provider Internal Medicine Cardiovascular Disease | DX: R94.31 Abnormal electrocardiogram [ECG] [EKG] (principal); Z13.6 Encounter for screening for cardiovascular disorders | CPT/HCPCS: 93010 ==

== ENCOUNTER 2024-12-19 08:25 | Emergency (ER) | payer MEDICAID, SELFPAY ==
[2024-12-19 09:05] VITALS: BP 152/71; BP 152/90; PULSE 84; PULSE 88; RESP 16; TEMP 36.1; O2SAT 97; O2SAT 99; BMI 18.2
--- OUTSIDE RECORDS SUMMARY | 2024-12-19 11:19 | XMS_ITS | Encounter Summary ---
Author Organization [employer] Address [address] [facility] 7t [place] [address] Care Team Providers Care Process Owner Name Role Phone Curry Richard MD Primary Care Provider [phone] Encounter Details Date Type Department Care Team ([facility] st Contact Info) Description 12/15/2024 Patient Outreach [facility] (C3) Department [address] [phone] Janet Lu LCSW Social History Tobacco Use Types Packs/Day Years [...] as of this encounter Progress Notes * Janet Lu - 12/15/2024 4:33 PM EDT TW outreached Marzena via email requesting DC summary for member documented in this encounter Plan of Treatment Not on file documented as of this encounter Visit Diagnoses Not on filedocumented in this encounter Care Teams Process Owner Relationship Specialty Start Date End Date Curry Richard MD [address] [place] [address] PCP - General Internal Medicine 09/21/18 documented as of this encounter
--- OUTSIDE RECORDS SUMMARY | 2024-12-19 11:19 | XMS_ITS | Clinical Summary ---
Author Organization [employer] Address [address] [place] [address] 7t [place] [address] Care Team Providers Care Photo Equipment Technician Name Role Phone Curry Richard MD Primary Care Provider [phone] Allergies Active Allergy Reactions Criticality Noted Date Comments [place] 05/11/2012 Medications * This document contains information [...] organization. Date Type Department Care Team Description 12/16/2024 Patient Outreach [facility] [address] [place] [address] Curry Richard MD Transition Of Care (Tcm) (HDF- Unscheduled -Nurse will call back) 12/15/2024 Patient Outreach [facility] () Department [address] [place] [phone] Janet Lu [facility] 12/15/2024 Patient Outreach [facility] () Department [address] [place] [phone] Janet Lu [facility] 12/13/2024 Patient Outreach [facility] () Department [address] [place] [phone] Janet Lu [facility] 12/05/2024 Patient Outreach [facility] [address] [place] [address] Curry Richard MD Transition Of Care (Tcm) 12/02/2024 Population Health Risk Score [facility] () Department [address] [place] [phone] Provider, Population Health Generic 11/28/2024 Patient Outreach [facility] [address] [place] [address] Curry Richard MD Transition Of Care (Tcm) 11/21/2024 Patient Outreach [facility] [address] [place] [address] Curry Richard MD Transition Of Care (Tcm) 11/17/2024 Patient Outreach [facility] [address] [place] [address] Curry Conn MD Care Coordination (Outreach) 11/14/2024 Patient Outreach [facility] [address] [place] [address] uCrry Richard MD Transition Of Care (Tcm) 11/01/2024 Patient Outreach [facility] [address] [place] [address] Curry Richard MD Transition Of Care (Tcm) 10/31/2024 Patient Outreach [facility] [address] [place] [address] Curry Richard MD Transition Of Care (Tcm) 10/28/2024 Patient Outreach [facility] [address] [place] [address] Curry Richard MD Care Coordination (Outreach) 10/28/2024 Patient Outreach [facility] [address] [place] [address] Curry Richard MD Transition Of Care (Tcm) 10/24/2024 Patient Outreach [facility] [address] [place] [address] Curry Richard MD Transition Of Care (Tcm) 10/21/2024 Patient Outreach [facility] [address] [place] [address] Curry Richard MD Transition Of Care (Tcm) 10/21/2024 Patient Outreach [facility] [address] [place] [address] Curry Richard MD Care Coordination (Outreach) 10/17/2024 Patient Outreach [facility] [address] [place] [address] Curry Richard MD Care Coordination (Outreach) from Last 3 Months Immunizations Name Administration [...] of 2) 2022 COVID-19 Vaccine (4 - 2023- season) 2024 07/24/2021, 02/07/2021, 01/10/2021 [...] Procedure Name Priority Date/Time Associated Diagnosis Comments HIV 1/2 ANTIGEN/ANTIBODY, FOURTH GENERATION W/RFL Routine 09/06/2024 12:46 PM EST from Last 3 Months or Most Recently Relevant to Health Maintenance Results * HIV-1/2 Antigen and Antibodies, Fourth Generation, with Reflexes (09/06/2024 12:46 PM EST) HIV AB/AG Nonreactive Nonreactive [facility] Comment:HIV-1 p24 Ag and/or HIV-1/HIV-2 Ab not detected.A test result that is nonreactive does not exclude thepossibility of exposure to or infection with HIV-1 and/orHIV-2. Nonreactive results in this assay for individualswith prior exposure to HIV-1 and/or HIV-2 may be due toantigen and antibody levels that are below the limit ofdetection of this assay.The Flowline HIV Ag/Ab Combo assay result andsupplemental assay results should be interpreted inconjunction with the patient's clinical presentation,history and other laboratory results. If the results areinconsistent with clinical evidence, additional testing issuggested to confirm the result. 09/06/2024 12:4 6 PM EST 09/06/2024 12:46 PM EST us Curry Richard MD LAB BLOOD ORDERABLES Final Result [facility] [address] [place] [address] [phone] from Last 3 Months or Most Recently Relevant to Health Maintenance [facility] [employer] C3 Care Teams Photo Equipment Technician Relationship Specialty Start Date End Date Curry Richard MD [address] [place] [address] PCP - General Internal Medicine 09/21/18
--- OUTSIDE RECORDS SUMMARY | 2024-12-19 11:19 | XMS_ITS | Encounter Summary ---
Author Organization [employer] Address [address] [place] [address] 7 [place] [address] Care Team Providers Care Head Machinist Name Role Phone Curry Richard MD Primary Care Provider [phone] Reason for Visit * Reason Comments Transition Of Care (Tcm) HDF- Unschedule d -Nurse will call back Encounter Details Date Type Department Care Team ([facility] st Contact Info) Description 12/16/2024 Patient Outreach [facility] [address] [place] [address] Curry Richard MD [address] [place], [place] [phone] Transition Of Care (Tcm) (HDF- Unscheduled -Nurse will call back) Social History Tobacco Use Types Packs/Day Years [...] as of this encounter Miscellaneous Notes * Significant Event - Meagan Gordillo - 12/16/2024 8:43 AM EDT 12/16/24 0842 Hospital Discharges and Admission for [facility] Type of Visit Hospital Admission Date of Admission/Visit 12/09/24 Date of Discharge 12/15/24 Facility [facility] Diagnosis PENDING Disposition Discharged Home Follow-Up Actions Follow-Up Needed Provider appointment Follow-Up Outcome Spoke to Caregiver Initial Contact Date 12/16/24 JOSESITO Nunez placed outbound call to patient for HDF outreach. Patient's name and were confirmed by Nurse Emanuel. Patient's nurse educated on the importance of follow up with provider following inpatient admission. Patient's nurse offered an HDF appt. Per Jenae patient never shows up to his appointment but is fine appointment can be schedule . When CC was going to schedule the HDF appointment, Nurse decided will call back because she is currently driving. JOSESITO had requested the discharge kaykay fax to us. documented in this encounter Plan of Treatment Not on file documented as of this encounter Visit Diagnoses Not on filedocumented in this encounter Care Teams Head Machinist Relationship Specialty Start Date End Date Curry Richard MD [address] [place] [address] PCP - General Internal Medicine 09/21/18 documented as of this encounter
--- OUTSIDE RECORDS SUMMARY | 2024-12-19 11:19 | XMS_ITS | Encounter Summary ---
Author Organization [employer] Address [address] [facility] 7t [place] [address] Care Team Providers Care Cell Reliner Name Role Phone Curry Richard MD Primary Care Provider [phone] Encounter Details Date Type Department Care Team ([facility] st Contact Info) Description 12/15/2024 Patient Outreach [facility] (C3) Department [address] [phone] Janet Lu LCSW Social History Tobacco Use [...] on filedocumented in this encounter Care Teams Cell Reliner Relationship Specialty Start Date End Date Curry Richard MD [address] [place] [phone] PCP - General Internal Medicine 09/21/18 documented as of this encounter
--- OUTSIDE RECORDS SUMMARY | 2024-12-19 11:19 | XMS_ITS | Encounter Summary ---
Author Organization [employer] Address [address] [facility] 7 [place] [address] Care Team Providers Care Ritual Circumciser Name Role Phone Curry Richard MD Primary Care Provider [phone] Reason for Visit * Reason Onset Date Comments Referral 11/13/2023 Encounter Details Date Type Department Care Team ([facility] st Contact Info) Description 11/13/2023 Telephone [facility] [address] [place] [address] Curry Richard MD [address] [place] [address] Referral Social History Tobacco Use Types Packs/Day [...] T/c to pt regarding referral request from [facility]. [facility] in [facility] Department ER for elbow bursitis and that pt has relocated to [facility]. Pt reported that he has an appointment with a provider pm the and is part of a detox program. Pt to follow up PRN. Pt's new number is [phone] * Telephone Encounter - Michael Pak - 11/13/2023 9:50 AM EST TC from Rose Mary working with [facility] requesting new referral: DATE: 11/16/23 TIME: 12:45 pm Address: [address] [place] [address] Visits: 12 Facility Name: [facility] Type of Specialist: Orthopedic DX: [id number] Provider : N/A Provider NPI : N/A Facility Phone # : [phone] Fax #: [phone] documented in this encounter Plan of Treatment Not on file documented as of this encounter Visit Diagnoses Not on filedocumented in this encounter Care Teams Ritual Circumciser Relationship Specialty Start Date End Date Curry Richard MD [address] [place] [address] PCP - General Internal Medicine 09/21/18 documented as of this encounter
--- OUTSIDE RECORDS SUMMARY | 2024-12-19 11:19 | XMS_ITS | Encounter Summary ---
Author Organization [employer] Address [address] [facility] 7 [place] [address] Care Team Providers Care Grain Commodity Manager Name Role Phone Curry Richard MD Primary Care Provider [phone] Encounter Details Date Type Department Care Team (Late st Contact Info) Description 07/27/2023 Abstract [facility] [address] [place] [address] Curry Richard MD [address] [place] [address] Social History Tobacco Use Types Packs/Day Years [...] on filedocumented in this encounter Care Teams Grain Commodity Manager Relationship Specialty Start Date End Date Curry Richard MD [address] [place] [address] PCP - General Internal Medicine 09/21/18 documented as of this encounter
--- OUTSIDE RECORDS SUMMARY | 2024-12-19 11:19 | XMS_ITS ---
Author Organization [facility] [employer] [facility] Address [address] [place] [address] 7t [place] [address] Care Team Providers Care Clinical Nursing Intern Name Role Phone Curry Richard MD Primary Care Provider [facility] Status:Enrolled (Active) Start date:12/13/2024 Enrollment date:12/13/2024 Enrollment reason:ADT Feed Case Team Name Relationship Phone Janet MCCAULEYW (Responsible Staff) Continued Care and Services Coordination
== END 2024-12-19 10:37 | disposition left against medical advice (07) ==
PROVIDERS: Emergency Provider Emergency Medicine
DX: M79.641 Pain in right hand (principal); Z53.21 Procedure and treatment not carried out due to patient leaving prior to being seen by health care provider
CPT/HCPCS: 99281

== ENCOUNTER 2025-01-14 04:49 | Emergency (ER) | payer MEDICAID, SELFPAY ==
[2025-01-14 05:23] VITALS: BP 135/94; PULSE 92; RESP 18; TEMP 36.8; O2SAT 97; BMI 17.0
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
--- NOTE | 2025-01-14 07:00 | PC.NURSE ---
report from Aniyah ABREU. patient currently sleeping, skin pwd, resp even and non labored. 1:[address] for safety.
--- NOTE | 2025-01-14 09:06 | PC.NURSE ---
patient sitting on edge of stretcher eating breakfast. care team currently talking to patient.
[2025-01-14 09:25] LABS: Amphetamine Screen Urine Not Detected (Not Detect); Barbiturates, Urine Not Detected (Not Detect); Benzodiazepines Screen Urine Not Detected (Not Detect); Buprenorphine Scr Not Detected (Not Detect); Cannabinoid Screen Urine POSITIVE (Not Detect); Cocaine Screen Urine POSITIVE (Not Detect); Fentanyl, urine Not Detected (Not Detect); Methadone Screen, Urine Not Detected (Not Detect); Opiate Screen Urine Not Detected (Not Detect); Oxycodone Screen Urine Not Detected (Not Detect); Phencyclidine Screen Urine Not Detected (Not Detect)
--- NOTE | 2025-01-14 10:30 | MHC.CARE ---
Pt will be a Dual DX bedsearch.
[2025-01-14 16:10] VITALS: BP 125/62; PULSE 93; RESP 14; TEMP 36.8; O2SAT 100
[2025-01-14 22:40] VITALS: BP 150/80; PULSE 65; RESP 18; TEMP 37.6; O2SAT 100
--- NOTE | 2025-01-14 23:46 | PC.NURSE ---
this rn assumed care of pt, pt resting in stretcher, no acute distress noted. sitter at bedside.
--- NOTE | 2025-01-15 00:53 | PC.NURSE ---
pt awake requesting gingerale. pt given gingerale in cup at this time, pt upset screaming fuck you give me the fucking can how am i going to kill myself with a can . pt informed that it is policy that he can not have can due to him being si, pt screaming at staff. at bedside, pt rolled over in stretcher to continue to rest.
[2025-01-15 05:19] VITALS: BP 161/56; PULSE 74; RESP 18; TEMP 36.3; O2SAT 98
--- NOTE | 2025-01-15 05:24 | PC.NURSE ---
this RN resumed care of pt at 0300. pt awake, alert and oriented requesting food. attempted to obtain patient's vital signs when he quickly became agitated stating, i don't need that shit. i'm not medical. i'm suicidal as shit. pt then agreeable to obtaining vitals as pt was provided w/ saltines and pudding. vss and up to date aside from being slightly hypertensive. pt otherwise offers no complaints. on RA w/o difficulty. no sob/wob noted. respirations even/unlabored. pt continues to pend dual dx bed search. plan of care ongoing.
--- NOTE | 2025-01-15 08:49 | PHA.MEDREC ---
Pharmacy Consult ? Medication Reconciliation Pharmacy has completed the medication reconciliation. Patient confirmed he takes no medications at home
--- NOTE | 2025-01-15 10:00 | PC.NURSE ---
Dual Diagnosis bedsearch continues per Elkin Butler (CARE team).
--- NOTE | 2025-01-15 10:27 | PC.NURSE ---
Patient repeatedly asking staff about his crutches. Stated Is a doctor going to give me new crutches or something? Where are my old ones? I need my crutches. I know that I can't have them in the pod, but I'm not in the pod . Explained that he is not allowed to have crutches at this time due to safety. Given requested urinal. Sitter remains present with Section [address] Mabry aware of patient's statements and requests. Belongings were secured upon arrival. Care ongoing by this RN.
--- NOTE | 2025-01-15 14:29 | PC.NURSE ---
Patient intermittently yelling/being argumentative towards staff demanding to see crisis/CARE team. Elkin Butler notified about this. Patient told this RN I need to see crisis because I'm suicidal . This RN notified Elkin regarding this statement, but pt wouldn't elaborate. Pt stated is it gonna take 5 fucking hours or something? This RN explained that I notified CARE team regarding the request, but that he was seen by Elkin this AM and bedsearch is ongoing. Patient to be seen again at CARE team's earliest convenience. About 5 minutes later, patient again demanded crisis team. This RN explained that I reached out to CARE team regarding the request and his vague suicidal statement. Patient then said now I'm mad! I did not say that I am suicidal! I am not suicidal! You stupid bitch! This RN explained that we have a zero tolerance for foul language and behaviors when I am actively advocating for him throughout this shift and to please be respectful. That type of behavior is not tolerated. roofer aware.
[2025-01-15 16:00] VITALS: BP 167/87; PULSE 72; RESP 18; TEMP 36.5; O2SAT 99
[2025-01-15] MEDS: Acetaminophen 325 MG TABLET 650 MG PO (18:38)
--- NOTE | 2025-01-15 18:40 | PC.NURSE ---
Patient is now claiming that he isn't suicidal. States I said that I was before, but now I'm not suicidal anymore. I'm not that smart. I don't want to go to some suicidal hospital. I just want detox for my drug problems. CARE team at bedside speaking with patient about this. CARE team to speak with provider & PACT tomorrow. Medicated with Tylenol per request, but patient refused to clarify pain scale. Patient is uncooperative, but not threatening. Occasionally demanding and yelling at staff for various things, occasional foul language.
[2025-01-16 00:05] VITALS: BP 158/99; PULSE 86; RESP 18; O2SAT 97
--- NOTE | 2025-01-16 00:05 | MHC.EDTECH ---
T/w approached Pt to do vitals and Pt immediately got agitated and initially refused. He then was agreeable and RN obtained vitals.
--- NOTE | 2025-01-16 07:37 | PC.NURSE ---
Pt is yelling that he wants to leave he states he wants off SI watch and needs to leave. He was made aware by several staff that he needs to wait to be reassessed by CARE team for any disposition changes. Pts behavior was agitated and loud. We were able to deescalate him and reeducated him on the process. Pt returned to sleeping.
[2025-01-16 08:03] VITALS: RESP 18
--- NOTE | 2025-01-16 08:18 | PC.NURSE ---
Pt reports feeling safe to go home, no longer endorses SI or wants detox. Pt agitated an in a drummond to leave to catch shuttle. Pt ambulatory with a steady gait with his crutches to the waiting room, did not want to wait for discharge paperwork.
== END 2025-01-16 08:29 | disposition home or self-care (01) ==
PROVIDERS: Emergency Provider Emergency Medicine Emergency Medical Services
DX: F33.1 Major depressive disorder, recurrent, moderate (principal); R45.851 Suicidal ideations; F14.10 Cocaine abuse, uncomplicated; Z51.81 Encounter for therapeutic drug level monitoring; Z79.899 Other long term (current) drug therapy
CPT/HCPCS: 80307; 99285; S9485

== ENCOUNTER 2025-01-17 02:26 | Emergency (ER) | payer MEDICAID, SELFPAY ==
--- NOTE | ~2025-01-17 | XR_ITS ---
CLINICAL HISTORY: fall RIGHT ELBOW X-RAYS COMPARISON: 11/02/2024. FINDINGS: A total of 3 views of the right elbow were obtained. No definite evidence of an acute fracture or dislocation in the right elbow. Triceps calcifications are again noted. No definite posterior fat pad sign on the lateral view. IMPRESSION: 1. No acute disease. This document has been electronically signed by: Wilfredo Caicedo M.D. on 01/17/2025 04:49:41
[2025-01-17 02:28] VITALS: BP 189/100; PULSE 96; RESP 18; TEMP 36.9; O2SAT 97; BMI 18.2
--- OUTSIDE RECORDS SUMMARY | 2025-01-17 02:49 | XMS_ITS | Encounter Summary ---
Author Organization [employer] Address 75 [facility] 7 [place] [address] Care Team Providers Care Web Coordinator Name Role Phone Curry Richard MD Primary Care Provider [phone] Reason for Visit * Reason Onset Date Comments Referral 11/13/2023 Encounter Details Date Type Department Care Team ([facility] st Contact Info) Description 11/13/2023 Telephone [facility] MEDICINE [address] [place] [address] Curry Richard MD [address] [place] [address] Referral Social History Tobacco Use Types Packs/Day [...] T/c to pt regarding referral request from [facility]. Rose Mary from [facility] reported that pt was seen in [facility] ER for elbow bursitis and that pt has relocated to [facility]. Pt reported that he has an appointment with a provider pm the and is part of a detox program. Pt to follow up PRN. Pt's new number is [phone] * Telephone Encounter - Michael Pak - 11/13/2023 9:50 AM EST TC from Rose Mary working with [facility] requesting new referral: DATE: 11/16/23 TIME: 12:45 pm Address: [address] [place] [address] Visits: 12 Facility Name: [facility] Type of Specialist: Orthopedic DX: M25.521 Provider : N/A Provider NPI : N/A Facility Phone # : [phone] Fax #: [phone] documented in this encounter Plan of Treatment Not on file documented as of this encounter Visit Diagnoses Not on filedocumented in this encounter Care Teams Web Coordinator Relationship Specialty Start Date End Date Curry Richard MD [address] [place] [address] PCP - General Internal Medicine 09/21/18 documented as of this encounter
--- OUTSIDE RECORDS SUMMARY | 2025-01-17 02:49 | XMS_ITS | Encounter Summary ---
Author Organization [employer] Address 75 [facility] 7t [place] [address] Care Team Providers Care Engineer Exhauster Name Role Phone Curry Richard MD Primary Care Provider [phone] Encounter Details Date Type Department Care Team ([facility] st Contact Info) Description 01/13/2025 Patient Outreach [facility] (C3) Department [address] [place] [phone] Aviva Bruno Social History Tobacco Use Types Packs/Day Years [...] as of this encounter Progress Notes * Aviva Bruno - 01/13/2025 11:00 AM EDT CHW called phone # listed, it belong to NEHEMIAH [employer] worker Member doesn't have a phone #, she will provide my contact information to member documented in this encounter Plan of Treatment Not on file documented as of this encounter Visit Diagnoses Not on filedocumented in this encounter Care Teams Engineer Exhauster Relationship Specialty Start Date End Date Curry Richard MD [address] [place] [address] PCP - General Internal Medicine 09/21/18 documented as of this encounter
--- OUTSIDE RECORDS SUMMARY | 2025-01-17 02:49 | XMS_ITS | Encounter Summary ---
Author Organization [employer] Address 75 [facility] 7t [place] [address] Care Team Providers Care Truck Repair Supervisor Name Role Phone Curry Richard MD Primary Care Provider [phone] Encounter Details Date Type Department Care Team ([facility] st Contact Info) Description 01/13/2025 Patient Outreach [facility] (C3) Department [address] [place] [phone] Aviva Bruno Social History Tobacco Use Types [...] on filedocumented in this encounter Care Teams Truck Repair Supervisor Relationship Specialty Start Date End Date Curry Richard MD [address] [place] [address] PCP - General Internal Medicine 09/21/18 documented as of this encounter
--- OUTSIDE RECORDS SUMMARY | 2025-01-17 02:49 | XMS_ITS ---
Author Organization [facility] [employer] [facility] Address [address] [place] [address] 7 [place] [address] Care Team Providers Care Hot Wire Glass Tube Cutter Name Role Phone Curry Richard MD Primary Care Provider [phone]- [phone] C3 [facility] Status:Outreach In Progress (Enrolling) Start date:01/06/2025 Enrollment reason:ADT Feed Case Team Name Relationship Phone Aviva Bruno Substation Maintenance Technician(Responsible Staff) Continued Care and Services Coordination
--- OUTSIDE RECORDS SUMMARY | 2025-01-17 02:49 | XMS_ITS | Encounter Summary ---
Author Organization [employer] Address 75 [facility] 7 [place] [address] Care Team Providers Care Manager Clinic Name Role Phone Curry Richard MD Primary Care Provider [phone]- [phone] Encounter Details Date Type Department Care Team (Late st Contact Info) Description 07/27/2023 Abstract [facility] [address] [place] [address] Curry Richard MD [address] [place] [address] Social History Tobacco Use Types Packs/Day Years [...] filedocumented in this encounter Care Teams Manager Clinic Relationship Specialty Start Date End Date Curry Richard MD [address] [place] [address] PCP - General Internal Medicine 09/21/18 documented as of this encounter
--- OUTSIDE RECORDS SUMMARY | 2025-01-17 02:49 | XMS_ITS | Encounter Summary ---
Author Organization [employer] Address 75 [facility] 7t [place] [address] Care Team Providers Care Promotions Specialist Name Role Phone Curry Richard MD Primary Care Provider [phone] Encounter Details Date Type Department Care Team ([facility] st Contact Info) Description 01/16/2025 Patient Outreach [facility] Care [facility] (C3) Department [address] [phone] Charisma Nice, LMHC Social History Tobacco Use Types Packs/Day Years [...] as of this encounter Progress Notes * JESSICA Burdick - 01/16/2025 8:22 AM EDT Second Outreach Post discharge [phone] [facility] PACT Staff indicated Member dont have a phone and its not there. Left contact information for [facility]. documented in this encounter Plan of Treatment Not on file documented as of this encounter Visit Diagnoses Not on filedocumented in this encounter Care Teams Promotions Specialist Relationship Specialty Start Date End Date Curry Richard MD [address] [place] [address] PCP - General Internal Medicine 09/21/18 documented as of this encounter
--- OUTSIDE RECORDS SUMMARY | 2025-01-17 02:49 | XMS_ITS ---
Author Organization [facility] [employer] [facility] Address [address] [place] [address] 7t [place] [address] Care Team Providers Care Agricultural Loan Officer Name Role Phone Curry Richard MD Primary Care Provider [phone] C3 [facility] Status:Outreach In Progress (Enrolling) Start date:01/02/2025 Enrollment reason:ADT Feed Case Team Name Relationship Phone Charisma Nice LMHC Boat Designer(Responsible Staff ) Continued Care and Services Coordination
--- OUTSIDE RECORDS SUMMARY | 2025-01-17 02:49 | XMS_ITS | Encounter Summary ---
Author Organization [employer] Address 75 [facility] 7t [place] [address] Care Team Providers Care Fitter Helper Name Role Phone Curry Richard MD Primary Care Provider [phone] Encounter Details Date Type Department Care Team ([facility] st Contact Info) Description 01/11/2025 Patient Outreach [facility] Care [facility] (C3) Department [address] [phone] Janet Lu LCSW Social History Tobacco Use [...] on filedocumented in this encounter Care Teams Fitter Helper Relationship Specialty Start Date End Date Curry Richard MD [address] [place] [address] PCP - General Internal Medicine 09/21/18 documented as of this encounter
--- OUTSIDE RECORDS SUMMARY | 2025-01-17 02:49 | XMS_ITS | Encounter Summary ---
Author Organization [employer] Address 75 [facility] 7t [place] [address] Care Team Providers Care Box Car Bracer Name Role Phone Curry Richard MD Primary Care Provider [phone] Encounter Details Date Type Department Care Team ([facility] st Contact Info) Description 01/12/2025 Patient Outreach [facility] Care [facility] (C3) Department [address] [phone] Charisma Nice, LMHC Social History Tobacco Use [...] encounter Progress Notes * JESSICA Burdick - 01/12/2025 9:20 AM EDT First Outreach Post discharge [phone] Jenae answered the phone, she stated number belongs to [facility] PACT and Member is not staying there anymore. documented in this encounter Plan of Treatment Not on file documented as of this encounter Visit Diagnoses Not on filedocumented in this encounter Care Teams Box Car Bracer Relationship Specialty Start Date End Date Curry Richard MD [address] [place] [address] PCP - General Internal Medicine 09/21/18 documented as of this encounter
--- OUTSIDE RECORDS SUMMARY | 2025-01-17 02:49 | XMS_ITS | Clinical Summary ---
Author Organization [employer] Address [address] [place] [address] 7t [place] [address] Care Team Providers Care Binding Dyer Name Role Phone Curry Richard MD Primary Care Provider [phone]- [phone] Allergies Active Allergy Reactions Criticality Noted Date Comments [place] 05/11/2012 Medications * This document contains information [...] organization. Date Type Department Care Team Description 01/16/2025 [facility] Outreach [facility] ([facility] Department [address] [place] [phone] Charisma Nice, [facility] 01/13/2025 Patient Outreach [facility] (C[facility] Department [address] [place] [address] BrunoAviva hartmann 01/13/2025 Patient Outreach [facility] (C[facility] Department [address] [place] [address] Bruno, Aviva 01/13/2025 Patient Outreach [facility] (C[facility] Department [address] [place] [address] Bruno, Aviva 01/13/2025 Patient Outreach [facility] (C3) Department [address] [place] [address] Bruno, Aviva 01/12/2025 Patient Outreach [facility] (C[facility] Department [address] [place] [phone] Charisma Nice, [facility] 01/11/2025 Patient Outreach [facility] (C3) Department [address] [place] [address] Charisma Nice, [facility] 01/11/2025 Patient Outreach [facility] (C3) Department [address] [place] [phone] Janet Lu LCSW 01/10/2025 Patient Outreach [facility] [address] [place] [address] Curry Richard MD Transition Of Care (Tcm) (HDF unscheduled.) 01/06/2025 Patient Outreach [facility] MEDICINE [address] [place] [address] Curry Richard MD Care Coordination ([facility] Program) 01/06/2025 Patient Outreach [facility] (C[facility] Department [address] [place] [address] Aviva Bruno 01/06/2025 Patient Outreach [facility] (C[facility]) Department [address] [place] [address] Aviva Bruno 01/06/2025 Patient Outreach [facility] (C[facility] Department [address] [place] [address] Charisma Nice, [facility] 01/05/2025 Patient Outreach [facility] (C[facility] Department [address] [place] [address] NiceJeannine aaronxa, [facility] 01/03/2025 Patient Outreach [facility] ([facility] Department [address] [place] [address] Charisma Nice, [facility] 01/02/2025 Patient Outreach [facility] MEDICINE [address] [place] [address] Curry Richard MD Care Coordination (CM/CHW outreach) 01/02/2025 Patient Outreach [facility] (C[facility] Department [address] [place] [address] Charisma Nice, [facility] 01/02/2025 Patient Outreach [facility] MEDICINE [address] [place] [address] Curry Richard MD Care Coordination (CHW Chart Review) 01/02/2025 Patient Outreach [facility] [address] [place] [address] Curry Richard MD Care Coordination (C3CM- chart review) 01/02/2025 Patient Outreach [facility] [address] [place] [address] Curry Richard MD 12/30/2024 Patient Outreach [facility] (C3[facility] Department [address] [place] [address] Janet Lu LCSW 12/30/2024 Patient Outreach [facility] (C[facility] Department [address] [place] [address] Janet Lu LCSW 12/28/2024 Patient Outreach [facility] [address] [place] [address] Curry Richard MD Transition Of Care (Tcm) 12/26/2024 Patient Outreach [facility] [address] [place] [address] Curry Richard MD Transition Of Care (Tcm) 12/21/2024 Patient Outreach [facility]operative () Department [address] [place] [phone] Janet Lu NETWORK PROGRAM MANAGER 12/19/2024 Patient Outreach [address] [address] Curry Richard MD Care Coordination (Outreach) 12/16/2024 Patient Outreach [facility] [address] [place] [address] Curry Richard MD Transition Of Care (Tcm) (HDF- Unscheduled -Nurse will call back) 12/15/2024 Patient Outreach [facility] () Department [address] [place] [address] Janet Lu LCSW 12/15/2024 Patient Outreach [facility] Care [facility] () Department [address] [place] [address] Janet Lu NETWORK PROGRAM MANAGER 12/13/2024 Patient Outreach [facility] Care [facility] () Department [address] [place] [address] Janet Lu NETWORK PROGRAM MANAGER 12/05/2024 Patient Outreach [facility] [address] [place] [address] Curry Richard MD Transition Of Care (Tcm) 12/02/2024 Population Health Risk Score [facility] Care [facility] (C3) Department [address] [place] [phone] Provider, Population Health Generic 11/28/2024 Patient Outreach [facility] MED & PEDS [address] [place] [address] Curry Richard MD Transition Of Care (Tcm) 11/21/2024 Patient Outreach [facility] [address] [place] [address] Curry Richard MD Transition Of Care (Tcm) 11/17/2024 Patient Outreach [facility] [address] [place] [address] Curry Richard MD Care Coordination (Outreach) 11/14/2024 Patient Outreach [facility] [address] [place] [address] Curry Richard MD Transition Of Care (Tcm) 11/01/2024 Patient Outreach [facility] [address] [place] [address] Curry Richard MD Transition Of Care (Tcm) 10/31/2024 Patient Outreach [facility] [address] [place] [address] Curry Richard MD Transition Of Care (Tcm) 10/28/2024 Patient Outreach [facility] [address] [place] [address] Curry Richard MD Care Coordination (Outreach) 10/28/2024 Patient Outreach [facility] [address] [place] [address] Curry Richard MD Transition Of Care (Tcm) 10/24/2024 Patient Outreach [facility] [address] [place] [address] Curry Richard MD Transition Of Care (Tcm) 10/21/2024 Patient Outreach [facility] [address] [place] [address] Curry Richard MD Transition Of Care (Tcm) 10/21/2024 Patient Outreach [facility] [address] [place] [address] Curry Richard MD Care Coordination (Outreach) from [...] 2024 , 07/08/2022, 07/04/2021, Additional history exists SDOH Screening 01/19/2025 01/20/2024 Tobacco Screening 01/19/2025 01/20/2024 DTaP/Tdap/Td Vaccines (6 - [...] Generation, with Reflexes (09/06/2024 12:46 PM EST) Pathologist [facility] HIV AB/AG Nonreactive Nonreactive [facility] Comment:HIV-1 p24 Ag and/or HIV-1/HIV-2 Ab not detected.A test result that is nonreactive does not exclude thepossibility of exposure to or infection with HIV-1 and/orHIV-2. Nonreactive results in this assay for individualswith prior exposure to HIV-1 and/or HIV-2 may be due toantigen and antibody levels that are below the limit ofdetection of this assay.The [employer] HIV Ag/Ab Combo assay result andsupplemental assay results should be interpreted inconjunction with the patient's clinical presentation,history and other laboratory results. If the results areinconsistent with clinical evidence, additional testing issuggested to confirm the result. 09/06/2024 12:4 6 PM EST 09/06/2024 12:46 PM EST us Curry Richard MD LAB BLOOD ORDERABLES Final Result [facility] [address] [place] [address] [phone] from Last 3 Months or Most Recently Relevant to Health Maintenance Insurance [facility] C3 Care Teams Binding Dyer Relationship Specialty Start Date End Date Curry Richard MD [address] [place] [address] PCP - General Internal Medicine 09/21/18
--- OUTSIDE RECORDS SUMMARY | 2025-01-17 02:49 | XMS_ITS | Encounter Summary ---
Author Organization [employer] Address 75 [facility] 7t [place] [address] Care Team Providers Care Toy Maker Name Role Phone Curry Richard MD Primary Care Provider [phone] Encounter Details Date Type Department Care Team ([facility] st Contact Info) Description 01/13/2025 Patient Outreach [facility] (C3) Department [address] [place] [phone] Aviva Bruno Social History Tobacco Use Types [...] on filedocumented in this encounter Care Teams Toy Maker Relationship Specialty Start Date End Date Curry Richard MD [address] [place] [address] PCP - General Internal Medicine 09/21/18 documented as of this encounter
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
[2025-01-17 05:01] VITALS: BP 189/100; PULSE 96; RESP 18; TEMP 36.9; O2SAT 97
== END 2025-01-17 05:01 | disposition home or self-care (01) ==
PROVIDERS: Emergency Provider Emergency Medicine
DX: S50.01XA Contusion of right elbow, initial encounter (principal); W19.XXXA Unspecified fall, initial encounter; Y93.9 Activity, unspecified; Y92.9 Unspecified place or not applicable; Y99.9 Unspecified external cause status; M25.521 Pain in right elbow
CPT/HCPCS: 73080; 99283

== ENCOUNTER → 2025-01-17 02:29 | Outpatient (BNV) | payer MEDICAID, SELFPAY | PROVIDERS: Emergency Provider Emergency Medicine; Visit Provider Radiology Diagnostic Radiology | DX: S50.01XA Contusion of right elbow, initial encounter (principal) | CPT/HCPCS: 73080 ==